=== PATIENT | female | born 1965 | race Caucasian/White ===

== ENCOUNTER 2016-10-07 21:02 | Emergency (ER) | payer MEDICARE, MEDICAID ==
--- NOTE | 2016-10-07 22:13 | ER Document Report ---
ED General - General Chief Complaint: Psych Problem Stated Complaint: PSYCH EVALUATION Mode of Arrival: Medic Information source: Patient, Emergency Med Personnel, [facility] Records Notes: This is a 51-year-old female resident of a half-way who is brought to the emergency department after having a violent and combative outburst with the nurses and staff at the half-way. The patient tells me that the argument was about her medication. Of note chart review reveals that patient has been seen and evaluated multiple times over the past few years for similar outburst. EMS did administer 5 mg of Haldol IM as well as soft restraints. On arrival to the ER patient is calm and conversant. She denies any complaints at this time. TRAVEL OUTSIDE OF THE [place] IN LAST 30 DAYS: No - Related Data Allergies/Adverse Reactions: tramadol [Tramadol] Allergy (Verified 10/21/14 17:46) Nausea adhesive tape [Adhesive Tape] Adverse Reaction (Verified 10/21/14 17:46) peels skin off Past Medical History - General Information source: [facility] Records - Social History Smoking Status: Never Smoker Family History: None - Past Medical History Cardiac Medical History: Reports: Hx Hypercholesterolemia, Hx Hypertension - medicated Denies: Hx Heart Attack, Hx Heart Murmur Pulmonary Medical History: Denies: Hx Asthma, Hx Tuberculosis Neurological Medical History: Denies: Hx Cerebrovascular Accident, Hx Seizures Endocrine Medical History: Reports: Hx Diabetes Mellitus Type 2 GI Medical History: Reports: Hx Gastroesophageal Reflux Disease. Denies: Hx Hepatitis, Hx Hiatal Hernia, Hx Ulcer Musculoskeltal Medical History: Reports Hx Arthritis Psychiatric Medical History: Reports: Hx Anxiety, Hx Depression - Anxiety Infectious Medical History: Denies: Hx Hepatitis, Hx HIV Past Surgical History: Reports: Hx Section, Hx Orthopedic Surgery - R Hip, Hx Tonsillectomy. Denies: Hx Hysterectomy, Hx Mastectomy, Hx Open Heart Surgery, Hx Pacemaker - Immunizations Hx Diphtheria, Pertussis, Tetanus Vaccination: Yes - unknown Hx Pneumococcal Vaccination: 05/12/12 Review of Systems - Review of Systems Constitutional: No symptoms reported. denies: Fever EENT: denies: Nose congestion Cardiovascular: No symptoms reported. denies: Chest pain Respiratory: No symptoms reported. denies: Short of breath Gastrointestinal: No symptoms reported. denies: Abdominal pain Genitourinary: denies: No symptoms reported Skin: denies: No symptoms reported Physical Exam - Vital signs Vitals: Temp Pulse Resp BP Pulse Ox 97.7 F 123 H 18 110/81 96 10/07/16 22:00 10/07/16 22:00 10/07/16 22:00 10/07/16 22:00 10/07/16 22:00 - Notes Notes: PHYSICAL EXAMINATION: GENERAL: Well-appearing, well-nourished and in no acute distress. Somewhat tearful when discussing events at the [facility] HEAD: Atraumatic, normocephalic. EYES: Pupils equal round and reactive to light, extraocular movements intact, sclera anicteric, conjunctiva are normal. ENT: nares patent, oropharynx clear without exudates. Moist mucous membranes. NECK: Normal range of motion, supple without lymphadenopathy LUNGS: Breath sounds clear to auscultation bilaterally and equal. No wheezes rales or rhonchi. HEART: Regular rate and rhythm without murmurs ABDOMEN: Soft, nontender, normoactive bowel sounds. There is a ventral incisional hernia, soft and nontender. No guarding, no rebound. EXTREMITIES: Normal range of motion, no pitting or edema. No cyanosis. NEUROLOGICAL: Alert and oriented to person place and time. No focal motor or sensory deficits appreciated PSYCH: Normal mood, somewhat anxious affect SKIN: Warm, Dry, normal turgor, no rashes or lesions noted. Course - Re-evaluation Re-evalutation: 10/08/16 00:36 Patient has remained calm and cooperative during her stay in the emergency department. 10/08/16 01:29 Labs demonstrate leukocytosis and hyperglycemia. Chart review demonstrates that in the past when she has had these outbursts several times she has had a urinary tract infection. Today her urinalysis demonstrates signs of possibly an early UTI. We will treat with a short course of antibiotics and follow-up primary care physician. Patient is very agreeable to returning to the [facility]. She is feeling better and is not agitated. At this time I see no clinical indication for involuntary commitment. - Vital Signs Vital signs: Temp Pulse Resp BP Pulse Ox 97.7 F 123 H 18 110/81 96 10/07/16 22:00 10/07/16 22:00 10/07/16 22:00 10/07/16 22:00 10/07/16 22:00 - Laboratory Result Diagrams: 10/07/16 22:05 10/07/16 22:05 Laboratory results interpreted by me: 10/07/16 10/07/16 10/08/16 22:05 22:05 00:35 WBC 15.7 H Plt Count 147 L Seg Neutrophils % 80.3 H Lymphocytes % 11.2 L Absolute Neutrophils 12.6 H Sodium 136.3 L Glucose 187 H Ur Leukocyte Esterase TRACE H Salicylates < 1.0 L Acetaminophen < 10 L Discharge - Discharge Clinical Impression: Behavior disturbance Urinary tract infection Qualifiers: Urinary tract infection type: site unspecified Hematuria presence: without hematuria Qualified Code(s): N39.0 - Urinary tract infection, site not specified Condition: Stable Disposition: [facility] Additional Instructions: URINARY TRACT INFECTION: Your evaluation indicates that you have a urinary tract infection. This is due to germs growing in the bladder. This is a common problem. This infection usually responds quickly to antibiotics. Your antibiotic should be taken exactly as prescribed. Drink plenty of fluids -- three to four quarts a day. Occasionally, a bladder anesthetic will be prescribed to help stop the feeling of urgency until the antibiotic has a chance to clear the infection. This may cause your urine to be dark orange. Certain urine infections require a culture. If the doctor obtained a culture, the results will be back in two days. You should call to see if a change in treatment is needed. A repeat urinalysis after you finish treatment is often recommended. The physician will let you know if further testing is required. Call the doctor if you develop fever, chills, flank pain, inability to urinate, or blood in the urine. ANTIBIOTIC THERAPY: You have been given an antibiotic prescription. It's important that you take all the medication, unless instructed otherwise by your physician. Failure to complete the entire course can result in relapse of your condition. Common side effects of antibiotics include nausea, intestinal cramping, or diarrhea. Women may develop vaginal yeast infections, and babies can get yeast (thrush) in the mouth following the use of antibiotics. Contact your physician if you develop significant side effects from this medication. Allergy to this antibiotic can result in hives, wheezing, faintness, or itching. If symptoms of allergy occur, stop the medication and call the doctor. TRIMETHOPRIM-SULFA: You have been given a prescription for trimethoprim-sulfa (TMS, Septra, Bactrim). This is a combination antibiotic of the sulfa class, often used for urinary tract infections, middle ear infections, bronchitis, shigella intestinal infection, and Pneumocystis pneumonia. TMS is usually well-tolerated. Occasional side effects include nausea and decreased appetite. Septra is not recommended for infants less than two months of age. Do not take this medication if you have experienced severe side effects or allergy to sulfa medicine. You should stop this medicine at once and contact your physician if you develop any rash, joint pain, shortness of breath, bruising, or jaundice ( yellow color in the skin), or if you develop any other new or unusual symptoms. FOLLOW-UP CARE: If you have been referred to a physician for follow-up care, call the physician s office for an appointment as you were instructed or within the next two days. If you experience worsening or a significant change in your symptoms, notify the physician immediately or return to the Emergency Department at any time for re-evaluation. Prescriptions: Sulfamethoxazole/Trimethoprim [Bactrim Ds Tablet] 1 each PO BID #10 tablet
[2016-10-07 22:58] LABS: ABSOLUTE LYMPHOCYTES (AUTO) 1.8 10^3/uL (0.5-4.7); ABSOLUTE MONOCYTES (AUTO) 1.3 10^3/uL (0.1-1.4); ABSOLUTE NEUT (AUTO) 12.6 10^3/uL (1.7-8.2); BASOPHILS % (AUTO) 0.1 % (0-2); EOSINOPHILS % (AUTO) 0.3 % (0-6); HEMATOCRIT 44.3 % (36.0-47.0); HEMOGLOBIN 14.8 g/dL (12.0-15.5); HGB HCT DIFFERENCE 0.1; LYMPHOCYTES % (AUTO) 11.2 % (13-45); MEAN CORPUSCULAR HEMOGLOBIN 28.2 pg (27.0-33.4); MEAN CORPUSCULAR HGB CONC 33.5 g/dL (32.0-36.0); MEAN CORPUSCULAR VOLUME 84 fl (80-97); MONOCYTES % (AUTO) 8.1 % (3-13); RED BLOOD COUNT 5.26 10^6/uL (3.72-5.28); RED CELL DISTRIBUTION WIDTH 13.6 % (11.5-14.0); SEGMENTED NEUTROPHILS % (AUTO) 80.3 % (42-78); WHITE BLOOD COUNT 15.7 10^3/uL (4.0-10.5)
[2016-10-07 23:17] LABS: ALANINE AMINOTRANSFERASE 30 U/L (9-52); ALBUMIN 4.4 g/dL (3.5-5.0); ALKALINE PHOSPHATASE 122 U/L (38-126); ANION GAP 14 (5-19); ASPARTATE AMINO TRANSFERASE 26 U/L (14-36); BILIRUBIN,TOTAL 0.7 mg/dL (0.2-1.3); BLOOD UREA NITROGEN 9 mg/dL (7-20); CALCIUM 9.9 mg/dL (8.4-10.2); CARBON DIOXIDE 23 mmol/L (22-30); CHLORIDE 99 mmol/L (98-107); CREATININE RESULT 0.79 mg/dL (0.52-1.25); GLUCOSE 187 mg/dL (75-110); POTASSIUM 3.6 mmol/L (3.6-5.0); SODIUM 136.3 mmol/L (137-145); TOTAL PROTEIN 6.6 g/dL (6.3-8.2)
[2016-10-07 23:18] LABS: ALCOHOL < 10 mg/dL (NONE DETECTED)
[2016-10-08 01:14] LABS: URINE BARBITURATES SCREEN NEGATIVE; URINE METHADONE SCREEN NEGATIVE; URINE OPIATES LOW NEGATIVE; URINE PHENCYCLIDINE SCREEN NEGATIVE
[2016-10-08 01:21] LABS: APPEARANCE,URINE SLIGHTLY-CLOUDY; BILIRUBIN,URINE NEGATIVE (NEGATIVE); GLUCOSE, URINE NEGATIVE (NEGATIVE); KETONES,URINE NEGATIVE (NEGATIVE); LEUKOCYTE ESTERASE,URINE TRACE (NEGATIVE); NITRITE,URINE NEGATIVE (NEGATIVE); PROTEIN,URINE NEGATIVE (NEGATIVE); URINE SPECIFIC GRAVITY 1.016; UROBILINOGEN,URINE NEGATIVE mg/dL (<2.0)
[2016-10-08] MEDS ORDERED: SULFAMETHOXAZOLE/TRIMETHOPRIM 800-160 MG TABLET PO ONE (01:34)
[2016-10-08 03:45] VITALS: BP 111/77
--- NOTE | 2016-10-08 08:07 | EKG REPORT ---
SEVERITY:- BORDERLINE ECG - SINUS TACHYCARDIA BORDERLINE T ABNORMALITIES, ANTERIOR LEADS : Confirmed by: Taiwo Correa MD 08-Oct-2016 08:06:55
== END 2016-10-08 03:30 ==
LOC: ER 21:02
DX: F91.9 Conduct disorder, unspecified (principal); N39.0 Urinary tract infection, site not specified; R45.6 Violent behavior; I10 Essential (primary) hypertension; E11.65 Type 2 diabetes mellitus with hyperglycemia; D72.829 Elevated white blood cell count, unspecified; Z88.5 Allergy status to narcotic agent
CPT/HCPCS: 93005; 99285; 36415; 80307 ×4; 85025; 80053; 81001; 93010; A9270

== ENCOUNTER 2016-10-11 21:31 | Emergency (ER) | payer MEDICARE, MEDICAID ==
[2016-10-11] MEDS ORDERED: LIDOCAINE 1%/EPINEPHRINE INJ 20 ML VIAL INJ ONE (22:21)
--- NOTE | 2016-10-11 23:08 | ER Document Report ---
ED General - General TRAVEL OUTSIDE OF THE [place] IN LAST 30 DAYS: No <CRUZ HILL - Last Filed: 10/12/16 08:03> <CELESTE JIMENEZ - Last Filed: 10/13/16 11:53> - General Chief Complaint: Psych Problem Stated Complaint: PSYCH EVALUATION Notes: Patient is a 51-year-old female presents with complaint of suicidal ideations and wrist behavior. She says the longterm. She had to receive 5 of Haldol and 2 Versed IM as well as Benadryl 25 IM from the paramedics. Patient admits that she broke a jewelry box and cut her leg with this. She has a 4 inch laceration over the her right knee. Not to me why she did this. She will not tell me why she got upset. She does have a previous history of similar episodes in the past. (CRUZ HILL) - Related Data Allergies/Adverse Reactions: tramadol [Tramadol] Allergy (Verified 10/21/14 17:46) Nausea adhesive tape [Adhesive Tape] Adverse Reaction (Verified 10/21/14 17:46) peels skin off Home Medications: Current Home Medications Dextrose 50 % in Water [Dextrose 50%-Water Syringe] 50 ml IV .ASDIR 10/12/16 [ History] Glucagon,Human Recombinant [Glucagon Emergency Kit] 1 mg IM .ASDIR 10/12/16 [ History] Insulin Aspart [Novolog Insulin (Aspart) 100 unit/mL] 0 units SQ .PERSLIDINGSCALE 10/12/16 [History] Insulin Glargine,Hum.rec.anlog [Lantus] 30 units SQ QHS 10/12/16 [History] Melatonin 3 mg PO QHS 10/12/16 [History] Quetiapine Fumarate [Seroquel] 50 mg PO BID@0800,2200 10/12/16 [History] Sertraline HCl [Zoloft] 100 mg PO DAILY 10/12/16 [History] Past Medical History - Social History Smoking Status: Unknown if Ever Smoked Frequency of alcohol use: None Drug Abuse: None Family History: None - Past Medical History Cardiac Medical History: Reports: Hx Hypercholesterolemia, Hx Hypertension - medicated Denies: Hx Heart Attack, Hx Heart Murmur Pulmonary Medical History: Denies: Hx Asthma, Hx Tuberculosis Neurological Medical History: Denies: Hx Cerebrovascular Accident, Hx Seizures Endocrine Medical History: Reports: Hx Diabetes Mellitus Type 2 GI Medical History: Reports: Hx Gastroesophageal Reflux Disease. Denies: Hx Hepatitis, Hx Hiatal Hernia, Hx Ulcer Musculoskeltal Medical History: Reports Hx Arthritis Psychiatric Medical History: Reports: Hx Anxiety, Hx Depression - Anxiety Infectious Medical History: Denies: Hx Hepatitis, Hx HIV Past Surgical History: Reports: Hx Section, Hx Orthopedic Surgery - R Hip, Hx Tonsillectomy. Denies: Hx Hysterectomy, Hx Mastectomy, Hx Open Heart Surgery, Hx Pacemaker - Immunizations Hx Diphtheria, Pertussis, Tetanus Vaccination: Yes - unknown Hx Pneumococcal Vaccination: 05/12/12 <CRUZ HILL - Last Filed: 10/12/16 08:03> Review of Systems <CRUZ HILL - Last Filed: 10/12/16 08:03> <CELESTE JIMENEZ - Last Filed: 10/13/16 11:53> - Review of Systems Notes: My Normal Review Basic REVIEW OF SYSTEMS: CONSTITUTIONAL : Denies fever, chills, or sweats. Denies recent illness. EENT: Denies eye, ear, throat, or mouth pain or symptoms. Denies nasal or sinus congestion. CARDIOVASCULAR: Denies chest pain. RESPIRATORY: Denies cough, cold, or chest congestion. Denies shortness of breath, difficulty breathing, or wheezing. GASTROINTESTINAL: Denies abdominal pain. Denies nausea, vomiting, or diarrhea. Denies constipation. Last BM: MUSCULOSKELETAL: Denies neck or back pain or joint pain or swelling. SKIN: Denies rash or skin lesions. NEUROLOGICAL: Denies altered mental status or loss of consciousness. Denies headache. Denies weakness or paralysis or loss of use of either side. Denies problems with gait or speech. Denies sensory or motor loss. PSYCHIATRIC: Suicidal ALL OTHER SYSTEMS REVIEWED AND NEGATIVE. (CRUZ HILL) Physical Exam <CRUZ HILL - Last Filed: 10/12/16 08:03> <CELESTE JIMENEZ - Last Filed: 10/13/16 11:53> - Vital signs Vitals: Temp Pulse Resp BP Pulse Ox 97.6 F 113 H 18 105/69 98 10/12/16 02:11 10/12/16 02:11 10/12/16 02:11 10/12/16 02:11 10/12/16 02:11 - Notes Notes: General Appearance: Well nourished, alert, cooperative, no acute distress, no obvious discomfort. Vitals: reviewed, See vital signs table. Head: Multiple self-induced scratches over her face. Eyes: PERRL, EOMI, Conjuctiva clear Mouth: No decreasd moisture Throat: No tonsillar inflammation, No airway obstruction, No lymphadenopathy Neck: Supple, no neck tenderness, No thyromegaly Lungs: No wheezing, No rales, No rhonci, No accessory muscle use, good air exchange bilaterally. Heart: Normal rate, Regular rythm, No murmur, no rub Abdomen: Normal BS, soft, No rigidity, No abdominal tenderness, No guarding, no rebound, no abdominal masses, no organomegaly Extremities: strength 5/5 in all extremities, good pulses in all extremities, laceration over the anterior right knee . No edema. Skin: warm, dry, appropriate color, no rash Neuro: speech clear, oriented x 3, normal affect, responds appropriately to questions. (CRUZ HILL) Course - Laboratory Result Diagrams: 10/12/16 00:52 10/12/16 00:52 <CRUZ HILL - Last Filed: 10/12/16 08:03> - Laboratory Result Diagrams: 10/12/16 00:52 10/12/16 00:52 <CELESTE JIMENEZ - Last Filed: 10/13/16 11:53> - Vital Signs Vital signs: Temp Pulse Resp BP Pulse Ox 98.4 F 77 20 118/77 99 10/13/16 06:32 10/13/16 06:32 10/13/16 06:32 10/13/16 06:32 10/13/16 06:32 - Laboratory Laboratory results interpreted by me: 10/12/16 10/12/16 10/12/16 00:52 00:52 06:47 WBC 16.1 H Seg Neutrophils % 83.7 H Lymphocytes % 9.4 L Absolute Neutrophils 13.5 H Sodium 136.6 L Carbon Dioxide 21 L BUN 6 L Glucose 127 H POC Glucose 127 H Urine Ketones Salicylates < 1.0 L Acetaminophen < 10 L 10/12/16 10/12/16 10/12/16 07:20 11:25 16:15 WBC Seg Neutrophils % Lymphocytes % Absolute Neutrophils Sodium Carbon Dioxide BUN Glucose POC Glucose 178 H 365 H Urine Ketones TRACE H Salicylates Acetaminophen 10/13/16 10/13/16 07:26 11:00 WBC Seg Neutrophils % Lymphocytes % Absolute Neutrophils Sodium Carbon Dioxide BUN Glucose POC Glucose 118 H 275 H Urine Ketones Salicylates Acetaminophen - EKG Interpretation by Me Additional EKG results interpreted by me: 10/12/16 01:04 EKG is reviewed and interpreted by me. EKG shows sinus tachycardia with a rate of [address] segment elevation or depression. No ischemic T wave inversions. FL level, QRS duration are within normal range. QTc all slightly prolonged. Old EKG for comparison is from 10/07/2016. (CRUZ HILL) - Transfer of Care Notes: 10/12/16 08:03 Patient is medically stable for psychiatric evaluation and placement due to her suicidal ideations and attempt at hurting herself by stabbing herself in the thigh. Dictation of this chart was performed using voice recognition software; therefore, there may be some unintended grammatical errors. (CRUZ HILL) Procedures - Laceration/Wound Repair Right Thigh Wound length (cm): 10 Wound's Depth, Shape: Linear Anesthetic type: 1% Lidocaine w/epi Volume Anesthetic (mLs): 5 Wound explored: Clean Irrigated w/ Saline (mLs): 80 Wound Repaired With: Sutures Suture Size/Type: 4:0, Ethilon Number of Sutures: 8 Post-procedure NV exam normal: Yes Complications: No <CRUZ HILL - Last Filed: 10/12/16 08:03> Discharge <CRUZ HILL - Last Filed: 10/12/16 08:03> <CELESTE JIMENEZ - Last Filed: 10/13/16 11:53> - Discharge Clinical Impression: Suicidal ideation Laceration of right thigh Qualifiers: Encounter type: initial encounter Qualified Code(s): S71.111A - Laceration without foreign body, right thigh, initial encounter Condition: Stable Disposition: HOME, SELF-CARE Additional Instructions: LACERATION CARE: Your laceration has been sutured to keep the skin edges aligned during healing. The time of suture removal depends on the nature and location of your cut. Please follow the care instructions the doctor has outlined for you and return for further care, according to the schedule you've been given. Keep the wound and dressing clean. Unless you were told otherwise, you may shower daily, blotting the wound dry with a clean, unused towel. At other times, If the dressing gets wet or blood soaked, remove it and blot the wound dry, then reapply a new dressing. Unless you were instructed otherwise, dressings should be changed at least daily. If any signs of infection occur (swelling, redness, drainage, increasing tenderness, red streaks, tender lumps in the armpit or groin above the laceration, or fever), see the doctor immediately. SOAP CLEANSING: Gently wash the wound daily using a mild soap (like Ivory, Phisoderm, Neutrogena). Use warm water, rubbing gently until all debris, ooze, and crusting have been washed from the wound. Allow to dry briefly (about 10 minutes) after cleaning. Repeat this cleansing at least three times a day for the first two days and then once or twice a day. ANTIBIOTIC OINTMENT PROTECTION: Your wounds are such that dressing them is not practical or optional. After cleansing, you should apply a thin coating of antibiotic ointment ( Bacitracin, not Neosporin) to the wounds at least three times daily. This lessens infection risk, and may decrease the amount of scarring. Use a q-tip or dull butter knife, not your finger, to apply this ointment. Any debris or ooze which builds up in the ointment should be gently rubbed off with a sterile gauze pad. Harder crusting may need to be gently scrubbed off with a clean wash cloth with soap and warm water, perhaps applying a warm, wet wash cloth to the wound for ten minutes first. Development of redness, severe itching, or blistering may mean allergy to the ointment. See the doctor. FOLLOW-UP CARE: Your sutures should be removed in 7 days. To facilitate a timely removal of your sutures, you may return to the Emergency Department at [facility]. You do not need to call for an appointment, but the best time to come in for suture removal is early in the morning. If you have been referred to another physician for follow-up care, call that physicians office for an appointment as you were instructed. If you experience a significant change in your laceration, or if you are concerned there may be an infection (swelling, redness, drainage, increasing tenderness, red streaks, tender lumps in the armpit or groin above the laceration, or fever) , return to the Emergency Department immediately re-evaluation. DEPRESSION: Your evaluation reveals that you have mental depression. While symptoms may be vague, they often include disturbance of sleep, fatigue, loss of appetite , and general loss of interest in life. While depression may be a side effect of drugs, or a reaction to a major change in your life, many cases have no known cause. If depression is acute, and related to a major loss in your life, you can expect it to clear completely with time. If you have been depressed a long time , are prone to repeated bouts of depression or low mood, or have been thinking of suicide, get help. Depression can be treated with anti-depressant medication and counselling. Long-term depression will often take a few weeks to clear, even with appropriate medication. Follow-up care is important. SUICIDAL IDEATION: Suicidal ideation is a common medical term for thoughts about suicide, which may be as detailed as a formulated plan, without the suicidal act itself. Although most people who undergo suicidal ideation do not commit suicide, some go on to make suicide attempts. The range of suicidal ideation varies greatly from fleeting to detailed planning, role playing, and unsuccessful attempts. While thoughts about suicide are common, most people do not carry out serious actions to commit suicide. Based upon your evaluation and discussion with you, we do not believe you are currently at risk to act upon your thoughts of suicide. You have agreed to return to the Emergency Department, at any time , if you feel inclined to act upon your suicidal thoughts. FOLLOW-UP CARE: If you have been referred to a physician for follow-up care, call the physician s office for an appointment as you were instructed or within the next two days. If you experience worsening or a significant change in your symptoms, notify the physician immediately or return to the Emergency Department at any time for re-evaluation. You should be followed up by a mental health provider at your living facility, [facility]. Prescriptions: Buspirone HCl [Buspar 10 mg Tablet] 10 mg PO QHS #5 tablet Levetiracetam [Keppra 500 mg Tablet] 500 mg PO BID #10 tablet
[2016-10-11] MEDS ORDERED: LIDOCAINE 1.5%/EPINEPHRINE INJ-PF 30 ML SDV ONE (23:40)
[2016-10-11] MEDS ORDERED: LIDOCAINE 1%/EPINEPHRINE INJ 20 ML VIAL ONE (23:41)
[2016-10-12 01:02] LABS: ABSOLUTE LYMPHOCYTES (AUTO) 1.5 10^3/uL (0.5-4.7); ABSOLUTE MONOCYTES (AUTO) 1.1 10^3/uL (0.1-1.4); ABSOLUTE NEUT (AUTO) 13.5 10^3/uL (1.7-8.2); BASOPHILS % (AUTO) 0.1 % (0-2); EOSINOPHILS % (AUTO) 0.2 % (0-6); LYMPHOCYTES % (AUTO) 9.4 % (13-45); MEAN CORPUSCULAR HEMOGLOBIN 27.8 pg (27.0-33.4); MEAN CORPUSCULAR HGB CONC 33.3 g/dL (32.0-36.0); MEAN CORPUSCULAR VOLUME 84 fl (80-97); MONOCYTES % (AUTO) 6.6 % (3-13); RED BLOOD COUNT 5.03 10^6/uL (3.72-5.28); RED CELL DISTRIBUTION WIDTH 13.4 % (11.5-14.0); SEGMENTED NEUTROPHILS % (AUTO) 83.7 % (42-78); WHITE BLOOD COUNT 16.1 10^3/uL (4.0-10.5)
[2016-10-12 01:50] LABS: ALANINE AMINOTRANSFERASE 42 U/L (9-52); ALBUMIN 4.1 g/dL (3.5-5.0); ALKALINE PHOSPHATASE 124 U/L (38-126); ANION GAP 15 (5-19); ASPARTATE AMINO TRANSFERASE 29 U/L (14-36); BILIRUBIN,TOTAL 0.6 mg/dL (0.2-1.3); BLOOD UREA NITROGEN 6 mg/dL (7-20); CALCIUM 9.6 mg/dL (8.4-10.2); CARBON DIOXIDE 21 mmol/L (22-30); CHLORIDE 101 mmol/L (98-107); CREATININE RESULT 0.97 mg/dL (0.52-1.25); GLUCOSE 127 mg/dL (75-110); POTASSIUM 3.8 mmol/L (3.6-5.0); SODIUM 136.6 mmol/L (137-145); TOTAL PROTEIN 6.3 g/dL (6.3-8.2)
[2016-10-12 01:53] LABS: ALCOHOL < 10 mg/dL (NONE DETECTED)
[2016-10-12] MEDS ORDERED: DIPHENHYDRAMINE HCL 25 MG CAPSULE PO ONE (03:43)
[2016-10-12 07:52] LABS: APPEARANCE,URINE CLEAR; BILIRUBIN,URINE NEGATIVE (NEGATIVE); GLUCOSE, URINE NEGATIVE (NEGATIVE); KETONES,URINE TRACE mg/dL (NEGATIVE); LEUKOCYTE ESTERASE,URINE NEGATIVE (NEGATIVE); NITRITE,URINE NEGATIVE (NEGATIVE); PROTEIN,URINE NEGATIVE (NEGATIVE); URINE SPECIFIC GRAVITY 1.011; UROBILINOGEN,URINE NEGATIVE mg/dL (<2.0)
[2016-10-12 08:06] LABS: URINE BARBITURATES SCREEN NEGATIVE; URINE METHADONE SCREEN NEGATIVE; URINE OPIATES LOW NEGATIVE; URINE PHENCYCLIDINE SCREEN NEGATIVE
--- NOTE | 2016-10-12 09:17 | EKG REPORT ---
SEVERITY:- ABNORMAL ECG - SINUS TACHYCARDIA LEFT ATRIAL ABNORMALITY : Confirmed by: Taiwo Correa MD 12-Oct-2016 09:17:09
[2016-10-12] MEDS ORDERED: ACETAMINOPHEN 325 MG TABLET PO PRN (09:33)
--- NOTE | 2016-10-12 09:34 | ER Document Report ---
Doctor's Note Notes: 10/12/16 09:34 Patient seen and only complaining that she is feeling warm. No fever. No signs of infection of her wounds. Provided Tylenol for discomfort. Awaiting psych recommendations.
[2016-10-12] MEDS ORDERED: DEXTROSE 50%-WATER SYRINGE 25 GM/50 ML DOSE IV PRN (09:35)
[2016-10-12] MEDS ORDERED: DEXTROSE 40% GEL 15 GM TUBE X 2 PO PRN (09:35)
[2016-10-12] MEDS ORDERED: GLUCAGON,HUMAN RECOMB 1 MG INJ IM PRN (09:35)
[2016-10-12] MEDS ORDERED: DEXTROSE 50%-WATER SYRINGE 12.5 GM/25 ML DOSE IV PRN (09:35)
[2016-10-12] MEDS ORDERED: DEXTROSE 40% GEL 15 GM TUBE PO PRN (09:35)
[2016-10-12] MEDS ORDERED: QUETIAPINE FUMARATE 25 MG TABLET PO SCH (10:00)
[2016-10-12] MEDS ORDERED: BUSPIRONE HCL 10 MG TABLET PO ONE (11:23)
[2016-10-12] MEDS: INSULIN LISPRO 100 UNIT/ML 3 ML VIAL SUBCUT PRN ×2 (11:36→16:21)
--- NOTE | 2016-10-12 14:33 | PSYCHOLOGICAL NOTE ---
Psych Note - Psych Note Psych Note: Patient is a 51-year-old female presents with complaint of suicidal ideations and self harm behavior. She lives in a [facility]pc. Patient admits that she broke a jewelry box and cut her leg with this. She has a 4 inch laceration over the her right knee. Patient disclosed that she became very upset yesterday because she is 51 years old and is living in a fpc surrounded by "old people." She continues state that it was her birthday yesterday (clinician notes patient's birthdate is 1965) and he became just so depressing sitting around. She states all she can do is watch TV. Patient states she no longer has thoughts of hurting herself or killing herself. Patient is alert and orientated to person place and circumstance clinician notes patient not orientated to time stating yesterday was her birthday and patient's birthday was last month the . Mood is euthymic with congruent affect. Patient denies suicidal ideation; clinician notes patient has significant bruising throughout her body, multiples scratches on her face, and a laceration on her inner right thigh that required stitches all self- inflicted. Patient denies homicidal ideation. Patient denies auditory and visual hallucinations; no delusions are noted. Thought process is organized and linear. Conversational speech was within normal rate tone and prosody. Eye contact was well maintained. Intellectual abilities appear to be within average range. Attention and concentration are good. Insight, judgment, impulse control are poor. 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 Impression\\plan: She is recommended for IVC. Patient has multiple self- inflicted injuries to include bruising scratches on her face and a laceration on the inner thigh. Patient states that she did this because she was depressed "take it anymore." Patient is demonstrating for insight and judgment impulse control is a danger to herself. Patient will be reevaluated. Dr. Wiggins was consulted on care and management of this patient; attending physician is in agreement with recommendations and disposition.
[2016-10-12] MEDS ORDERED: INSULIN GLARGINE,HUM.REC.ANLOG 1,000 UNIT/10 ML UNIT SUBCUT SCH ×2 (18:00)
[2016-10-12] MEDS ORDERED: SERTRALINE HCL 50 MG TABLET PO SCH (18:00)
[2016-10-12] MEDS ORDERED: TRAZODONE HCL 50 MG TABLET PO ONE (21:57)
[2016-10-12] MEDS ORDERED: BUSPIRONE HCL 10 MG TABLET PO SCH (22:00)
[2016-10-12] MEDS: LEVETIRACETAM 500 MG TABLET PO SCH (22:00)
--- NOTE | 2016-10-13 09:57 | ER Document Report ---
Doctor's Note Notes: 10/13/16 09:55 Rounds: Chart reviewed and patient interviewed. Patient denies feeling suicidal at this time. She has superficial scratches of her face, none requiring sutures. Her laceration of her right thigh has been sutured and it appears clean and without evidence of infection this morning. Vital signs are all normal. Lab studies show a white count of 16,100 with 84% segs. Patient has no symptoms or signs of infection. She has no UTI symptoms. Urinalysis is normal. Patient appears to be medically stable for transfer or discharge. Dewayne Benitez M.D.
[2016-10-13] MEDS: LEVETIRACETAM 500 MG TABLET PO SCH (10:25)
[2016-10-13] MEDS: INSULIN LISPRO 100 UNIT/ML 3 ML VIAL SUBCUT PRN (11:08)
--- NOTE | 2016-10-13 11:45 | PSYCHOLOGICAL NOTE ---
Psych Note - Psych Note Psych Note: Patient is a 51-year-old female presents with complaint of suicidal ideations and self harm behavior. She lives in a [place] [facility]. Patient admits that she broke a jewelry box and cut her leg with this. She has a 4 inch laceration over the her right knee. Patient disclosed that she is feeling much better; clinician notes patient is observed smiling and sitting up to talk and engage with clinician. Patient states that she feels go home to [place]. She denies suicidal or homicidal thoughts, or thoughts of self harm. Patient disclosed that she just wanted help for her depression and feels it has been addressed now. 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 Impression\plan: Patient is recommended for rescind of IVC is considered psychiatrically cleared for discharge. Patient denies suicidal and homicidal thoughts. Patient has demonstrated appropriate behavior throughout the entire stay in the ED. Patient no longer meets criteria for IVC per [place] GS 122C. Patient is observed smiling and interacting with staff. Patient lives in a [place] [facility] and receives higher-level care, outpatient resources are not needed. Patient is psychiatrically cleared for discharge. Dr. Wiggins was consulted care and management of this patient; attending physician is in agreement with recommendations and disposition.
[2016-10-13 13:08] VITALS: BP 116/74
== END 2016-10-13 12:30 | disposition home or self-care (01) ==
LOC: ER 21:31
PROC: 0HQHXZZ Repair Right Upper Leg Skin, External Approach (ICD-10-PCS; principal; 2016-10-11)
DX: S71.111A Laceration without foreign body, right thigh, initial encounter (principal); X78.8XXA Intentional self-harm by other sharp object, initial encounter; R00.0 Tachycardia, unspecified; F32.9 Major depressive disorder, single episode, unspecified; I10 Essential (primary) hypertension; E11.9 Type 2 diabetes mellitus without complications; Z88.5 Allergy status to narcotic agent
CPT/HCPCS: 12004; 93005; 99285; 51701; 36415; 82962; 80307 ×4; 85025; 80053; 81001; 70450; 93010; A9270 ×2; J1815

== ENCOUNTER 2017-05-27 01:17 | Inpatient (IN) | payer MEDICARE, MEDICAID ==
--- NOTE | 2017-05-27 02:00 | ER Document Report ---
ED General - General Chief Complaint: Nausea/Vomiting Stated Complaint: ABDOMINAL PAIN Time Seen by Provider: 05/27/17 01:50 Notes: Patient is a 51-year-old female presents via EMS with chief complaint of vomiting 1 from [facility]. At the bedside. Patient denies any pain , nausea. She is alert but oriented only to name. Not able to state where she is, events that led her to the emergency room. Past medical history is significant for vascular dementia, history of GERD, chronic alcoholism, history of GI bleed, history of diabetes, depression, anxiety, bipolar TRAVEL OUTSIDE OF THE [place] IN LAST 30 DAYS: No - Related Data Allergies/Adverse Reactions: tramadol [Tramadol] Allergy (Verified 10/21/14 17:46) Nausea adhesive tape [Adhesive Tape] Adverse Reaction (Verified 10/21/14 17:46) peels skin off Past Medical History - Social History Smoking Status: Smoker,Current Status Unk Family History: None - Past Medical History Cardiac Medical History: Reports: Hx Hypercholesterolemia, Hx Hypertension - medicated Denies: Hx Heart Attack, Hx Heart Murmur Pulmonary Medical History: Denies: Hx Asthma, Hx Tuberculosis Neurological Medical History: Denies: Hx Cerebrovascular Accident, Hx Seizures Endocrine Medical History: Reports: Hx Diabetes Mellitus Type 2 GI Medical History: Reports: Hx Gastroesophageal Reflux Disease. Denies: Hx Hepatitis, Hx Hiatal Hernia, Hx Pancreatitis, Hx Ulcer Musculoskeltal Medical History: Reports Hx Arthritis Psychiatric Medical History: Reports: Hx Anxiety, Hx Depression - Anxiety Infectious Medical History: Denies: Hx Hepatitis, Hx HIV Past Surgical History: Reports: Hx Section, Hx Orthopedic Surgery - R Hip, Hx Tonsillectomy. Denies: Hx Hysterectomy, Hx Mastectomy, Hx Open Heart Surgery, Hx Pacemaker - Immunizations Hx Diphtheria, Pertussis, Tetanus Vaccination: Yes - unknown Hx Pneumococcal Vaccination: 05/12/12 Review of Systems - Review of Systems -: Yes ROS unobtainable due to patient's medical condition Physical Exam - Vital signs Vitals: Temp Pulse Resp BP Pulse Ox 97.9 F 68 16 136/90 H 99 05/27/17 01:46 05/27/17 01:46 05/27/17 01:46 05/27/17 01:46 05/27/17 01:46 - Notes Notes: PHYSICAL EXAM GENERAL: Alert, interacts well. HEAD: Normocephalic, atraumatic. EYES: Pupils equal, round, and reactive to light. Extraocular movements intact. ENT: Oral mucosa moist, tongue midline. NECK: Full range of motion. Supple. Trachea midline. LUNGS: Clear to auscultation bilaterally, no wheezes, rales, or rhonchi. No respiratory distress. HEART: Regular rate and rhythm. No murmurs, gallops, or rubs. ABDOMEN: Soft, nondistended, nontender. Evidence of abdominal wall hernia that is reducible, nontender with positive bowel sounds. No guarding, rebound, or rigidity.. Bowel sounds present in all 4 quadrants. EXTREMITIES: Moves all 4 extremities spontaneously. No edema, radial and dorsalis pedis pulses 2/4 bilaterally. No cyanosis. NEUROLOGICAL: Alert and oriented to name only.. Normal speech. PSYCH: Normal affect, normal mood. SKIN: Warm, dry, normal turgor. No rashes or lesions noted. Course - Re-evaluation Re-evalutation: 05/27/17 04:07 Patient is a 51-year-old female who is hemodynamically stable, no acute distress afebrile. Given patient not able to articulate bring through the emergency department and no evidence of emesis or abdominal findings on exam basic blood work was sent. Sodium was 115, otherwise stable labs. no evidence of hepatic or renal failure. Urinalysis does show evidence of nitrates, leukoesterase and white blood cells concerning for UTI. Unaware of patient's baseline mental status given her last visit here in October 2016 she was alert and oriented 4 and presenting for psych evaluation and able to give a history at that time. Given that patient does have evidence of infectious process from UTI and hyponatremia, altered mental status can be assumed at this time. Patient has been accepted to ICU under Dr. Schultz for further care. - Vital Signs Vital signs: Temp Pulse Resp BP Pulse Ox 97.9 F 68 16 122/96 H 97 05/27/17 01:46 05/27/17 01:46 05/27/17 06:01 05/27/17 06:01 05/27/17 06:01 - Laboratory Result Diagrams: 05/27/17 03:14 05/27/17 03:11 Laboratory results interpreted by me: 05/27/17 05/27/17 05/27/17 03:11 03:11 03:14 WBC 18.9 H Seg Neutrophils % 85.0 H Lymphocytes % 6.3 L Absolute Neutrophils 16.1 H Absolute Monocytes 1.6 H Sodium 115.3 L* Chloride 83 L Carbon Dioxide 19 L BUN 6 L Creatinine 0.51 L Glucose 119 H Serum Osmolality 234 L Total Bilirubin 2.2 H Direct Bilirubin 0.6 H Total Protein 5.9 L Urine Ketones Urine Nitrite Urine Urobilinogen Ur Leukocyte Esterase 05/27/17 03:50 WBC Seg Neutrophils % Lymphocytes % Absolute Neutrophils Absolute Monocytes Sodium Chloride Carbon Dioxide BUN Creatinine Glucose Serum Osmolality Total Bilirubin Direct Bilirubin Total Protein Urine Ketones 20 H Urine Nitrite POSITIVE H Urine Urobilinogen 4.0 H Ur Leukocyte Esterase LARGE H Discharge - Discharge Clinical Impression: Hyponatremia Urinary tract infection Qualifiers: Urinary tract infection type: acute cystitis Hematuria presence: without hematuria Qualified Code(s): N30.00 - Acute cystitis without hematuria Condition: Stable Disposition: ADMITTED INPATIENT Admitting Provider: [facility] Hospitalist Critical Access Hospital Unit Admitted: ICU
[2017-05-27 03:34] LABS: ABSOLUTE LYMPHOCYTES (AUTO) 1.2 10^3/uL (0.5-4.7); ABSOLUTE MONOCYTES (AUTO) 1.6 10^3/uL (0.1-1.4); ABSOLUTE NEUT (AUTO) 16.1 10^3/uL (1.7-8.2); BASOPHILS % (AUTO) 0.1 % (0-2); EOSINOPHILS % (AUTO) 0.1 % (0-6); HEMATOCRIT 41.5 % (36.0-47.0); HEMOGLOBIN 14.8 g/dL (12.0-15.5); HGB HCT DIFFERENCE 2.9; LYMPHOCYTES % (AUTO) 6.3 % (13-45); MEAN CORPUSCULAR HEMOGLOBIN 28.7 pg (27.0-33.4); MEAN CORPUSCULAR HGB CONC 35.6 g/dL (32.0-36.0); MEAN CORPUSCULAR VOLUME 81 fl (80-97); MONOCYTES % (AUTO) 8.5 % (3-13); RED BLOOD COUNT 5.14 10^6/uL (3.72-5.28); RED CELL DISTRIBUTION WIDTH 13.6 % (11.5-14.0); WHITE BLOOD COUNT 18.9 10^3/uL (4.0-10.5)
[2017-05-27 03:44] LABS: ALANINE AMINOTRANSFERASE 39 U/L (9-52); ALBUMIN 3.7 g/dL (3.5-5.0); ALKALINE PHOSPHATASE 94 U/L (38-126); ASPARTATE AMINO TRANSFERASE 29 U/L (14-36); BILIRUBIN,DIRECT 0.6 mg/dL (0.0-0.4); BILIRUBIN,TOTAL 2.2 mg/dL (0.2-1.3); BLOOD UREA NITROGEN 6 mg/dL (7-20); CARBON DIOXIDE 19 mmol/L (22-30); CHLORIDE 83 mmol/L (98-107); CREATININE RESULT 0.51 mg/dL (0.52-1.25); GLUCOSE 119 mg/dL (75-110); POTASSIUM 4.3 mmol/L (3.6-5.0); TOTAL PROTEIN 5.9 g/dL (6.3-8.2)
[2017-05-27 03:46] LABS: ANION GAP 13 (5-19)
[2017-05-27 03:50] LABS: SODIUM 115.3 mmol/L (137-145)
[2017-05-27 03:59] LABS: PROTHROMBIN TIME 12.8 SEC (11.4-15.4)
[2017-05-27] MEDS ORDERED: NORMAL SALINE 1000 ML 1,000 ML IV PRN (04:06)
[2017-05-27 04:21] LABS: AMORPHOUS SEDIMENT,URINE TRACE /HPF; APPEARANCE,URINE SLIGHTLY-CLOUDY; BILIRUBIN,URINE NEGATIVE (NEGATIVE); GLUCOSE, URINE NEGATIVE (NEGATIVE); KETONES,URINE 20 mg/dL (NEGATIVE); LEUKOCYTE ESTERASE,URINE LARGE (NEGATIVE); NITRITE,URINE POSITIVE (NEGATIVE); PROTEIN,URINE NEGATIVE (NEGATIVE); URINE SPECIFIC GRAVITY 1.013
[2017-05-27] MEDS ORDERED: CEFEPIME 2 GM/D5W RTU 2 GM/50 ML RTUPB IV ONE (04:25)
[2017-05-27] MEDS ORDERED: GLUCAGON,HUMAN RECOMB 1 MG INJ IM PRN (04:51)
[2017-05-27] MEDS ORDERED: DEXTROSE 40% GEL 15 GM TUBE PO PRN ×2 (04:51)
[2017-05-27] MEDS ORDERED: DEXTROSE 50%-WATER 25 GM/50 ML DISP.SYRIN IV PRN ×2 (04:51)
[2017-05-27 05:22] LABS: URINE BARBITURATES SCREEN NEGATIVE; URINE METHADONE SCREEN NEGATIVE; URINE OPIATES LOW NEGATIVE; URINE PHENCYCLIDINE SCREEN NEGATIVE
[2017-05-27 05:26] LABS: VENOUS BLOOD BASE EXCESS 1.4 mmol/L; VENOUS BLOOD HCO3 25.2 mmol/L (20-32); VENOUS BLOOD PCO2 37.2 mmHg (35-63); VENOUS BLOOD PH 7.45 (7.30-7.42)
--- NOTE | 2017-05-27 05:27 | RADIOLOGY REPORT (SQ) ---
EXAM DESCRIPTION: CT HEAD WITHOUT COMPLETED DATE/TIME: 05/27/2017 5:10 am REASON FOR STUDY: AMS COMPARISON: 10/12/2016 TECHNIQUE: Axial images acquired through the brain without intravenous contrast. Images reviewed wi th bone, brain and subdural windows. Images stored on PACS. All CT scanners at this facility use dose modulation, iterative reconstruction, and/or weight based d osing when appropriate to reduce radiation dose to as low as reasonably achievable (ALARA). [facility]: Dose Right [facility]: CareDose [facility]: Dose Right [facility]: Teradose 4D [facility]: [employer] RADIATION DOSE: mGy. LIMITATIONS: Marked motion. FINDINGS: VENTRICLES: Prominent. CEREBRUM: No masses. No hemorrhage. No midline shift. Areas of low density in the white matter mos t likely due to chronic micro-vascular ischemic change. No evidence for acute infarction. CEREBELLUM: No masses. No hemorrhage. No alteration of density. No evidence for acute infarction. EXTRAAXIAL SPACES: Age-related involutional change. No fluid collections. No masses. ORBITS AND GLOBE: No intra- or extraconal masses. Normal contour of globe without masses. CALVARIUM: No fracture. PARANASAL SINUSES: No fluid or mucosal thickening. SOFT TISSUES: No mass or hematoma. OTHER: No other significant finding. IMPRESSION: CHRONIC CHANGES OF ATROPHY AND MICROVASCULAR ISCHEMIA. NO ACUTE PROCESS. Marked motion . EVIDENCE OF ACUTE STROKE: NO. TECHNICAL DOCUMENTATION: JOB ID: [id number] Quality ID # [id number]: Final reports with documentation of one or more dose reduction techniques (e.g., Au tomated exposure control, adjustment of the mA and/or kV according to patient size, use of iterative reconstruction technique) 2010 [employer]- All Rights Reserved
[2017-05-27] MEDS ORDERED: FUROSEMIDE INJ/PF 20 MG/2 ML SDV IV ONE (05:49)
[2017-05-27] MEDS ORDERED: ONDANSETRON HCL INJ/PF 4 MG/2 ML SDV IV PRN (05:50)
[2017-05-27] MEDS ORDERED: IPRATROPIUM/ALBUTEROL 0.5-2.5 MG/3 ML AMPUL NEB PRN (05:50)
[2017-05-27] MEDS ORDERED: ACETAMINOPHEN 325 MG TABLET PO PRN ×2 (05:50→08:00)
--- NOTE | 2017-05-27 06:46 | PDOC H&P ---
History of Present Illness Admission Date/PCP: 05/27/17 05:50 Patient complains of: Altered mental status and nausea History of Present Illness: MAVERICK TOLBERT is a 51 year old female who is a poor historian but able to answer yes or no questions with a past medical history of vascular and alcoholic dementia, remote alcohol abuse, pancreatitis, COPD, splenic vein thrombosis, upper GI bleed and seizure disorder who is a long-term long term resident and found by staff to have nausea and change of her mental status. She is brought to the emergency room for evaluation after single episode of emesis and found to have a sodium of 115 and a urinalysis suggestive of UTI. She started on empiric antibiotics and saline then referred to the hospitalist for admission. Patient denies headache nausea or vomiting though complains of thirst and has moist mucosa. She drinks 6 bottles of water per day. She is unaware of any medication changes Past Medical History Cardiac Medical History: Reports: Hyperlipidema, Hypertension - medicated Denies: Myocardial Infarction, Heart Murmur Pulmonary Medical History: Denies: Asthma, Tuberculosis Neurological Medical History: Denies: Seizures Endocrine Medical History: Reports: Diabetes Mellitus Type 2 GI Medical History: Reports: Gastroesophageal Reflux Disease Denies: Hepatitis, Hiatal Hernia Musculoskeltal Medical History: Reports: Arthritis Psychiatric Medical History: Reports: Depression - Anxiety Hematology: Denies: Anemia, Sickle Cell Disease Infectious Medical History: Denies: HIV Past Surgical History Past Surgical History: Reports: Section, Orthopedic Surgery - R Hip, Tonsillectomy Denies: Amputation, Hysterectomy, Mastectomy, Pacemaker Social History Information Source: Patient, [facility] Records Lives with: Custodial Smoking Status: Smoker,Current Status Unk Frequency of Alcohol Use: Rare Hx Recreational Drug Use: No Drugs: None Hx Prescription Drug Abuse: No - Advance Directive Resuscitation Status: Full Code Family History Family History: Other - Unobtainable Parental Family History Reviewed: Yes Children Family History Reviewed: Yes Sibling(s) Family History Reviewed.: Yes Medication/Allergy Home Medications: Dextrose 50 % in Water [Dextrose 50%-Water Syringe] 50 ml IV .ASDIR 10/12/16 Glucagon,Human Recombinant [Glucagon Emergency Kit] 1 mg IM .ASDIR 10/12/16 Insulin Aspart [Novolog Insulin (Aspart) 100 unit/mL] 0 units SQ .PERSLIDINGSCALE 10/12/16 Insulin Glargine,Hum.rec.anlog [Lantus] 30 units SQ QHS 10/12/16 Melatonin 3 mg PO QHS 10/12/16 Quetiapine Fumarate [Seroquel] 50 mg PO BID@0800,2200 10/12/16 Sertraline HCl [Zoloft] 100 mg PO DAILY 10/12/16 Buspirone HCl [Buspar 10 mg Tablet] 10 mg PO QHS #5 tablet 10/13/16 Levetiracetam [Keppra 500 mg Tablet] 500 mg PO BID #10 tablet 10/13/16 Allergies/Adverse Reactions: tramadol [Tramadol] Allergy (Verified 10/21/14 17:46) Nausea adhesive tape [Adhesive Tape] Adverse Reaction (Verified 10/21/14 17:46) peels skin off Review of Systems ROS unobtainable: Due to mental status Physical Exam Vital Signs: Temp Pulse Resp BP Pulse Ox 97.9 F 68 16 122/96 H 97 05/27/17 01:46 05/27/17 01:46 05/27/17 06:01 05/27/17 06:01 05/27/17 06:01 General appearance: PRESENT: cooperative, disheveled, mild distress, obese, other - Tremulous Head exam: PRESENT: atraumatic, normocephalic Eye exam: PRESENT: conjunctiva pink, EOMI, PERRLA. ABSENT: scleral icterus Ear exam: PRESENT: normal external ear exam Mouth exam: PRESENT: moist, tongue midline Neck exam: ABSENT: carotid bruit, JVD, lymphadenopathy, thyromegaly Respiratory exam: PRESENT: clear to auscultation toño. ABSENT: rales, rhonchi, wheezes Cardiovascular exam: PRESENT: RRR. ABSENT: diastolic murmur, rubs, systolic murmur Pulses: PRESENT: normal dorsalis pedis pul Vascular exam: PRESENT: normal capillary refill GI/Abdominal exam: PRESENT: distended, hypoactive bowel sounds, normal bowel sounds, soft. ABSENT: guarding, mass, organolmegaly, rebound, tenderness Rectal exam: PRESENT: deferred Extremities exam: PRESENT: full ROM. ABSENT: calf tenderness, clubbing, pedal edema Neurological exam: PRESENT: alert, awake, oriented to person, oriented to place , oriented to time, oriented to situation, CN II-XII grossly intact. ABSENT: motor sensory deficit Psychiatric exam: PRESENT: appropriate affect, normal mood. ABSENT: homicidal ideation, suicidal ideation Skin exam: PRESENT: dry, intact, warm. ABSENT: cyanosis, rash Results Impressions: Head CT 05/27/17 04:49 IMPRESSION: CHRONIC CHANGES OF ATROPHY AND MICROVASCULAR ISCHEMIA. NO ACUTE PROCESS. Marked motion. EVIDENCE OF ACUTE STROKE: NO. Assessment & Plan - Diagnosis (1) Hyponatremia Is this a current diagnosis for this admission?: Yes Plan: ICU admission, hyponatremia likely secondary to polydipsia given history, no further emesis or complaint of nausea. Aspiration and seizure precautions. Obtain blood and urine osmolarity, urine sodium and empiric fluid restriction follow-up serial chemistries every 6 hours. (2) Urinary tract infection Qualifiers: Urinary tract infection type: acute cystitis Hematuria presence: without hematuria Qualified Code(s): N30.00 - Acute cystitis without hematuria Is this a current diagnosis for this admission?: Yes Plan: Empiric antibiotics follow-up CBC and urine culture (3) Type II diabetes mellitus Is this a current diagnosis for this admission?: Yes Plan: Diabetic diet and sliding scale insulin - Time Time Spent: 50 to 70 Minutes - Inpatient Certification Medical Necessity: Need Close Monitoring Due to Risk of Patient Decompensation
[2017-05-27 08:01] LABS: BLOOD UREA NITROGEN 8 mg/dL (7-20); CALCIUM 8.7 mg/dL (8.4-10.2); CARBON DIOXIDE 23 mmol/L (22-30); CHLORIDE 84 mmol/L (98-107); CREATININE RESULT 0.57 mg/dL (0.52-1.25); GLUCOSE 103 mg/dL (75-110); POTASSIUM 3.6 mmol/L (3.6-5.0)
[2017-05-27 08:03] LABS: ANION GAP 11 (5-19)
[2017-05-27 08:18] LABS: SODIUM 118.2 mmol/L (137-145)
[2017-05-27] MEDS: CEFTRIAXONE 1 GM/D5W RTU 1 GM/50 ML RTUPB IV SCH (11:11)
[2017-05-27] MEDS: POTASSI CL 20 MEQ/50 ML RIDER 20 MEQ/50 ML RTUPB IV SCH ×2 (11:12→12:48)
[2017-05-27] MEDS: DOCUSATE SODIUM 100 MG CAPSULE PO SCH ×2 (11:13→17:41)
[2017-05-27] MEDS: HEPARIN SOD (PORCINE) 5,000 UNIT/ML 1 ML SYRINGE SUBCUT SCH ×3 (11:13→21:11)
[2017-05-27 13:02] LABS: ANION GAP 12 (5-19); BLOOD UREA NITROGEN 8 mg/dL (7-20); CALCIUM 8.7 mg/dL (8.4-10.2); CARBON DIOXIDE 22 mmol/L (22-30); CHLORIDE 88 mmol/L (98-107); CREATININE RESULT 0.62 mg/dL (0.52-1.25); GLUCOSE 129 mg/dL (75-110); POTASSIUM 3.5 mmol/L (3.6-5.0); SODIUM 122.3 mmol/L (137-145)
[2017-05-27] MEDS ORDERED: ACETAMINOPHEN 650 MG SUPP.RECT PR ONE (13:10)
[2017-05-27] MEDS ORDERED: HALOPERIDOL 5 MG TABLET PO PRN (13:25)
[2017-05-27] MEDS ORDERED: ACETAMINOPHEN 650 MG SUPP.RECT PR PRN (13:40)
--- NOTE | 2017-05-27 14:07 | PDOC CONSULTATION ---
History of Present Illness Admission Date/PCP: 05/27/17 05:50 History of Present Illness: MAVERICK TOLBERT is a 51 year old female who is a poor historian but able to answer yes or no questions with a past medical history of vascular and alcoholic dementia, remote alcohol abuse, pancreatitis, COPD, splenic vein thrombosis, upper GI bleed and seizure disorder who is a long-term shelter resident and found by staff to have nausea and change of her mental status. She is brought to the emergency room for evaluation after single episode of emesis and found to have a sodium of 115 and a urinalysis suggestive of UTI. She started on empiric antibiotics and saline then referred to the hospitalist for admission. Patient denies headache nausea or vomiting though complains of thirst and has moist mucosa. She drinks 6 bottles of water per day. She is unaware of any medication changes Patient had breakfast this morning and had one episode of coffee-ground emesis. She has a history of upper GI bleeding and has been on proton pump inhibitors in the past Past Medical History Cardiac Medical History: Reports: Hyperlipidema, Hypertension - medicated Denies: Myocardial Infarction, Heart Murmur Pulmonary Medical History: Denies: Asthma, Tuberculosis Neurological Medical History: Denies: Seizures Endocrine Medical History: Reports: Diabetes Mellitus Type 2 GI Medical History: Reports: Gastroesophageal Reflux Disease Denies: Hepatitis, Hiatal Hernia Musculoskeltal Medical History: Reports: Arthritis Psychiatric Medical History: Reports: Depression - Anxiety Hematology: Denies: Anemia, Sickle Cell Disease Infectious Medical History: Denies: HIV Past Surgical History Past Surgical History: Reports: Section, Orthopedic Surgery - R Hip, Tonsillectomy Denies: Amputation, Hysterectomy, Mastectomy, Pacemaker Social History Lives with: [facility] Smoking Status: Unknown if Ever Smoked Frequency of Alcohol Use: None Hx Recreational Drug Use: No Drugs: None Hx Prescription Drug Abuse: No - Advance Directive Resuscitation Status: Full Code Family History Family History: Other - Unobtainable Parental Family History Reviewed: Yes Children Family History Reviewed: Yes Sibling(s) Family History Reviewed.: Yes Medication/Allergy Home Medications: Buspirone HCl [Buspar 10 mg Tablet] 10 mg PO QHS 05/27/17 Calcium Carbonate/Vitamin D2 [Oyster Shell Calcium-Vit D Tab] 1 tab PO BID 05/27 Ergocalciferol (Vitamin D2) [Vitamin D2] 50,000 unit PO WE@1000 05/27/17 Esomeprazole Mag Trihydrate [Nexium] 40 mg PO DAILY 05/27/17 Haloperidol Lactate [Haldol Inj 5 Mg/Ml Vial] 5 mg INJ DAILYP PRN 05/27/17 Haloperidol [Haldol 5 mg Tablet] 5 mg PO DAILYP PRN 05/27/17 Ibuprofen [Motrin 800 mg Tablet] 800 mg PO Q8HP PRN 05/27/17 Insulin Aspart [Novolog Insulin 100 Unit/1 ml 10 ml] 0 unit SUBCUT .SLD SCALE Insulin Glargine,Hum.rec.anlog [Lantus] 30 unit SQ QHS 05/27/17 Levetiracetam [Keppra 500 mg Tablet] 500 mg PO Q12 05/27/17 Melatonin [Melatin] 3 mg PO QHS 05/27/17 Multivit-Min/Iron/Folic/Lutein [Centrum Silver Women Tablet] 1 each PO DAILY Prednisone [Deltasone 10 mg Tablet] 10 mg PO DAILY 05/27/17 Promethazine HCl [Phenergan 25 mg Tablet] 12.5 mg PO Q6HP PRN 05/27/17 Quetiapine Fumarate [Seroquel] 50 mg PO QAM 05/27/17 Quetiapine Fumarate [Seroquel] 75 mg PO QPM 05/27/17 Sennosides [Senna] 8.6 mg PO BIDP PRN 05/27/17 Thiamine HCl [Vitamin B-1] 100 mg PO DAILY 05/27/17 Allergies/Adverse Reactions: tramadol [Tramadol] Allergy (Verified 10/21/14 17:46) Nausea adhesive tape [Adhesive Tape] Adverse Reaction (Verified 10/21/14 17:46) peels skin off Physical Exam Vital Signs: Temp Pulse Resp BP Pulse Ox 100.2 F 118 H 13 117/88 H 95 05/27/17 13:39 05/27/17 10:00 05/27/17 13:39 05/27/17 13:39 05/27/17 13:39 Intake & Output 05/26/17 05/27/17 05/28/17 06:59 06:59 06:59 Output Total 1000 Balance -1000 Weight 74.6 kg Results Laboratory Results: 05/27/17 11:57 05/27/17 05/27/17 07:20 11:57 Sodium 118.2 L* 122.3 L Potassium 3.6 3.5 L Chloride 84 L 88 L Carbon Dioxide 23 22 Anion Gap 11 12 BUN 8 8 Creatinine 0.57 0.62 Est GFR ( Amer) > 60 > 60 Est GFR (Non-Af Amer) > 60 > 60 Glucose 103 129 H Calcium 8.7 8.7 Impressions: Head CT 05/27/17 04:49 IMPRESSION: CHRONIC CHANGES OF ATROPHY AND MICROVASCULAR ISCHEMIA. NO ACUTE PROCESS. Marked motion. EVIDENCE OF ACUTE STROKE: NO. Assessment & Plan - Diagnosis (1) Coffee ground emesis Is this a current diagnosis for this admission?: Yes Plan: 1. Patient having no further bleeding at this time; patient remains hemodynamically stable 2. We will be available for endoscopic evaluation if bleeding recurs. 3. Discussed the above with Dr. Morales.
[2017-05-27] MEDS ORDERED: PROMETHAZINE HCL 25 MG SUPP.RECT PR PRN (14:39)
[2017-05-27 15:31] LABS: ABSOLUTE MONOCYTES (AUTO) 1.2 10^3/uL (0.1-1.4); ABSOLUTE NEUT (AUTO) 11.5 10^3/uL (1.7-8.2); BASOPHILS % (AUTO) 0.1 % (0-2); EOSINOPHILS % (AUTO) 0.2 % (0-6); HEMATOCRIT 42.5 % (36.0-47.0); HEMOGLOBIN 15.2 g/dL (12.0-15.5); HGB HCT DIFFERENCE 3.1; MEAN CORPUSCULAR HEMOGLOBIN 28.9 pg (27.0-33.4); MEAN CORPUSCULAR HGB CONC 35.7 g/dL (32.0-36.0); MEAN CORPUSCULAR VOLUME 81 fl (80-97); MONOCYTES % (AUTO) 8.9 % (3-13); RED BLOOD COUNT 5.25 10^6/uL (3.72-5.28); RED CELL DISTRIBUTION WIDTH 13.5 % (11.5-14.0); SEGMENTED NEUTROPHILS % (AUTO) 83.8 % (42-78); WHITE BLOOD COUNT 13.7 10^3/uL (4.0-10.5)
[2017-05-27 15:42] LABS: ANION GAP 10 (5-19); BLOOD UREA NITROGEN 7 mg/dL (7-20); CALCIUM 8.7 mg/dL (8.4-10.2); CARBON DIOXIDE 22 mmol/L (22-30); CHLORIDE 91 mmol/L (98-107); CREATININE RESULT 0.58 mg/dL (0.52-1.25); GLUCOSE 178 mg/dL (75-110); POTASSIUM 4.1 mmol/L (3.6-5.0); SODIUM 122.5 mmol/L (137-145)
[2017-05-27] MEDS ORDERED: POTASSIUM CHLORIDE 20 MEQ/50 ML RTU IV ONE (16:00)
[2017-05-27] MEDS: ONDANSETRON HCL INJ/PF 4 MG/2 ML SDV IV PRN (16:02)
[2017-05-27] MEDS: SUCRALFATE SUSP 1 GM/10 ML UDCUP PO SCH (17:40)
[2017-05-27] MEDS: QUETIAPINE FUMARATE 25 MG TABLET PO SCH (17:41)
[2017-05-27] MEDS: PANTOPRAZOLE SODIUM 40 MG VIAL IV SCH (17:42)
[2017-05-27] MEDS: HALOPERIDOL LACTATE INJ 5 MG/1 ML VIAL IV PRN (17:42)
--- NOTE | 2017-05-27 17:54 | PDOC PROGRESS REPORT ---
Subjective Progress Note for:: 05/27/17 Subjective:: Patient reports that she is feeling better. She reports that she is thirsty. According to nursing, patient ate her morning eggs and subsequently developed vomiting with coffee-ground emesis. Patient's overall review of systems is limited by her underlying mental illness. Physical Exam Vital Signs: Temp Pulse Resp BP Pulse Ox 99.9 F 106 H 20 128/80 H 96 05/27/17 16:34 05/27/17 14:00 05/27/17 16:34 05/27/17 16:34 05/27/17 16:34 Intake & Output 05/26/17 05/27/17 05/28/17 06:59 06:59 06:59 Output Total 1400 Balance -1400 Weight 74.6 kg Exam: General: Awake alert and oriented x2, no acute respiratory distress HEENT: AT/NC, PERRL, EOMI, oropharynx is moist, pink, no scleral icterus, no conjunctival injection Neck: No JVD, trachea midline Chest: Clear to auscultation bilaterally, no wheezes rhonchi or rales CV: Regular rate and rhythm, normal S1 and S2, no murmur, rub, or gallop Abdomen: Soft, nontender to palpation, nondistended, active bowel sounds; no rebound, rigidity, or guarding Extremities: No cyanosis, clubbing or edema Neuro: Mildly tremulous, Cranial nerves II through XII are grossly intact without focal deficits; awake alert and oriented x2 Psych: Normal mood and affect Results Laboratory Results: 05/27/17 15:23 05/27/17 15:23 05/27/17 05/27/17 05/27/17 07:20 11:57 15:23 WBC RBC Hgb Hct MCV MCH MCHC RDW Plt Count Seg Neutrophils % Lymphocytes % Monocytes % Eosinophils % Basophils % Absolute Neutrophils Absolute Lymphocytes Absolute Monocytes Absolute Eosinophils Absolute Basophils Sodium 118.2 L* 122.3 L 122.5 L Potassium 3.6 3.5 L 4.1 Chloride 84 L 88 L 91 L Carbon Dioxide 23 22 22 Anion Gap 11 12 10 BUN 8 8 7 Creatinine 0.57 0.62 0.58 Est GFR ( Amer) > 60 > 60 > 60 Est GFR (Non-Af Amer) > 60 > 60 > 60 Glucose 103 129 H 178 H Calcium 8.7 8.7 8.7 05/27/17 15:23 WBC 13.7 H RBC 5.25 Hgb 15.2 Hct 42.5 MCV 81 MCH 28.9 MCHC 35.7 RDW 13.5 Plt Count 144 L Seg Neutrophils % 83.8 H Lymphocytes % 7.0 L Monocytes % 8.9 Eosinophils % 0.2 Basophils % 0.1 Absolute Neutrophils 11.5 H Absolute Lymphocytes 1.0 Absolute Monocytes 1.2 Absolute Eosinophils 0.0 Absolute Basophils 0.0 Sodium Potassium Chloride Carbon Dioxide Anion Gap BUN Creatinine Est GFR ( Amer) Est GFR (Non-Af Amer) Glucose Calcium Impressions: Head CT 05/27/17 04:49 IMPRESSION: CHRONIC CHANGES OF ATROPHY AND MICROVASCULAR ISCHEMIA. NO ACUTE PROCESS. Marked motion. EVIDENCE OF ACUTE STROKE: NO. 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 Continue to monitor BMP every 4 hours. Patient is currently at 7 mEq of rise in the first 24 hours. I do not wish to increase her sodium anymore than this. (2) Diabetes 1.5, managed as type 1 Is this a current diagnosis for this admission?: Yes Plan: accuchecks q6 and decrease nighttime lantus in light of NPO after patient (3) Coffee ground emesis Is this a current diagnosis for this admission?: Yes Plan: Place patient on Protonix 40 mg IV twice daily and Carafate. Place patient on clear liquids and consult surgery and case patient needs emergent intervention. If not, Dr. Cox has graciously agreed to perform upper endoscopy on this patient tomorrow morning. Continue to monitor H&H every 6. Transfuse if patient drops below 8. (4) Urinary tract infection Qualifiers: Urinary tract infection type: acute cystitis Hematuria presence: without hematuria Qualified Code(s): N30.00 - Acute cystitis without hematuria Is this a current diagnosis for this admission?: Yes Plan: Patient is on Rocephin pending culture (6) Acute GI bleeding Is this a current diagnosis for this admission?: Yes Plan: Place patient on Protonix 40 mg IV twice daily and Carafate. Place patient on clear liquids and consult surgery and case patient needs emergent intervention. If not, Dr. Cox has graciously agreed to perform upper endoscopy on this patient tomorrow morning. Continue to monitor H&H every 6. Transfuse if patient drops below 8. (7) Chronic steroid dependence Is this a current diagnosis for this admission?: Yes Plan: Continue prednisone - Time Time Spent with patient: 25-34 minutes Medications reviewed and adjusted accordingly: Yes
[2017-05-27] MEDS ORDERED: (PENDING PHARMACY ID) (Quetiapine Fumarate [Seroquel] 75 MG) PO SCH (18:00)
[2017-05-27 19:39] LABS: ABSOLUTE LYMPHOCYTES (AUTO) 0.9 10^3/uL (0.5-4.7); ABSOLUTE NEUT (AUTO) 9.3 10^3/uL (1.7-8.2); BASOPHILS % (AUTO) 0.1 % (0-2); EOSINOPHILS % (AUTO) 0.4 % (0-6); HEMATOCRIT 43.6 % (36.0-47.0); HEMOGLOBIN 15.6 g/dL (12.0-15.5); HGB HCT DIFFERENCE 3.2; LYMPHOCYTES % (AUTO) 8.4 % (13-45); MEAN CORPUSCULAR HEMOGLOBIN 29.2 pg (27.0-33.4); MEAN CORPUSCULAR HGB CONC 35.8 g/dL (32.0-36.0); MEAN CORPUSCULAR VOLUME 82 fl (80-97); MONOCYTES % (AUTO) 8.7 % (3-13); RED BLOOD COUNT 5.35 10^6/uL (3.72-5.28); RED CELL DISTRIBUTION WIDTH 13.5 % (11.5-14.0); SEGMENTED NEUTROPHILS % (AUTO) 82.4 % (42-78); WHITE BLOOD COUNT 11.3 10^3/uL (4.0-10.5)
[2017-05-27 20:25] LABS: ANION GAP 9 (5-19); BLOOD UREA NITROGEN 6 mg/dL (7-20); CALCIUM 9.2 mg/dL (8.4-10.2); CARBON DIOXIDE 23 mmol/L (22-30); CHLORIDE 93 mmol/L (98-107); GLUCOSE 161 mg/dL (75-110); POTASSIUM 4.3 mmol/L (3.6-5.0); SODIUM 124.9 mmol/L (137-145)
[2017-05-27] MEDS: BUSPIRONE HCL 10 MG TABLET PO SCH (21:10)
[2017-05-27] MEDS: LEVETIRACETAM 500 MG TABLET PO SCH (21:10)
[2017-05-27] MEDS: INSULIN GLARGINE,HUM.REC.ANLOG 300 UNIT/3 ML INSULN.PEN SUBCUT SCH (21:12)
[2017-05-27] MEDS ORDERED: INSULIN GLARGINE,HUM.REC.ANLOG 1,000 UNIT/10 ML UNIT SUBCUT SCH (22:00)
[2017-05-27] MEDS ORDERED: 1/2 NORMAL SALINE 1,000 ML IV ONE (23:35)
[2017-05-28 00:05] LABS: ANION GAP 10 (5-19); BLOOD UREA NITROGEN 6 mg/dL (7-20); CALCIUM 9.2 mg/dL (8.4-10.2); CARBON DIOXIDE 24 mmol/L (22-30); CHLORIDE 97 mmol/L (98-107); CREATININE RESULT 0.63 mg/dL (0.52-1.25); GLUCOSE 119 mg/dL (75-110); POTASSIUM 3.7 mmol/L (3.6-5.0); SODIUM 131.1 mmol/L (137-145)
[2017-05-28] MEDS: ONDANSETRON HCL INJ/PF 4 MG/2 ML SDV IV PRN ×2 (00:06→19:17)
[2017-05-28] MEDS: SUCRALFATE SUSP 1 GM/10 ML UDCUP PO SCH ×4 (00:06→17:17)
[2017-05-28] MEDS: HALOPERIDOL LACTATE INJ 5 MG/1 ML VIAL IV PRN ×2 (00:17→19:17)
[2017-05-28] MEDS ORDERED: DEXTROSE 5%-WATER 1000 ML 1,000 ML IV ONE (04:41)
[2017-05-28 04:54] LABS: ANION GAP 12 (5-19); BLOOD UREA NITROGEN 5 mg/dL (7-20); CALCIUM 9.2 mg/dL (8.4-10.2); CARBON DIOXIDE 23 mmol/L (22-30); CHLORIDE 100 mmol/L (98-107); CREATININE RESULT 0.63 mg/dL (0.52-1.25); GLUCOSE 95 mg/dL (75-110); POTASSIUM 3.5 mmol/L (3.6-5.0); SODIUM 135.4 mmol/L (137-145)
[2017-05-28] MEDS: HEPARIN SOD (PORCINE) 5,000 UNIT/ML 1 ML SYRINGE SUBCUT SCH (06:12)
[2017-05-28] MEDS: PANTOPRAZOLE SODIUM 40 MG VIAL IV SCH ×2 (06:12→17:17)
[2017-05-28] MEDS: QUETIAPINE FUMARATE 25 MG TABLET PO SCH ×2 (07:58→17:17)
[2017-05-28] MEDS ORDERED: (PENDING PHARMACY ID) (Quetiapine Fumarate [Seroquel] 50 MG) PO SCH (08:00)
[2017-05-28 08:18] LABS: ABSOLUTE MONOCYTES (AUTO) 0.9 10^3/uL (0.1-1.4); ABSOLUTE NEUT (AUTO) 9.6 10^3/uL (1.7-8.2); BASOPHILS % (AUTO) 0.3 % (0-2); EOSINOPHILS % (AUTO) 0.3 % (0-6); HEMATOCRIT 43.1 % (36.0-47.0); HGB HCT DIFFERENCE 1.9; LYMPHOCYTES % (AUTO) 8.4 % (13-45); MEAN CORPUSCULAR HEMOGLOBIN 28.9 pg (27.0-33.4); MEAN CORPUSCULAR HGB CONC 34.8 g/dL (32.0-36.0); MEAN CORPUSCULAR VOLUME 83 fl (80-97); RED BLOOD COUNT 5.19 10^6/uL (3.72-5.28); RED CELL DISTRIBUTION WIDTH 13.9 % (11.5-14.0); WHITE BLOOD COUNT 11.5 10^3/uL (4.0-10.5)
--- NOTE | 2017-05-28 08:28 | PDOC CONSULTATION ---
Consultation Consult Date: 05/27/17 Attending physician:: CORY MASON Consult reason:: Coffee ground emesis History of Present Illness Admission Date/PCP: 05/27/17 05:50 History of Present Illness: I was asked to see this patient while she is in the ICU has been having nausea and vomiting she had 2 episodes of coffee ground emesis however her Hgb is stable patient denies any melena denies any significant abdominal pain patient is sitting in bed appearing quite comfortable she was admitted for hyponatremia this is improving she has had some mental status changes but is answering question appropriately I am asked to provide possible etiology she is having some GI bleeding as evidenced by her emesis Past Medical History Cardiac Medical History: Reports: Hyperlipidema, Hypertension - medicated Denies: Myocardial Infarction, Heart Murmur Pulmonary Medical History: Denies: Asthma, Tuberculosis Neurological Medical History: Denies: Seizures Endocrine Medical History: Reports: Diabetes Mellitus Type 2 GI Medical History: Reports: Gastroesophageal Reflux Disease Denies: Hepatitis, Hiatal Hernia Musculoskeltal Medical History: Reports: Arthritis Psychiatric Medical History: Reports: Depression - Anxiety Hematology: Denies: Anemia, Sickle Cell Disease Infectious Medical History: Denies: HIV Past Surgical History Past Surgical History: Reports: Section, Orthopedic Surgery - R Hip, Tonsillectomy Denies: Amputation, Hysterectomy, Mastectomy, Pacemaker Social History Lives with: Residential Smoking Status: Unknown if Ever Smoked Frequency of Alcohol Use: None Hx Recreational Drug Use: No Drugs: None Hx Prescription Drug Abuse: No - Advance Directive Resuscitation Status: Full Code Family History Family History: Other - Unobtainable Parental Family History Reviewed: Yes Children Family History Reviewed: Unknown Sibling(s) Family History Reviewed.: Unknown Medication/Allergy Home Medications: Buspirone HCl [Buspar 10 mg Tablet] 10 mg PO QHS 05/27/17 Calcium Carbonate/Vitamin D2 [Oyster Shell Calcium-Vit D Tab] 1 tab PO BID 05/27 Ergocalciferol (Vitamin D2) [Vitamin D2] 50,000 unit PO WE@1000 05/27/17 Esomeprazole Mag Trihydrate [Nexium] 40 mg PO DAILY 05/27/17 Haloperidol Lactate [Haldol Inj 5 Mg/Ml Vial] 5 mg INJ DAILYP PRN 05/27/17 Haloperidol [Haldol 5 mg Tablet] 5 mg PO DAILYP PRN 05/27/17 Ibuprofen [Motrin 800 mg Tablet] 800 mg PO Q8HP PRN 05/27/17 Insulin Aspart [Novolog Insulin 100 Unit/1 ml 10 ml] 0 unit SUBCUT .SLD SCALE Insulin Glargine,Hum.rec.anlog [Lantus] 30 unit SQ QHS 05/27/17 Levetiracetam [Keppra 500 mg Tablet] 500 mg PO Q12 05/27/17 Melatonin [Melatin] 3 mg PO QHS 05/27/17 Multivit-Min/Iron/Folic/Lutein [Centrum Silver Women Tablet] 1 each PO DAILY Prednisone [Deltasone 10 mg Tablet] 10 mg PO DAILY 05/27/17 Promethazine HCl [Phenergan 25 mg Tablet] 12.5 mg PO Q6HP PRN 05/27/17 Quetiapine Fumarate [Seroquel] 50 mg PO QAM 05/27/17 Quetiapine Fumarate [Seroquel] 75 mg PO QPM 05/27/17 Sennosides [Senna] 8.6 mg PO BIDP PRN 05/27/17 Thiamine HCl [Vitamin B-1] 100 mg PO DAILY 05/27/17 Allergies/Adverse Reactions: tramadol [Tramadol] Allergy (Verified 10/21/14 17:46) Nausea adhesive tape [Adhesive Tape] Adverse Reaction (Verified 10/21/14 17:46) peels skin off Review of Systems Constitutional: ABSENT: fever(s), headache(s), night sweats, weakness Eyes: ABSENT: visual disturbances Ears: ABSENT: hearing changes Nose, Mouth, and Throat: ABSENT: mouth pain, sore throat Cardiovascular: ABSENT: edema, orthropnea, palpitations Respiratory: ABSENT: dyspnea, hemoptysis Gastrointestinal: PRESENT: heartburn, nausea, vomiting. ABSENT: diarrhea, hematochezia, melena Genitourinary: ABSENT: dysuria, hematuria Musculoskeletal: ABSENT: deformity, joint swelling Integumentary: ABSENT: lesions, pruritus Neurological: ABSENT: syncope, tingling, tremor(s), vertigo, weakness Psychiatric: ABSENT: hallucinations Endocrine: ABSENT: polydipsia, polyphagia, polyuria Hematologic/Lymphatic: ABSENT: easy bruising Allergic/Immunologic: ABSENT: seasonal rhinorrhea Physical Exam Vital Signs: Temp Pulse Resp BP Pulse Ox 99.7 F 110 H 14 151/102 H 99 05/28/17 08:00 05/28/17 08:00 05/28/17 08:00 05/28/17 08:00 05/28/17 08:00 Intake & Output 05/27/17 05/28/17 05/29/17 06:59 06:59 06:59 Intake Total 2126 Output Total 4175 350 Balance -2049 -350 Weight 72.4 kg General appearance: PRESENT: no acute distress, well-developed, well-nourished Head exam: PRESENT: atraumatic, normocephalic Eye exam: PRESENT: EOMI, PERRLA. ABSENT: nystagmus, periorbital swelling, scleral icterus Mouth exam: PRESENT: moist, neck supple Throat exam: ABSENT: tonsillar exudate, tonsillogmegaly Neck exam: ABSENT: meningismus, tenderness, thyromegaly Respiratory exam: PRESENT: symmetrical, unlabored. ABSENT: tachypnea, wheezes Cardiovascular exam: PRESENT: RRR, +S1, +S2 GI/Abdominal exam: PRESENT: soft. ABSENT: Low's sign, rebound, rigid, tenderness Extremities exam: ABSENT: joint swelling, tenderness Musculoskeletal exam: PRESENT: full ROM Neurological exam: PRESENT: alert, awake, oriented to time, CN II-XII grossly intact Psychiatric exam: PRESENT: appropriate affect Focused psych exam: ABSENT: restlessness Skin exam: PRESENT: normal color. ABSENT: mottled, pallor, petechiae, urticaria , vesicles Results Laboratory Results: 05/28/17 08:02 05/27/17 05/27/17 05/27/17 11:57 15:23 15:23 WBC 13.7 H RBC 5.25 Hgb 15.2 Hct 42.5 MCV 81 MCH 28.9 MCHC 35.7 RDW 13.5 Plt Count 144 L Seg Neutrophils % 83.8 H Lymphocytes % 7.0 L Monocytes % 8.9 Eosinophils % 0.2 Basophils % 0.1 Absolute Neutrophils 11.5 H Absolute Lymphocytes 1.0 Absolute Monocytes 1.2 Absolute Eosinophils 0.0 Absolute Basophils 0.0 Sodium 122.3 L 122.5 L Potassium 3.5 L 4.1 Chloride 88 L 91 L Carbon Dioxide 22 22 Anion Gap 12 10 BUN 8 7 Creatinine 0.62 0.58 Est GFR ( Amer) > 60 > 60 Est GFR (Non-Af Amer) > 60 > 60 Glucose 129 H 178 H Calcium 8.7 8.7 05/27/17 05/27/17 05/27/17 19:25 19:25 23:31 WBC 11.3 H RBC 5.35 H Hgb 15.6 H Hct 43.6 MCV 82 MCH 29.2 MCHC 35.8 RDW 13.5 Plt Count 135 L Seg Neutrophils % 82.4 H Lymphocytes % 8.4 L Monocytes % 8.7 Eosinophils % 0.4 Basophils % 0.1 Absolute Neutrophils 9.3 H Absolute Lymphocytes 0.9 Absolute Monocytes 1.0 Absolute Eosinophils 0.0 Absolute Basophils 0.0 Sodium 124.9 L 131.1 L Potassium 4.3 3.7 Chloride 93 L 97 L Carbon Dioxide 23 24 Anion Gap 9 10 BUN 6 L 6 L Creatinine 0.60 0.63 Est GFR ( Amer) > 60 > 60 Est GFR (Non-Af Amer) > 60 > 60 Glucose 161 H 119 H Calcium 9.2 9.2 05/28/17 05/28/17 03:32 08:02 WBC 11.5 H RBC 5.19 Hgb 15.0 Hct 43.1 MCV 83 MCH 28.9 MCHC 34.8 RDW 13.9 Plt Count 140 L Seg Neutrophils % 83.0 H Lymphocytes % 8.4 L Monocytes % 8.0 Eosinophils % 0.3 Basophils % 0.3 Absolute Neutrophils 9.6 H Absolute Lymphocytes 1.0 Absolute Monocytes 0.9 Absolute Eosinophils 0.0 Absolute Basophils 0.0 Sodium 135.4 L Potassium 3.5 L Chloride 100 Carbon Dioxide 23 Anion Gap 12 BUN 5 L Creatinine 0.63 Est GFR ( Amer) > 60 Est GFR (Non-Af Amer) > 60 Glucose 95 Calcium 9.2 Impressions: Head CT 05/27/17 04:49 IMPRESSION: CHRONIC CHANGES OF ATROPHY AND MICROVASCULAR ISCHEMIA. NO ACUTE PROCESS. Marked motion. EVIDENCE OF ACUTE STROKE: NO. Assessment & Plan - Diagnosis (1) Coffee ground emesis Plan: could be peptic ulcer disease, will need to exclude gastric outlet obstruction will need EGD Risks, benefits and alternatives are discussed with the patient in detail further recommendations to follow she seems to be willing to proceed - Time Time Spent: 50 to 70 Minutes
[2017-05-28 08:56] LABS: ANION GAP 11 (5-19); BLOOD UREA NITROGEN 4 mg/dL (7-20); CALCIUM 8.8 mg/dL (8.4-10.2); CARBON DIOXIDE 23 mmol/L (22-30); CHLORIDE 100 mmol/L (98-107); CREATININE RESULT 0.61 mg/dL (0.52-1.25); GLUCOSE 141 mg/dL (75-110); MAGNESIUM 1.9 mg/dL (1.6-2.3); POTASSIUM 3.5 mmol/L (3.6-5.0); SODIUM 133.8 mmol/L (137-145)
[2017-05-28] MEDS: CEFTRIAXONE 1 GM/D5W RTU 1 GM/50 ML RTUPB IV SCH (09:04)
[2017-05-28] MEDS: PREDNISONE 10 MG TABLET PO SCH (09:05)
[2017-05-28] MEDS: LEVETIRACETAM 500 MG TABLET PO SCH ×2 (09:05→22:37)
[2017-05-28] MEDS: DOCUSATE SODIUM 100 MG CAPSULE PO SCH ×2 (09:05→17:17)
[2017-05-28] MEDS: THIAMINE HCL 100 MG TABLET PO SCH (09:05)
--- NOTE | 2017-05-28 09:43 | PDOC PROGRESS REPORT ---
Subjective Progress Note for:: 05/28/17 Subjective:: Patient states that she is doing better this morning. Nursing states that patient's fluids were changed to D5W due to concern the sodium was correcting to fastly. Patient is scheduled for EGD this morning by surgery. Physical Exam Vital Signs: Temp Pulse Resp BP Pulse Ox 99.7 F 102 H 20 151/102 H 100 05/28/17 08:00 05/28/17 08:59 05/28/17 08:59 05/28/17 08:00 05/28/17 08:59 Intake & Output 05/27/17 05/28/17 05/29/17 06:59 06:59 06:59 Intake Total 2126 Output Total 4175 350 Balance -2048 -350 Weight 72.4 kg General appearance: PRESENT: no acute distress, well-developed, well-nourished Head exam: PRESENT: atraumatic, normocephalic Eye exam: PRESENT: conjunctiva pink, EOMI. ABSENT: scleral icterus Ear exam: PRESENT: normal external ear exam Mouth exam: PRESENT: moist, tongue midline Neck exam: ABSENT: carotid bruit, JVD, lymphadenopathy, thyromegaly Respiratory exam: PRESENT: clear to auscultation toño. ABSENT: rales, rhonchi, wheezes Cardiovascular exam: PRESENT: RRR. ABSENT: diastolic murmur, rubs, systolic murmur Pulses: PRESENT: normal dorsalis pedis pul Vascular exam: PRESENT: normal capillary refill GI/Abdominal exam: PRESENT: normal bowel sounds, soft. ABSENT: distended, guarding, mass, organolmegaly, rebound, tenderness Rectal exam: PRESENT: deferred Extremities exam: PRESENT: full ROM. ABSENT: calf tenderness, clubbing, pedal edema Neurological exam: PRESENT: alert, awake, oriented to person, oriented to place , CN II-XII grossly intact. ABSENT: motor sensory deficit Psychiatric exam: PRESENT: appropriate affect, normal mood. ABSENT: homicidal ideation, suicidal ideation Skin exam: PRESENT: dry, intact, warm. ABSENT: cyanosis, rash Results Laboratory Results: 05/28/17 08:02 05/28/17 08:02 05/27/17 05/27/17 05/27/17 11:57 15:23 15:23 WBC 13.7 H RBC 5.25 Hgb 15.2 Hct 42.5 MCV 81 MCH 28.9 MCHC 35.7 RDW 13.5 Plt Count 144 L Seg Neutrophils % 83.8 H Lymphocytes % 7.0 L Monocytes % 8.9 Eosinophils % 0.2 Basophils % 0.1 Absolute Neutrophils 11.5 H Absolute Lymphocytes 1.0 Absolute Monocytes 1.2 Absolute Eosinophils 0.0 Absolute Basophils 0.0 Sodium 122.3 L 122.5 L Potassium 3.5 L 4.1 Chloride 88 L 91 L Carbon Dioxide 22 22 Anion Gap 12 10 BUN 8 7 Creatinine 0.62 0.58 Est GFR ( Amer) > 60 > 60 Est GFR (Non-Af Amer) > 60 > 60 Glucose 129 H 178 H Calcium 8.7 8.7 Magnesium 05/27/17 05/27/17 05/27/17 19:25 19:25 23:31 WBC 11.3 H RBC 5.35 H Hgb 15.6 H Hct 43.6 MCV 82 MCH 29.2 MCHC 35.8 RDW 13.5 Plt Count 135 L Seg Neutrophils % 82.4 H Lymphocytes % 8.4 L Monocytes % 8.7 Eosinophils % 0.4 Basophils % 0.1 Absolute Neutrophils 9.3 H Absolute Lymphocytes 0.9 Absolute Monocytes 1.0 Absolute Eosinophils 0.0 Absolute Basophils 0.0 Sodium 124.9 L 131.1 L Potassium 4.3 3.7 Chloride 93 L 97 L Carbon Dioxide 23 24 Anion Gap 9 10 BUN 6 L 6 L Creatinine 0.60 0.63 Est GFR ( Amer) > 60 > 60 Est GFR (Non-Af Amer) > 60 > 60 Glucose 161 H 119 H Calcium 9.2 9.2 Magnesium 05/28/17 05/28/17 05/28/17 03:32 08:02 08:02 WBC 11.5 H RBC 5.19 Hgb 15.0 Hct 43.1 MCV 83 MCH 28.9 MCHC 34.8 RDW 13.9 Plt Count 140 L Seg Neutrophils % 83.0 H Lymphocytes % 8.4 L Monocytes % 8.0 Eosinophils % 0.3 Basophils % 0.3 Absolute Neutrophils 9.6 H Absolute Lymphocytes 1.0 Absolute Monocytes 0.9 Absolute Eosinophils 0.0 Absolute Basophils 0.0 Sodium 135.4 L 133.8 L Potassium 3.5 L 3.5 L Chloride 100 100 Carbon Dioxide 23 23 Anion Gap 12 11 BUN 5 L 4 L Creatinine 0.63 0.61 Est GFR ( Amer) > 60 > 60 Est GFR (Non-Af Amer) > 60 > 60 Glucose 95 141 H Calcium 9.2 8.8 Magnesium 1.9 Impressions: Head CT 05/27/17 04:49 IMPRESSION: CHRONIC CHANGES OF ATROPHY AND MICROVASCULAR ISCHEMIA. NO ACUTE PROCESS. Marked motion. EVIDENCE OF ACUTE STROKE: NO. Assessment & Plan - Diagnosis (1) Acute GI bleeding Is this a current diagnosis for this admission?: Yes Plan: Patient's hemoglobin has remained stable for the last the last several days. Patient is scheduled to have EGD done by surgery today. (2) Coffee ground emesis Is this a current diagnosis for this admission?: Yes Plan: Patient has given report of coffee-ground emesis. Patient is scheduled for EGD by surgery today. Patient's hemoglobin has remained stable. Patient's indices do not demonstrate iron deficiency anemia. (3) Hyponatremia Is this a current diagnosis for this admission?: Yes Plan: Sodium has corrected nicely. Patient's hyponatremia could possibly be secondary to patient's psych medications. Patient was admitted with the concern for polydipsia at time of admission. Will discontinue D5W. (4) Urinary tract infection Qualifiers: Urinary tract infection type: acute cystitis Hematuria presence: without hematuria Qualified Code(s): N30.00 - Acute cystitis without hematuria Is this a current diagnosis for this admission?: Yes Plan: We will continue Rocephin. (5) Type II diabetes mellitus Is this a current diagnosis for this admission?: Yes Plan: We will continue current insulin regimen. - Time Time Spent with patient: 15-24 minutes Anticipated discharge: SNF
[2017-05-28 10:37] LABS: ANION GAP 10 (5-19); BLOOD UREA NITROGEN 3 mg/dL (7-20); CALCIUM 8.8 mg/dL (8.4-10.2); CARBON DIOXIDE 23 mmol/L (22-30); CHLORIDE 101 mmol/L (98-107); GLUCOSE 151 mg/dL (75-110); POTASSIUM 3.5 mmol/L (3.6-5.0); SODIUM 133.7 mmol/L (137-145)
[2017-05-28] MEDS: POTASSI CL 20 MEQ/50 ML RIDER 20 MEQ/50 ML RTUPB IV SCH ×2 (10:59→12:05)
[2017-05-28] MEDS ORDERED: DIPHENHYDRAMINE HCL 50 MG/ML VIAL ONE (13:16)
[2017-05-28] MEDS ORDERED: NALOXONE HCL INJ/PF 0.4 MG/1 ML SDV ONE (13:16)
[2017-05-28] MEDS ORDERED: ONDANSETRON HCL INJ/PF 4 MG/2 ML SDV ONE (13:16)
[2017-05-28] MEDS ORDERED: MIDAZOLAM 2 MG/2 ML INJ ONE (13:16)
[2017-05-28] MEDS ORDERED: GLUCAGON,HUMAN RECOMB 1 MG INJ ONE (13:17)
[2017-05-28] MEDS ORDERED: FLUMAZENIL INJ 0.5 MG/5 ML VIAL ONE (13:17)
[2017-05-28] MEDS ORDERED: EPINEPHRINE INJ 1 MG/10 ML DISP.SYRIN ONE (13:17)
[2017-05-28] MEDS ORDERED: FENTANYL CITRATE INJ/PF 100 MCG/2 ML AMPUL ONE (13:17)
--- NOTE | 2017-05-28 16:05 | Operative Report ---
Operative Report DATE OF SURGERY: 05/28/17 Operative Report: The risks benefits and alternatives of the procedure explained to the patient in detail and informed consent is obtained.A GIF Olympus video scope was inserted into the patient's mouth and hypopharynx, the esophagus is identified intubated and insufflated, the scope was then advanced through the esophagus stomach and duodenum ,retroflexion maneuver is done, the esophagus stomach and first and second portions of the duodenum examined PREOPERATIVE DIAGNOSIS: Coffee-ground emesis POSTOPERATIVE DIAGNOSIS: Erosive esophagitis. no active bleeding noted. gastritis, s/p biopsy , rule out H.pylori OPERATION: EGD with biopsy SURGEON: CORY MASON ANESTHESIA: Moderate Sedation - Conscious sedation monitoring time 30 minutes. TISSUE REMOVED OR ALTERED: Gastric mucosal specimen obtained to rule out Helicobacter pylori COMPLICATIONS: None. ESTIMATED BLOOD LOSS: None. INTRAOPERATIVE FINDINGS: As noted above. PROCEDURE: Patient tolerated procedure well. No immediate postprocedure complications are noted. Can resume clear fluids. Advance as tolerated Resume previous activity level Wait on pathology Further recommendations to follow Oral ppi once able to tolerate
[2017-05-28] MEDS ORDERED: MAG HYDROX/AL HYDROX/SIMETH SUSP 30 ML UDCUP PO ONE (21:00)
[2017-05-28] MEDS: BUSPIRONE HCL 10 MG TABLET PO SCH (22:36)
[2017-05-28] MEDS: INSULIN GLARGINE,HUM.REC.ANLOG 300 UNIT/3 ML INSULN.PEN SUBCUT SCH (22:37)
[2017-05-29] MEDS: SUCRALFATE SUSP 1 GM/10 ML UDCUP PO SCH ×4 (00:49→18:07)
[2017-05-29] MEDS: PANTOPRAZOLE SODIUM 40 MG VIAL IV SCH ×2 (05:00→18:07)
[2017-05-29 05:03] LABS: ABSOLUTE EOSINOPHILS # (AUTO) 0.1 10^3/uL (0.0-0.6); ABSOLUTE LYMPHOCYTES (AUTO) 1.6 10^3/uL (0.5-4.7); ABSOLUTE MONOCYTES (AUTO) 0.6 10^3/uL (0.1-1.4); ABSOLUTE NEUT (AUTO) 4.6 10^3/uL (1.7-8.2); BASOPHILS % (AUTO) 0.5 % (0-2); EOSINOPHILS % (AUTO) 0.9 % (0-6); HEMATOCRIT 42.5 % (36.0-47.0); HEMOGLOBIN 14.8 g/dL (12.0-15.5); HGB HCT DIFFERENCE 1.9; LYMPHOCYTES % (AUTO) 22.8 % (13-45); MEAN CORPUSCULAR HEMOGLOBIN 29.3 pg (27.0-33.4); MEAN CORPUSCULAR HGB CONC 34.7 g/dL (32.0-36.0); MEAN CORPUSCULAR VOLUME 85 fl (80-97); MONOCYTES % (AUTO) 9.3 % (3-13); RED BLOOD COUNT 5.03 10^6/uL (3.72-5.28); RED CELL DISTRIBUTION WIDTH 13.9 % (11.5-14.0); SEGMENTED NEUTROPHILS % (AUTO) 66.5 % (42-78); WHITE BLOOD COUNT 6.9 10^3/uL (4.0-10.5)
[2017-05-29 05:11] LABS: ANION GAP 10 (5-19); BLOOD UREA NITROGEN 3 mg/dL (7-20); CALCIUM 9.1 mg/dL (8.4-10.2); CARBON DIOXIDE 26 mmol/L (22-30); CHLORIDE 105 mmol/L (98-107); CREATININE RESULT 0.62 mg/dL (0.52-1.25); GLUCOSE 117 mg/dL (75-110); POTASSIUM 3.8 mmol/L (3.6-5.0)
[2017-05-29] MEDS: QUETIAPINE FUMARATE 25 MG TABLET PO SCH ×2 (07:49→18:06)
[2017-05-29] MEDS: THIAMINE HCL 100 MG TABLET PO SCH (09:21)
[2017-05-29] MEDS: DOCUSATE SODIUM 100 MG CAPSULE PO SCH ×2 (09:21→18:07)
[2017-05-29] MEDS: LEVETIRACETAM 500 MG TABLET PO SCH ×2 (09:21→22:02)
[2017-05-29] MEDS: PREDNISONE 10 MG TABLET PO SCH (09:21)
[2017-05-29] MEDS: CEFTRIAXONE 1 GM/D5W RTU 1 GM/50 ML RTUPB IV SCH (09:22)
--- NOTE | 2017-05-29 17:03 | PDOC PROGRESS REPORT ---
Subjective Progress Note for:: 05/29/17 Subjective:: Pt states that she is doing well. Physical Exam Vital Signs: Temp Pulse Resp BP Pulse Ox 98.7 F 105 H 12 112/79 95 05/29/17 12:00 05/29/17 14:00 05/29/17 12:00 05/29/17 12:00 05/29/17 12:00 Intake & Output 05/28/17 05/29/17 05/30/17 06:59 06:59 06:59 Intake Total 2126 881 Output Total 4175 2400 Balance -2049 -1519 Weight 72.4 kg General appearance: PRESENT: no acute distress, well-developed, well-nourished Head exam: PRESENT: atraumatic, normocephalic Eye exam: PRESENT: conjunctiva pink, EOMI. ABSENT: scleral icterus Ear exam: PRESENT: normal external ear exam Mouth exam: PRESENT: moist, tongue midline Neck exam: ABSENT: carotid bruit, JVD, lymphadenopathy, thyromegaly Respiratory exam: PRESENT: clear to auscultation toño. ABSENT: rales, rhonchi, wheezes Cardiovascular exam: PRESENT: RRR. ABSENT: diastolic murmur, rubs, systolic murmur Pulses: PRESENT: normal dorsalis pedis pul Vascular exam: PRESENT: normal capillary refill GI/Abdominal exam: PRESENT: normal bowel sounds, soft. ABSENT: distended, guarding, mass, organolmegaly, rebound, tenderness Rectal exam: PRESENT: deferred Extremities exam: PRESENT: full ROM. ABSENT: calf tenderness, clubbing, pedal edema Neurological exam: PRESENT: alert, awake, oriented to person, oriented to place , oriented to time, oriented to situation, CN II-XII grossly intact. ABSENT: motor sensory deficit Psychiatric exam: PRESENT: appropriate affect, normal mood. ABSENT: homicidal ideation, suicidal ideation Skin exam: PRESENT: dry, intact, warm. ABSENT: cyanosis, rash Results Laboratory Results: 05/29/17 04:33 05/29/17 04:33 05/28/17 05/29/17 05/29/17 10:00 04:33 04:33 WBC 6.9 RBC 5.03 Hgb 14.8 Hct 42.5 MCV 85 MCH 29.3 MCHC 34.7 RDW 13.9 Plt Count 131 L Seg Neutrophils % 66.5 Lymphocytes % 22.8 Monocytes % 9.3 Eosinophils % 0.9 Basophils % 0.5 Absolute Neutrophils 4.6 Absolute Lymphocytes 1.6 Absolute Monocytes 0.6 Absolute Eosinophils 0.1 Absolute Basophils 0.0 Sodium 141.0 Potassium 3.8 Chloride 105 Carbon Dioxide 26 Anion Gap 10 BUN 3 L Creatinine 0.62 Est GFR ( Amer) > 60 Est GFR (Non-Af Amer) > 60 Glucose 117 H Calcium 9.1 Serum HCG, Qual NEGATIVE Impressions: Head CT 05/27/17 04:49 IMPRESSION: CHRONIC CHANGES OF ATROPHY AND MICROVASCULAR ISCHEMIA. NO ACUTE PROCESS. Marked motion. EVIDENCE OF ACUTE STROKE: NO. Assessment & Plan - Diagnosis (1) Acute GI bleeding Is this a current diagnosis for this admission?: Yes Plan: Secondary to Esophageal Ulcer: Will continue PPI and carafate. (2) Coffee ground emesis Is this a current diagnosis for this admission?: Yes Plan: Patient has given report of coffee-ground emesis. Patient is scheduled for EGD by surgery today. Patient's hemoglobin has remained stable. Patient's indices do not demonstrate iron deficiency anemia. (3) Hyponatremia Is this a current diagnosis for this admission?: Yes Plan: Resolved. (4) Urinary tract infection Qualifiers: Urinary tract infection type: acute cystitis Hematuria presence: without hematuria Qualified Code(s): N30.00 - Acute cystitis without hematuria Is this a current diagnosis for this admission?: Yes Plan: Secondary to Klebsiella pneumonia: Rocephin. (5) Type II diabetes mellitus Is this a current diagnosis for this admission?: Yes Plan: We will continue current insulin regimen. (6) Dysphagia Is this a current diagnosis for this admission?: Yes Plan: Have speech evaluate patient. (7) Erosive esophagitis Is this a current diagnosis for this admission?: Yes Plan: PPI and Carafate
[2017-05-29] MEDS: NYSTATIN CREAM 15 GM TP SCH (18:08)
[2017-05-29] MEDS: INSULIN LISPRO 100 UNIT/ML 3 ML VIAL SUBCUT PRN (18:40)
--- NOTE | 2017-05-29 21:31 | PDOC PROGRESS REPORT ---
Subjective Progress Note for:: 05/29/17 Subjective:: patient has been transferred out of the ICU biopsies are negative for H.Pylori she has significant ulceration and should be on a PPI carafate is minimally helpful patient denies any blood Hgb is stable no significant overnight events Physical Exam Vital Signs: Temp Pulse Resp BP Pulse Ox 99.4 F 105 H 16 117/80 100 05/29/17 20:00 05/29/17 20:00 05/29/17 20:00 05/29/17 20:00 05/29/17 20:00 Intake & Output 05/28/17 05/29/17 05/30/17 06:59 06:59 06:59 Intake Total 2125 881 125 Output Total 4072 2320 Balance -4129 -1419 125 Weight 72.4 kg General appearance: PRESENT: no acute distress, well-developed, well-nourished Head exam: PRESENT: atraumatic, normocephalic Eye exam: PRESENT: EOMI, PERRLA. ABSENT: periorbital swelling, scleral icterus Mouth exam: PRESENT: moist Throat exam: ABSENT: tonsillar exudate, tonsillogmegaly Neck exam: ABSENT: meningismus, tenderness, thyromegaly, tracheal deviation Respiratory exam: PRESENT: symmetrical, unlabored. ABSENT: chest wall tenderness, tachypnea, wheezes Cardiovascular exam: PRESENT: RRR, +S1, +S2 GI/Abdominal exam: PRESENT: normal bowel sounds, soft. ABSENT: Low's sign, rebound, rigid, tenderness Extremities exam: ABSENT: joint swelling Musculoskeletal exam: PRESENT: full ROM Neurological exam: PRESENT: alert, awake, oriented to person, CN II-XII grossly intact Psychiatric exam: PRESENT: flat affect Skin exam: PRESENT: normal color. ABSENT: mottled, pallor, petechiae, urticaria , vesicles Results Laboratory Results: 05/29/17 04:33 05/29/17 04:33 05/29/17 05/29/17 04:33 04:33 WBC 6.9 RBC 5.03 Hgb 14.8 Hct 42.5 MCV 85 MCH 29.3 MCHC 34.7 RDW 13.9 Plt Count 131 L Seg Neutrophils % 66.5 Lymphocytes % 22.8 Monocytes % 9.3 Eosinophils % 0.9 Basophils % 0.5 Absolute Neutrophils 4.6 Absolute Lymphocytes 1.6 Absolute Monocytes 0.6 Absolute Eosinophils 0.1 Absolute Basophils 0.0 Sodium 141.0 Potassium 3.8 Chloride 105 Carbon Dioxide 26 Anion Gap 10 BUN 3 L Creatinine 0.62 Est GFR ( Amer) > 60 Est GFR (Non-Af Amer) > 60 Glucose 117 H Calcium 9.1 Impressions: Head CT 05/27/17 04:49 IMPRESSION: CHRONIC CHANGES OF ATROPHY AND MICROVASCULAR ISCHEMIA. NO ACUTE PROCESS. Marked motion. EVIDENCE OF ACUTE STROKE: NO. Assessment & Plan - Diagnosis (1) Coffee ground emesis Is this a current diagnosis for this admission?: Yes Plan: due to very severe erosive esophagitis continue PPI should heal with time advance diet as tolerated will be available for any other issue
[2017-05-29] MEDS: BUSPIRONE HCL 10 MG TABLET PO SCH (22:02)
[2017-05-29] MEDS: INSULIN GLARGINE,HUM.REC.ANLOG 300 UNIT/3 ML INSULN.PEN SUBCUT SCH (22:03)
[2017-05-30] MEDS: SUCRALFATE SUSP 1 GM/10 ML UDCUP PO SCH ×5 (01:24→23:47)
[2017-05-30] MEDS: PANTOPRAZOLE SODIUM 40 MG VIAL IV SCH (05:11)
[2017-05-30] MEDS: QUETIAPINE FUMARATE 25 MG TABLET PO SCH ×2 (08:23→18:04)
[2017-05-30] MEDS: CEFTRIAXONE 1 GM/D5W RTU 1 GM/50 ML RTUPB IV SCH (09:30)
[2017-05-30] MEDS: LEVETIRACETAM 500 MG TABLET PO SCH ×2 (09:31→21:43)
[2017-05-30] MEDS: DOCUSATE SODIUM 100 MG CAPSULE PO SCH ×2 (09:31→18:04)
[2017-05-30] MEDS: PREDNISONE 10 MG TABLET PO SCH (09:31)
[2017-05-30] MEDS: NYSTATIN CREAM 15 GM TP SCH ×2 (09:31→18:05)
[2017-05-30] MEDS: THIAMINE HCL 100 MG TABLET PO SCH (09:31)
--- NOTE | 2017-05-30 11:32 | PDOC PROGRESS REPORT ---
Subjective Progress Note for:: 05/30/17 Subjective:: Pt states that she is doing ok. Speech reported that they would like to proceed with modified barium swallow. Physical Exam Vital Signs: Temp Pulse Resp BP Pulse Ox 98.5 F 98 16 123/76 98 05/30/17 04:00 05/30/17 07:00 05/30/17 04:00 05/30/17 04:00 05/30/17 04:00 Intake & Output 05/29/17 05/30/17 05/31/17 06:59 06:59 06:59 Intake Total 881 605 Output Total 2400 Balance -1519 605 General appearance: PRESENT: no acute distress, well-developed, well-nourished Head exam: PRESENT: atraumatic, normocephalic Eye exam: PRESENT: conjunctiva pink, EOMI. ABSENT: scleral icterus Ear exam: PRESENT: normal external ear exam Mouth exam: PRESENT: moist, tongue midline Neck exam: ABSENT: carotid bruit, JVD, lymphadenopathy, thyromegaly Respiratory exam: PRESENT: clear to auscultation toño. ABSENT: rales, rhonchi, wheezes Cardiovascular exam: PRESENT: RRR. ABSENT: diastolic murmur, rubs, systolic murmur Pulses: PRESENT: normal dorsalis pedis pul Vascular exam: PRESENT: normal capillary refill GI/Abdominal exam: PRESENT: normal bowel sounds, soft. ABSENT: distended, guarding, mass, organolmegaly, rebound, tenderness Rectal exam: PRESENT: deferred Extremities exam: PRESENT: other - lower ext bilateral foot contractures, + lower ext muscle wasting. Neurological exam: PRESENT: alert, awake, oriented to person, oriented to place , oriented to time, oriented to situation, CN II-XII grossly intact. ABSENT: motor sensory deficit Psychiatric exam: PRESENT: appropriate affect, normal mood. ABSENT: homicidal ideation, suicidal ideation Skin exam: PRESENT: dry, intact, warm. ABSENT: cyanosis, rash Results Laboratory Results: 05/29/17 04:33 05/29/17 04:33 Impressions: Head CT 05/27/17 04:49 IMPRESSION: CHRONIC CHANGES OF ATROPHY AND MICROVASCULAR ISCHEMIA. NO ACUTE PROCESS. Marked motion. EVIDENCE OF ACUTE STROKE: NO. Assessment & Plan - Diagnosis (1) Dysphagia Is this a current diagnosis for this admission?: Yes Plan: Modified barium swallow ordered for further evaluation. (2) Acute GI bleeding Is this a current diagnosis for this admission?: Yes Plan: Secondary to Esophageal Ulcer: Will continue PPI and carafate. (3) Coffee ground emesis Is this a current diagnosis for this admission?: Yes Plan: Patient has given report of coffee-ground emesis. Patient is scheduled for EGD by surgery today. Patient's hemoglobin has remained stable. Patient's indices do not demonstrate iron deficiency anemia. (4) Hyponatremia Is this a current diagnosis for this admission?: Yes Plan: Resolved. (5) Urinary tract infection Qualifiers: Urinary tract infection type: acute cystitis Hematuria presence: without hematuria Qualified Code(s): N30.00 - Acute cystitis without hematuria Is this a current diagnosis for this admission?: Yes Plan: Secondary to Klebsiella pneumonia: Rocephin. (6) Type II diabetes mellitus Is this a current diagnosis for this admission?: Yes Plan: We will continue current insulin regimen. (7) Erosive esophagitis Is this a current diagnosis for this admission?: Yes Plan: PPI and Carafate (8) Hypotension Is this a current diagnosis for this admission?: Yes Plan: Will monitor. No signs of sepsis. - Time Time Spent with patient: 15-24 minutes
[2017-05-30] MEDS: INSULIN LISPRO 100 UNIT/ML 3 ML VIAL SUBCUT PRN ×2 (18:15→21:43)
[2017-05-30] MEDS: HALOPERIDOL LACTATE INJ 5 MG/1 ML VIAL IV PRN (20:28)
[2017-05-30] MEDS: INSULIN GLARGINE,HUM.REC.ANLOG 300 UNIT/3 ML INSULN.PEN SUBCUT SCH (21:43)
[2017-05-30] MEDS: BUSPIRONE HCL 10 MG TABLET PO SCH (21:43)
[2017-05-31 05:06] LABS: ABSOLUTE EOSINOPHILS # (AUTO) 0.1 10^3/uL (0.0-0.6); ABSOLUTE LYMPHOCYTES (AUTO) 1.7 10^3/uL (0.5-4.7); ABSOLUTE MONOCYTES (AUTO) 0.5 10^3/uL (0.1-1.4); ABSOLUTE NEUT (AUTO) 3.6 10^3/uL (1.7-8.2); BASOPHILS % (AUTO) 0.8 % (0-2); EOSINOPHILS % (AUTO) 1.3 % (0-6); HEMATOCRIT 38.5 % (36.0-47.0); HEMOGLOBIN 13.5 g/dL (12.0-15.5); LYMPHOCYTES % (AUTO) 28.6 % (13-45); MEAN CORPUSCULAR HEMOGLOBIN 29.2 pg (27.0-33.4); MEAN CORPUSCULAR HGB CONC 35.1 g/dL (32.0-36.0); MEAN CORPUSCULAR VOLUME 83 fl (80-97); MONOCYTES % (AUTO) 8.9 % (3-13); RED BLOOD COUNT 4.63 10^6/uL (3.72-5.28); RED CELL DISTRIBUTION WIDTH 13.8 % (11.5-14.0); SEGMENTED NEUTROPHILS % (AUTO) 60.4 % (42-78)
[2017-05-31 05:28] LABS: ANION GAP 11 (5-19); BLOOD UREA NITROGEN 4 mg/dL (7-20); CALCIUM 9.1 mg/dL (8.4-10.2); CARBON DIOXIDE 24 mmol/L (22-30); CHLORIDE 104 mmol/L (98-107); CREATININE RESULT 0.59 mg/dL (0.52-1.25); GLUCOSE 117 mg/dL (75-110); POTASSIUM 3.7 mmol/L (3.6-5.0); SODIUM 139.1 mmol/L (137-145)
[2017-05-31] MEDS: SUCRALFATE SUSP 1 GM/10 ML UDCUP PO SCH ×3 (06:33→18:00)
[2017-05-31] MEDS: QUETIAPINE FUMARATE 25 MG TABLET PO SCH ×2 (08:31→18:00)
--- NOTE | 2017-05-31 09:47 | RADIOLOGY REPORT (SQ) ---
EXAM DESCRIPTION: COOKIE SWALLOW COMPLETED DATE/TIME: 05/31/2017 8:18 am REASON FOR STUDY: possible aspiration on liquids COMPARISON: None. TECHNIQUE: Videofluoroscopic swallowing examination was performed in conjunction with speech patholo gy. Videofluoroscopic imaging was obtained and reviewed and these are the findings: RADIATION DOSE: 1 minutes 36 seconds of fluoroscopy was used. 1 images saved to PACS. LIMITATIONS: None FINDINGS: The patient was brought into the fluoro room and placed upright on a modified barium swall ow chair. The patient was then given multiple consistencies mixed with barium to swallow under live fluoroscopic video guidance. According to the Speech Pathologist there was no penetration or aspirat ion. Mild cricopharyngeal hypertrophy causing delay in passage of bolus into the proximal esophagus. IMPRESSION: NO EVIDENCE OF PENETRATION OR ASPIRATION.PLEASE SEE SPEECH PATHOLOGIST REPORT FOR OTHER FINDINGS AND RECOMMENDATIONS. COMMENT: Quality ID [id number]: Final reports for procedures using fluoroscopy that document radiation exp osure indices, or exposure time and number of fluorographic images (if radiation exposure indices are not available) TECHNICAL DOCUMENTATION: JOB ID: [id number] [employer]- All Rights Reserved
[2017-05-31] MEDS: THIAMINE HCL 100 MG TABLET PO SCH (10:39)
[2017-05-31] MEDS: PREDNISONE 10 MG TABLET PO SCH (10:39)
[2017-05-31] MEDS: CEFTRIAXONE 1 GM/D5W RTU 1 GM/50 ML RTUPB IV SCH (10:39)
[2017-05-31] MEDS: LEVETIRACETAM 500 MG TABLET PO SCH (10:39)
[2017-05-31] MEDS: DOCUSATE SODIUM 100 MG CAPSULE PO SCH ×2 (10:39→17:59)
[2017-05-31] MEDS: NYSTATIN CREAM 15 GM TP SCH ×2 (10:40→18:00)
--- NOTE | 2017-05-31 12:16 | ST Inp Modified Barium Swallow ---
Medical Diagnosis - Medical Diagnoses Medical Diagnosis Description & ICD-10 Code(s): coffee ground emesis, esophagitis ST Inpatient MBS - General Date: 05/31/17 Date of Onset: 05/30/17 - History History Obtained From: Other - EMR -: Medical - Per EMR: hyperlipidemia, HTN, diabetes, GERD, arthritis, vascular and alcoholic dementia, pancreatitis, COPD, seizure disorder, splenic vein thrombosis, upper GI bleed Medications: Medications Reviewed Allergies: Refer to medical record - Subjective Current Nutritional Means: PO - Clear liquid diet Current Symptoms: Coughing Pain: 0/5 - Objective Assessment: Upright, Left Lateral - Food Trials Food Trials Used: Thin liquids, Honey-thickened liquids, [place] thick liquids, Pureed, Regular The Patient: fed by ST, via cup, via spoon - Assessment Labial Function: Within Normal Limits Lingual Function: Within Functional Limits Mandibular Function: Within Normal Limits Laryngeal Function: Volitional Cough - WFL, Volitional Swallow - delayed - Pharyngeal Stage Initiation of Pharyngeal Stage: Delayed Reflex Delay Time (seconds): 3 Decreased Laryngeal Elevation: No Reduced Velo-Pharyngeal Closure: no Reduced Pressure Generation: No Reduced Tongue Base Retraction: No Pre-Swallowing Pooling in Valleculae: Moderate Pre-Swallowing Pooling in Pyriforms: None Reduced Thyro-Hyiod Approximation: No Reduced Epiglottic Excursion: No Reduced Pharyngeal Peristalsis: No Multiple Swallows With: Effective Post Swallow Residuals in Valleculae: None Post Swallow Residuals in Pyriforms: None Post Swallow Residuals: no residuals Pahryngeal Stage Comments: Delayed swallow trigger seen, required 2 swallows to clear oral cavity consistently. No pharyngeal deficits noted other than trace penetration x1 on thin liquid cup sip. - Esophageal Stage Esophageal Stage Comments: Some material seen to come back up through UES after the swallow. - Impression/Summary Laryngeal Penetration: Yes, Flash, during swallow - on thin liquid trial x1 Tracheal Aspiration: no Patient Presents With: Oral-Pharyngeal dysph., Mild-Moderate Risk of Aspiration: Minimal - Recommendations Solid Diet Recommendations: Regular Liquid Diet Recommendations: Thin Strict Aspitarion Precautions: Yes Dysphagia Therapy with BILINGUAL PATIENT SUPPORT CASEWORKER: No Recommended Techniques: Fully Upright During Meal, Small Bites and Sips - Time Total Time: 20 Total Timed Minutes: 20
--- NOTE | 2017-05-31 14:22 | PDOC DISCHARGE SUMMARY ---
General - Admit/Disc Date/PCP Admission Date/Primary Care Provider: 05/27/17 05:50 Discharge Date: 05/31/17 - Discharge Diagnosis (1) Sepsis Is this a current diagnosis for this admission?: Yes Summary: Secondary to acute cystitis due to Klebsiella pneumonia: Resolved patient being discharged on Keflex. (2) Acute cystitis Is this a current diagnosis for this admission?: Yes Summary: Continue to Klebsiella pneumonia: Patient was placed on Rocephin and then switched to Keflex. (3) Dysphagia Is this a current diagnosis for this admission?: Yes Summary: Ruled out: Patient had a modified barium swallow that demonstrated no abnormalities with swallowing. (4) Acute GI bleeding Is this a current diagnosis for this admission?: Yes Summary: Secondary to esophageal ulcer: Patient is on PPI and Carafate. (5) Coffee ground emesis Is this a current diagnosis for this admission?: Yes Summary: Secondary to esophageal ulcer: Patient is on PPI and Carafate. (6) Hyponatremia Is this a current diagnosis for this admission?: Yes Summary: Resolved. (7) Urinary tract infection Is this a current diagnosis for this admission?: Yes Summary: Secondary to Klebsiella: Patient is on Keflex. (8) Type II diabetes mellitus Is this a current diagnosis for this admission?: Yes Summary: Continue patient's current insulin regimen: (9) Erosive esophagitis Is this a current diagnosis for this admission?: Yes Summary: Patient discharged on PPI and Carafate. (10) Hypotension Is this a current diagnosis for this admission?: Yes Summary: Secondary to sepsis due to acute cystitis: Resolved - Additional Information Resuscitation Status: Full Code Discharge Diet: Cardiac, Diabetic Discharge Activity: Activity As Tolerated Home Medications: Buspirone HCl [Buspar 10 mg Tablet] 10 mg PO QHS 05/27/17 Calcium Carbonate/Vitamin D2 [Oyster Shell Calcium-Vit D Tab] 1 tab PO BID 05/27 Ergocalciferol (Vitamin D2) [Vitamin D2] 50,000 unit PO WE@1000 05/27/17 Esomeprazole Mag Trihydrate [Nexium] 40 mg PO DAILY 05/27/17 Haloperidol Lactate [Haldol 5 mg/ml Inj 1 ml Vial] 5 mg INJ DAILYP PRN 05/27/17 Haloperidol [Haldol 5 mg Tablet] 5 mg PO DAILYP PRN 05/27/17 Ibuprofen [Motrin 800 mg Tablet] 800 mg PO Q8HP PRN 05/27/17 Insulin Aspart [Novolog Insulin (Aspart) 100 unit/mL] 0 unit SUBCUT .SLD SCALE 05/27/17 Insulin Glargine,Hum.rec.anlog [Lantus] 30 unit SQ QHS 05/27/17 Levetiracetam [Keppra 500 mg Tablet] 500 mg PO Q12 05/27/17 Melatonin [Melatin] 3 mg PO QHS 05/27/17 Multivit-Min/Iron/Folic/Lutein [Centrum Silver Women Tablet] 1 each PO DAILY Prednisone [Deltasone 10 mg Tablet] 10 mg PO DAILY 05/27/17 Promethazine HCl [Phenergan 25 mg Tablet] 12.5 mg PO Q6HP PRN 05/27/17 Quetiapine Fumarate [Seroquel] 50 mg PO QAM 05/27/17 Quetiapine Fumarate [Seroquel] 75 mg PO QPM 05/27/17 Sennosides [Senna] 8.6 mg PO BIDP PRN 05/27/17 Thiamine HCl [Vitamin B-1] 100 mg PO DAILY 05/27/17 Cephalexin Monohydrate [Keflex 500 mg Capsule] 500 mg PO BID #20 capsule Sucralfate [Carafate Susp 1 gm/10 ml Udcup] 1 gm PO Q6 #240 udc 05/31/17 History of Present Illness Patient complains of: Altered mental status and nausea History of Present Illness: MAVERICK TOLBERT is a 51 year old female presents from rehab with nausea and altered mental status. Hospital Course Hospital Course: Patient is a 51-year-old female that presented from outside facility with nausea and altered mental status. Patient was found to have a sodium of 115. Patient was placed on normal saline and sodium resolved. Patient was found to have Klebsiella pneumonia at time of admission as well and was treated with antibiotics. Patient was discharged home on Keflex for completion of Klebsiella urinary tract infection. Patient was noted be septic at time of admission and therefore antibiotics were initiated however at time of discharge patient sepsis had resolved. Patient was found at bedside to exhibit odd swallowing mechanism however when patient had modified barium no evidence of aspiration was noted. Physical Exam Vital Signs: Temp Pulse Resp BP Pulse Ox 99.0 F 91 17 119/84 95 05/31/17 12:00 05/31/17 12:00 05/31/17 12:00 05/31/17 12:00 05/31/17 12:00 Intake & Output 05/30/17 05/31/17 06/01/17 06:59 06:59 06:59 Intake Total 605 980 250 Balance 605 980 250 Weight 75.1 kg General appearance: PRESENT: no acute distress, well-developed, well-nourished Head exam: PRESENT: atraumatic, normocephalic Eye exam: PRESENT: conjunctiva pink, EOMI. ABSENT: scleral icterus Ear exam: PRESENT: normal external ear exam Mouth exam: PRESENT: moist, tongue midline Neck exam: ABSENT: carotid bruit, JVD, lymphadenopathy, thyromegaly Respiratory exam: PRESENT: clear to auscultation toño. ABSENT: rales, rhonchi, wheezes Cardiovascular exam: PRESENT: RRR. ABSENT: diastolic murmur, rubs, systolic murmur Pulses: PRESENT: normal dorsalis pedis pul Vascular exam: PRESENT: normal capillary refill GI/Abdominal exam: PRESENT: normal bowel sounds, soft. ABSENT: distended, guarding, mass, organolmegaly, rebound, tenderness Rectal exam: PRESENT: deferred Extremities exam: PRESENT: full ROM. ABSENT: calf tenderness, clubbing, pedal edema Neurological exam: PRESENT: alert, awake, oriented to person, oriented to place , oriented to time. ABSENT: motor sensory deficit Psychiatric exam: PRESENT: appropriate affect, normal mood. ABSENT: homicidal ideation, suicidal ideation Skin exam: PRESENT: dry, intact, warm. ABSENT: cyanosis, rash Results Laboratory Results: 05/31/17 04:43 05/31/17 04:43 05/31/17 05/31/17 04:43 04:43 WBC 6.0 RBC 4.63 Hgb 13.5 Hct 38.5 MCV 83 MCH 29.2 MCHC 35.1 RDW 13.8 Plt Count 141 L Seg Neutrophils % 60.4 Lymphocytes % 28.6 Monocytes % 8.9 Eosinophils % 1.3 Basophils % 0.8 Absolute Neutrophils 3.6 Absolute Lymphocytes 1.7 Absolute Monocytes 0.5 Absolute Eosinophils 0.1 Absolute Basophils 0.0 Sodium 139.1 Potassium 3.7 Chloride 104 Carbon Dioxide 24 Anion Gap 11 BUN 4 L Creatinine 0.59 Est GFR ( Amer) > 60 Est GFR (Non-Af Amer) > 60 Glucose 117 H Calcium 9.1 Impressions: Head CT 05/27/17 04:49 IMPRESSION: CHRONIC CHANGES OF ATROPHY AND MICROVASCULAR ISCHEMIA. NO ACUTE PROCESS. Marked motion. EVIDENCE OF ACUTE STROKE: NO. Modified Barium Swallow 05/31/17 00:00 IMPRESSION: NO EVIDENCE OF PENETRATION OR ASPIRATION.PLEASE SEE SPEECH PATHOLOGIST REPORT FOR OTHER FINDINGS AND RECOMMENDATIONS. Plan Time Spent: Greater than 30 Minutes
[2017-05-31 19:36] VITALS: BP 129/86
== END 2017-05-31 19:40 | DRG 872 ==
LOC: ER 01:17 → UNDOADMIN 05:00 → EH 05:00 → ICU 07:40 → 4W 05-29 03:34
PROVIDERS: ADMIT Internal Medicine; ATTEND Internal Medicine
PROC: 3E0F73Z Introduction of Anti-inflammatory into Respiratory Tract, Via Natural or Artificial Opening (ICD-10-PCS; 2017-05-27)
PROC: 0DB68ZX Excision of Stomach, Via Natural or Artificial Opening Endoscopic, Diagnostic (ICD-10-PCS; principal; 2017-05-28 14:00)
DX: A41.9 Sepsis, unspecified organism (principal); N30.00 Acute cystitis without hematuria; E87.1 Hypo-osmolality and hyponatremia; K22.10 Ulcer of esophagus without bleeding; B96.1 Klebsiella pneumoniae [K. pneumoniae] as the cause of diseases classified elsewhere; K21.9 Gastro-esophageal reflux disease without esophagitis; M19.90 Unspecified osteoarthritis, unspecified site; F17.200 Nicotine dependence, unspecified, uncomplicated; F01.50 Vascular dementia, unspecified severity, without behavioral disturbance, psychotic disturbance, mood disturbance, and anxiety; R13.10 Dysphagia, unspecified; F10.20 Alcohol dependence, uncomplicated; F32.9 Major depressive disorder, single episode, unspecified; F41.9 Anxiety disorder, unspecified; Z88.8 Allergy status to other drugs, medicaments and biological substances; Z79.52 Long term (current) use of systemic steroids; E78.5 Hyperlipidemia, unspecified; E11.9 Type 2 diabetes mellitus without complications; G40.909 Epilepsy, unspecified, not intractable, without status epilepticus; J44.9 Chronic obstructive pulmonary disease, unspecified; Z79.4 Long term (current) use of insulin; Z79.899 Other long term (current) drug therapy
CPT/HCPCS: 36415; 43239; 70450; 74230; 80048; 80053; 80307; 81001; 82271; 82272; 82803; 82962; 83605; 83735; 83930; 83935; 84300; 84703; 85025; 85610; 86850; 86900; 86901; 87040; 87086; 87088; 87186; 88305; 88342; 99285; G8996-GN; G8997-GN; G8998-GN; J0171; J0692; J0696; J1200; J1610; J1630; J1644; J1815; J1940; J2250; J2310; J2405; J3010; J3480; J3490; J7030; J7060; J7512; S0164

== ENCOUNTER 2017-12-14 17:59 | Emergency (ER) | payer MEDICARE, MEDICAID ==
[2017-12-14 18:29] VITALS: BP 111/76
--- NOTE | 2017-12-14 19:07 | ER Document Report ---
ED General - General Chief Complaint: Low Blood Sugar Stated Complaint: BLOOD SUGAR ISSUES Time Seen by Provider: 12/14/17 18:54 Cannot obtain history due to: Dementia, Mentally challenged Notes: Patient is a 52-year-old female who presents from her nursing facility with hypoglycemia and refusal to eat. The patient herself is profoundly demented, unable to provide meaningful history. She states she does not know why she is here or where she is. EMS apparently arrived, found patient's blood glucose to be in the 30s. They administered intramuscular glucagon and gave the patient IV dextrose with resolution of her hypoglycemia. Per the report the patient is at her baseline at this time. TRAVEL OUTSIDE OF THE [place] IN LAST 30 DAYS: No - Related Data Allergies/Adverse Reactions: tramadol [Tramadol] Allergy (Verified 10/21/14 17:46) Nausea adhesive tape [Adhesive Tape] Adverse Reaction (Verified 10/21/14 17:46) peels skin off Past Medical History - General Information source: Emergency Med Personnel, [facility] Records Cannot obtain history due to: Dementia, Mentally challenged - Social History Smoking Status: Unknown if Ever Smoked Lives with: [facility] Family History: Other - Unobtainable - Past Medical History Cardiac Medical History: Reports: Hx Hypercholesterolemia, Hx Hypertension - medicated Denies: Hx Heart Attack, Hx Heart Murmur Pulmonary Medical History: Denies: Hx Asthma, Hx Tuberculosis Neurological Medical History: Reports: Hx Seizures. Denies: Hx Cerebrovascular Accident Endocrine Medical History: Reports: Hx Diabetes Mellitus Type 2 GI Medical History: Reports: Hx Gastroesophageal Reflux Disease. Denies: Hx Hepatitis, Hx Hiatal Hernia, Hx Pancreatitis, Hx Ulcer Musculoskeltal Medical History: Reports Hx Arthritis Psychiatric Medical History: Reports: Hx Anxiety, Hx Depression - Anxiety Infectious Medical History: Denies: Hx Hepatitis, Hx HIV Past Surgical History: Reports: Hx Section, Hx Orthopedic Surgery - R Hip, Hx Tonsillectomy. Denies: Hx Hysterectomy, Hx Mastectomy, Hx Open Heart Surgery, Hx Pacemaker - Immunizations Hx Diphtheria, Pertussis, Tetanus Vaccination: Yes - unknown Hx Pneumococcal Vaccination: 05/12/12 Review of Systems - Review of Systems -: Yes ROS unobtainable due to patient's medical condition Physical Exam - Vital signs Vitals: Resp Pulse Ox 18 97 12/14/17 18:05 12/14/17 18:05 Interpretation: Normal Notes: PHYSICAL EXAMINATION: GENERAL: In no acute distress HEAD: Atraumatic, normocephalic. EYES: Pupils equal round and reactive to light, extraocular movements intact, sclera anicteric, conjunctiva are normal. ENT: nares patent, oropharynx clear without exudates. Moderately dry mucous membranes. NECK: supple without lymphadenopathy LUNGS: Breath sounds clear to auscultation bilaterally and equal. No wheezes rales or rhonchi. HEART: Regular rate and rhythm without murmurs ABDOMEN: Soft, nontender, normoactive bowel sounds. No guarding, no rebound. No masses appreciated. EXTREMITIES: no pitting or edema. No cyanosis. NEUROLOGICAL: No focal neurological deficits. Moves all extremities spontaneously. PSYCH: Alert but not oriented to place or month. Intermittently yelling. SKIN: Warm, Dry, normal turgor, no rashes or lesions noted. Course - Re-evaluation Re-evalutation: 12/14/17 19:05 Patient presents with concerns of hypoglycemia from her nursing facility. She is an insulin-dependent type 2 diabetic. Patient is profoundly demented from baseline vascular dementia and is currently at her baseline per EMS report. Patient is not hypoglycemic at time of arrival as she has received glucagon intramuscularly prior to arrival. Patient is agreeable to drinking and eating here in the emergency department. No indication for labs. The patient denies any symptoms. Medical screening exam is unremarkable for any acute findings. Patient will be discharged back to her nursing facility with instructions for regular Accu-Cheks, holding insulin until patient represents with hyperglycemia and is eating. - Vital Signs Vital signs: Temp Pulse Resp BP Pulse Ox 97.3 F 17 111/76 99 12/14/17 18:06 12/14/17 18:06 12/14/17 18:06 12/14/17 18:06 - Laboratory Laboratory results interpreted by me: 12/14/17 18:06 POC Glucose 134 H Discharge - Discharge Clinical Impression: Hypoglycemia Type II diabetes mellitus Qualifiers: Diabetes mellitus roasterman insulin use: with mcc use Diabetes mellitus complication status: with hypoglycemia Diabetes mellitus complication detail: without coma Qualified Code(s): E11.649 - Type 2 diabetes mellitus with hypoglycemia without coma Condition: Good Disposition: HOME-ASSISTED LIVING Additional Instructions: Please hold insulin until the patient regular resumes blood sugars greater than 160. Please perform Accu-Cheks every 4 hours and sooner if the patient has any recurrence of hypoglycemia. Return the patient to the emergency department for any additional concerns. Referrals: MARY MORALES MD [Primary Care Provider] - Follow up as needed
== END 2017-12-14 19:54 | disposition home health service (06) ==
LOC: ER 17:59
DX: E11.649 Type 2 diabetes mellitus with hypoglycemia without coma (principal); F03.90 Unspecified dementia, unspecified severity, without behavioral disturbance, psychotic disturbance, mood disturbance, and anxiety; I10 Essential (primary) hypertension; Z79.899 Other long term (current) drug therapy
CPT/HCPCS: 82962; 99283

== ENCOUNTER → 2018-08-21 | Outpatient (CLI) | payer MEDICARE, MEDICAID ==
--- NOTE | 2018-08-21 10:34 | RADIOLOGY REPORT (SQ) ---
EXAM DESCRIPTION: PRATIBHA SWALLOW COMPLETED DATE/TIME: 08/21/2018 8:23 am REASON FOR STUDY: PNEUMONITIS DUE TO INHALATION OF FOOD AND VOMIT (J69.0) J69.0 PNEUMONITIS DUE TO INHALATION OF FOOD AND VOMIT COMPARISON: Pratibha swallow 05/31/2017. TECHNIQUE: Videofluoroscopic swallowing examination was performed in conjunction with speech patholo gy. Videofluoroscopic imaging was obtained and reviewed and these are the findings: RADIATION DOSE: Fluoro time 2.27 minutes 1 images saved to PACS. LIMITATIONS: Limited study due to patient positioning difficulties. FINDINGS: The patient was brought into the fluoro room and placed upright on a modified barium swall ow chair. The patient was then given multiple consistencies mixed with barium to swallow under live fluoroscopic video guidance. According to the Speech Pathologist there was penetration seen with thi n barium. No aspiration identified. Please refer to speech pathology report for further details. IMPRESSION: LARYNGEAL PENETRATION WITH THIN BARIUM, WITHOUT ASPIRATION.PLEASE SEE SPEECH PATHOLOGIST REPORT FOR OTHER FINDINGS AND RECOMMENDATIONS. COMMENT: None Quality ID [id number]: Final reports for procedures using fluoroscopy that document radiation exposure jose lina, or exposure time and number of fluorographic images (if radiation exposure indices are not avail able) TECHNICAL DOCUMENTATION: JOB ID: [id number] [employer]- All Rights Reserved Reading location - IP/workstation name: [email or web address] [id number]
--- NOTE | 2018-08-21 11:25 | ST Modified Barium Swallow ---
Recommendation - Recommendations Recommendations: Recommend thin liquids, regular solids, no straws and slow rate of consumption. If further swallowing assessment is desired, recommend alternative assessemnt (FEES, etc) due to difficulty positioning for procedure. Medical Diagnoses - Medical Diagnoses Medical Diagnosis Description & ICD-10 Code(s): dysphagia, r13.10 Other Medical Diagnoses/Co-Morbidities: per patient paperwork from facility: vascular dementia, dysphagia, feeding difficulties, encephalopathy, major depressive disorder, unspecified psychosis, physiological condition, conduct disorder, alcohol abuse, hyperlipidemia, hypo-osmolality, osteoarthritis, altered mental status, adjustment disorder, epilepsy, allergic rhinitis, iron deficiency anemia, insomnia, bipolar disorder, pruritus, autoimmune hemolytic anemias, GERD, pancreatitis, diabetes, vit d deficiency, anxiety disorder, essential hypertension, ulcerative pancolitis, neuralgia and neuritis - ICD-10 Tx Diagnosis Coding (1) Pneumonitis due to inhalation of food and vomit ICD-10 Code(s): J69.0 - PNEUMONITIS DUE TO INHALATION OF FOOD AND VOMIT ST Modified Barium Swallow - General Date: 08/21/18 Referring Physician: Dr. Hastings Risks/Precautions: Falls, Aspiration Date of Onset: 07/24/18 - date of referral, unknown date of onset Reason for Referral: "assess safest and least restrictive diet suspect aspiration" - History History obtained from: Other - facility paperwork -: Medical - per patient paperwork, patient is resident of [facility]. Has history of erosive esophagitis. Patient reports that she currently has thickened liquids and regular solids, unsure if nectar or honey thick. Medications: per paperwork: insumlin, prednisone, nexium, phenergan, carafate, vitamin D, oyster shell calcium, thiamine, multivitamin, keppra, ibuprofen, senna plus, busprirone, novolog, seroquel, wellbutrin, haloperidol, ativan, remeron, boost high protein, keflex, melatonin, centrum silver ultra women's Allergies: tramadol, adhesive tape - Functional Status Prior Functional Status: INDEPENDENT: feeding Current Functional Limitations: feeding - Subjective Patient/caregiver goal(s): r/o aspiration Cognitive-Linguistic Function: Moderately Impaired Speech Intelligibility: Moderately dysarthric Current Nutritional Means: PO Current PO diet: Regular, Thickened liquids Current symptoms: Aspiration - suspected Pain: Patient reports, 0/5 - Objective Assessment: Upright, Left Lateral - Difficult to position patient for assessment due to posture and some contracted structures. - Food Trials Used Food trials used: Thin liquids, Honey-thickened liquids, [place] thick liquids, Pureed, Regular The patient: Required Assist - Oral-Motor Skills Dentition: Partial Oral Motor Skills: discoordinated movements seen - Assessment Labial closure: Adequate Leakage: Anterior - minimal Mastication: Adequate Lingual Movement: Normal Oral stage: Mildly Impaired - did not impact safety of swallow - Pharyngeal Stage Initiation of Pharyngeal Stage Reflex: Normal Decreased laryngeal elevation: No Reduced Velopharyngeal Closure: no Reduced pressure generation: No reduced tongue-based retraction: No Pre-swallow pooling in valleculae: Mild Pre-Swallow pooling in pyriforms: None Reduced Thyro-Hyoid approximation: No Reduced epiglottic excursion: No Post-swallow residulas vallecular: None - Fall Risk Assessment Medications/Conditions that increase fall risks include: Antidepressants, sedatives, anti-arrhythmic, diuretic, benzodiazipenes, neuroleptics. BP regulation problems, cardiac problems, balance or gait deficits, neurological problems. Fall Risk Actions Taken: No action needed - Behavioral Observations During evaluation process patient: was cooperative - Treatment / Educational Needs: Treatment/Education Needs: Treatment consisted of patient education on the role of the Speech Pathologist. Patient's plan of care and golas were communicated as well as scheduling and attendance policies. Recommendations for initial home program were shared. Patient demonstrated understanding and verbalized agreement. - Impression/Summary Laryngeal Penetration: Yes, Flash Consistency: Thin Tracheal Aspiration: no Patient presents with: Oral-Pharyngeal dysph., Mild-Moderate Risk of Aspiration: Mild Evaluation and Findings: Findings limited due to reduced visibility due to postural issues. Results described above are based on clinician judgment on what was seen on study this day. - Recommendations Solid diet recommendations: Regular Liquid Diet Modification: Thin Strict aspiration precautions: Yes Dysphagia therapy with [facility]: f/u with current thera. Recommended techniques: Fully Upright During Meal, Small Bites and Sips Information, Precautions and Recommendations: Patient (Verbal) - Time Total Time: 25 - Plan of Care Strategies to optimize patient understanding include:: ongoing assessment of educational needs, implementation of educational strategies, and re-education. - - -: Thank you for the opportunity to work with this patient and his/her family. Should you have any questions about this patient's plan or progress, I can be reached at [phone].
== END ==
LOC: RAD 07:32
PROVIDERS: ATTEND Internal Medicine
DX: J69.0 Pneumonitis due to inhalation of food and vomit (principal); R13.10 Dysphagia, unspecified
CPT/HCPCS: 74230

== ENCOUNTER 2018-10-15 13:14 | Emergency (ER) | payer MEDICARE, MEDICAID ==
--- NOTE | 2018-10-15 13:32 | ER Document Report ---
ED Medical Screen (RME) - General Chief Complaint: Fall Injury Stated Complaint: FALL INJURY Time Seen by Provider: 10/15/18 13:28 Primary Care Provider: MARY MORALES MD [Primary Care Provider] - Follow up as needed TRAVEL OUTSIDE OF THE [place] IN LAST 30 DAYS: No - Related Data Allergies/Adverse Reactions: tramadol [Tramadol] Allergy (Verified 10/15/18 13:15) Nausea adhesive tape [Adhesive Tape] Adverse Reaction (Verified 10/15/18 13:15) peels skin off Past Medical History - Past Medical History Cardiac Medical History: Reports: Hx Hypercholesterolemia, Hx Hypertension - medicated Denies: Hx Heart Attack, Hx Heart Murmur Pulmonary Medical History: Denies: Hx Asthma, Hx Tuberculosis Neurological Medical History: Reports: Hx Seizures. Denies: Hx Cerebrovascular Accident Endocrine Medical History: Reports: Hx Diabetes Mellitus Type 2 Renal/ Medical History: Denies: Hx Peritoneal Dialysis GI Medical History: Reports: Hx Gastroesophageal Reflux Disease. Denies: Hx Hepatitis, Hx Hiatal Hernia, Hx Pancreatitis, Hx Ulcer Musculoskeltal Medical History: Reports Hx Arthritis Psychiatric Medical History: Reports: Hx Anxiety, Hx Bipolar Disorder, Hx Depression - Anxiety Infectious Medical History: Denies: Hx Hepatitis, Hx HIV Past Surgical History: Reports: Hx Section, Hx Orthopedic Surgery - R Hip, Hx Tonsillectomy. Denies: Hx Hysterectomy, Hx Mastectomy, Hx Open Heart Surgery, Hx Pacemaker - Immunizations Hx Diphtheria, Pertussis, Tetanus Vaccination: Yes - unknown History of Influenza Vaccine for 05/2017 - 10/2017 Season: Refused Physical Exam - Vital signs Vitals: Temp Pulse Resp BP Pulse Ox 99.8 F 105 H 20 97/69 L 97 10/15/18 13:21 10/15/18 13:21 10/15/18 13:21 10/15/18 13:21 10/15/18 13:21 Course - Vital Signs Vital signs: Temp Pulse Resp BP Pulse Ox 99.8 F 105 H 20 97/69 L 97 10/15/18 13:21 10/15/18 13:21 10/15/18 13:21 10/15/18 13:21 10/15/18 13:21 Doctor's Discharge - Discharge Referrals: MARY MORALES MD [Primary Care Provider] - Follow up as needed
--- NOTE | 2018-10-15 13:40 | ER Document Report ---
ED Fall - General Chief Complaint: Fall Injury Stated Complaint: FALL INJURY Time Seen by Provider: 10/15/18 13:28 Primary Care Provider: MARY MORALES MD [Primary Care Provider] - Follow up as needed Notes: 53-year-old female patient emergency department for evaluation of bilateral knee pain. Patient lives in a group home. Fell out of her wheelchair and landed on her knees. Denies any neck pain, headache ,loss of conscious, or other extremity or bony pain. No other issues at this time. TRAVEL OUTSIDE OF THE [place] IN LAST 30 DAYS: No - HPI Occurred: Just prior to arrival Where: [facility] Location of injury/pain: Knee Quality of pain: Achy Severity: Moderate Pain Level: 3 - Related data Allergies/Adverse Reactions: tramadol [Tramadol] Allergy (Verified 10/15/18 13:15) Nausea adhesive tape [Adhesive Tape] Adverse Reaction (Verified 10/15/18 13:15) peels skin off Past Medical History - General Information source: Patient, [facility] Records - Social History Smoking Status: Former Smoker Lives with: [facility] Family History: Other - Unobtainable - Past Medical History Cardiac Medical History: Reports: Hx Hypercholesterolemia, Hx Hypertension - medicated Denies: Hx Heart Attack, Hx Heart Murmur Pulmonary Medical History: Denies: Hx Asthma, Hx Tuberculosis Neurological Medical History: Reports: Hx Seizures. Denies: Hx Cerebrovascular Accident Endocrine Medical History: Reports: Hx Diabetes Mellitus Type 2 Renal/ Medical History: Denies: Hx Peritoneal Dialysis GI Medical History: Reports: Hx Gastroesophageal Reflux Disease. Denies: Hx Hepatitis, Hx Hiatal Hernia, Hx Pancreatitis, Hx Ulcer Musculoskeletal Medical History: Reports Hx Arthritis Psychiatric Medical History: Reports: Hx Anxiety, Hx Bipolar Disorder, Hx Depression - Anxiety Infectious Medical History: Denies: Hx Hepatitis, Hx HIV Past Surgical History: Reports: Hx Section, Hx Orthopedic Surgery - R Hip, Hx Tonsillectomy. Denies: Hx Hysterectomy, Hx Mastectomy, Hx Open Heart Surgery, Hx Pacemaker - Immunizations Hx Diphtheria, Pertussis, Tetanus Vaccination: Yes - unknown Hx Pneumococcal Vaccination: 05/12/12 Review of Systems - Review of Systems Constitutional: denies: Fever, Malaise, Weakness EENT: denies: Double vision, Difficulty swallowing, Mouth pain Cardiovascular: denies: Chest pain, Palpitations, Heart racing Respiratory: denies: Cough, Hurts to breathe, Short of breath, Wheezing Gastrointestinal: denies: Abdominal pain, Diarrhea, Nausea, Vomiting Skin: Other - Bruising to the bilaterally knees. No lacerations Hematologic/Lymphatic: Other - Bruising to the knees. denies: Blood clots, Easy bleeding, Easy bruising Neurological/Psychological: denies: Confusion, Weakness, Numbness Physical Exam - Vital signs Vitals: Temp Pulse Resp BP Pulse Ox 99.8 F 105 H 20 97/69 L 97 10/15/18 13:21 10/15/18 13:21 10/15/18 13:21 10/15/18 13:21 10/15/18 13:21 Interpretation: Normal - General General appearance: Appears well, Alert - Respiratory Respiratory status: No respiratory distress Chest status: Nontender Breath sounds: Normal Chest palpation: Normal - Cardiovascular Rhythm: Regular Heart sounds: Normal auscultation Murmur: No - Extremities General upper extremity: Normal inspection, Nontender, Normal ROM, Normal strength. No: Edema General lower extremity: Other - Patient has contracted bilateral lower extremity at the ankle. Patient has contusions bilateral knees. No deformity. Full range of motion at the knee. - Neurological Neuro grossly intact: Yes Cognition: Normal Gregory Coma Scale Verbal: Oriented Jacqueline Coma Scale Motor: Obeys Commands Speech: Dysarthria Sensory: Normal - Skin Skin Temperature: Warm Skin Moisture: Dry Skin Color: Normal, Other - Bruising bilateral knees Course - Re-evaluation Re-evalutation: 10/15/18 15:01 Knee X-Ray 10/15/18 13:39 IMPRESSION: No acute changes. 10/15/18 15:53 No obvious fracture. At this time I will give her an ibuprofen and a Percocet and discharge her back to the nursing facility. Nothing further at this time. - Vital Signs Vital signs: Temp Pulse Resp BP Pulse Ox 99.8 F 105 H 20 97/69 L 97 10/15/18 13:21 10/15/18 13:21 10/15/18 13:21 10/15/18 13:21 10/15/18 13:21 Discharge - Discharge Clinical Impression: Contusion, knee and lower leg Qualifiers: Encounter type: initial encounter Laterality: unspecified laterality Qualified Code(s): S80.00XA - Contusion of unspecified knee, initial encounter Condition: Good Disposition: HOME, SELF-CARE Instructions: Contusion ([facility]) Additional Instructions: No obvious fractures were seen on the x-rays today. There are old imaging findings but nothing new. In the event that the symptoms persist or you develop any worsening pain in any other long bone, joint or other issues please return for repeat x-rays and repeat evaluation. Referrals: MARY MORALES MD [Primary Care Provider] - Follow up as needed
--- NOTE | 2018-10-15 14:43 | RADIOLOGY REPORT (SQ) ---
EXAM DESCRIPTION: KNEE BILATERAL 1-2 VIEWS COMPLETED DATE/TIME: 10/15/2018 2:18 pm REASON FOR STUDY: fall, pain COMPARISON: None. NUMBER OF VIEWS: Two views right knee Two views left knee TECHNIQUE: Two views right knee Two views left knee LIMITATIONS: None. FINDINGS: Bones are osteoporotic. On the right side, an old healed distal right femoral diaphysis fracture is present with a fixation p late and multiple screws. 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 Old screw tract s in the proximal right tibial metaphysis. No acute fracture. No right knee joint effusion. No giovanni ency around the hardware worrisome for loosening. On the left side, high-grade patellofemoral joint space narrowing is present with lateral subluxation of patella. No joint effusion. Medial and lateral compartments of the left knee maintain normal sadaf int spaces. No joint effusion or gross evidence of loose bodies. No acute fracture or malalignment. IMPRESSION: No acute changes. TECHNICAL DOCUMENTATION: JOB ID: [id number]- All Rights Reserved Reading location - IP/workstation name: [email or web address]
[2018-10-15] MEDS ORDERED: HYDROCODONE/ACETAMINOPHEN 5-325 MG TABLET PO ONE (15:06)
[2018-10-15] MEDS ORDERED: IBUPROFEN 800 MG TABLET PO ONE (15:06)
[2018-10-15 15:54] VITALS: BP 126/89
== END 2018-10-15 16:48 | disposition home or self-care (01) ==
LOC: ER 13:14
DX: S80.02XA Contusion of left knee, initial encounter (principal); S80.01XA Contusion of right knee, initial encounter; M25.561 Pain in right knee; M25.562 Pain in left knee; W05.0XXA Fall from non-moving wheelchair, initial encounter; Y93.89 Activity, other specified; Y92.122 Bedroom in nursing home as the place of occurrence of the external cause; I10 Essential (primary) hypertension; E11.9 Type 2 diabetes mellitus without complications; Z88.5 Allergy status to narcotic agent; Z87.891 Personal history of nicotine dependence
CPT/HCPCS: 99284; 73560; A9270 ×2

== ENCOUNTER 2018-10-18 15:28 | Observation (INO) | payer MEDICARE, MEDICAID ==
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
[2018-10-18 16:01] LABS: ABSOLUTE LYMPHOCYTES (AUTO) 1.4 10^3/uL (0.5-4.7); ABSOLUTE MONOCYTES (AUTO) 0.7 10^3/uL (0.1-1.4); ABSOLUTE NEUT (AUTO) 4.7 10^3/uL (1.7-8.2); BASOPHILS % (AUTO) 0.1 % (0-2); EOSINOPHILS % (AUTO) 0.5 % (0-6); HEMOGLOBIN 13.6 g/dL (12.0-15.5); MEAN CORPUSCULAR HEMOGLOBIN 29.9 pg (27.0-33.4); MEAN CORPUSCULAR HGB CONC 33.9 g/dL (32.0-36.0); MEAN CORPUSCULAR VOLUME 88 fl (80-97); MONOCYTES % (AUTO) 9.9 % (3-13); PLATELET COUNT 126 10^3/uL (150-450); RED BLOOD COUNT 4.53 10^6/uL (3.72-5.28); RED CELL DISTRIBUTION WIDTH 14.1 % (11.5-14.0); SEGMENTED NEUTROPHILS % (AUTO) 68.5 % (42-78); TOTAL CELLS COUNTED % (AUTO) 100 %; WHITE BLOOD COUNT 6.8 10^3/uL (4.0-10.5)
[2018-10-18 16:12] LABS: ALANINE AMINOTRANSFERASE 25 U/L (9-52); ALBUMIN 4.2 g/dL (3.5-5.0); ALKALINE PHOSPHATASE 97 U/L (38-126); ANION GAP 15 (5-19); ASPARTATE AMINO TRANSFERASE 21 U/L (14-36); BILIRUBIN,DIRECT 0.1 mg/dL (0.0-0.4); BILIRUBIN,TOTAL 0.4 mg/dL (0.2-1.3); BLOOD UREA NITROGEN 15 mg/dL (7-20); CALCIUM 9.2 mg/dL (8.4-10.2); CARBON DIOXIDE 25 mmol/L (22-30); CHLORIDE 94 mmol/L (98-107); GLUCOSE 213 mg/dL (75-110); POTASSIUM 4.2 mmol/L (3.6-5.0); SODIUM 133.8 mmol/L (137-145); TOTAL PROTEIN 6.5 g/dL (6.3-8.2)
[2018-10-18] MEDS ORDERED: BUSPIRONE HCL 10 MG TABLET PO ONE (16:22)
[2018-10-18] MEDS ORDERED: CLONIDINE 0.1 MG/24 HR PATCH.TDWK TD ONE ×2 (16:22→22:00)
[2018-10-18] MEDS ORDERED: PROPRANOLOL HCL 20 MG TABLET PO ONE (16:22)
[2018-10-18] MEDS ORDERED: DIVALPROEX SODIUM 250 MG TABLET.DR PO SCH (18:00)
[2018-10-18] MEDS ORDERED: BUSPIRONE HCL 10 MG TABLET PO SCH (18:00)
[2018-10-18] MEDS ORDERED: NORMAL SALINE 1000 ML 1,000 ML IV ONE (18:17)
[2018-10-18 18:39] LABS: APPEARANCE,URINE SLIGHTLY-CLOUDY; BILIRUBIN,URINE NEGATIVE (NEGATIVE); COLOR,URINE YELLOW; GLUCOSE, URINE >=500 mg/dL (NEGATIVE); KETONES,URINE TRACE mg/dL (NEGATIVE); LEUKOCYTE ESTERASE,URINE LARGE (NEGATIVE); NITRITE,URINE NEGATIVE (NEGATIVE); PROTEIN,URINE 30 mg/dL (NEGATIVE)
[2018-10-18] MEDS ORDERED: CEFTRIAXONE INJ 1000 MG VIAL IV ONE (19:17)
[2018-10-18] MEDS ORDERED: MAGNESIUM HYDROXIDE SUSP 30 ML UDCUP PO PRN (20:24)
[2018-10-18] MEDS ORDERED: ONDANSETRON HCL INJ/PF 4 MG/2 ML SDV IV PRN (20:24)
[2018-10-18] MEDS ORDERED: MAG HYDROX/AL HYDROX/SIMETH SUSP 30 ML UDCUP PO PRN (20:24)
[2018-10-18] MEDS ORDERED: DEXTROSE 50%-WATER 25 GM/50 ML DISP.SYRIN IV PRN ×2 (20:29)
[2018-10-18] MEDS ORDERED: DEXTROSE 40% GEL 15 GM TUBE PO PRN ×2 (20:29)
[2018-10-18] MEDS ORDERED: ACETAMINOPHEN 325 MG TABLET PO PRN (20:29)
[2018-10-18] MEDS ORDERED: GLUCAGON,HUMAN RECOMB 1 MG INJ IM PRN (20:29)
[2018-10-18] MEDS ORDERED: HYDRALAZINE HCL INJ/PF 20 MG/1 ML SDV IV PRN (20:29)
[2018-10-18] MEDS ORDERED: IBUPROFEN 800 MG TABLET PO PRN (20:55)
[2018-10-18] MEDS ORDERED: (PENDING PHARMACY ID) (Sennosides [Senna] 8.6 MG) PO PRN (20:55)
[2018-10-18] MEDS ORDERED: CEFTRIAXONE 1 GM/D5W RTU 1 GM/50 ML RTUPB IV ONE (21:38)
[2018-10-18] MEDS: CLONAZEPAM 1 MG TABLET PO SCH (21:47)
[2018-10-18] MEDS: BUSPIRONE HCL 10 MG TABLET PO SCH (21:47)
[2018-10-18] MEDS ORDERED: INSULIN GLARGINE,HUM.REC.ANLOG 1,000 UNIT/10 ML UNIT SUBCUT SCH (22:00)
--- NOTE | 2018-10-18 22:18 | EKG REPORT ---
SEVERITY:- BORDERLINE ECG - SINUS TACHYCARDIA BORDERLINE T ABNORMALITIES, ANT-LAT LEADS : Confirmed by: Wendy Harris MD 18-Oct-2018 22:17:25
[2018-10-18] MEDS: FAMOTIDINE INJ/PF 20 MG/2 ML SDV IV SCH (22:38)
[2018-10-18] MEDS ORDERED: ROPINIROLE HCL 1 MG TABLET ONE (23:08)
[2018-10-18] MEDS ORDERED: SUCRALFATE 1 GM TABLET ONE (23:10)
[2018-10-18] MEDS: SUCRALFATE SUSP 1 GM/10 ML UDCUP PO SCH (23:22)
[2018-10-18] MEDS: ROPINIROLE HCL 1 MG TABLET PO SCH (23:22)
[2018-10-19] MEDS: MELATONIN 3 MG TABLET PO SCH ×2 (00:40→21:54)
[2018-10-19] MEDS ORDERED: NALBUPHINE HCL INJ 10 MG/1 ML AMPULE IV PRN (00:44)
--- NOTE | 2018-10-19 00:46 | PDOC H&P ---
History of Present Illness Admission Date/PCP: 10/18/18 20:09 MARY MORALES Patient complains of: AMS History of Present Illness: MAVERICK TOLBERT is a 53 year old female who presented to the emergency room from her senior living resident with a history of acute encephalopathic changes with dementia and behavioral disturbances. She evidently became extremely u ncooperative and combative at the senior living for unknown reasons and was eventually subdued by EMS with intramuscular ketamine as there only means of controlling her extreme combative behavior. In the emergency room she continued to be uncooperative and combative requiring an emergency psychiatric consultation with recommendations for medication changes and observation of the patient overnight being made. Additionally she was found to have evidence for a urinary tract infection which may play a role in her acute changes. The patient has an underlying "neurodegenerative disorder" and has been unable to walk for quite some time following complications related to a hip surgery. Patient's general medical evaluation was unremarkable and she was subsequently admitted to the hospital on observation status as requested by psychiatry. At this time and I was able to interview the patient it was obvious that she had tardive dyskinesia but otherwise was calm and collected. She indicated that her combative outburst was due to the fact that she wanted her pain medicine for her knee pain and her nurse would not to give it to her, thus, she stated "and so I just exploded". Past Medical History Cardiac Medical History: Reports: Hyperlipidema, Hypertension - medicated Denies: Myocardial Infarction, Heart Murmur Pulmonary Medical History: Reports: Bronchitis, Pneumonia Denies: Asthma, Tuberculosis EENT Medical History: Denies: Cataracts, Eyes - Corrective lenses Neurological Medical History: Reports: Seizures Denies: Hemorrhagic CVA, Ischemic CVA Endocrine Medical History: Reports: Diabetes Mellitus Type 2 Denies: Diabetes Mellitus Type 1, Hyperthyroidism, Hypothyroidism Renal/ Medical History: Reports: Other - Urinary tract infections Denies: Chronic Kidney Disease, Nephrolithiasis Malignancy Medical History: Reports: None GI Medical History: Reports: Gastroesophageal Reflux Disease Denies: Cirrhosis, Hepatitis, Hiatal Hernia Musculoskeltal Medical History: Reports: Arthritis Denies: Fibromyalgia Skin Medical History: Denies: Eczema, Psoriasis Psychiatric Medical History: Reports: Bipolar Disorder, Depression - Anxiety Denies: Alcohol Dependency, Substance Abuse, Tobacco Dependency Traumatic Medical History: Reports: None Hematology: Reports: Anemia Denies: Bleeding Tendencies Infectious Medical History: Reports: None Past Surgical History Past Surgical History: Reports: Section, Orthopedic Surgery - R Hip, Tonsillectomy Social History Information Source: Patient Lives with: Assisted Smoking Status: Former Smoker Frequency of Alcohol Use: None Hx Recreational Drug Use: No Drugs: None Hx Prescription Drug Abuse: No - Advance Directive Resuscitation Status: Full Code Surrogate healthcare decision maker:: Her son Mustapha Family History Family History: DM, Hypertension Parental Family History Reviewed: Yes Children Family History Reviewed: No Sibling(s) Family History Reviewed.: Yes Medication/Allergy Home Medications: Buspirone HCl [Buspar 10 mg Tablet] 10 mg PO QHS 05/27/17 Calcium Carbonate/Vitamin D2 [Oyster Shell Calcium-Vit D Tab] 1 tab PO BID 05/27/17 Ergocalciferol (Vitamin D2) [Vitamin D2] 50,000 unit PO WE@1000 05/27/17 Esomeprazole Mag Trihydrate [Nexium] 40 mg PO DAILY 05/27/17 Haloperidol Lactate [Haldol 5 mg/ml Inj 1 ml Vial] 5 mg INJ DAILYP PRN 05/27/17 Haloperidol [Haldol 5 mg Tablet] 5 mg PO DAILYP PRN 05/27/17 Ibuprofen [Motrin 800 mg Tablet] 800 mg PO Q8HP PRN 05/27/17 Insulin Aspart [Novolog Insulin (Aspart) 100 unit/mL] 0 unit SUBCUT .SLD SCALE 05/27/17 Insulin Glargine,Hum.rec.anlog [Lantus] 30 unit SQ QHS 05/27/17 Levetiracetam [Keppra 500 mg Tablet] 500 mg PO Q12 05/27/17 Melatonin [Melatin] 3 mg PO QHS 05/27/17 Multivit-Min/Iron/Folic/Lutein [Centrum Silver Women Tablet] 1 each PO DAILY 05/27/17 Prednisone [Deltasone 10 mg Tablet] 10 mg PO DAILY 05/27/17 Promethazine HCl [Phenergan 25 mg Tablet] 12.5 mg PO Q6HP PRN 05/27/17 Quetiapine Fumarate [Seroquel] 50 mg PO QAM 05/27/17 Quetiapine Fumarate [Seroquel] 75 mg PO QPM 05/27/17 Sennosides [Senna] 8.6 mg PO BIDP PRN 05/27/17 Thiamine HCl [Vitamin B-1] 100 mg PO DAILY 05/27/17 Cephalexin Monohydrate [Keflex 500 mg Capsule] 500 mg PO BID #20 capsule 05/31/17 Sucralfate [Carafate Susp 1 gm/10 ml Udcup] 1 gm PO Q6 #240 udc 05/31/17 Allergies/Adverse Reactions: tramadol [Tramadol] Allergy (Verified 10/15/18 13:15) Nausea adhesive tape [Adhesive Tape] Adverse Reaction (Verified 10/15/18 13:15) peels skin off Review of Systems Constitutional: ABSENT: anorexia, chills, fever(s) Eyes: ABSENT: visual disturbances, other - Eye pain Ears: ABSENT: hearing changes, other - Ear pain Nose, Mouth, and Throat: ABSENT: mouth pain, sore throat Cardiovascular: ABSENT: chest pain, edema, orthropnea, palpitations Respiratory: ABSENT: cough, dyspnea Gastrointestinal: ABSENT: abdominal pain, constipation, diarrhea, nausea, vomiting Genitourinary: ABSENT: dysuria, hematuria Musculoskeletal: PRESENT: other - Knee pain after recent fall. ABSENT: deformity, joint swelling Integumentary: ABSENT: pruritus, rash Neurological: ABSENT: confusion, convulsions, focal weakness, memory loss Psychiatric: PRESENT: as per HPI, other - Anger episode as described in the history of present illness. ABSENT: anxiety, depression Endocrine: ABSENT: cold intolerance, heat intolerance Hematologic/Lymphatic: ABSENT: easy bleeding, easy bruising Physical Exam Vital Signs: Temp Pulse Resp BP Pulse Ox 98.3 F 10/18/18 16:11 Intake & Output 10/16/18 10/17/18 10/18/18 23:59 23:59 23:59 Weight 56.8 kg General appearance: PRESENT: no acute distress, cooperative Head exam: PRESENT: atraumatic, normocephalic Eye exam: PRESENT: conjunctiva pink. ABSENT: scleral icterus Ear exam: PRESENT: normal external ear exam. ABSENT: bleeding, drainage Mouth exam: PRESENT: dry mucosa, neck supple Teeth exam: PRESENT: poor dentation Neck exam: ABSENT: thyromegaly, tracheal deviation Respiratory exam: PRESENT: clear to auscultation toño, symmetrical, unlabored Cardiovascular exam: PRESENT: RRR. ABSENT: clicks, gallop, rubs Pulses: PRESENT: normal radial pulses, normal dorsalis pedis pul Vascular exam: PRESENT: normal capillary refill. ABSENT: pallor GI/Abdominal exam: PRESENT: normal bowel sounds, soft. ABSENT: tenderness Rectal exam: PRESENT: deferred Extremities exam: PRESENT: tenderness - Tenderness of bilateral knees noted on palpation, other - Disuse atrophy noted bilaterally, mild to moderate flexion contracture of left lower extremity noted. ABSENT: joint swelling, pedal edema Musculoskeletal exam: PRESENT: deformity - Described above. ABSENT: ambulatory, dislocation Neurological exam: PRESENT: alert, oriented to person, oriented to place, oriented to time, oriented to situation, CN II-XII grossly intact. ABSENT: motor sensory deficit Psychiatric exam: PRESENT: appropriate affect, normal mood Skin exam: PRESENT: dry, intact, warm. ABSENT: jaundice, rash, urticaria Results Laboratory Results: 10/18/18 15:40 10/18/18 15:40 10/18/18 10/18/18 10/18/18 15:40 15:40 18:20 WBC 6.8 RBC 4.53 Hgb 13.6 Hct 40.0 MCV 88 MCH 29.9 MCHC 33.9 RDW 14.1 H Plt Count 126 L Seg Neutrophils % 68.5 Lymphocytes % 21.0 Monocytes % 9.9 Eosinophils % 0.5 Basophils % 0.1 Absolute Neutrophils 4.7 Absolute Lymphocytes 1.4 Absolute Monocytes 0.7 Absolute Eosinophils 0.0 Absolute Basophils 0.0 Sodium 133.8 L Potassium 4.2 Chloride 94 L Carbon Dioxide 25 Anion Gap 15 BUN 15 Creatinine 0.66 Est GFR ( Amer) > 60 Est GFR (Non-Af Amer) > 60 Glucose 213 H Calcium 9.2 Total Bilirubin 0.4 AST 21 ALT 25 Alkaline Phosphatase 97 Total Protein 6.5 Albumin 4.2 Urine Color YELLOW Urine Appearance SLIGHTLY-CLOUDY Urine pH 5.0 Ur Specific [place] 1.020 Urine Protein 30 H Urine Glucose (UA) >=500 H Urine Ketones TRACE H Urine Blood NEGATIVE Urine Nitrite NEGATIVE Ur Leukocyte Esterase LARGE H Urine WBC (Auto) 166 Urine RBC (Auto) 13 Assessment & Plan - Diagnosis (1) Acute encephalopathy Is this a current diagnosis for this admission?: Yes Plan: By report from the senior living the patient was acutely encephalopathic with dementia and behavioral disturbance. Patient gives a different count which is most likely closer to the truth. The patient will be continued on the medications as recommended by psychiatry with the exception of the use of propranolol which was ordered as a single dose but I feel should not be given due to the fact that she is also receiving clonidine. I have also ordered clonazepam and ropinirole for the patient at bedtime to aid in her rest. (2) Dementia with behavioral disturbance Qualifiers: Dementia type: unspecified type Qualified Code(s): F03.91 - Unspecified dementia with behavioral disturbance Is this a current diagnosis for this admission?: Yes Plan: Patient's demeanor has significantly changed since her initial ER course. She will be continued on medications prescribed at the recommendation of psychiatry as noted above. Psychiatry also recommended the discontinuation of numerous medications which will be discontinued per their recommendation. (3) Tardive dyskinesia Is this a current diagnosis for this admission?: Yes Plan: Patient started to have dyskinesia is reasonably well established but it will be treated in the effect of avoiding all medications that might contribute to worsening of her tardive dyskinesia. Additionally she will receive a trial of ropinirole 1 mg p.o. nightly could be increased as tolerated if it helps to ameliorate some of her symptoms. (4) Acute cystitis Qualifiers: Hematuria presence: without hematuria Qualified Code(s): N30.00 - Acute cystitis without hematuria Is this a current diagnosis for this admission?: Yes Plan: Patient will be treated with Levaquin 500 mg p.o. daily for 5 days. (5) Contusion, knee and lower leg Qualifiers: Encounter type: initial encounter Laterality: unspecified laterality Qualified Code(s): S80.00XA - Contusion of unspecified knee, initial encounter; S80.10XA - Contusion of unspecified lower leg, initial encounter Is this a current diagnosis for this admission?: Yes Plan: Patient with supportive and symptomatic cares. More severe pain will be treated with Nubain 10 mg IV every 3 hours as needed. - Time Time Spent: 30 to 50 Minutes Critical Time spent with patient: Less than 15 minutes Medications reviewed and adjusted accordingly: Yes Anticipated discharge: SNF Within: within 24 hours - Inpatient Certification Based on my medical assessment, after consideration of the patient's comorbid ities, presenting symptoms, or acuity I expect that the services needed warrant INPATIENT care.: No I certify that my determination is in accordance with my understanding of [facility]'s requirements for reasonable and necessary INPATIENT services [42 CFR 412.3e].: No Medical Necessity: Failure to Improve With Outpatient Therapy, Need Close Monitoring Due to Risk of Patient Decompensation, Need for Pain Control, Risk of Complication if Not Cared For in Hospital
[2018-10-19 08:32] LABS: HEMATOCRIT 35.3 % (36.0-47.0); HEMOGLOBIN 12.1 g/dL (12.0-15.5); MEAN CORPUSCULAR HGB CONC 34.4 g/dL (32.0-36.0); MEAN CORPUSCULAR VOLUME 87 fl (80-97); RED BLOOD COUNT 4.05 10^6/uL (3.72-5.28); RED CELL DISTRIBUTION WIDTH 13.6 % (11.5-14.0); WHITE BLOOD COUNT 4.3 10^3/uL (4.0-10.5)
[2018-10-19] MEDS: INSULIN REG, HUMAN 100 UNIT/ML 3 ML VIAL (PYX) SUBCUT PRN ×2 (08:51→11:58)
[2018-10-19 08:55] LABS: ANION GAP 7 (5-19); BLOOD UREA NITROGEN 13 mg/dL (7-20); CALCIUM 8.4 mg/dL (8.4-10.2); CARBON DIOXIDE 27 mmol/L (22-30); CHLORIDE 100 mmol/L (98-107); GLUCOSE 168 mg/dL (75-110); POTASSIUM 3.4 mmol/L (3.6-5.0); SODIUM 133.9 mmol/L (137-145)
[2018-10-19] MEDS: DOCUSATE SODIUM 100 MG CAPSULE PO SCH ×2 (09:47→17:09)
[2018-10-19] MEDS: FAMOTIDINE INJ/PF 20 MG/2 ML SDV IV SCH ×2 (09:47→21:54)
[2018-10-19] MEDS: THIAMINE HCL 100 MG TABLET PO SCH (09:47)
[2018-10-19] MEDS: DIVALPROEX SODIUM 250 MG TABLET.DR PO SCH ×2 (09:47→17:09)
[2018-10-19] MEDS: BUSPIRONE HCL 10 MG TABLET PO SCH ×2 (09:47→21:44)
[2018-10-19] MEDS: SUCRALFATE SUSP 1 GM/10 ML UDCUP PO SCH ×4 (09:48→21:48)
[2018-10-19] MEDS: ENOXAPARIN SODIUM INJ 40 MG/0.4 ML DISP.SYRIN SUBCUT SCH (09:48)
[2018-10-19 09:51] LABS: PLATELET COUNT 92 10^3/uL (150-450)
[2018-10-19] MEDS: LORAZEPAM INJ 2 MG/1 ML VIAL IV PRN (10:19)
[2018-10-19] MEDS ORDERED: HALOPERIDOL LACTATE INJ 5 MG/1 ML VIAL IV ONE (11:00)
[2018-10-19] MEDS: MICONAZOLE NITRATE 200 MG/SUPP (3 SUPP/BOX) VG SCH (12:05)
[2018-10-19] MEDS: SULFAMETHOXAZOLE/TRIMETHOPRIM 800-160 MG TABLET PO SCH ×2 (12:27→17:09)
[2018-10-19] MEDS: PHENAZOPYRIDINE HCL 100 MG TABLET PO SCH ×2 (14:20→21:55)
--- NOTE | 2018-10-19 19:33 | PDOC PROGRESS REPORT ---
Subjective Progress Note for:: 10/19/18 Subjective:: 53 y.o. F with a H Hyperlipidema, Hypertension - medicated, Bronchitis, Seizures, Diabetes Mellitus Type 2, frequent urinary tract infections, Gastroesophageal Reflux Disease, Arthritis, Bipolar Disorder, Depression, Anxiety. She presents to [facility] for AMS, admitted to hospitalist service for acute cystitis. The patient was seen this morning on rounds, she was resting in bed complaining of vaginal itching. She is able to answer most questions appropriately but does not remember certain details about her medical history (the name of her SNF, how she got bruises on her knees, etc.) Lungs clear to auscultation. S1S2. Lopes catheter in place draining clear yellow urine. Looking back through previous urine culture results, the patient has a history of Levaquin resistance. Plan to switch abx to bactrim. Start PRN pyridium for systitis associated bladder spasms. Monistat vaginal suppository for vaginal itching. Reason For Visit: UTI, DEMENTIA WITH BEHAVIORAL DISTURBANCE Physical Exam Vital Signs: Temp Pulse Resp BP Pulse Ox 98.3 F 74 16 105/62 97 10/19/18 16:00 10/19/18 16:00 10/19/18 16:00 10/19/18 16:00 10/19/18 16:00 Intake & Output 10/18/18 10/19/18 10/20/18 05:59 06:59 06:59 Intake Total Output Total Balance Weight General appearance: PRESENT: no acute distress, well-developed, well-nourished Eye exam: PRESENT: conjunctiva pink, PERRLA Mouth exam: PRESENT: moist, tongue midline Teeth exam: PRESENT: poor dentation Neck exam: PRESENT: full ROM Respiratory exam: PRESENT: clear to auscultation toño, symmetrical, unlabored Cardiovascular exam: PRESENT: +S1, +S2 Pulses: PRESENT: normal radial pulses, normal dorsalis pedis pul Vascular exam: PRESENT: normal capillary refill GI/Abdominal exam: PRESENT: soft. ABSENT: distended, tenderness Rectal exam: PRESENT: deferred Gentrourinary exam: PRESENT: other - PATIENT C/O VAGINAL ITCHING Extremities exam: PRESENT: full ROM, joint swelling - L knee. ABSENT: pedal edema Musculoskeletal exam: PRESENT: deformity - L KNEE SWELLING, full ROM. ABSENT: normal inspection Neurological exam: PRESENT: alert, awake, oriented to person, oriented to place, oriented to time, oriented to situation Psychiatric exam: PRESENT: anxious, unusual affect Skin exam: PRESENT: dry, intact Results Laboratory Results: 10/19/18 07:31 10/19/18 07:31 10/18/18 10/18/18 10/18/18 15:40 15:40 18:20 WBC 6.8 RBC 4.53 Hgb 13.6 Hct 40.0 MCV 88 MCH 29.9 MCHC 33.9 RDW 14.1 H Plt Count 126 L Seg Neutrophils % 68.5 Lymphocytes % 21.0 Monocytes % 9.9 Eosinophils % 0.5 Basophils % 0.1 Absolute Neutrophils 4.7 Absolute Lymphocytes 1.4 Absolute Monocytes 0.7 Absolute Eosinophils 0.0 Absolute Basophils 0.0 Sodium 133.8 L Potassium 4.2 Chloride 94 L Carbon Dioxide 25 Anion Gap 15 BUN 15 Creatinine 0.66 Est GFR ( Amer) > 60 Est GFR (Non-Af Amer) > 60 Glucose 213 H Calcium 9.2 Magnesium Total Bilirubin 0.4 AST 21 ALT 25 Alkaline Phosphatase 97 Total Protein 6.5 Albumin 4.2 TSH Urine Color YELLOW Urine Appearance SLIGHTLY-CLOUDY Urine pH 5.0 Ur Specific [place] 1.020 Urine Protein 30 H Urine Glucose (UA) >=500 H Urine Ketones TRACE H Urine Blood NEGATIVE Urine Nitrite NEGATIVE Ur Leukocyte Esterase LARGE H Urine WBC (Auto) 166 Urine RBC (Auto) 13 10/19/18 10/19/18 10/19/18 07:31 07:31 07:31 WBC 4.3 RBC 4.05 Hgb 12.1 Hct 35.3 L MCV 87 MCH 30.0 MCHC 34.4 RDW 13.6 Plt Count 92 L Seg Neutrophils % Lymphocytes % Monocytes % Eosinophils % Basophils % Absolute Neutrophils Absolute Lymphocytes Absolute Monocytes Absolute Eosinophils Absolute Basophils Sodium 133.9 L Potassium 3.4 L Chloride 100 Carbon Dioxide 27 Anion Gap 7 BUN 13 Creatinine 0.51 L Est GFR ( Amer) > 60 Est GFR (Non-Af Amer) > 60 Glucose 168 H Calcium 8.4 Magnesium 2.0 Total Bilirubin AST ALT Alkaline Phosphatase Total Protein Albumin TSH 8.86 H Urine Color Urine Appearance Urine pH Ur Specific [place] Urine Protein Urine Glucose (UA) Urine Ketones Urine Blood Urine Nitrite Ur Leukocyte Esterase Urine WBC (Auto) Urine RBC (Auto) Status: Imported from PACS Assessment & Plan - Diagnosis (1) Acute cystitis Qualifiers: Hematuria presence: without hematuria Qualified Code(s): N30.00 - Acute cystitis without hematuria Is this a current diagnosis for this admission?: Yes Plan: UA indicative of UTI History of multiple urinary tract infections - oftentimes treated at [facility] Based on previous urine culture results, d/c levaquin and initiate Bactrim Continue Lopes catheter for critical I&O Afebrile. Nontoxic appearing (2) Acute encephalopathy Is this a current diagnosis for this admission?: Yes Plan: Secondary to UTI Treated with abx (3) Dementia with behavioral disturbance Qualifiers: Dementia type: Parkinson's disease Qualified Code(s): G20 - Parkinson's disease; F02.81 - Dementia in other diseases classified elsewhere with behavioral disturbance Is this a current diagnosis for this admission?: Yes Plan: [facility] Parkinson's and 'neurodegenerative' disorders Psych made new medication recommendations Started patient on BuSpar, Depakote and clonidine Nightly Requip (4) Tardive dyskinesia Is this a current diagnosis for this admission?: Yes Plan: Longstanding history of TD Secondary to medications (5) Contusion, knee and lower leg Qualifiers: Encounter type: initial encounter Laterality: unspecified laterality Qualified Code(s): S80.00XA - Contusion of unspecified knee, initial encounter; S80.10XA - Contusion of unspecified lower leg, initial encounter Is this a current diagnosis for this admission?: Yes Plan: Bruising to bilateral knees L>R Bruises in various stages of healing Patient does not recall how she got these bruises PRN anaglesia - Time Time Spent with patient: 15-24 minutes Medications reviewed and adjusted accordingly: Yes Anticipated discharge: SNF Within: within 48 hours - Inpatient Certification Based on my medical assessment, after consideration of the patient's comorbidities, presenting symptoms, or acuity I expect that the services needed warrant INPATIENT care.: Yes I certify that my determination is in accordance with my understanding of Medicare's requirements for reasonable and necessary INPATIENT services [42 CFR 412.3e].: Yes Medical Necessity: Need for IV Antibiotics
[2018-10-19] MEDS: CLONAZEPAM 1 MG TABLET PO SCH (21:49)
[2018-10-19] MEDS: INSULIN GLARGINE,HUM.REC.ANLOG 1,000 UNIT/10 ML UNIT SUBCUT SCH (21:53)
[2018-10-19] MEDS: ROPINIROLE HCL 1 MG TABLET PO SCH (21:55)
[2018-10-19] MEDS ORDERED: LEVOFLOXACIN 500 MG TABLET PO SCH (22:00)
[2018-10-20] MEDS: PHENAZOPYRIDINE HCL 100 MG TABLET PO SCH ×3 (05:46→21:56)
[2018-10-20 05:53] LABS: HEMATOCRIT 35.1 % (36.0-47.0); HEMOGLOBIN 12.1 g/dL (12.0-15.5); MEAN CORPUSCULAR HEMOGLOBIN 30.1 pg (27.0-33.4); MEAN CORPUSCULAR HGB CONC 34.5 g/dL (32.0-36.0); MEAN CORPUSCULAR VOLUME 87 fl (80-97); RED BLOOD COUNT 4.01 10^6/uL (3.72-5.28); RED CELL DISTRIBUTION WIDTH 13.8 % (11.5-14.0); WHITE BLOOD COUNT 4.6 10^3/uL (4.0-10.5)
[2018-10-20 06:13] LABS: PLATELET COUNT 99 10^3/uL (150-450)
[2018-10-20 06:16] LABS: ALANINE AMINOTRANSFERASE 23 U/L (9-52); ALBUMIN 2.9 g/dL (3.5-5.0); ALKALINE PHOSPHATASE 71 U/L (38-126); ANION GAP 6 (5-19); ASPARTATE AMINO TRANSFERASE 14 U/L (14-36); BILIRUBIN,TOTAL 0.3 mg/dL (0.2-1.3); BLOOD UREA NITROGEN 12 mg/dL (7-20); CALCIUM 8.5 mg/dL (8.4-10.2); CARBON DIOXIDE 25 mmol/L (22-30); CHLORIDE 103 mmol/L (98-107); GLUCOSE 111 mg/dL (75-110); POTASSIUM 3.7 mmol/L (3.6-5.0); TOTAL PROTEIN 4.9 g/dL (6.3-8.2)
[2018-10-20] MEDS: SUCRALFATE SUSP 1 GM/10 ML UDCUP PO SCH ×4 (08:15→21:53)
[2018-10-20] MEDS: DIVALPROEX SODIUM 250 MG TABLET.DR PO SCH ×2 (10:31→17:56)
[2018-10-20] MEDS: SULFAMETHOXAZOLE/TRIMETHOPRIM 800-160 MG TABLET PO SCH ×2 (10:31→17:56)
[2018-10-20] MEDS: DOCUSATE SODIUM 100 MG CAPSULE PO SCH ×2 (10:31→17:57)
[2018-10-20] MEDS: BUSPIRONE HCL 10 MG TABLET PO SCH ×2 (10:31→21:52)
[2018-10-20] MEDS: FAMOTIDINE INJ/PF 20 MG/2 ML SDV IV SCH (10:31)
[2018-10-20] MEDS: THIAMINE HCL 100 MG TABLET PO SCH (10:31)
[2018-10-20] MEDS: ENOXAPARIN SODIUM INJ 40 MG/0.4 ML DISP.SYRIN SUBCUT SCH (10:32)
[2018-10-20] MEDS: MICONAZOLE NITRATE 200 MG/SUPP (3 SUPP/BOX) VG SCH (10:33)
[2018-10-20] MEDS ORDERED: SENNOSIDES/DOCUSATE 8.6-50 MG 1 EACH TABLET PO PRN (13:22)
[2018-10-20] MEDS: LORAZEPAM INJ 2 MG/1 ML VIAL IV PRN ×2 (14:05→18:02)
[2018-10-20] MEDS ORDERED: HALOPERIDOL LACTATE INJ 5 MG/1 ML VIAL IV PRN (14:51)
[2018-10-20] MEDS ORDERED: HALOPERIDOL LACTATE INJ 5 MG/1 ML VIAL ONE (14:54)
[2018-10-20 19:13] LABS: CHLAM PCR NOT DETECTED (NOT DETECT); GON PCR NOT DETECTED (NOT DETECT)
[2018-10-20] MEDS: CLONAZEPAM 1 MG TABLET PO SCH (21:53)
[2018-10-20] MEDS: MELATONIN 3 MG TABLET PO SCH (21:54)
[2018-10-20] MEDS: FAMOTIDINE 20 MG TABLET PO SCH (21:55)
[2018-10-20] MEDS: ROPINIROLE HCL 1 MG TABLET PO SCH (21:56)
--- NOTE | 2018-10-20 22:28 | PDOC TRANSFER SUMMARY ---
Addendum entered and electronically signed by RG DANIELSON NP-C 10/21/18 10:14: Provider Note Provider Note: Addendum: Patient is discharged to [facility], where she is an established resident, in stable condition on 10/21/2018. Original Note: General - Admit/Disc Date/PCP Admission Date/Primary Care Provider: 10/18/18 20:09 MARY MORALES Discharge Date: 10/20/18 - Discharge Diagnosis (1) Acute cystitis Is this a current diagnosis for this admission?: Yes (2) Acute encephalopathy Is this a current diagnosis for this admission?: Yes (3) Dementia with behavioral disturbance Is this a current diagnosis for this admission?: Yes (4) Tardive dyskinesia Is this a current diagnosis for this admission?: Yes (5) Contusion, knee and lower leg Is this a current diagnosis for this admission?: Yes - Additional Information Resuscitation Status: Full Code Home Medications: Benztropine Mesylate [Cogentin 1 mg Tablet] 1 mg PO DAILY 10/19/18 Bupropion HCl [Wellbutrin Xl 150 mg 24hr Tablet] 150 mg PO DAILY 10/19/18 Calcium Carbonate/Vitamin D3 [Oyster Shell 500-Vit D3 200 Tb] 1 tab PO BID 10/19/18 Divalproex Sodium [Depakote Sprinkle 125 mg Capsule] 500 mg PO BID 10/19/18 Ergocalciferol (Vitamin D2) [Drisdol 50,000 unit (1.25MG) Capsule] 50,000 unit PO WE@1000 10/19/18 Esomeprazole Mag Trihydrate [Nexium] 40 mg PO DAILY 10/19/18 Ibuprofen [Motrin 800 mg Tablet] 800 mg PO Q8HP PRN 10/19/18 Insulin Aspart [Novolog Insulin (Aspart) 100 unit/mL] See Protocol SQ ACHS 10/19/18 Insulin Detemir [Levemir Insulin 100 units/mL] 15 units SQ QHS 10/19/18 Levetiracetam [Keppra 500 mg Tablet] 500 mg PO Q12 10/19/18 Lorazepam [Ativan 1 mg Tablet] 1 mg PO DAILYP PRN 10/19/18 Melatonin [Melatonin 3 mg Tablet] 3 mg PO QHS 10/19/18 Mirtazapine 7.5 mg PO QHS 10/19/18 Multivitamin [Daily Multiple Vitamin] 1 tab PO DAILY 10/19/18 Prednisone [Deltasone 10 mg Tablet] 10 mg PO DAILY 10/19/18 Quetiapine Fumarate [Seroquel 25 mg Tablet] 175 mg PO QHS 10/19/18 Quetiapine Fumarate [Seroquel] 125 mg PO QAM 10/19/18 Sennosides [Senna] 8.6 mg PO BIDP PRN 10/19/18 Sucralfate [Carafate 1 gm Tablet] 1 gm PO BID 10/19/18 Thiamine Mononitrate [Vitamin B-1] 100 mg PO DAILY 10/19/18 History of Present Illness Admission Date/PCP: 10/18/18 20:09 MARY MORALES Patient complains of: AMS History of Present Illness: MAVERICK TOLBERT is a 53 year old female who presented to the emergency room from her senior care resident with a history of acute encephalopathic changes with dementia and behavioral disturbances. She evidently became extremely uncooperative and combative at the senior care for unknown reasons and was eventually subdued by EMS with intramuscular ketamine as there only means of controlling her extreme combative behavior. In the emergency room she continued to be uncooperative and combative requiring an emergency psychiatric consultation with recommendations for medication changes and observation of the patient overnight being made. Additionally she was found to have evidence for a urinary tract infection which may play a role in her acute changes. The patient has an underlying "neurodegenerative disorder" and has been unable to walk for quite some time following complications related to a hip surgery. Patient's general medical evaluation was unremarkable and she was subsequently admitted to the hospital on observation status as requested by psychiatry. At this time and I was able to interview the patient it was obvious that she had tardive dyskinesia but otherwise was calm and collected. She indicated that her combative outburst was due to the fact that she wanted her pain medicine for her knee pain and her nurse would not to give it to her, thus, she stated "and so I just exploded". Hospital Course Hospital Course: 53 y.o. F with a PMH Hyperlipidema, Hypertension - medicated, Bronchitis, Seizures, Diabetes Mellitus Type 2, frequent urinary tract infections, Gastroesophageal Reflux Disease, Arthritis, Bipolar Disorder, Depression, Anxiety. She presents to [facility] for AMS, admitted to hospitalist service for acute cystitis and started on Levaquin. Looking back through previous urine culture results, the patient has a history of Levaquin resistance. Switched to bactrim. Started on PRN pyridium for cystitis associated bladder spasms. The patient c/o a great deal of vaginal itching, she stated the itching felt like it was coming from "inside" the vagina. Monistat vaginal suppository started for possible yeast infection causing vaginal itching. A vaginal swab was done to test for BV and urine GC/Chlamydia was negative. On hospital day #2 the patient was deemed safe for discharge back to [place]. Her vital signs were stable, her UTI was being appropriately treated, and the patient's demeanor was very pleasant. She presented no harm to herself or others. For further information regarding this patient's hospitalization, please refer to her EMR. Physical Exam Vital Signs: Temp Pulse Resp BP Pulse Ox 98.6 F 80 19 107/61 98 10/20/18 15:31 10/20/18 15:31 10/20/18 15:31 10/20/18 15:31 10/20/18 15:31 Intake & Output 10/19/18 10/20/18 10/21/18 06:59 06:59 06:59 Intake Total 718 1034 Output Total 1625 Balance -907 1034 Weight 56.9 kg Results Laboratory Results: 10/20/18 05:30 10/20/18 05:30 10/20/18 10/20/18 05:30 05:30 WBC 4.6 RBC 4.01 Hgb 12.1 Hct 35.1 L MCV 87 MCH 30.1 MCHC 34.5 RDW 13.8 Plt Count 99 L Sodium 134.0 L Potassium 3.7 Chloride 103 Carbon Dioxide 25 Anion Gap 6 BUN 12 Creatinine 0.81 Est GFR ( Amer) > 60 Est GFR (Non-Af Amer) > 60 Glucose 111 H Calcium 8.5 Magnesium 2.0 Total Bilirubin 0.3 AST 14 ALT 23 Alkaline Phosphatase 71 Total Protein 4.9 L Albumin 2.9 L 10/20/18 16:20 Vaginal Gram Stain - Final 10/18/18 18:20 Catheterized Urine Urine Culture - Final C.albicans/C.dubliniensis Mixed Urogenital Jaqueline Status: Imported from PACS Transfer Plan - Time Spent with Patient Time spent with patient: Greater than 30 Minutes Qualifiers - * PATIENT BEING DISCHARGED WITH ANY OF THE FOLLOWING DIAGNOSIS: No
[2018-10-20] MEDS: INSULIN GLARGINE,HUM.REC.ANLOG 1,000 UNIT/10 ML UNIT SUBCUT SCH (23:34)
[2018-10-21] MEDS: PHENAZOPYRIDINE HCL 100 MG TABLET PO SCH ×2 (05:30→13:59)
[2018-10-21] MEDS: ENOXAPARIN SODIUM INJ 40 MG/0.4 ML DISP.SYRIN SUBCUT SCH (09:34)
[2018-10-21] MEDS: SUCRALFATE SUSP 1 GM/10 ML UDCUP PO SCH ×2 (09:51→11:00)
[2018-10-21] MEDS: SULFAMETHOXAZOLE/TRIMETHOPRIM 800-160 MG TABLET PO SCH (09:52)
[2018-10-21] MEDS: DOCUSATE SODIUM 100 MG CAPSULE PO SCH (09:52)
[2018-10-21] MEDS: DIVALPROEX SODIUM 250 MG TABLET.DR PO SCH (09:52)
[2018-10-21] MEDS: BUSPIRONE HCL 10 MG TABLET PO SCH (09:52)
[2018-10-21] MEDS: FAMOTIDINE 20 MG TABLET PO SCH (09:52)
[2018-10-21] MEDS: THIAMINE HCL 100 MG TABLET PO SCH (09:52)
[2018-10-21] MEDS: MICONAZOLE NITRATE 200 MG/SUPP (3 SUPP/BOX) VG SCH (09:54)
[2018-10-21 12:16] VITALS: BP 91/57
[2018-10-21] MEDS: LORAZEPAM INJ 2 MG/1 ML VIAL IV PRN (14:00)
== END 2018-10-21 16:58 ==
LOC: ER 15:28 → INTOOBSV 20:09 → EH 20:09 → 5 10-19 00:31
PROVIDERS: ADMIT Emergency Medicine; ATTEND Emergency Medicine
DX: N30.00 Acute cystitis without hematuria (principal); G93.40 Encephalopathy, unspecified; G20 Parkinson's disease; F02.81 Dementia in other diseases classified elsewhere, unspecified severity, with behavioral disturbance; N32.89 Other specified disorders of bladder; I10 Essential (primary) hypertension; L29.8 Other pruritus; G24.01 Drug induced subacute dyskinesia; T50.905S Adverse effect of unspecified drugs, medicaments and biological substances, sequela; E11.9 Type 2 diabetes mellitus without complications; S80.02XA Contusion of left knee, initial encounter; S80.01XA Contusion of right knee, initial encounter; X58.XXXA Exposure to other specified factors, initial encounter; M21.962 Unspecified acquired deformity of left lower leg; M21.961 Unspecified acquired deformity of right lower leg; K21.9 Gastro-esophageal reflux disease without esophagitis; R56.9 Unspecified convulsions; G31.9 Degenerative disease of nervous system, unspecified; M25.569 Pain in unspecified knee; W19.XXXA Unspecified fall, initial encounter; F31.9 Bipolar disorder, unspecified; M19.90 Unspecified osteoarthritis, unspecified site; Z79.4 Long term (current) use of insulin; Z78.1 Physical restraint status; Z98.890 Other specified postprocedural states; Z87.440 Personal history of urinary (tract) infections; Z16.23 Resistance to quinolones and fluoroquinolones; Z87.891 Personal history of nicotine dependence; Z82.49 Family history of ischemic heart disease and other diseases of the circulatory system; Z79.899 Other long term (current) drug therapy; Z74.09 Other reduced mobility
CPT/HCPCS: 93005; 99285; 96360; 51702; 36415 ×3; 87040; 87086; 87205; 82962 ×4; 83735 ×2; 84443; 85025; 85027 ×2; 80048; 80053 ×2; 81001; 87491; 87591; 93010; G0378 ×5; J3490 ×5; A9270 ×35; J1630 ×3; J2060 ×3; J0696; J7030; S0028 ×3; J1815

== ENCOUNTER 2018-10-29 11:35 | Inpatient (IN) | payer MEDICARE, MEDICAID ==
[2018-10-29] MEDS ORDERED: NORMAL SALINE 1000 ML 1,000 ML IV ONE (12:07)
[2018-10-29 12:14] LABS: VENOUS BLOOD BASE EXCESS -0.3 mmol/L; VENOUS BLOOD PCO2 43.8 mmHg (35-63); VENOUS BLOOD PH 7.38 (7.30-7.42)
[2018-10-29 12:22] LABS: HEMATOCRIT 31.5 % (36.0-47.0); HEMOGLOBIN 10.6 g/dL (12.0-15.5); MEAN CORPUSCULAR HEMOGLOBIN 29.7 pg (27.0-33.4); MEAN CORPUSCULAR HGB CONC 33.5 g/dL (32.0-36.0); MEAN CORPUSCULAR VOLUME 89 fl (80-97); PROTHROMBIN TIME 14.7 SEC (11.4-15.4); RED BLOOD COUNT 3.56 10^6/uL (3.72-5.28); RED CELL DISTRIBUTION WIDTH 14.5 % (11.5-14.0); WHITE BLOOD COUNT 4.1 10^3/uL (4.0-10.5)
[2018-10-29 12:23] LABS: APPEARANCE,URINE SLIGHTLY-CLOUDY; BILIRUBIN,URINE NEGATIVE (NEGATIVE); COLOR,URINE AMBER; GLUCOSE, URINE NEGATIVE (NEGATIVE); KETONES,URINE NEGATIVE (NEGATIVE); LEUKOCYTE ESTERASE,URINE MODERATE (NEGATIVE); NITRITE,URINE POSITIVE (NEGATIVE); PROTEIN,URINE 30 mg/dL (NEGATIVE); URINE SPECIFIC GRAVITY 1.014
[2018-10-29 12:23] LABS: ALANINE AMINOTRANSFERASE 39 U/L (9-52); ALKALINE PHOSPHATASE 167 U/L (38-126); ANION GAP 15 (5-19); ASPARTATE AMINO TRANSFERASE 40 U/L (14-36); BILIRUBIN,DIRECT 0.1 mg/dL (0.0-0.4); BILIRUBIN,TOTAL 0.6 mg/dL (0.2-1.3); BLOOD UREA NITROGEN 92 mg/dL (7-20); CALCIUM 9.3 mg/dL (8.4-10.2); CARBON DIOXIDE 22 mmol/L (22-30); CHLORIDE 98 mmol/L (98-107); GLUCOSE 349 mg/dL (75-110); PARTIAL THROMBOPLASTIN TIME 58.9 SEC (23.5-35.8); SODIUM 134.6 mmol/L (137-145); TOTAL PROTEIN 5.6 g/dL (6.3-8.2)
[2018-10-29 12:29] LABS: POTASSIUM 4.9 mmol/L (3.6-5.0)
[2018-10-29] MEDS ORDERED: CEFTRIAXONE 1 GM/D5W RTU 1 GM/50 ML RTUPB IV ONE (12:44)
[2018-10-29 12:48] LABS: PLATELET COUNT 67 10^3/uL (150-450)
[2018-10-29 12:51] LABS: ABSOLUTE LYMPHOCYTES# (MANUAL) 0.5 10^3/uL (0.5-4.7); ABSOLUTE MONOCYTES # (MANUAL) 0.5 10^3/uL (0.1-1.4); ABSOLUTE NEUTROPHILS# (MANUAL) 3.1 10^3/uL (1.7-8.2); BAND NEUTROPHILS % (MANUAL) 3 % (3-5); BASOPHILS % (MANUAL) 0 % (0-2); EOSINOPHILS % (MANUAL) 1 % (0-6); LYMPHOCYTES % (MANUAL) 13 % (13-45); MONOCYTES % (MANUAL) 11 % (3-13); SEGMENTED NEUTROPHILS % (MAN) 72 % (42-78); TOTAL CELLS COUNTED 100
[2018-10-29 12:54] LABS: TOXIC GRANULATION SLIGHT; TOXIC VACUOLATION PRESENT
[2018-10-29 12:55] LABS: ANISOCYTOSIS SLIGHT; POIKILOCYTOSIS SLIGHT; POLYCHROMASIA SLIGHT
--- NOTE | 2018-10-29 12:55 | ER Document Report ---
ED General - General Chief Complaint: Altered Mental Status Stated Complaint: PSYCH EVAL Time Seen by Provider: 10/29/18 11:44 Mode of Arrival: Ambulatory Information source: Patient Notes: Patient was sent here from a nursing facility for change in mental status. Transfer papers report that patient has been more lethargic and had a recent adjustment in her psychiatric medications. Patient also had been recently treated for UTI. TRAVEL OUTSIDE OF THE [place] IN LAST 30 DAYS: No - HPI Onset: Yesterday Onset/Duration: Gradual Pain Level: Denies Associated symptoms: denies: Nonproductive cough, Productive cough, Fever, Headache, Nausea, Vomiting, Shortness of breath Exacerbated by: Denies Relieved by: Denies Similar symptoms previously: Yes Recently seen / treated by doctor: Yes - Related Data Allergies/Adverse Reactions: tramadol [Tramadol] Allergy (Verified 10/15/18 13:15) Nausea adhesive tape [Adhesive Tape] Adverse Reaction (Verified 10/15/18 13:15) peels skin off Past Medical History - General Information source: Patient, Transfer Record, [facility] Records Cannot obtain history due to: Dementia, Other - Neuro degenerative disease - Social History Smoking Status: Former Smoker Frequency of alcohol use: None Drug Abuse: None Lives with: Mcc Family History: DM, Hypertension Patient has suicidal ideation: No Patient has homicidal ideation: No - Medical History Medical History: Other - Neuro degenerative disease - Past Medical History Cardiac Medical History: Reports: Hx Hypercholesterolemia, Hx Hypertension - medicated Denies: Hx Heart Attack, Hx Heart Murmur Pulmonary Medical History: Reports: Hx Bronchitis, Hx Pneumonia Denies: Hx Asthma, Hx Tuberculosis Neurological Medical History: Reports: Hx Seizures. Denies: Hx Cerebrovascular Accident Endocrine Medical History: Reports: Hx Diabetes Mellitus Type 2. Denies: Hx Diabetes Mellitus Type 1, Hx Hyperthyroidism, Hx Hypothyroidism Renal/ Medical History: Denies: Hx Peritoneal Dialysis GI Medical History: Reports: Hx Gastroesophageal Reflux Disease Musculoskeletal Medical History: Reports Hx Arthritis, Denies Hx Fibromyalgia Skin Medical History: Denies Hx Eczema, Denies Hx Psoriasis Psychiatric Medical History: Reports: Hx Anxiety, Hx Bipolar Disorder, Hx Depression - Anxiety Infectious Medical History: Denies: Hx Hepatitis, Hx HIV Past Surgical History: Reports: Hx Section, Hx Orthopedic Surgery - R Hip, Hx Tonsillectomy - Immunizations Hx Diphtheria, Pertussis, Tetanus Vaccination: Yes - unknown Hx Pneumococcal Vaccination: 05/12/12 Review of Systems - Review of Systems -: Yes ROS unobtainable due to patient's medical condition Physical Exam - Vital signs Vitals: Pulse Ox 98 10/29/18 12:10 - General General appearance: Alert In distress: None Notes: Patient with occasional verbal outbursts, patient is redirectable and calms down and answers questions appropriately - HEENT Head: Normocephalic, Atraumatic Eyes: Normal Nasal: Normal Mouth/Lips: Normal Mucous membranes: Dry Pharynx: Normal Neck: Normal, Supple. No: Lymphadenopathy - Respiratory Respiratory status: No respiratory distress Chest status: Nontender Breath sounds: Normal. No: Rales, Rhonchi, Stridor, Wheezing Chest palpation: Normal - Cardiovascular Rhythm: Regular Heart sounds: S1 appreciated, S2 appreciated Murmur: No - Abdominal Inspection: Normal Distension: No distension Bowel sounds: Normal Tenderness: Nontender Organomegaly: No organomegaly - Rectal Notes: Patient with stage II ulcer to sacrum - Back Back: Normal, Nontender. No: CVA tenderness - Extremities General upper extremity: Normal ROM, Other - Ecchymosis to right forearm General lower extremity: Other - Patient with bilateral drop foot, ecchymosis to left knee Shoulder: Normal, Nontender Arm: Nontender, Ecchymosis - Right Elbow: Normal, Nontender Forearm: Ecchymosis - Right Wrist: Normal, Nontender Hand: Normal, Nontender Hip: Normal, Nontender Thigh: Normal, Nontender Knee: Ecchymosis - Left knee - Neurological Neuro grossly intact: Yes [place] Coma Scale Eye Opening: Spontaneous [place] Coma Scale Verbal: Oriented - Patient will moan and yell, when staff enter room patient redirects and answers questions appropriately. Jac[place]eline Coma Scale Motor: Obeys Commands [place] Coma Scale Total: 15 Speech: Normal - Psychological Associated symptoms: Agitated - Skin Skin Temperature: Warm Skin Moisture: Dry Skin Color: Ecchymosis - Right upper extremity, left knee, bilateral feet Course - Re-evaluation Re-evalutation: 10/29/18 12:[address] Vogel regarding patient presentation and diagnostic evaluation. Does not recommend giving any thing to sedate patient at this time as she is only screaming and is not combative with staff. Patient with what appears to be acute kidney injury. Patient was recently started on Bactrim for a UTI. UTI does seem to be somewhat improved as compared to urinalysis that was obtained yesterday. Renal function has a modest improvement from laboratory studies that were performed yesterday. Review of patient's previous ER admissions and visits demonstrates that patient does have a history of behavioral misconduct in which she will yell and attempt to get out of bed and occasionally becomes combative with staff. Patient does have a history of stating that she has acted out on purpose just to get what she wants. 10/29/18 13:20 Patient continues agitated calling out although is able to quiet down when talking to patient. Dr. Vogel advises Zyprexa IM. 10/29/18 15:06 Patient without any findings worrisome for intracranial hemorrhage or fracture. Patient has been awake and alert and frequently calling out to staff and yelling. Patient not lethargic during her ER stay. Review of previous records demonstrates that patient has a history of behavior similar to this and therefore seems to be back at her usual baseline. Patient without any obvious kidney stone or acute intra-abdominal abnormality. Patient does have significant stool load noted on CT scan. Suspect patient's change in renal function likely result of dehydration coupled with her recent antibiotic regimen. Patient does have numerous ecchymotic areas to bilateral lower extremities although review of patient's records does demonstrates that patient has fallen out of the wheelchair and has become combative with staff. Bruises are in a pattern consistent with this reported history. Consulted with hospitalist Dr Sam who agrees to accept patient to [facility]. Consulted with Dr. Merida regarding patient's presentation. Recommends medical floor admission at this time. 10/29/18 15:45 Consulted with [facility] regarding patient's multiple ecchymotic areas to bilateral upper and lower extremities. [facility] was the provider who admitted patient on her last admission and states that many of these injuries have been present during that visit as well. - Vital Signs Vital signs: Temp Pulse Resp BP Pulse Ox 97.5 F 101 H 15 125/61 96 10/29/18 12:12 10/29/18 16:28 10/29/18 16:01 10/29/18 16:01 10/29/18 16:01 - Laboratory Result Diagrams: 10/29/18 11:48 10/29/18 11:48 Laboratory results interpreted by me: 10/29/18 10/29/1819 11:48 11:48 11:48 RBC 3.56 L Hgb 10.6 L Hct 31.5 L RDW 14.5 H Plt Count 67 L APTT 58.9 H Sodium 134.6 L BUN 92 H Creatinine 3.45 H Est GFR ( Amer) 17 L Est GFR (Non-Af Amer) 14 L Glucose 349 H Magnesium 3.1 H AST 40 H Alkaline Phosphatase 167 H Total Protein 5.6 L Albumin 3.0 L Urine Protein Urine Blood Urine Nitrite Urine Urobilinogen Ur Leukocyte Esterase Urine Ascorbic Acid 10/29/18 12:02 RBC Hgb Hct RDW Plt Count APTT Sodium BUN Creatinine Est GFR ( Amer) Est GFR (Non-Af Amer) Glucose Magnesium AST Alkaline Phosphatase Total Protein Albumin Urine Protein 30 H Urine Blood SMALL H Urine Nitrite POSITIVE H Urine Urobilinogen 4.0 H Ur Leukocyte Esterase MODERATE H Urine Ascorbic Acid 40 H 10/29/18 15:06 Labs- Entire Visit 10/29/18 10/29/18 10/29/18 11:48 11:48 11:48 WBC 4.1 RBC 3.56 L Hgb 10.6 L Hct 31.5 L MCV 89 MCH 29.7 MCHC 33.5 RDW 14.5 H Plt Count 67 L Total Counted 100 Seg Neutrophils % Not Reportable Seg Neuts % (Manual) 72 Band Neutrophils % 3 Lymphocytes % Not Reportable Lymphocytes % (Manual) 13 Monocytes % Not Reportable Monocytes % (Manual) 11 Eosinophils % Not Reportable Eosinophils % (Manual) 1 Basophils % Not Reportable Basophils % (Manual) 0 Absolute Neutrophils Not Reportable Abs Neuts (Manual) 3.1 Absolute Lymphocytes Not Reportable Abs Lymphs (Manual) 0.5 Absolute Monocytes Not Reportable Abs Monocytes (Manual) 0.5 Absolute Eosinophils Not Reportable Absolute Eos (Manual) 0.0 Absolute Basophils Not Reportable Abs Basophils (Manual) 0.0 Toxic Granulation SLIGHT Toxic Vacuolation PRESENT Platelet Comment DECREASED Polychromasia SLIGHT Poikilocytosis SLIGHT Anisocytosis SLIGHT PT 14.7 INR 1.10 APTT 58.9 H VBG pH VBG pCO2 VBG HCO3 VBG Base Excess Sodium 134.6 L Potassium 4.9 D Chloride 98 Carbon Dioxide 22 Anion Gap 15 BUN 92 H Creatinine 3.45 H Est GFR ( Amer) 17 L Est GFR (Non-Af Amer) 14 L Glucose 349 H Lactic Acid Calcium 9.3 Magnesium 3.1 H Total Bilirubin 0.6 Direct Bilirubin 0.1 Neonat Total Bilirubin Not Reportable Neonat Direct Bilirubin Not Reportable Neonat Indirect Bili Not Reportable AST 40 H ALT 39 Alkaline Phosphatase 167 H Troponin I Total Protein 5.6 L Albumin 3.0 L Urine Color Urine Appearance Urine pH Ur Specific [place] Urine Protein Urine Glucose (UA) Urine Ketones Urine Blood Urine Nitrite Urine Bilirubin Urine Urobilinogen Ur Leukocyte Esterase Urine WBC (Auto) Urine RBC (Auto) Urine Bacteria (Auto) Urine WBC Clumps Squamous Epi Cells Auto U Non-Squamous Epis Auto Urine Ascorbic Acid Valproic Acid 57.7 10/29/18 10/29/18 10/29/18 11:48 11:48 11:48 WBC RBC Hgb Hct MCV MCH MCHC RDW Plt Count Total Counted Seg Neutrophils % Seg Neuts % (Manual) Band Neutrophils % Lymphocytes % Lymphocytes % (Manual) Monocytes % Monocytes % (Manual) Eosinophils % Eosinophils % (Manual) Basophils % Basophils % (Manual) Absolute Neutrophils Abs Neuts (Manual) Absolute Lymphocytes Abs Lymphs (Manual) Absolute Monocytes Abs Monocytes (Manual) Absolute Eosinophils Absolute Eos (Manual) Absolute Basophils Abs Basophils (Manual) Toxic Granulation Toxic Vacuolation Platelet Comment Polychromasia Poikilocytosis Anisocytosis PT INR APTT VBG pH 7.38 VBG pCO2 43.8 VBG HCO3 25.0 VBG Base Excess -0.3 Sodium Potassium Chloride Carbon Dioxide Anion Gap BUN Creatinine Est GFR ( Amer) Est GFR (Non-Af Amer) Glucose Lactic Acid 1.2 Calcium Magnesium Total Bilirubin Direct Bilirubin Neonat Total Bilirubin Neonat Direct Bilirubin Neonat Indirect Bili AST ALT Alkaline Phosphatase Troponin I < 0.012 Total Protein Albumin Urine Color Urine Appearance Urine pH Ur Specific [place] Urine Protein Urine Glucose (UA) Urine Ketones Urine Blood Urine Nitrite Urine Bilirubin Urine Urobilinogen Ur Leukocyte Esterase Urine WBC (Auto) Urine RBC (Auto) Urine Bacteria (Auto) Urine WBC Clumps Squamous Epi Cells Auto U Non-Squamous Epis Auto Urine Ascorbic Acid Valproic Acid 10/29/18 12:02 WBC RBC Hgb Hct MCV MCH MCHC RDW Plt Count Total Counted Seg Neutrophils % Seg Neuts % (Manual) Band Neutrophils % Lymphocytes % Lymphocytes % (Manual) Monocytes % Monocytes % (Manual) Eosinophils % Eosinophils % (Manual) Basophils % Basophils % (Manual) Absolute Neutrophils Abs Neuts (Manual) Absolute Lymphocytes Abs Lymphs (Manual) Absolute Monocytes Abs Monocytes (Manual) Absolute Eosinophils Absolute Eos (Manual) Absolute Basophils Abs Basophils (Manual) Toxic Granulation Toxic Vacuolation Platelet Comment Polychromasia Poikilocytosis Anisocytosis PT INR APTT VBG pH VBG pCO2 VBG HCO3 VBG Base Excess Sodium Potassium Chloride Carbon Dioxide Anion Gap BUN Creatinine Est GFR ( Amer) Est GFR (Non-Af Amer) Glucose Lactic Acid Calcium Magnesium Total Bilirubin Direct Bilirubin Neonat Total Bilirubin Neonat Direct Bilirubin Neonat Indirect Bili AST ALT Alkaline Phosphatase Troponin I Total Protein Albumin Urine Color [place] Urine Appearance SLIGHTLY-CLOUDY Urine pH 5.0 Ur Specific [place] 1.014 Urine Protein 30 H Urine Glucose (UA) NEGATIVE Urine Ketones NEGATIVE Urine Blood SMALL H Urine Nitrite POSITIVE H Urine Bilirubin NEGATIVE Urine Urobilinogen 4.0 H Ur Leukocyte Esterase MODERATE H Urine WBC (Auto) 71 Urine RBC (Auto) 10 Urine Bacteria (Auto) 3+ Urine WBC Clumps FEW Squamous Epi Cells Auto <1 U Non-Squamous Epis Auto 1 Urine Ascorbic Acid 40 H Valproic Acid - Diagnostic Test Radiology reviewed: Reports reviewed Discharge - Discharge Clinical Impression: BENJAMIN (acute kidney injury) Urinary tract infection Qualifiers: Urinary tract infection type: site unspecified Hematuria presence: with hematur ia Qualified Code(s): N39.0 - Urinary tract infection, site not specified Dementia with behavioral disturbance Qualifiers: Dementia type: unspecified type Qualified Code(s): F03.91 - Unspecified dem entia with behavioral disturbance Constipation Qualifiers: Constipation type: unspecified constipation type Qualified Code(s): K59.00 - Constipation, unspecified Condition: Fair Disposition: ADMITTED INPATIENT Admitting Provider: Hospitalist Unit Admitted: Medical Floor
[2018-10-29 12:56] LABS: PLATELET COMMENT DECREASED
[2018-10-29] MEDS ORDERED: OLANZAPINE INJ/PF 10 MG SDV IM ONE (13:19)
--- NOTE | 2018-10-29 13:41 | RADIOLOGY REPORT (SQ) ---
EXAM DESCRIPTION: CT HEAD WITHOUT COMPLETED DATE/TIME: 10/29/2018 1:31 pm REASON FOR STUDY: AMS COMPARISON: 05/27/2017 TECHNIQUE: Axial images acquired through the brain without intravenous contrast. Images reviewed wi th bone, brain and subdural windows. Additional sagittal and coronal reconstructions were generated. Images stored on PACS. All CT scanners at this facility use dose modulation, iterative reconstruction, and/or weight based d osing when appropriate to reduce radiation dose to as low as reasonably achievable (ALARA). [facility]: Dose Right [facility]: CareDose [facility]: Dose Right [facility]: Teradose 4D [facility]: Smart [employer] RADIATION DOSE: CT Rad equipment meets quality standard of care and radiation dose reduction techniq ues were employed. CTDIvol: 53.2 mGy. DLP: 964 mGy-cm.mGy. LIMITATIONS: None. FINDINGS: VENTRICLES: Ventricular prominence compatible with parenchymal volume loss and more than e xpected for patient age. CEREBRUM: No masses. No hemorrhage. No midline shift. Stable scattered areas of low density in the white matter most likely due to chronic micro-vascular ischemic change. No evidence for acute infar ction. CEREBELLUM: No masses. No hemorrhage. No alteration of density. No evidence for acute infarction. EXTRAAXIAL SPACES: Prominence of the extra-axial CSF space compatible with involutional change and mo re than expected for patient age. ORBITS AND GLOBE: No intra- or extraconal masses. Normal contour of globe without masses. CALVARIUM: No fracture. PARANASAL SINUSES: No fluid or mucosal thickening. SOFT TISSUES: No mass or hematoma. OTHER: No other significant finding. IMPRESSION: No evidence of acute intracranial process. Stable parenchymal atrophy and chronic white matter changes, more than expected for patient age. EVIDENCE OF ACUTE STROKE: NO. TECHNICAL DOCUMENTATION: JOB ID: [id number] Quality ID # [id number]: Final reports with documentation of one or more dose reduction techniques (e.g., Au tomated exposure control, adjustment of the mA and/or kV according to patient size, use of iterative reconstruction technique) 2010 [employer]- All Rights Reserved Reading location - IP/workstation name: [email or web address]
--- NOTE | 2018-10-29 14:07 | RADIOLOGY REPORT (SQ) ---
EXAM DESCRIPTION: CHEST SINGLE VIEW COMPLETED DATE/TIME: 10/29/2018 1:51 pm REASON FOR STUDY: AMS COMPARISON: 10/21/2014. FINDINGS: Single-view chest AP portable semi upright at 1331 hours. Low lung volumes. Lungs are generally clear, however. No acute disease. Normal cardiomediastinal silhouette with intact bones. TECHNICAL DOCUMENTATION: JOB ID: [id number] Reading location - IP/workstation name: [email or web address]
--- NOTE | 2018-10-29 14:18 | RADIOLOGY REPORT (SQ) ---
EXAM DESCRIPTION: KNEE LEFT 2 VIEWS COMPLETED DATE/TIME: 10/29/2018 1:51 pm REASON FOR STUDY: L knee contusion COMPARISON: None. NUMBER OF VIEWS: Two views. TECHNIQUE: AP and lateral radiographic images acquired of the left knee. LIMITATIONS: Motion. FINDINGS: MINERALIZATION: Osteopenia. BONES: Lucency along the anterior margin of the tibial plateau. Lucency overlying lateral plateau. No displaced fracture. JOINT: No effusion. SOFT TISSUES: No soft tissue swelling. No radio-opaque foreign body. OTHER: No other significant finding. IMPRESSION: Cannot exclude occult tibial plateau fracture. Follow-up CT is recommended. TECHNICAL DOCUMENTATION: JOB ID: [id number] [employer]- All Rights Reserved Reading location - IP/workstation name: [email or web address]
[2018-10-29] MEDS ORDERED: NORMAL SALINE 500 ML IV ONE (14:27)
--- NOTE | 2018-10-29 14:41 | RADIOLOGY REPORT (SQ) ---
EXAM DESCRIPTION: CT ABD/PELVIS NO ORAL OR IV COMPLETED DATE/TIME: 10/29/2018 1:31 pm REASON FOR STUDY: uti, BENJAMIN COMPARISON: 12/04/2011 TECHNIQUE: CT scan of the abdomen and pelvis performed without intravenous or oral contrast. Images reviewed with lung, soft tissue, and bone windows. Reconstructed coronal and sagittal MPR images revi ewed. All images stored on PACS. All CT scanners at this facility use dose modulation, iterative reconstruction, and/or weight based d osing when appropriate to reduce radiation dose to as low as reasonably achievable (ALARA). [facility]: Dose Right [facility]: CareDose [facility]: Dose Right [facility]: Teradose 4D [facility]: Smart [employer] RADIATION DOSE: CT Rad equipment meets quality standard of care and radiation dose reduction techniq ues were employed. CTDIvol: 14.4 mGy. DLP: 812 mGy-cm.mGy. LIMITATIONS: None. FINDINGS: LOWER CHEST: Mild dependent hypoventilatory change. NON-CONTRASTED LIVER, SPLEEN, ADRENALS: Evaluation limited by lack of IV contrast. No identified sign ificant masses. Splenomegaly measuring 13.8 cm. PANCREAS: Scattered calcifications compatible with chronic pancreatitis. Metallic densities obscured head and uncinate process. GALLBLADDER: No identified stones by CT criteria. No inflammatory changes to suggest cholecystitis. RIGHT KIDNEY AND URETER: Mild fullness of the collecting system. Evaluation of the distal ureter jackson ited secondary to dense streak artifact from pelvic hardware. No discrete mass although evaluation limited secondary to lack of IV contrast. No calcifications. LEFT KIDNEY AND URETER: No suspicious masses. Assessment limited by lack of IV contrast. No signifi cant calcifications. No hydronephrosis or hydroureter. AORTA AND RETROPERITONEUM: No aneurysm. No retroperitoneal masses or adenopathy. BOWEL AND PERITONEAL CAVITY: Large amount of formed fecal material within the rectal vault. Addition al formed stool throughout the colon. Midline ventral hernia containing loop of colon, new compared to prior CT. No evidence of intestinal obstruction. No focal bowel wall thickening. APPENDIX: Not visualized. PELVIS, BLADDER, AND ABDOMINAL WALL:Partially evaluated secondary to dense streak pelvic artifact. B owel containing ventral hernia with a 4 cm aperture. IUD present BONES: Partially evaluated right hip arthroplasty. Evidence of protrusio of the acetabular component , similar to prior. Osteopenia. OTHER: No other significant finding. IMPRESSION: 1. Mild fullness of the right renal collecting system and ureter. Evaluation of the di stal ureter limited secondary to dense streak artifact from pelvic hardware. No nephrolithiasis visu alized. 2. Large amount of formed fecal material within the rectal vault suggestive of fecal impaction. Ass ociated mass effect on the adjacent bladder which may contribute to the mild right renal hydronephros is. Additional formed stool throughout the colon. 3. Ventral hernia with a 4 cm aperture containing a loop of colon. No evidence of upstream obstruct ion. 4. Splenomegaly. COMMENT: Quality ID # [id number]: Final reports with documentation of one or more dose reduction techniques (e.g., Automated exposure control, adjustment of the mA and/or kV according to patient size, use of iterative reconstruction technique) TECHNICAL DOCUMENTATION: JOB ID: [id number] [employer]- All Rights Reserved Reading location - IP/workstation name: [email or web address]
[2018-10-29] MEDS ORDERED: LORAZEPAM INJ 2 MG/1 ML VIAL IV ONE (15:05)
--- NOTE | 2018-10-29 15:09 | RADIOLOGY REPORT (SQ) ---
EXAM DESCRIPTION: CT LT LOWER EXTREMITY WITHOUT COMPLETED DATE/TIME: 10/29/2018 3:00 pm REASON FOR STUDY: L knee injury COMPARISON: None. TECHNIQUE: Axial imaging performed through the left knee with reformatted coronal and sagittal imagi ng windowed for bone and soft tissues. Images saved to PACS. 3D IMAGING: Were 3D images as MIP, SSD, or volume rendering performed at the work station? No. All CT scanners at this facility use dose modulation, iterative reconstruction, and/or weight based d osing when appropriate to reduce radiation dose to as low as reasonably achievable (ALARA). [facility]: Dose Right [facility]: CareDose [facility]: Dose Right [facility]: Teradose 4D [facility]: [email or web address] LIMITATIONS: None. RADIATION DOSE: CT Rad equipment meets quality standard of care and radiation dose reduction techniq ues were employed. CTDIvol: 4.0 - 4.1 mGy. DLP: 215 mGy-cm. mGy. FINDINGS: SOFT TISSUES: No obvious swelling or foreign body. BONES: No acute fracture. No dislocation. MINERALIZATION: Osteopenia. OTHER: Osteoarthritis, more advanced in the patellofemoral compartment IMPRESSION: No fracture. TECHNICAL DOCUMENTATION: JOB ID: [id number] Quality ID # [id number]: Final reports with documentation of one or more dose reduction techniques (e.g., Au tomated exposure control, adjustment of the mA and/or kV according to patient size, use of iterative reconstruction technique) 2010 [employer]- All Rights Reserved Reading location - IP/workstation name: [email or web address]
[2018-10-29] MEDS ORDERED: NORMAL SALINE 1000 ML 1,000 ML IV PRN (15:28)
[2018-10-29] MEDS ORDERED: ACETAMINOPHEN 325 MG TABLET PO PRN (15:59)
[2018-10-29] MEDS ORDERED: PROMETHAZINE HCL INJ 25 MG/1 ML VIAL IV PRN (15:59)
[2018-10-29] MEDS ORDERED: ONDANSETRON HCL INJ/PF 4 MG/2 ML SDV IV PRN (15:59)
[2018-10-29] MEDS ORDERED: NA PHOS,M-B/NA PHOS,DI-BA (ADULT) 133 ML ENEMA PR ONE (17:00)
[2018-10-29] MEDS: LORAZEPAM INJ 2 MG/1 ML VIAL IV PRN ×2 (17:33→23:34)
[2018-10-29] MEDS: MEROPENEM 500 MG in NORMAL SALINE 50 ML IV SCH (18:30)
[2018-10-29 18:56] LABS: URINE CREATININE 70.9 mg/dL (15-278)
[2018-10-29] MEDS ORDERED: GLUCAGON,HUMAN RECOMB 1 MG INJ IM PRN (21:30)
[2018-10-29] MEDS ORDERED: DEXTROSE 40% GEL 15 GM TUBE PO PRN (21:30)
[2018-10-29] MEDS ORDERED: DEXTROSE 50%-WATER SYRINGE 12.5 GM/25 ML DOSE IV PRN (21:30)
[2018-10-29] MEDS ORDERED: DEXTROSE 50%-WATER SYRINGE 25 GM/50 ML DOSE IV PRN (21:30)
[2018-10-29] MEDS ORDERED: DEXTROSE 40% GEL 15 GM TUBE X 2 PO PRN (21:30)
[2018-10-29] MEDS ORDERED: MEROPENEM 1 GM in NORMAL SALINE 50 ML IV SCH (22:00)
[2018-10-29] MEDS ORDERED: (PENDING PHARMACY ID) (Sennosides [Senna] 8.6 MG) PO PRN (22:24)
[2018-10-29] MEDS: INSULIN REG, HUMAN 100 UNIT/ML 3 ML VIAL (PYX) SUBCUT SCH (22:33)
--- NOTE | 2018-10-29 23:29 | EKG REPORT ---
SEVERITY:- NORMAL ECG - SINUS RHYTHM : Confirmed by: Rupal Molina 29-Oct-2018 23:29:04
[2018-10-29] MEDS ORDERED: ROPINIROLE HCL 1 MG TABLET PO ONE (23:30)
[2018-10-29] MEDS ORDERED: LEVETIRACETAM 500 MG TABLET PO ONE (23:30)
[2018-10-29] MEDS ORDERED: SUCRALFATE 1 GM TABLET PO ONE (23:30)
[2018-10-29] MEDS ORDERED: MIRTAZAPINE 15 MG TABLET PO ONE (23:30)
[2018-10-29] MEDS ORDERED: MELATONIN 3 MG TABLET PO ONE (23:30)
[2018-10-29] MEDS ORDERED: QUETIAPINE FUMARATE 100 MG TABLET PO ONE (23:30)
[2018-10-29] MEDS: PANTOPRAZOLE SODIUM 40 MG VIAL IV SCH (23:31)
[2018-10-29] MEDS: INSULIN DETEMIR 100 UNIT/ML 3 ML PEN SUBCUT SCH (23:31)
[2018-10-30] MEDS: NORMAL SALINE 1000 ML 1,000 ML IV PRN ×2 (00:05→12:50)
[2018-10-30] MEDS: CHLORPROMAZINE HCL INJ 25 MG/1 ML AMPULE ONE ×2 (03:52→03:54)
[2018-10-30] MEDS: CHLORPROMAZINE HCL INJ 25 MG/1 ML AMPULE IV PRN ×3 (03:54→22:55)
[2018-10-30] MEDS ORDERED: POLYETHYLENE GLYCOL 3350 POWDER 17 GM/1 PACKET PO PRN (04:33)
[2018-10-30] MEDS ORDERED: MAGNESIUM HYDROXIDE SUSP 30 ML UDCUP PO PRN (04:33)
--- NOTE | 2018-10-30 04:55 | PDOC H&P ---
History of Present Illness Admission Date/PCP: 10/29/18 15:27 MARY MORALES Patient complains of: AMS History of Present Illness: MAVERICK TOLBERT is a 53 year old female who was sent from a nursing facility for change in mental status. She is well known to the hospitalist service. Transfer papers report that patient has been more lethargic and had a recent ad justment in her psychiatric medications. Of note, the patient was recently hospitalized at [facility] for AMS and found to have a UTI. She was treated with Bactrim and sent back to the [facility]. Laboratory studies reveal a creatinine 3.45, significantly higher than her baseline (<1.0). She was treated with 1L IVF bolus in the ED. Additional laboratory studies reveal she has a UTI.The patient was given a dose of IV Rocephin in the ED. Given her long history of UTIs and resistance to many antibiotics, the patient was started on Meropenem. Upon assessment, the patient is yelling out and screaming. She states she 'wants to go home.' During the interview the patient is redirectable and calm. Her skin is somewhat pale, oral mucosa is very dry and tacky. Good skin turgor. The patient has no complaints, denies abdominal pain, back pain, dysuria, fever, chills. Admit to hospitalist service for BENJAMIN and complicated UTI. Past Medical History Cardiac Medical History: Reports: Hyperlipidema, Hypertension - medicated Denies: Myocardial Infarction, Heart Murmur Pulmonary Medical History: Reports: Bronchitis, Pneumonia Denies: Asthma, Tuberculosis Neurological Medical History: Reports: Seizures Endocrine Medical History: Reports: Diabetes Mellitus Type 2 Denies: Diabetes Mellitus Type 1, Hyperthyroidism, Hypothyroidism GI Medical History: Reports: Gastroesophageal Reflux Disease Denies: Cirrhosis, Hepatitis, Hiatal Hernia Musculoskeltal Medical History: Reports: Arthritis Denies: Fibromyalgia Skin Medical History: Denies: Eczema, Psoriasis Psychiatric Medical History: Reports: Bipolar Disorder, Depression - Anxiety Hematology: Reports: Anemia Denies: Sickle Cell Disease, Bleeding Tendencies Infectious Medical History: Denies: HIV Past Surgical History Past Surgical History: Reports: Section, Orthopedic Surgery - R Hip, Tonsillectomy Denies: Amputation, Hysterectomy, Mastectomy, Pacemaker Social History Information Source: Emergency Med Personnel Lives with: Skilled Nursing Smoking Status: Former Smoker Frequency of Alcohol Use: None Hx Recreational Drug Use: No Drugs: None Hx Prescription Drug Abuse: No - Advance Directive Resuscitation Status: Full Code Family History Family History: DM, Hypertension Parental Family History Reviewed: Yes Children Family History Reviewed: NA Sibling(s) Family History Reviewed.: Unknown Medication/Allergy Home Medications: Benztropine Mesylate [Cogentin 1 mg Tablet] 1 tab PO DAILY 10/29/18 Bupropion HCl [Wellbutrin Xl 150 mg 24hr Tablet] 150 mg PO DAILY 10/29/18 Buspirone HCl [Buspar 10 mg Tablet] 10 mg PO Q12 10/29/18 Calcium Carbonate/Vitamin D3 [Oyster Shell Calcium-Vit D Tab] 1 tab PO BID 10/29/18 Cholecalciferol (Vitamin D3) [Vitamin D] 50,000 unit PO WE@1000 10/29/18 Divalproex Sodium [Depakote Sprinkle 125 Mg Capsule] 500 mg PO BID 10/29/18 Esomeprazole Mag Trihydrate [Nexium] 40 mg PO DAILY 10/29/18 Ibuprofen [Motrin 800 mg Tablet] 800 mg PO Q8HP PRN 10/29/18 Insulin Aspart [Novolog Insulin 100 Unit/1 ml 10 ml] 0 unit SUBCUT .SLD SCALE 10/29/18 Insulin Detemir [Levemir Insulin 300 Units/3 ml Insuln.pen] 15 unit SUBCUT QHS 10/29/18 Levetiracetam [Keppra 500 mg Tablet] 500 mg PO Q12 10/29/18 Lorazepam [Ativan 1 mg Tablet] 1 mg PO DAILYP PRN 10/29/18 Melatonin [Melatonin 3 mg Tablet] 3 mg PO QHS 10/29/18 Miconazole Nitrate [Monistat-3 Supp.vag (3 Supp/Box)] 200 mg VG DAILY 10/29/18 Mirtazapine 7.5 mg PO QHS 10/29/18 Multivitamin [Tab-A-Cristopher (Multiple Vitamin) Tablet] 1 tab PO DAILY 10/29/18 Phenazopyridine HCl [Pyridium 100 Mg Tablet] 100 mg PO Q8 10/29/18 Prednisone [Deltasone 10 mg Tablet] 10 mg PO DAILY 10/29/18 Quetiapine Fumarate [Seroquel] 125 mg PO QAM 10/29/18 Quetiapine Fumarate [Seroquel] 175 mg PO QHS 10/29/18 Ropinirole HCl [Requip] 1 mg PO QHS 10/29/18 Sennosides [Senna] 8.6 mg PO BIDP PRN 10/29/18 Sucralfate [Carafate 1 gm Tablet] 1 gm PO BID 10/29/18 Thiamine Mononitrate [Vitamin B-1] 100 mg PO DAILY 10/29/18 Allergies/Adverse Reactions: tramadol [Tramadol] Allergy (Verified 10/15/18 13:15) Nausea adhesive tape [Adhesive Tape] Adverse Reaction (Verified 10/15/18 13:15) peels skin off Review of Systems ROS unobtainable: Due to mental status Physical Exam Vital Signs: Temp Pulse Resp BP Pulse Ox 98.2 F 90 17 103/71 96 10/30/18 00:00 10/30/18 00:00 10/30/18 00:00 10/30/18 00:00 10/30/18 00:00 Intake & Output 10/28/18 10/29/18 10/30/18 06:59 06:59 06:59 Intake Total 1600 Balance 1600 Weight 50.6 kg General appearance: PRESENT: well-developed, well-nourished Head exam: PRESENT: atraumatic Eye exam: PRESENT: conjunctiva pink, PERRLA Mouth exam: PRESENT: dry mucosa, tongue midline Teeth exam: PRESENT: poor dentation Neck exam: PRESENT: full ROM Respiratory exam: PRESENT: clear to auscultation toño, symmetrical, unlabored Cardiovascular exam: PRESENT: RRR Pulses: PRESENT: normal radial pulses, normal dorsalis pedis pul GI/Abdominal exam: PRESENT: soft. ABSENT: distended, tenderness Rectal exam: PRESENT: deferred Extremities exam: ABSENT: full ROM, pedal edema Musculoskeletal exam: ABSENT: ambulatory - wheelchair bound, full ROM Neurological exam: PRESENT: alert, awake, oriented to person, oriented to place, oriented to time, oriented to situation Psychiatric exam: PRESENT: appropriate affect Skin exam: PRESENT: dry, intact Results Laboratory Results: 10/29/18 11:48 10/29/18 11:48 10/29/18 10/29/18 10/29/18 11:48 11:48 11:48 WBC 4.1 RBC 3.56 L Hgb 10.6 L Hct 31.5 L MCV 89 MCH 29.7 MCHC 33.5 RDW 14.5 H Plt Count 67 L Seg Neutrophils % Not Reportable Lymphocytes % Not Reportable Monocytes % Not Reportable Eosinophils % Not Reportable Basophils % Not Reportable Absolute Neutrophils Not Reportable Absolute Lymphocytes Not Reportable Absolute Monocytes Not Reportable Absolute Eosinophils Not Reportable Absolute Basophils Not Reportable VBG pH 7.38 VBG pCO2 43.8 VBG HCO3 25.0 VBG Base Excess -0.3 Sodium 134.6 L Potassium 4.9 D Chloride 98 Carbon Dioxide 22 Anion Gap 15 BUN 92 H Creatinine 3.45 H Est GFR ( Amer) 17 L Est GFR (Non-Af Amer) 14 L Glucose 349 H Lactic Acid Calcium 9.3 Magnesium 3.1 H Total Bilirubin 0.6 AST 40 H ALT 39 Alkaline Phosphatase 167 H Total Protein 5.6 L Albumin 3.0 L Urine Color Urine Appearance Urine pH Ur Specific [place] Urine Protein Urine Glucose (UA) Urine Ketones Urine Blood Urine Nitrite Ur Leukocyte Esterase Urine WBC (Auto) Urine RBC (Auto) 10/29/18 10/29/18 11:48 12:02 WBC RBC Hgb Hct MCV MCH MCHC RDW Plt Count Seg Neutrophils % Lymphocytes % Monocytes % Eosinophils % Basophils % Absolute Neutrophils Absolute Lymphocytes Absolute Monocytes Absolute Eosinophils Absolute Basophils VBG pH VBG pCO2 VBG HCO3 VBG Base Excess Sodium Potassium Chloride Carbon Dioxide Anion Gap BUN Creatinine Est GFR ( Amer) Est GFR (Non-Af Amer) Glucose Lactic Acid 1.2 Calcium Magnesium Total Bilirubin AST ALT Alkaline Phosphatase Total Protein Albumin Urine Color [place] Urine Appearance SLIGHTLY-CLOUDY Urine pH 5.0 Ur Specific [place] 1.014 Urine Protein 30 H Urine Glucose (UA) NEGATIVE Urine Ketones NEGATIVE Urine Blood SMALL H Urine Nitrite POSITIVE H Ur Leukocyte Esterase MODERATE H Urine WBC (Auto) 71 Urine RBC (Auto) 10 10/29/18 11:48 Troponin I < 0.012 Impressions: Head CT 10/29/18 12:06 IMPRESSION: No evidence of acute intracranial process. Stable parenchymal atrophy and chronic white matter changes, more than expected for patient age. EVIDENCE OF ACUTE STROKE: NO. Knee X-Ray 10/29/18 12:06 IMPRESSION: Cannot exclude occult tibial plateau fracture. Follow-up CT is recommended. Abdomen/Pelvis CT 10/29/18 12:50 IMPRESSION: 1. Mild fullness of the right renal collecting system and ureter. Evaluation of the distal ureter limited secondary to dense streak artifact from pelvic hardware. No nephrolithiasis visualized. 2. Large amount of formed fecal material within the rectal vault suggestive of fecal impaction. Associated mass effect on the adjacent bladder which may contribute to the mild right renal hydronephrosis. Additional formed stool throughout the colon. 3. Ventral hernia with a 4 cm aperture containing a loop of colon. No evidence of upstream obstruction. 4. Splenomegaly. Lower Extremity CT 10/29/18 14:28 IMPRESSION: No fracture. Status: Imported from PACS Assessment and Plan - Diagnosis (1) BENJAMIN (acute kidney injury) Is this a current diagnosis for this admission?: Yes Plan: Secondary to dehydration stemming from UTI Possibly due to antibiotic (bactrim) Imaging shows no post-renal obstruction 1L IVF bolus in ED Continue maintenance IVF Check FeNa from urine studies (2) Constipation Qualifiers: Constipation type: unspecified constipation type Qualified Code(s): K59.00 - Constipation, unspecified Is this a current diagnosis for this admission?: Yes Plan: As seen on radiological imaging Patient does not endorse abdominal pain Fleets enema in ED Daily suppository BID senna PRN Milk of magnesia PRN Miralax (3) Dementia with behavioral disturbance Qualifiers: Dementia type: unspecified type Qualified Code(s): F03.91 - Unspecified dementia with behavioral disturbance Is this a current diagnosis for this admission?: Yes Plan: History of behavioral disturbance Continue home dose medications PRN Ativan for agitation (4) Urinary tract infection Qualifiers: Urinary tract infection type: site unspecified Hematuria presence: with hematuria Qualified Code(s): N39.0 - Urinary tract infection, site not specified; R31.9 - Hematuria, unspecified Is this a current diagnosis for this admission?: Yes Plan: UA indicative of UTI Awaiting urine cultures Most recent hospitalization at [facility] for a UTI, placed on bactrim History reveals resistance to a number of antibiotics Started on Meropenem in ED (5) Abnormal bruising Is this a current diagnosis for this admission?: Yes Plan: bruising on arms and legs in multiple stages of healing Extensive amount of imaging done in ED, all negative for fracture Patient is wheelchair bound. Unfortunately, she is known to throw herself out of the wheelchair, yell and scream to get what she wants Do not suspect abuse given the bruising pattern - Time Time Spent with patient: 15-24 minutes Medications reviewed and adjusted accordingly: Yes Anticipated discharge: SNF - Inpatient Certification Based on my medical assessment, after consideration of the patient's comorbi dities, presenting symptoms, or acuity I expect that the services needed warrant INPATIENT care.: Yes I certify that my determination is in accordance with my understanding of Medicare's requirements for reasonable and necessary INPATIENT services [42 CFR 412.3e].: Yes Medical Necessity: Need for IV Antibiotics
[2018-10-30] MEDS ORDERED: BISACODYL 10 MG SUPP.RECT PR ONE (05:00)
[2018-10-30] MEDS: MEROPENEM 500 MG in NORMAL SALINE 50 ML IV SCH ×2 (05:08→17:45)
[2018-10-30] MEDS ORDERED: PANTOPRAZOLE SODIUM 40 MG TABLET.DR PO SCH (06:00)
[2018-10-30] MEDS: INSULIN REG, HUMAN 100 UNIT/ML 3 ML VIAL (PYX) SUBCUT SCH ×4 (08:39→22:47)
[2018-10-30] MEDS: MULTIVITAMIN TABLET PO SCH (09:34)
[2018-10-30] MEDS: SUCRALFATE 1 GM TABLET PO SCH ×2 (09:34→17:46)
[2018-10-30] MEDS: LEVETIRACETAM 500 MG TABLET PO SCH ×2 (09:34→22:51)
[2018-10-30] MEDS: SENNOSIDES/DOCUSATE 8.6-50 MG 1 EACH TABLET PO SCH ×2 (09:35→17:46)
[2018-10-30] MEDS: QUETIAPINE FUMARATE 25 MG TABLET PO SCH (09:35)
[2018-10-30] MEDS: BENZTROPINE MESYLATE 1 MG TABLET PO SCH (09:35)
[2018-10-30] MEDS: THIAMINE HCL 100 MG TABLET PO SCH (09:35)
[2018-10-30] MEDS: QUETIAPINE FUMARATE 100 MG TABLET PO SCH ×2 (09:35→22:53)
[2018-10-30] MEDS: BUSPIRONE HCL 10 MG TABLET PO SCH ×2 (09:35→22:51)
[2018-10-30] MEDS: DIVALPROEX SODIUM 125 MG CAP.SPRINK PO SCH ×2 (09:35→17:45)
[2018-10-30] MEDS: LORAZEPAM INJ 2 MG/1 ML VIAL IV PRN (09:36)
[2018-10-30] MEDS: PANTOPRAZOLE SODIUM 40 MG VIAL IV SCH ×2 (09:36→22:52)
[2018-10-30] MEDS: CALCIUM CARBONATE 250 MG/VITAMIN D3 125 UNIT TABLET PO SCH ×2 (09:36→17:46)
[2018-10-30] MEDS ORDERED: (PENDING PHARMACY ID) (Bupropion Hcl [Wellbutrin Xl 150 Mg 24hr Tablet] 150 MG) PO SCH (10:00)
[2018-10-30 10:09] LABS: ALANINE AMINOTRANSFERASE 36 U/L (9-52); ALBUMIN 2.6 g/dL (3.5-5.0); ALKALINE PHOSPHATASE 145 U/L (38-126); ANION GAP 12 (5-19); ASPARTATE AMINO TRANSFERASE 37 U/L (14-36); BILIRUBIN,DIRECT 0.3 mg/dL (0.0-0.4); BILIRUBIN,TOTAL 0.4 mg/dL (0.2-1.3); CALCIUM 8.3 mg/dL (8.4-10.2); CARBON DIOXIDE 22 mmol/L (22-30); CHLORIDE 111 mmol/L (98-107); GLUCOSE 111 mg/dL (75-110); SODIUM 145.2 mmol/L (137-145); TOTAL PROTEIN 4.8 g/dL (6.3-8.2)
[2018-10-30 10:20] LABS: BLOOD UREA NITROGEN 45 mg/dL (7-20)
[2018-10-30] MEDS: ENOXAPARIN SODIUM INJ 30 MG/0.3 ML DISP.SYRIN SUBCUT SCH (12:44)
[2018-10-30 13:43] LABS: ABSOLUTE LYMPHOCYTES (AUTO) 0.5 10^3/uL (0.5-4.7); ABSOLUTE MONOCYTES (AUTO) 0.6 10^3/uL (0.1-1.4); ABSOLUTE NEUT (AUTO) 2.2 10^3/uL (1.7-8.2); BASOPHILS % (AUTO) 0.2 % (0-2); EOSINOPHILS % (AUTO) 0.5 % (0-6); HEMATOCRIT 30.3 % (36.0-47.0); HEMOGLOBIN 10.2 g/dL (12.0-15.5); LYMPHOCYTES % (AUTO) 15.7 % (13-45); MEAN CORPUSCULAR HEMOGLOBIN 29.3 pg (27.0-33.4); MEAN CORPUSCULAR HGB CONC 33.6 g/dL (32.0-36.0); MEAN CORPUSCULAR VOLUME 87 fl (80-97); MONOCYTES % (AUTO) 17.2 % (3-13); RED BLOOD COUNT 3.46 10^6/uL (3.72-5.28); RED CELL DISTRIBUTION WIDTH 14.8 % (11.5-14.0); SEGMENTED NEUTROPHILS % (AUTO) 66.4 % (42-78); TOTAL CELLS COUNTED % (AUTO) 100 %; WHITE BLOOD COUNT 3.3 10^3/uL (4.0-10.5)
--- NOTE | 2018-10-30 16:59 | PDOC PROGRESS REPORT ---
Subjective Progress Note for:: 10/30/18 Subjective:: No adverse events overnight. No new complaints. Vital signs been stable. She has had a lot of outbursts but when you go in the room and talk to her she is very calm. She is been eating erratically and so occasionally her blood sugars have been low. Reason For Visit: BENJAMIN Physical Exam Vital Signs: Temp Pulse Resp BP Pulse Ox 97.3 F 115 H 20 104/77 97 10/30/18 15:23 10/30/18 15:23 10/30/18 15:23 10/30/18 15:23 10/30/18 15:23 Intake & Output 10/29/18 10/30/18 10/31/18 06:59 06:59 06:59 Intake Total 1600 1488 Balance 1600 1488 Weight 50.6 kg 50.6 kg General appearance: PRESENT: well-developed, well-nourished Respiratory exam: PRESENT: clear to auscultation toño, symmetrical, unlabored Cardiovascular exam: PRESENT: RRR Pulses: PRESENT: normal radial pulses, normal dorsalis pedis pul GI/Abdominal exam: PRESENT: soft. ABSENT: distended, tenderness Extremities exam: Has clubbing of her feet bilaterally, IV is in the left foot. ABSENT: full ROM, pedal edema Musculoskeletal exam: ABSENT: ambulatory - wheelchair bound, full ROM Neurological exam: PRESENT: alert, awake, oriented to person, oriented to place Results Laboratory Results: 10/30/18 12:23 10/30/18 09:21 10/30/18 10/30/18 10/30/18 06:37 06:37 09:21 WBC Cancelled RBC Cancelled Hgb Cancelled Hct Cancelled MCV Cancelled MCH Cancelled MCHC Cancelled RDW Cancelled Plt Count Cancelled Seg Neutrophils % Cancelled Lymphocytes % Cancelled Monocytes % Cancelled Eosinophils % Cancelled Basophils % Cancelled Absolute Neutrophils Cancelled Absolute Lymphocytes Cancelled Absolute Monocytes Cancelled Absolute Eosinophils Cancelled Absolute Basophils Cancelled Sodium Cancelled 145.2 H Potassium Cancelled 4.0 Chloride Cancelled 111 H Carbon Dioxide Cancelled 22 Anion Gap Cancelled 12 BUN Cancelled 45 H D Creatinine Cancelled 1.62 H Est GFR ( Amer) Cancelled 41 L Est GFR (Non-Af Amer) Cancelled 33 L Glucose Cancelled 111 H Calcium Cancelled 8.3 L Total Bilirubin Cancelled 0.4 AST Cancelled 37 H ALT Cancelled 36 Alkaline Phosphatase Cancelled 145 H Total Protein Cancelled 4.8 L Albumin Cancelled 2.6 L 10/30/18 10/30/18 09:21 12:23 WBC Cancelled 3.3 L RBC Cancelled 3.46 L Hgb Cancelled 10.2 L Hct Cancelled 30.3 L MCV Cancelled 87 MCH Cancelled 29.3 MCHC Cancelled 33.6 RDW Cancelled 14.8 H Plt Count Cancelled Seg Neutrophils % Cancelled 66.4 Lymphocytes % Cancelled 15.7 Monocytes % Cancelled 17.2 H Eosinophils % Cancelled 0.5 Basophils % Cancelled 0.2 Absolute Neutrophils Cancelled 2.2 Absolute Lymphocytes Cancelled 0.5 Absolute Monocytes Cancelled 0.6 Absolute Eosinophils Cancelled 0.0 Absolute Basophils Cancelled 0.0 Sodium Potassium Chloride Carbon Dioxide Anion Gap BUN Creatinine Est GFR ( Amer) Est GFR (Non-Af Amer) Glucose Calcium Total Bilirubin AST ALT Alkaline Phosphatase Total Protein Albumin 10/29/18 11:48 Troponin I < 0.012 Impressions: Head CT 10/29/18 12:06 IMPRESSION: No evidence of acute intracranial process. Stable parenchymal atrophy and chronic white matter changes, more than expected for patient age. EVIDENCE OF ACUTE STROKE: NO. Knee X-Ray 10/29/18 12:06 IMPRESSION: Cannot exclude occult tibial plateau fracture. Follow-up CT is recommended. Abdomen/Pelvis CT 10/29/18 12:50 IMPRESSION: 1. Mild fullness of the right renal collecting system and ureter. Evaluation of the distal ureter limited secondary to dense streak artifact from pelvic hardware. No nephrolithiasis visualized. 2. Large amount of formed fecal material within the rectal vault suggestive of fecal impaction. Associated mass effect on the adjacent bladder which may contribute to the mild right renal hydronephrosis. Additional formed stool throughout the colon. 3. Ventral hernia with a 4 cm aperture containing a loop of colon. No evidence of upstream obstruction. 4. Splenomegaly. Lower Extremity CT 10/29/18 14:28 IMPRESSION: No fracture. Assessment and Plan - Diagnosis (1) BENJAMIN (acute kidney injury) Is this a current diagnosis for this admission?: Yes Plan: Improving with IV fluids (2) Dementia with behavioral disturbance Qualifiers: Dementia type: unspecified type Qualified Code(s): F03.91 - Unspecified dementia with behavioral disturbance Is this a current diagnosis for this admission?: Yes Plan: As noted above, she has outbursts when no one is in the room but when you talk to her she is very calm and pleasant and cooperative (3) Acute cystitis Qualifiers: Hematuria presence: without hematuria Qualified Code(s): N30.00 - Acute cystitis without hematuria Is this a current diagnosis for this admission?: Yes Plan: Gram-negative rods are growing in the urine culture, continue antibiotics and follow-up culture results - Time Time Spent with patient: 25-34 minutes
[2018-10-30] MEDS: POTASSI CL 20 MEQ/D5-1/2NS 1L 1000 ML IV PRN (18:23)
[2018-10-30] MEDS: MIRTAZAPINE 15 MG TABLET PO SCH (22:52)
[2018-10-30] MEDS: MELATONIN 3 MG TABLET PO SCH (22:52)
[2018-10-30] MEDS: ROPINIROLE HCL 1 MG TABLET PO SCH (22:52)
[2018-10-30] MEDS: INSULIN DETEMIR 100 UNIT/ML 3 ML PEN SUBCUT SCH (22:54)
[2018-10-31] MEDS: LORAZEPAM INJ 2 MG/1 ML VIAL IV PRN ×2 (05:20→07:12)
[2018-10-31] MEDS: MEROPENEM 500 MG in NORMAL SALINE 50 ML IV SCH ×2 (05:20→17:01)
[2018-10-31] MEDS: CHLORPROMAZINE HCL INJ 25 MG/1 ML AMPULE IV PRN ×2 (08:11→18:52)
[2018-10-31] MEDS: INSULIN REG, HUMAN 100 UNIT/ML 3 ML VIAL (PYX) SUBCUT SCH ×4 (08:43→22:09)
[2018-10-31] MEDS: BUSPIRONE HCL 10 MG TABLET PO SCH ×2 (10:11→22:17)
[2018-10-31] MEDS: BENZTROPINE MESYLATE 1 MG TABLET PO SCH (10:11)
[2018-10-31] MEDS: SENNOSIDES/DOCUSATE 8.6-50 MG 1 EACH TABLET PO SCH ×2 (10:11→17:08)
[2018-10-31] MEDS: PANTOPRAZOLE SODIUM 40 MG VIAL IV SCH ×2 (10:11→22:17)
[2018-10-31] MEDS: CALCIUM CARBONATE 250 MG/VITAMIN D3 125 UNIT TABLET PO SCH ×2 (10:11→17:08)
[2018-10-31] MEDS: MULTIVITAMIN TABLET PO SCH (10:11)
[2018-10-31] MEDS: QUETIAPINE FUMARATE 100 MG TABLET PO SCH ×2 (10:11→22:16)
[2018-10-31] MEDS: LEVETIRACETAM 500 MG TABLET PO SCH ×2 (10:11→22:16)
[2018-10-31] MEDS: QUETIAPINE FUMARATE 25 MG TABLET PO SCH (10:12)
[2018-10-31] MEDS: SUCRALFATE 1 GM TABLET PO SCH ×2 (10:12→17:08)
[2018-10-31] MEDS: BISACODYL 10 MG SUPP.RECT PR SCH (10:12)
[2018-10-31] MEDS: DIVALPROEX SODIUM 125 MG CAP.SPRINK PO SCH ×3 (10:12→18:56)
[2018-10-31] MEDS: ENOXAPARIN SODIUM INJ 30 MG/0.3 ML DISP.SYRIN SUBCUT SCH ×2 (10:13→10:14)
[2018-10-31] MEDS: THIAMINE HCL 100 MG TABLET PO SCH (10:13)
[2018-10-31] MEDS ORDERED: LORAZEPAM INJ 2 MG/1 ML VIAL IV PRN (11:16)
--- NOTE | 2018-10-31 11:52 | RADIOLOGY REPORT (SQ) ---
EXAM DESCRIPTION: CT HEAD WITHOUT COMPLETED DATE/TIME: 10/31/2018 11:46 am REASON FOR STUDY: fall COMPARISON: 10/29/2018 TECHNIQUE: Axial images acquired through the brain without intravenous contrast. Images reviewed wi th bone, brain and subdural windows. Additional sagittal and coronal reconstructions were generated. Images stored on PACS. All CT scanners at this facility use dose modulation, iterative reconstruction, and/or weight based d osing when appropriate to reduce radiation dose to as low as reasonably achievable (ALARA). [facility]: Dose Right [facility]: CareDose [facility]: Dose Right [facility]: Teradose 4D [facility]: Vivaty RADIATION DOSE: CT Rad equipment meets quality standard of care and radiation dose reduction techniq ues were employed. CTDIvol: 49.9 mGy. DLP: 1005 mGy-cm.mGy. LIMITATIONS: None. FINDINGS: VENTRICLES: Prominent. CEREBRUM: No masses. No hemorrhage. No midline shift. Areas of low density in the white matter mos t likely due to chronic micro-vascular ischemic change. No evidence for acute infarction. CEREBELLUM: No masses. No hemorrhage. No alteration of density. No evidence for acute infarction. EXTRAAXIAL SPACES: Age-related involutional change. No fluid collections. No masses. ORBITS AND GLOBE: No intra- or extraconal masses. Normal contour of globe without masses. CALVARIUM: No fracture. PARANASAL SINUSES: No fluid or mucosal thickening. SOFT TISSUES: No mass or hematoma. OTHER: No other significant finding. IMPRESSION: CHRONIC CHANGES OF ATROPHY AND MICROVASCULAR ISCHEMIA. NO ACUTE PROCESS. EVIDENCE OF ACUTE STROKE: NO. TECHNICAL DOCUMENTATION: JOB ID: [id number] Quality ID # [id number]: Final reports with documentation of one or more dose reduction techniques (e.g., Au tomated exposure control, adjustment of the mA and/or kV according to patient size, use of iterative reconstruction technique) 2010 [employer]- All Rights Reserved Reading location - IP/workstation name: [email or web address]
--- NOTE | 2018-10-31 11:53 | RADIOLOGY REPORT (SQ) ---
EXAM DESCRIPTION: CT CERVICAL SPINE WITHOUT COMPLETED DATE/TIME: 10/31/2018 11:46 am REASON FOR STUDY: fall COMPARISON: 01/30/2011 TECHNIQUE: Axial images acquired through the cervical spine without intravenous contrast. Images re viewed with lung, soft tissue and bone windows. Reconstructed coronal and sagittal MPR images review ed. Images stored on PACS. All CT scanners at this facility use dose modulation, iterative reconstruction, and/or weight based d osing when appropriate to reduce radiation dose to as low as reasonably achievable (ALARA). [facility]: Dose Right [facility]: CareDose [facility]: Dose Right [facility]: Teradose 4D [facility]: CardLab RADIATION DOSE: CT Rad equipment meets quality standard of care and radiation dose reduction techniq ues were employed. CTDIvol: 24.6 mGy. DLP: 612 mGy-cm. mGy. LIMITATIONS: None. FINDINGS: ALIGNMENT: There is reversal of the normal cervical lordosis. There is grade 1 anterolist hesis of C4 on C5 mild anterolisthesis of C5 on C6. MINERALIZATION: Normal. VERTEBRAL BODIES: No fractures or dislocation. DISCS: There is multilevel disc space narrowing. FACETS, LATERAL MASSES, POSTERIOR ELEMENTS: No fractures. No dislocation. No acute findings. HARDWARE: None in the spine. VISUALIZED RIBS: No fractures. LUNG APICES AND SOFT TISSUES: No significant or acute findings. OTHER: No other significant finding. IMPRESSION: Degenerative changes as described. No acute fracture or dislocation. TECHNICAL DOCUMENTATION: JOB ID: [id number] Quality ID # [id number]: Final reports with documentation of one or more dose reduction techniques (e.g., Au tomated exposure control, adjustment of the mA and/or kV according to patient size, use of iterative reconstruction technique) 2010 [employer]- All Rights Reserved Reading location - IP/workstation name: [email or web address]
[2018-10-31] MEDS ORDERED: HALOPERIDOL LACTATE INJ 5 MG/1 ML VIAL ONE (12:01)
[2018-10-31] MEDS ORDERED: HALOPERIDOL LACTATE INJ 5 MG/1 ML VIAL IM ONE (12:30)
[2018-10-31] MEDS: OLANZAPINE INJ/PF 10 MG SDV IM PRN (15:53)
--- NOTE | 2018-10-31 16:37 | PDOC PROGRESS REPORT ---
Subjective Progress Note for:: 10/31/18 Subjective:: Little bit of agitation overnight but she is easily redirected. She managed to slip out of the bed earlier but CT scans of the head and cervical spine were negative. She is not complaining of any pain. Vital signs been stable. Reason For Visit: BENJAMIN Physical Exam Vital Signs: Temp Pulse Resp BP Pulse Ox 99.6 F 112 H 24 H 97/57 L 90 L 10/31/18 11:56 10/31/18 11:56 10/31/18 11:56 10/31/18 11:56 10/31/18 11:56 Intake & Output 10/30/18 10/31/18 11/01/18 06:59 06:59 06:59 Intake Total 1600 2828 1000 Balance 1600 2828 1000 Weight 50.6 kg 51.2 kg General appearance: PRESENT: well-developed, well-nourished Respiratory exam: PRESENT: clear to auscultation toño, symmetrical, unlabored Cardiovascular exam: PRESENT: RRR Pulses: PRESENT: normal radial pulses, normal dorsalis pedis pul GI/Abdominal exam: PRESENT: soft. ABSENT: distended, tenderness Extremities exam: Has clubbing of her feet bilaterally, IV is in the left foot. ABSENT: full ROM, pedal edema Musculoskeletal exam: ABSENT: ambulatory - wheelchair bound, full ROM Neurological exam: PRESENT: alert, awake, oriented to person, oriented to place Results Laboratory Results: 10/30/18 12:23 10/30/18 09:21 10/29/18 12:02 Catheterized Urine Urine Culture - Final Escherichia Coli 10/29/18 11:48 Troponin I < 0.012 Impressions: Knee X-Ray 10/29/18 12:06 IMPRESSION: Cannot exclude occult tibial plateau fracture. Follow-up CT is recommended. Abdomen/Pelvis CT 10/29/18 12:50 IMPRESSION: 1. Mild fullness of the right renal collecting system and ureter. Evaluation of the distal ureter limited secondary to dense streak artifact from pelvic hardware. No nephrolithiasis visualized. 2. Large amount of formed fecal material within the rectal vault suggestive of fecal impaction. Associated mass effect on the adjacent bladder which may contribute to the mild right renal hydronephrosis. Additional formed stool throughout the colon. 3. Ventral hernia with a 4 cm aperture containing a loop of colon. No evidence of upstream obstruction. 4. Splenomegaly. Lower Extremity CT 10/29/18 14:28 IMPRESSION: No fracture. Cervical Spine CT 10/31/18 00:00 IMPRESSION: Degenerative changes as described. No acute fracture or dislocation. Head CT 10/31/18 00:00 IMPRESSION: CHRONIC CHANGES OF ATROPHY AND MICROVASCULAR ISCHEMIA. NO ACUTE PROCESS. EVIDENCE OF ACUTE STROKE: NO. Assessment and Plan - Diagnosis (1) BENJAMIN (acute kidney injury) Is this a current diagnosis for this admission?: Yes Plan: Improved with IV fluids. She would not hold still long enough for us to draw blood to repeat the check this morning. (2) Dementia with behavioral disturbance Qualifiers: Dementia type: unspecified type Qualified Code(s): F03.91 - Unspecified dementia with behavioral disturbance Is this a current diagnosis for this admission?: Yes Plan: she has outbursts when no one is in the room but when you talk to her she is very calm and pleasant and cooperative, but we added some as needed Zyprexa (3) Acute cystitis Qualifiers: Hematuria presence: without hematuria Qualified Code(s): N30.00 - Acute cystitis without hematuria Is this a current diagnosis for this admission?: Yes Plan: She has been on meropenem, and is growing out an ESBL E. coli. We should be able to treat this with fosfomycin. Her pharmacy can get this for her and we will plan on sending her home in the morning where she will receive it at [facility]. - Time Time Spent with patient: 25-34 minutes
[2018-10-31] MEDS: MIRTAZAPINE 15 MG TABLET PO SCH (22:16)
[2018-10-31] MEDS: MELATONIN 3 MG TABLET PO SCH (22:16)
[2018-10-31] MEDS: ROPINIROLE HCL 1 MG TABLET PO SCH (22:16)
[2018-10-31] MEDS: INSULIN DETEMIR 100 UNIT/ML 3 ML PEN SUBCUT SCH (22:17)
[2018-11-01] MEDS: MEROPENEM 500 MG in NORMAL SALINE 50 ML IV SCH (05:48)
[2018-11-01] MEDS: POTASSI CL 20 MEQ/D5-1/2NS 1L 1000 ML IV PRN (06:21)
[2018-11-01] MEDS: INSULIN REG, HUMAN 100 UNIT/ML 3 ML VIAL (PYX) SUBCUT SCH ×2 (09:43→11:41)
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
[2018-11-01] MEDS: BISACODYL 10 MG SUPP.RECT PR SCH (10:19)
[2018-11-01] MEDS: SUCRALFATE 1 GM TABLET PO SCH (10:19)
[2018-11-01] MEDS: PANTOPRAZOLE SODIUM 40 MG VIAL IV SCH (10:20)
[2018-11-01] MEDS: SENNOSIDES/DOCUSATE 8.6-50 MG 1 EACH TABLET PO SCH (10:20)
[2018-11-01] MEDS: MULTIVITAMIN TABLET PO SCH (10:20)
[2018-11-01] MEDS: CALCIUM CARBONATE 250 MG/VITAMIN D3 125 UNIT TABLET PO SCH (10:20)
[2018-11-01] MEDS: ENOXAPARIN SODIUM INJ 30 MG/0.3 ML DISP.SYRIN SUBCUT SCH (10:20)
[2018-11-01] MEDS: THIAMINE HCL 100 MG TABLET PO SCH (10:20)
[2018-11-01] MEDS: QUETIAPINE FUMARATE 100 MG TABLET PO SCH (11:36)
[2018-11-01] MEDS: BUSPIRONE HCL 10 MG TABLET PO SCH (11:36)
[2018-11-01] MEDS: DIVALPROEX SODIUM 125 MG CAP.SPRINK PO SCH (11:36)
[2018-11-01] MEDS: LEVETIRACETAM 500 MG TABLET PO SCH (11:36)
[2018-11-01] MEDS: QUETIAPINE FUMARATE 25 MG TABLET PO SCH (11:36)
[2018-11-01] MEDS: BENZTROPINE MESYLATE 1 MG TABLET PO SCH (11:36)
[2018-11-01] MEDS: OLANZAPINE INJ/PF 10 MG SDV IM PRN (12:21)
[2018-11-01 12:31] VITALS: BP 105/60
[2018-11-05] MEDS ORDERED: (PENDING PHARMACY ID) (Cholecalciferol (Vitamin D3) [Vitamin D3] 50,000 UNIT) PO SCH (10:00)
== END 2018-11-01 12:30 | DRG 683 ==
LOC: ER 11:35 → EH 15:27 → 4N 19:26
PROVIDERS: ADMIT Internal Medicine; ATTEND Internal Medicine
DX: N17.9 Acute kidney failure, unspecified (principal); F03.91 Unspecified dementia, unspecified severity, with behavioral disturbance; N30.00 Acute cystitis without hematuria; K59.00 Constipation, unspecified; F31.9 Bipolar disorder, unspecified; E78.5 Hyperlipidemia, unspecified; I10 Essential (primary) hypertension; E11.9 Type 2 diabetes mellitus without complications; K21.9 Gastro-esophageal reflux disease without esophagitis; M19.90 Unspecified osteoarthritis, unspecified site; S80.12XA Contusion of left lower leg, initial encounter; S80.11XA Contusion of right lower leg, initial encounter; X58.XXXA Exposure to other specified factors, initial encounter; S40.022A Contusion of left upper arm, initial encounter; S40.021A Contusion of right upper arm, initial encounter; B96.20 Unspecified Escherichia coli [E. coli] as the cause of diseases classified elsewhere; Z16.12 Extended spectrum beta lactamase (ESBL) resistance; E86.0 Dehydration; Z91.81 History of falling; Z83.3 Family history of diabetes mellitus; Z82.49 Family history of ischemic heart disease and other diseases of the circulatory system; Z79.4 Long term (current) use of insulin; Z79.899 Other long term (current) drug therapy; Z88.8 Allergy status to other drugs, medicaments and biological substances; Z99.3 Dependence on wheelchair
CPT/HCPCS: 36415; 51701; 70450; 71045; 72125; 74176; 80053; 80164; 81001; 82570; 82803; 82962; 83605; 83735; 84300; 84484; 85025; 85610; 85730; 87086; 87088; 87186; 93005; 93010; 96361; 96365; 96372; 96375; 99285; J0696; J1630; J1650; J1815; J2060; J2185; J3230; J3480; J3490; J7030; J7040; S0164

== ENCOUNTER 2018-11-14 18:49 | Emergency (ER) | payer MEDICARE, MEDICAID ==
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
[2018-11-14 22:46] VITALS: BP 127/75
== END 2018-11-15 00:04 ==
LOC: ER 18:49
DX: F03.91 Unspecified dementia, unspecified severity, with behavioral disturbance (principal); K74.60 Unspecified cirrhosis of liver; I10 Essential (primary) hypertension; E11.9 Type 2 diabetes mellitus without complications; Z88.5 Allergy status to narcotic agent
CPT/HCPCS: 99284

== ENCOUNTER 2018-11-16 11:40 | Emergency (ER) | payer MEDICARE, MEDICAID ==
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
--- NOTE | 2018-11-16 12:22 | RADIOLOGY REPORT (SQ) ---
EXAM DESCRIPTION: CHEST SINGLE VIEW COMPLETED DATE/TIME: 11/16/2018 12:02 pm REASON FOR STUDY: bed3 sepsis protocol COMPARISON: None. EXAM PARAMETERS: NUMBER OF VIEWS: One view. TECHNIQUE: Single frontal radiographic view of the chest acquired. RADIATION DOSE: NA LIMITATIONS: None. FINDINGS: LUNGS AND PLEURA: No opacities, masses or pneumothorax. No pleural effusion. MEDIASTINUM AND HILAR STRUCTURES: No masses. Contour normal. HEART AND VASCULAR STRUCTURES: Heart normal in size. Normal vasculature. BONES: No acute findings. HARDWARE: None in the chest. OTHER: No other significant finding. IMPRESSION: NO ACUTE RADIOGRAPHIC FINDING IN THE CHEST. TECHNICAL DOCUMENTATION: JOB ID: [id number]- All Rights Reserved Reading location - IP/workstation name: [email or web address]
[2018-11-16 12:26] LABS: VENOUS BLOOD BASE EXCESS 2.9 mmol/L; VENOUS BLOOD HCO3 26.7 mmol/L (20-32); VENOUS BLOOD PCO2 37.8 mmHg (35-63); VENOUS BLOOD PH 7.47 (7.30-7.42)
[2018-11-16 12:26] LABS: ABSOLUTE LYMPHOCYTES (AUTO) 1.1 10^3/uL (0.5-4.7); ABSOLUTE MONOCYTES (AUTO) 0.4 10^3/uL (0.1-1.4); ABSOLUTE NEUT (AUTO) 5.1 10^3/uL (1.7-8.2); BASOPHILS % (AUTO) 0.5 % (0-2); EOSINOPHILS % (AUTO) 0.1 % (0-6); HEMATOCRIT 33.8 % (36.0-47.0); HEMOGLOBIN 11.2 g/dL (12.0-15.5); LYMPHOCYTES % (AUTO) 16.1 % (13-45); MEAN CORPUSCULAR HEMOGLOBIN 29.3 pg (27.0-33.4); MEAN CORPUSCULAR HGB CONC 33.2 g/dL (32.0-36.0); MEAN CORPUSCULAR VOLUME 88 fl (80-97); MONOCYTES % (AUTO) 6.3 % (3-13); PLATELET COUNT 259 10^3/uL (150-450); RED BLOOD COUNT 3.84 10^6/uL (3.72-5.28); RED CELL DISTRIBUTION WIDTH 14.9 % (11.5-14.0); TOTAL CELLS COUNTED % (AUTO) 100 %; WHITE BLOOD COUNT 6.7 10^3/uL (4.0-10.5)
[2018-11-16 12:34] LABS: INTERNATIONAL RATION (INR) 0.95; PROTHROMBIN TIME 13.1 SEC (11.4-15.4)
[2018-11-16 12:40] LABS: ALANINE AMINOTRANSFERASE 22 U/L (9-52); ALBUMIN 3.6 g/dL (3.5-5.0); ALKALINE PHOSPHATASE 111 U/L (38-126); ANION GAP 15 (5-19); ASPARTATE AMINO TRANSFERASE 19 U/L (14-36); BILIRUBIN,DIRECT 0.3 mg/dL (0.0-0.4); BILIRUBIN,TOTAL 0.6 mg/dL (0.2-1.3); BLOOD UREA NITROGEN 10 mg/dL (7-20); CALCIUM 9.7 mg/dL (8.4-10.2); CARBON DIOXIDE 24 mmol/L (22-30); CHLORIDE 103 mmol/L (98-107); GLUCOSE 133 mg/dL (75-110); POTASSIUM 4.1 mmol/L (3.6-5.0); SODIUM 141.6 mmol/L (137-145); TOTAL PROTEIN 6.7 g/dL (6.3-8.2)
[2018-11-16] MEDS ORDERED: NORMAL SALINE 1000 ML 1,000 ML IV ONE (13:00)
--- NOTE | 2018-11-16 15:37 | EKG REPORT ---
SEVERITY:- OTHERWISE NORMAL ECG - SINUS TACHYCARDIA : Confirmed by: Taiwo Correa MD 16-Nov-2018 15:36:55
[2018-11-16 16:01] VITALS: BP 105/84
== END 2018-11-16 16:03 ==
LOC: ER 11:40
DX: F91.1 Conduct disorder, childhood-onset type (principal); R53.1 Weakness; E11.9 Type 2 diabetes mellitus without complications; E78.00 Pure hypercholesterolemia, unspecified; I10 Essential (primary) hypertension
CPT/HCPCS: 93005; 99291; 96360; 96361; 36415; 87040; 82962; 85025; 85610; 87077; 80053; 84484; 87186; 82803; 83605; 71045; 93010; J7030

== ENCOUNTER 2018-12-16 12:08 | Emergency (ER) | payer MEDICARE, MEDICAID ==
[2018-12-16 13:27] LABS: HEMATOCRIT 36.6 % (36.0-47.0); HEMOGLOBIN 11.8 g/dL (12.0-15.5); MEAN CORPUSCULAR HEMOGLOBIN 27.9 pg (27.0-33.4); MEAN CORPUSCULAR HGB CONC 32.3 g/dL (32.0-36.0); MEAN CORPUSCULAR VOLUME 87 fl (80-97); PLATELET COUNT 202 10^3/uL (150-450); RED BLOOD COUNT 4.22 10^6/uL (3.72-5.28); RED CELL DISTRIBUTION WIDTH 16.6 % (11.5-14.0); WHITE BLOOD COUNT 10.2 10^3/uL (4.0-10.5)
--- NOTE | 2018-12-16 13:37 | ER Document Report ---
Entered by RADHA MARTINEZ SCRIBE 12/16/18 1257 Acting as scribe for:GISELA TORRES MD ED General - General Mode of Arrival: Wheelchair Information source: [facility] Records, Outside Facility Records TRAVEL OUTSIDE OF THE [place] IN LAST 30 DAYS: No <GISELA TORRES - Last Filed: 12/17/18 06:01> <JANENE LUNDBERG - Last Filed: 12/17/18 09:56> <CELESTE JIMENEZ - Last Filed: 12/17/18 10:21> - General Chief Complaint: Suicidal Ideation Stated Complaint: SUICIDAL IDEATIONS Time Seen by Provider: 12/16/18 12:19 Primary Care Provider: [facility] [Outside] - Follow up in 1 week HARRY ESPINOSA MD [Primary Care Provider] - Follow up as needed Notes: Patient is a 53-year-old female with dementia, cirrhosis and a history of aggressive behavior presents the emergency department from [facility] due to suicidal ideation. According to staff at [facility], patient was found with a call anaya wrapped around her neck. She stated "I want to kill myself". At bedside patient states she is doing ok and states "change". No further history was obtained due to patient's mental status. According to [facility] nursing notes, patient received 2mg of Ativan at 0920 today. (RADHA MARTINEZ) Patient is a 53-year-old female with dementia, cirrhosis and a history of aggressive behavior presents the emergency department from [facility] due to suicidal ideation. According to staff at [facility], patient was found with a call anaya wrapped around her neck. She stated "I want to kill myself". At bedside patient states she is doing ok and states "change". No further history was obtained due to patient's mental status. According to [facility] nursing notes, patient received 2mg of Ativan at 0920 today. Patient has IVC paperwork that states that this morning she wrapped the call anaya cord around her neck and attempted to hang herself. There are no castro on her neck from this. It also reports she is aggressive to staff members and not eating or taking care of her personal hygiene. She also reportedly threw herself out of the wheelchair and has been crawling and rolling down the means. This patient does have severe dementia and this does sound to be a behavioral problem. She does reside in a [facility] level [facility] care senior living facility. (GISELA TORRES) - Related Data Allergies/Adverse Reactions: tramadol [Tramadol] Allergy (Verified 10/15/18 13:15) Nausea adhesive tape [Adhesive Tape] Adverse Reaction (Verified 10/15/18 13:15) peels skin off Past Medical History - General Information source: Patient - Social History Smoking Status: Never Smoker Family History: DM, Hypertension Patient has suicidal ideation: Yes Patient has homicidal ideation: No - Past Medical History Cardiac Medical History: Reports: Hx Hypercholesterolemia, Hx Hypertension - medicated Pulmonary Medical History: Reports: Hx Bronchitis, Hx Pneumonia Neurological Medical History: Reports: Hx Seizures Endocrine Medical History: Reports: Hx Diabetes Mellitus Type 2 GI Medical History: Reports: Hx Gastroesophageal Reflux Disease Musculoskeletal Medical History: Reports Hx Arthritis Psychiatric Medical History: Reports: Hx Anxiety, Hx Bipolar Disorder, Hx Dementia, Hx Depression - Anxiety Past Surgical History: Reports: Hx Section, Hx Orthopedic Surgery - R Hip, Hx Tonsillectomy - Immunizations Hx Diphtheria, Pertussis, Tetanus Vaccination: Yes - unknown Hx Pneumococcal Vaccination: 05/12/12 <GISELA TORRES - Last Filed: 12/17/18 06:01> Review of Systems - Review of Systems Constitutional: No symptoms reported EENT: No symptoms reported Cardiovascular: No symptoms reported Respiratory: No symptoms reported Gastrointestinal: No symptoms reported Genitourinary: No symptoms reported Female Genitourinary: No symptoms reported Musculoskeletal: No symptoms reported Skin: No symptoms reported Hematologic/Lymphatic: No symptoms reported Neurological/Psychological: See HPI, Suicidal ideation -: Yes All other systems reviewed and negative <GISELA TORRES - Last Filed: 12/17/18 06:01> - Review of Systems Notes: ROS obtained from nursing staff at [facility]. (RADHA MARTINEZ) ROS obtained from nursing staff at [facility]. (GISELA TORRES) Physical Exam <GISELA TORRES - Last Filed: 12/17/18 06:01> - Vital signs Vitals: Temp Pulse Resp BP Pulse Ox 99.0 F 105 H 18 114/79 100 12/16/18 12:15 12/16/18 12:15 12/16/18 12:15 12/16/18 12:15 12/16/18 12:15 - Notes Notes: GENERAL: Alert, interacts well, demented at baseline, sporadically yells loudly. No acute distress. HEAD: Normocephalic, atraumatic. EYES: Pupils equal, round, and reactive to light. Extraocular movements intact. ENT: Oral mucosa moist, tongue midline. NECK: Full range of motion. Supple. Trachea midline. LUNGS: Clear to auscultation bilaterally, no wheezes, rales, or rhonchi. No respiratory distress. HEART: Regular rate and rhythm. No murmurs, gallops, or rubs. ABDOMEN: Soft, large easily reducible ventral hernia, non-tender. Non-distended. Bowel sounds present in all 4 quadrants. No guarding, rigidity, or rebound. EXTREMITIES: Moves all 4 extremities spontaneously. Plantar flexion of bilateral feet, almost appears right ankle is subluxed, chronic. Multiple scrapes and bruises to the medial aspect of right knee, bruises to left knee, no swelling noted to bilateral knees. NEUROLOGICAL: Demented at baseline, sporadically yells loudly. Normal strength of BUE. PSYCH: Demented at baseline, sporadically yells loudly. SKIN: Warm, dry, normal turgor. (JUAN,RADHA) GENERAL: Alert, interacts well, demented at baseline, sporadically yells loudly. No acute distress. HEAD: Normocephalic, atraumatic. EYES: Pupils equal, round, and reactive to light. Extraocular movements intact. ENT: Oral mucosa moist, tongue midline. NECK: Full range of motion. Supple. Trachea midline. LUNGS: Clear to auscultation bilaterally, no wheezes, rales, or rhonchi. No respiratory distress. HEART: Regular rate and rhythm. No murmurs, gallops, or rubs. ABDOMEN: Soft, large easily reducible ventral hernia, non-tender. Non-distended. Bowel sounds present in all 4 quadrants. No guarding, rigidity, or rebound. EXTREMITIES: Moves all 4 extremities spontaneously. Plantar flexion of bilateral feet, almost appears right ankle is subluxed, chronic. Multiple scrapes and bruises to the medial aspect of right knee, bruises to left knee, no swelling noted to bilateral knees. NEUROLOGICAL: Demented at baseline, sporadically yells loudly. Normal strength of BUE. PSYCH: Demented at baseline, sporadically yells loudly. SKIN: Warm, dry, normal turgor. (GISELA TORRES) Course - Laboratory Result Diagrams: 12/16/18 12:55 12/16/18 12:55 - EKG Interpretation by Me EKG shows normal: Sinus rhythm, [place], Intervals, QRS Complexes, ST-T Waves Rate: Normal Rhythm: NSR <GISELA TORRES - Last Filed: 12/17/18 06:01> - Laboratory Result Diagrams: 12/16/18 12:55 12/16/18 12:55 <JANENE LUNDBERG - Last Filed: 12/17/18 09:56> - Laboratory Result Diagrams: 12/16/18 12:55 12/16/18 12:55 <CELESTE JIMENEZ - Last Filed: 12/17/18 10:21> - Re-evaluation Re-evalutation: 12/16/18 17:54 Our psych worker today reports that the patient was seen here about a month ago. She also states at that time they recommended that the Ativan be stopped, it appears that it has not been stopped. Recommendations today in consultation with the psychiatrist covering the practice is to stop the Ativan. Stop the Risperdal Consta, give the Risperdal 0.25 mg at 8 AM and 4 PM. The patient's blood sugar over 400 with a normal hemoglobin A1c suggests that she did not get her insulin today. The urinalysis suggest possible urinary tract infection, but comparing this UA to previous visits and what the culture showed, would suggest that she should have the urine cultured and then make a decision about antibiotics. (GISELA TORRES) - Vital Signs Vital signs: Temp Pulse Resp BP Pulse Ox 98.2 F 77 18 110/67 98 12/17/18 05:54 12/17/18 05:54 12/17/18 05:54 12/17/18 05:54 12/17/18 05:54 - Laboratory Laboratory results interpreted by me: 12/16/18 12/16/18 12/16/18 12:55 12:55 12:55 Hgb 11.8 L RDW 16.6 H Seg Neuts % (Manual) 88 H Band Neutrophils % 1 L Lymphocytes % (Manual) 6 L Abs Neuts (Manual) 9.1 H Sodium 133.5 L Chloride 93 L Glucose 416 H* POC Glucose Hemoglobin A1c % 6.1 H Albumin 3.4 L Urine Glucose (UA) Urine Ketones Urine Nitrite Urine Urobilinogen Ur Leukocyte Esterase Urine Ascorbic Acid 12/16/18 12/16/18 12/16/18 15:15 18:42 19:44 Hgb RDW Seg Neuts % (Manual) Band Neutrophils % Lymphocytes % (Manual) Abs Neuts (Manual) Sodium Chloride Glucose POC Glucose 299 H 258 H Hemoglobin A1c % Albumin Urine Glucose (UA) >=500 H Urine Ketones TRACE H Urine Nitrite POSITIVE H Urine Urobilinogen 4.0 H Ur Leukocyte Esterase SMALL H Urine Ascorbic Acid 20 H 12/16/18 12/17/18 23:45 07:37 Hgb RDW Seg Neuts % (Manual) Band Neutrophils % Lymphocytes % (Manual) Abs Neuts (Manual) Sodium Chloride Glucose POC Glucose 187 H 180 H Hemoglobin A1c % Albumin Urine Glucose (UA) Urine Ketones Urine Nitrite Urine Urobilinogen Ur Leukocyte Esterase Urine Ascorbic Acid Discharge <GISELA TORRES - Last Filed: 12/17/18 06:01> <JANENE LUNDBERG - Last Filed: 12/17/18 09:56> <CELESTE JIMENEZ - Last Filed: 12/17/18 10:21> - Discharge Clinical Impression: Suicidal ideation, Behavioral disorder Alcoholic dementia Qualifiers: Dementia behavioral disturbance: with behavioral disturbance Qualified Code(s): F10.27 - Alcohol dependence with alcohol-induced persisting dementia Ventral hernia Qualifiers: Obstruction and gangrene presence: without obstruction or gangrene Qualified Code(s): K43.9 - Ventral hernia without obstruction or gangrene Hyperglycemia due to type 2 diabetes mellitus Qualifiers: Diabetes mellitus termite exterminator helper insulin use: with termite exterminator helper use Qualified Code(s): E11.65 - Type 2 diabetes mellitus with hyperglycemia Condition: Stable Disposition: HOME, SELF-CARE Additional Instructions: You have been evaluated by both medical and behavioral health providers while in the emergency department. you have been cleared from both acute medical and psychiatric services. It is felt your mood lability, agitation and behavioral issues are a symptom of your diagnosed dementia which is a medical condition. Medication adjustments have been made to address these issues while also being mindful of dementia diagnosis. Dementia The exam shows a decrease in mental ability called dementia. Signs of dementia include a gradual loss of memory and a decreased ability to reason and solve problems. Personality changes, hostility, lack of self-care, and loss of bladder or bowel control are later signs of dementia. In these later stages, patients may become confused, lost, fearful, or agitated, even in familiar places. Alzheimer's disease is the most common type of dementia. It has no known cause or specific treatment. Other causes include alcohol and drug abuse, medication effects (especially tranquilizers and sleeping pills), strokes, head injuries, and brain tumors. Sometimes severe depression in an elderly person is mistaken for dementia, and this can be treated if recognized. A complete medical evaluation and ongoing care with a doctor is important. Most people with dementia need help or supervision with daily living. Some may be able to live independently with occasional help; others require foster care or even senior living placement. Alcohol, sedatives, and antihistamines may make the symptoms worse and should be avoided. Alzheimer's disease support groups are available in some communities and can be very valuable to the entire family. Prescription medication can ease the symptoms of Alzheimer's disease in some patients. Please arrange for medical follow-up. Return here if there is a sudden change in mental function, inability to move an arm or leg, inability to speak, fever, or any other significant change. SUICIDAL IDEATION: Suicidal ideation is a common medical term for thoughts about suicide, which may be as detailed as a formulated plan, without the suicidal act itself. Although most people who undergo suicidal ideation do not commit suicide, some go on to make suicide attempts. The range of suicidal ideation varies greatly from fleeting to detailed planning, role playing, and unsuccessful attempts. While thoughts about suicide are common, most people do not carry out serious actions to commit suicide. Based upon your evaluation and discussion with you, we do not believe you are currently at risk to act upon your thoughts of suicide. You have agreed to return to the Emergency Department, at any time, if you feel inclined to act upon your suicidal thoughts. FOLLOW-UP CARE: Medication changes have taken place to better address your mood, agitation and behaviors while also being mindful of your dementia diagnosis. You should follow up with your medication prescriber within 7 days given there have been changes and adjustments. If you experience worsening or a significant change in your symptoms, notify the physician immediately, utilize mobile crisis or return to the Emergency Department at any time for re-evaluation. Medication changes: (related to psychiatric medications) Discontinue Risperdal Consta 25MG IM every two weeks Discontinue Ativan 1MG every 8 hours as needed for anxiety and any other that may be in place (no Ativan) Change Risperdal 0.25MG PO from twice a day (BID) to specific times of 0800 and 1600 to better address sun downing behaviors Continue all other home medications of: (related to psychiatric medications) Depakote 500MG twice a day Keppra 500MG every 12 hours (epilepsy) Melatonin 3MG at night Buspar 5MG twice a day Referrals: HARRY ESPINOSA MD [Primary Care Provider] - Follow up as needed [facility] [Outside] - Follow up in 1 week Scribe Attestation: 12/16/18 18:01 I personally performed the services described in the documentation, reviewed and edited the documentation which was dictated to the scribe in my presence, and it accurately records my words and actions. (GISELA TORRES) I personally performed the services described in the documentation, reviewed and edited the documentation which was dictated to the scribe in my presence, and it accurately records my words and actions.
[2018-12-16 13:53] LABS: ABSOLUTE LYMPHOCYTES# (MANUAL) 0.6 10^3/uL (0.5-4.7); ABSOLUTE MONOCYTES # (MANUAL) 0.5 10^3/uL (0.1-1.4); ABSOLUTE NEUTROPHILS# (MANUAL) 9.1 10^3/uL (1.7-8.2); BAND NEUTROPHILS % (MANUAL) 1 % (3-5); BASOPHILS % (MANUAL) 0 % (0-2); EOSINOPHILS % (MANUAL) 0 % (0-6); LYMPHOCYTES % (MANUAL) 6 % (13-45); MONOCYTES % (MANUAL) 5 % (3-13); SEGMENTED NEUTROPHILS % (MAN) 88 % (42-78); TOTAL CELLS COUNTED 100
[2018-12-16 13:55] LABS: ALANINE AMINOTRANSFERASE 29 U/L (9-52); ALBUMIN 3.4 g/dL (3.5-5.0); ALKALINE PHOSPHATASE 107 U/L (38-126); ANION GAP 12 (5-19); ASPARTATE AMINO TRANSFERASE 21 U/L (14-36); BILIRUBIN,DIRECT 0.1 mg/dL (0.0-0.4); BILIRUBIN,TOTAL 0.5 mg/dL (0.2-1.3); BLOOD UREA NITROGEN 11 mg/dL (7-20); CALCIUM 9.2 mg/dL (8.4-10.2); CARBON DIOXIDE 29 mmol/L (22-30); CHLORIDE 93 mmol/L (98-107); CREATINE KINASE 109 U/L (30-135); POTASSIUM 4.6 mmol/L (3.6-5.0); SODIUM 133.5 mmol/L (137-145); TOTAL PROTEIN 6.3 g/dL (6.3-8.2)
[2018-12-16 13:56] LABS: ANISOCYTOSIS 1+; PLATELET COMMENT ADEQUATE; POIKILOCYTOSIS 1+; POLYCHROMASIA 1+
[2018-12-16 13:57] LABS: OVALOCYTES 1+
[2018-12-16 14:31] LABS: GLUCOSE 416 mg/dL (75-110)
[2018-12-16 15:42] LABS: APPEARANCE,URINE CLEAR; BILIRUBIN,URINE NEGATIVE (NEGATIVE); COLOR,URINE AMBER; GLUCOSE, URINE >=500 mg/dL (NEGATIVE); KETONES,URINE TRACE mg/dL (NEGATIVE); LEUKOCYTE ESTERASE,URINE SMALL (NEGATIVE); NITRITE,URINE POSITIVE (NEGATIVE); PROTEIN,URINE NEGATIVE (NEGATIVE); URINE SPECIFIC GRAVITY 1.015
[2018-12-16] MEDS ORDERED: LORAZEPAM INJ 2 MG/1 ML VIAL IM ONE (15:44)
[2018-12-16] MEDS ORDERED: INSULIN REG, HUMAN 100 UNIT/ML 3 ML VIAL (PYX) SUBCUT ONE (15:44)
--- NOTE | 2018-12-16 16:02 | PSYCHOLOGICAL NOTE ---
Psych Note - Psych Note Date seen by psych provider: 12/16/18 Time seen by psych provider: 13:20 - [facility] chart review at 1320. Clinician chart review at 1422. Evaluation from [id number]. Psych Note: Reason for Consult: SI with attempt via wrapping call anaya cord around neck, Hx Dementia Contact Permissions: [facility] Staff Patient is a 53 year old female who presented to the ED today via EMS for SI with attempt via wrapping call anaya cord around neck at assisted living facility. She stated "Ambulance brought me, I don't know why I'm here." She was informed why she was in the ED and said she did not recall doing any such thing. She denied SI and depressive symptoms. [place] Level was 83.9 so within therapeutic range. Glucose was 416 and she has diabetes with medication. Patient could be heard with loud tone yelling. It did not seem directed at any specific person or derogatory in nature. Chart review revealed patient was seen in the ED by [facility] on 11/13/18. She was on an IVC from [facility] at that time for increased behaviors. She has a history of dementia, depression, epilepsy, cirrhosis and UTIs. Medication adjustments at that visit were: Discontinue Cogentin/Ativan/Wellbutrin/requip/Seroquel/Mirtazipine, Decrease Buspar to 5MG BID and Continue Depakote (would address the epilepsy as well as mood). Review of MAR from [facility] indicates they followed medication changes from previous visit. However there was still Ativan PRN listed, Risperdal Consta 25MG M1wxeor and the Risperdal 0.25MG PO was BID or Q12 (which would not address sun downing behaviors well). Diagnosis: SI attempt- doesn't remember 799.59 (R41.9) Unspecified Neurocognitive Disorder by history Medication recommendations made by the psychiatric medical provider, Dr. Gina MD., includes: Continue home medications with exception of Discontinue Risperdal Consta 25MG every two weeks Discontinue Ativan PRN Change Risperdal to 0.25MG at 0800 and at 1600 for sun downing/behaviors/agitation Impression/Plan: Recommendation to continue IVC and hold overnight. Additional medication adjustments were provided to further aid in managing symptoms while also being mindful of dementia diagnosis. Plan to discharge back to [facility] tomorrow. Consulted with Dr. Wiggins regarding the management and care of patient. ED Physician in agreement with recommendation.
[2018-12-16] MEDS ORDERED: RISPERIDONE 0.25 MG TABLET PO ONE (16:41)
--- NOTE | 2018-12-16 17:44 | EKG REPORT ---
SEVERITY:- NORMAL ECG - SINUS RHYTHM : Confirmed by: Wendy Harris MD 16-Dec-2018 17:43:37
[2018-12-16] MEDS ORDERED: DEXTROSE 50%-WATER 25 GM/50 ML DISP.SYRIN IV PRN ×2 (18:29)
[2018-12-16] MEDS ORDERED: DEXTROSE 40% GEL 15 GM TUBE PO PRN ×2 (18:29)
[2018-12-16] MEDS ORDERED: GLUCAGON,HUMAN RECOMB 1 MG INJ IM PRN (18:29)
[2018-12-16] MEDS ORDERED: DIVALPROEX SODIUM 125 MG CAP.SPRINK PO SCH (18:45)
[2018-12-16] MEDS: BUSPIRONE HCL 10 MG TABLET PO SCH (19:27)
[2018-12-16] MEDS: SENNOSIDES/DOCUSATE 8.6-50 MG 1 EACH TABLET PO SCH (19:27)
[2018-12-16] MEDS: PANTOPRAZOLE SODIUM 40 MG TABLET.DR PO SCH (19:28)
[2018-12-16] MEDS: LEVETIRACETAM 500 MG TABLET PO SCH ×2 (19:28→23:59)
[2018-12-16] MEDS: DIVALPROEX SODIUM 125 MG CAP.SPRINK PO SCH (19:49)
[2018-12-16] MEDS: INSULIN REG, HUMAN 100 UNIT/ML 3 ML VIAL (PYX) SUBCUT SCH (23:52)
[2018-12-17] MEDS: RISPERIDONE 0.25 MG TABLET PO SCH ×2 (07:48→09:32)
[2018-12-17] MEDS: INSULIN REG, HUMAN 100 UNIT/ML 3 ML VIAL (PYX) SUBCUT SCH ×2 (07:48→11:21)
[2018-12-17] MEDS: PANTOPRAZOLE SODIUM 40 MG TABLET.DR PO SCH (09:31)
[2018-12-17] MEDS: LEVETIRACETAM 500 MG TABLET PO SCH (09:31)
[2018-12-17] MEDS: BUSPIRONE HCL 10 MG TABLET PO SCH (09:32)
[2018-12-17] MEDS: DIVALPROEX SODIUM 125 MG CAP.SPRINK PO SCH (09:32)
[2018-12-17] MEDS: SENNOSIDES/DOCUSATE 8.6-50 MG 1 EACH TABLET PO SCH (09:32)
--- NOTE | 2018-12-17 09:53 | ER Document Report ---
Doctor's Note Notes: 12/17/18 09:52 Rounds: Reviewed and patient interviewed. Patient being evaluated for dementia, suicidal ideation, and is a resident at [facility]. Vital signs of all been normal. Labs had a urine suggestive of a UTI but 24-hour culture is negative. Patient appears to be medically stable for transfer or discharge. Chey Benitez MD
[2018-12-17 10:35] VITALS: BP 112/70
[2018-12-17] MEDS ORDERED: RISPERIDONE 0.25 MG TABLET PO SCH (16:00)
--- NOTE | 2018-12-20 10:48 | PSYCHOLOGICAL NOTE ---
Psych Note - Psych Note Date seen by psych provider: 12/17/18 Time seen by psych provider: 07:41 - Chart review at 0741. Observation at 0826. Psych Note: Reason for Consult: 1st re evaluation, IVC, SI with attempt via wrapping call anaya cord around neck, Hx Dementia Contact Permissions: [place] Staff Patient is a 53 year old female in the ED on IVC from [place] for SI with attempt via wrapping call anaya cord around neck at assisted living facility. Medication adjustments took place last evening and held patient overnight. She did get the Risperdal at 1704 last evening (new time to help manage sun downing). She did not make any statements, gestures or attempts at SI while in the ED. She continued to have moments where she had a loud tone and would yell, again did not seem directed at anyone specific and were not derogatory. Patient is felt to be at her baseline given previous dementia diagnosis. Diagnosis: SI attempt- doesn't remember 799.59 (R41.9) Unspecified Neurocognitive Disorder by history Impression/Plan: Patient is cleared from acute psychiatric services. Recommendation to rescind IVC. She has denied SI since being in the ED, does not recall making the attempt and has a history of dementia (so likely she really d oes not recall). She has no markings on her neck. She denied HI and no observed psychosis with exception of dementia symptoms (loud tone, yelling out). Dementia is a medical condition and patient is felt to be at baseline. Plan to move forward with discharge back to [place]. Consulted with Dr. Wiggins regarding the management and care of patient. ED Physician in agreement with recommendations.
== END 2018-12-17 12:37 | disposition home or self-care (01) ==
LOC: ER 12:08
DX: R45.851 Suicidal ideations (principal); F91.9 Conduct disorder, unspecified; F10.27 Alcohol dependence with alcohol-induced persisting dementia; K43.9 Ventral hernia without obstruction or gangrene; E11.65 Type 2 diabetes mellitus with hyperglycemia; E78.00 Pure hypercholesterolemia, unspecified; I10 Essential (primary) hypertension; Z88.6 Allergy status to analgesic agent
CPT/HCPCS: 93005; 99285; 96372; 36415; 87086; 82962; 82550; 84443; 85025; 80053; 81001; 84484; 80164; 83036; 93010; A9270 ×10; J2060; J3490 ×4; J1815

== ENCOUNTER 2019-05-18 14:05 | Observation (INO) | payer MEDICARE, MEDICAID ==
[2019-05-18] MEDS ORDERED: RISPERIDONE 0.25 MG TABLET PO ONE (14:46)
[2019-05-18 15:18] LABS: ABSOLUTE LYMPHOCYTES (AUTO) 1.1 10^3/uL (0.5-4.7); ABSOLUTE MONOCYTES (AUTO) 0.7 10^3/uL (0.1-1.4); ABSOLUTE NEUT (AUTO) 7.1 10^3/uL (1.7-8.2); BASOPHILS % (AUTO) 0.5 % (0-2); EOSINOPHILS % (AUTO) 0.5 % (0-6); HEMOGLOBIN 14.3 g/dL (12.0-15.5); LYMPHOCYTES % (AUTO) 12.3 % (13-45); MEAN CORPUSCULAR HEMOGLOBIN 29.4 pg (27.0-33.4); MEAN CORPUSCULAR HGB CONC 32.5 g/dL (32.0-36.0); MEAN CORPUSCULAR VOLUME 91 fl (80-97); MONOCYTES % (AUTO) 7.7 % (3-13); PLATELET COUNT 148 10^3/uL (150-450); RED BLOOD COUNT 4.87 10^6/uL (3.72-5.28); RED CELL DISTRIBUTION WIDTH 13.7 % (11.5-14.0); TOTAL CELLS COUNTED % (AUTO) 100 %
[2019-05-18 15:38] LABS: ALBUMIN 4.1 g/dL (3.5-5.0); ALKALINE PHOSPHATASE 131 U/L (38-126); ANION GAP 12 (5-19); ASPARTATE AMINO TRANSFERASE 21 U/L (14-36); BILIRUBIN,DIRECT 0.2 mg/dL (0.0-0.4); BILIRUBIN,TOTAL 0.6 mg/dL (0.2-1.3); BLOOD UREA NITROGEN 20 mg/dL (7-20); CALCIUM 9.4 mg/dL (8.4-10.2); CARBON DIOXIDE 28 mmol/L (22-30); CHLORIDE 95 mmol/L (98-107); TOTAL PROTEIN 6.7 g/dL (6.3-8.2)
[2019-05-18 15:44] LABS: ACETAMINOPHEN < 10 ug/mL (10-30); ALCOHOL < 10 mg/dL (NONE DETECTED); GLUCOSE 494 mg/dL (75-110); SALICYLATE < 1.0 mg/dL (2.0-20.0)
[2019-05-18] MEDS ORDERED: NORMAL SALINE 1000 ML 1,000 ML IV ONE (15:50)
[2019-05-18 15:59] LABS: APPEARANCE,URINE CLOUDY; BILIRUBIN,URINE NEGATIVE (NEGATIVE); COLOR,URINE YELLOW; GLUCOSE, URINE >=500 mg/dL (NEGATIVE); KETONES,URINE TRACE mg/dL (NEGATIVE); LEUKOCYTE ESTERASE,URINE MODERATE (NEGATIVE); NITRITE,URINE NEGATIVE (NEGATIVE); PROTEIN,URINE NEGATIVE (NEGATIVE); URINE SPECIFIC GRAVITY 1.027; UROBILINOGEN,URINE NEGATIVE mg/dL (<2.0)
[2019-05-18 16:15] LABS: URINE AMPHETAMINES SCREEN NEGATIVE; URINE BARBITURATES SCREEN NEGATIVE; URINE BENZODIAZEPINES SCREEN NEGATIVE; URINE COCAINE SCREEN NEGATIVE; URINE MARIJUANA (THC) SCREEN NEGATIVE; URINE METHADONE SCREEN NEGATIVE; URINE PHENCYCLIDINE SCREEN NEGATIVE
[2019-05-18] MEDS ORDERED: LORAZEPAM INJ 2 MG/1 ML VIAL IM ONE (16:32)
[2019-05-18] MEDS ORDERED: CEFEPIME 2 GM/D5W RTU 2 GM/50 ML RTUPB IV ONE (17:34)
[2019-05-18] MEDS ORDERED: ZOLPIDEM TARTRATE 5 MG TABLET PO PRN (17:50)
[2019-05-18] MEDS ORDERED: ONDANSETRON HCL INJ/PF 4 MG/2 ML SDV IV PRN (17:50)
[2019-05-18] MEDS ORDERED: OXYCODONE-ACETAMINOPHEN 5-325 MG TABLET PO PRN (17:50)
[2019-05-18] MEDS ORDERED: MAG HYDROX/AL HYDROX/SIMETH SUSP 30 ML UDCUP PO PRN (17:50)
[2019-05-18] MEDS ORDERED: INSULIN REG, HUMAN 100 UNIT/ML 3 ML VIAL (PYX) IV ONE (17:59)
[2019-05-18] MEDS ORDERED: DEXTROSE 50%-WATER 25 GM/50 ML DISP.SYRIN IV PRN ×2 (18:08)
[2019-05-18] MEDS ORDERED: GLUCAGON,HUMAN RECOMB 1 MG INJ IM PRN (18:08)
[2019-05-18] MEDS ORDERED: DEXTROSE 40% GEL 15 GM TUBE PO PRN ×2 (18:08)
--- NOTE | 2019-05-18 18:14 | PDOC H&P ---
History of Present Illness Admission Date/PCP: 05/18/2019 HARRY ESPINOSA MD Patient complains of: Anxiety History of Present Illness: MAVERICK TOLBERT is a 53 year old female who is a resident at [facility]. Patient had an anoxic brain injury 7 years back during a hypoglycemic episode and presents to the ER with agitation and aggression. prison s taff states that this patient asked when she gets a UTI for which she was tested positive for today. Patient was trying to throw herself out of bed thus the bed was taken when she is placed on a mattress on the floor. She takes multiple medications for anxiety and agitation. She had no treatment prior to arrival no true aggravating factors. Past Medical History Cardiac Medical History: Reports: Hyperlipidema, Hypertension - medicated Denies: Myocardial Infarction, Heart Murmur Pulmonary Medical History: Reports: Bronchitis, Pneumonia Denies: Asthma, Tuberculosis Neurological Medical History: Reports: Seizures Endocrine Medical History: Reports: Diabetes Mellitus Type 2 Denies: Diabetes Mellitus Type 1, Hyperthyroidism, Hypothyroidism GI Medical History: Reports: Gastroesophageal Reflux Disease Denies: Cirrhosis, Hepatitis, Hiatal Hernia Musculoskeltal Medical History: Reports: Arthritis Denies: Fibromyalgia Skin Medical History: Denies: Eczema, Psoriasis Psychiatric Medical History: Reports: Bipolar Disorder, Dementia, Depression - Anxiety Hematology: Reports: Anemia Denies: Sickle Cell Disease, Bleeding Tendencies Infectious Medical History: Denies: HIV Past Surgical History Past Surgical History: Reports: Section, Orthopedic Surgery - R Hip, Tonsillectomy Denies: Amputation, Hysterectomy, Mastectomy, Pacemaker Social History Information Source: Patient Lives with: Long-Term Smoking Status: Unknown if Ever Smoked Electronic Cigarette use?: No Frequency of Alcohol Use: None Hx Recreational Drug Use: No Drugs: None Hx Prescription Drug Abuse: No - Advance Directive Resuscitation Status: Full Code Family History Family History: DM, Hypertension Parental Family History Reviewed: Yes Children Family History Reviewed: Yes Sibling(s) Family History Reviewed.: Yes Medication/Allergy Home Medications: Benztropine Mesylate [Cogentin 1 mg Tablet] 1 tab PO DAILY 10/29/18 Bupropion HCl [Wellbutrin Xl 150 mg 24hr Tablet] 150 mg PO DAILY 10/29/18 Buspirone HCl [Buspar 10 mg Tablet] 10 mg PO Q12 10/29/18 Calcium Carbonate/Vitamin D3 [Oyster Shell 500-Vit D3 200 Tb] 1 tab PO BID 10/29/18 Cholecalciferol (Vitamin D3) [Vitamin D3] 50,000 unit PO WE@1000 10/29/18 Divalproex Sodium [Depakote Sprinkle 125 mg Capsule] 500 mg PO BID 10/29/18 Esomeprazole Mag Trihydrate [Nexium] 40 mg PO DAILY 10/29/18 Ibuprofen [Motrin 800 mg Tablet] 800 mg PO Q8HP PRN 10/29/18 Insulin Aspart [Novolog Insulin (Aspart) 100 unit/mL] 0 unit SUBCUT .SLD SCALE 10/29/18 Insulin Detemir [Levemir Insulin 100 units/mL Insulin Pen] 15 unit SUBCUT QHS 10/29/18 Levetiracetam [Keppra 500 mg Tablet] 500 mg PO Q12 10/29/18 Lorazepam [Ativan 1 mg Tablet] 1 mg PO DAILYP PRN 10/29/18 Melatonin [Melatonin 3 mg Tablet] 3 mg PO QHS 10/29/18 Miconazole Nitrate [Monistat-3 Supp.vag (3 Supp/Box)] 200 mg VG DAILY 10/29/18 Mirtazapine 7.5 mg PO QHS 10/29/18 Multivitamin [Tab-A-Cristopher (Multiple Vitamin) Tablet] 1 tab PO DAILY 10/29/18 Phenazopyridine HCl [Pyridium 100 mg Tablet] 100 mg PO Q8 10/29/18 Prednisone [Deltasone 10 mg Tablet] 10 mg PO DAILY 10/29/18 Quetiapine Fumarate [Seroquel] 125 mg PO QAM 10/29/18 Quetiapine Fumarate [Seroquel] 175 mg PO QHS 10/29/18 Ropinirole HCl [Requip] 1 mg PO QHS 10/29/18 Sennosides [Senna] 8.6 mg PO BIDP PRN 10/29/18 Sucralfate [Carafate 1 gm Tablet] 1 gm PO BID 10/29/18 Thiamine Mononitrate [Vitamin B-1] 100 mg PO DAILY 10/29/18 Fosfomycin Tromethamine [Monurol 3 gm Packet] 3 gm PO ONCE PRN #1 packet 11/01/18 Cephalexin Monohydrate [Keflex 500 mg Capsule] 500 mg PO BID 7 Days #14 capsule 11/13/18 Risperidone [Risperdal 0.25 Mg Tablet] 0.25 mg PO BID #30 tablet 11/16/18 Allergies/Adverse Reactions: tramadol [Tramadol] Allergy (Verified 10/15/18 13:15) Nausea adhesive tape [Adhesive Tape] Adverse Reaction (Verified 10/15/18 13:15) peels skin off Review of Systems Constitutional: ABSENT: chills, fever(s), headache(s), weight gain, weight loss Eyes: ABSENT: visual disturbances Ears: ABSENT: hearing changes Cardiovascular: ABSENT: chest pain, dyspnea on exertion, edema, orthropnea, palpitations Respiratory: ABSENT: cough, hemoptysis Gastrointestinal: ABSENT: abdominal pain, constipation, diarrhea, hematemesis, hematochezia, nausea, vomiting Genitourinary: ABSENT: dysuria, hematuria Musculoskeletal: ABSENT: joint swelling Integumentary: ABSENT: rash, wounds Neurological: ABSENT: abnormal gait, abnormal speech, confusion, dizziness, focal weakness, syncope Psychiatric: PRESENT: other - Aggression. ABSENT: anxiety, depression, homidical ideation, suicidal ideation Endocrine: ABSENT: cold intolerance, heat intolerance, polydipsia, polyuria Hematologic/Lymphatic: ABSENT: easy bleeding, easy bruising Physical Exam General appearance: PRESENT: no acute distress, well-developed, well-nourished Head exam: PRESENT: atraumatic, normocephalic Eye exam: PRESENT: conjunctiva pink, EOMI, PERRLA. ABSENT: scleral icterus Ear exam: PRESENT: normal external ear exam Mouth exam: PRESENT: moist, tongue midline Neck exam: ABSENT: carotid bruit, JVD, lymphadenopathy, thyromegaly Respiratory exam: PRESENT: clear to auscultation toño. ABSENT: rales, rhonchi, wheezes Cardiovascular exam: PRESENT: RRR. ABSENT: diastolic murmur, rubs, systolic murmur Pulses: PRESENT: +1 pedal pulses bilateral Vascular exam: PRESENT: normal capillary refill GI/Abdominal exam: PRESENT: normal bowel sounds, soft. ABSENT: distended, guarding, mass, organolmegaly, rebound, tenderness Extremities exam: ABSENT: calf tenderness, clubbing, pedal edema Neurological exam: PRESENT: alert, awake, oriented to person, oriented to place, oriented to time, oriented to situation, CN II-XII grossly intact. ABSENT: motor sensory deficit Psychiatric exam: PRESENT: appropriate affect, normal mood. ABSENT: homicidal ideation, suicidal ideation Skin exam: PRESENT: dry, intact, warm. ABSENT: cyanosis, rash Results Laboratory Results: 05/18/19 14:58 05/18/19 14:58 05/18/19 05/18/19 05/18/19 14:58 14:58 14:58 WBC 9.0 RBC 4.87 Hgb 14.3 Hct 44.0 MCV 91 MCH 29.4 MCHC 32.5 RDW 13.7 Plt Count 148 L Seg Neutrophils % 79.0 H Sodium 134.6 L Potassium 5.0 Chloride 95 L Carbon Dioxide 28 Anion Gap 12 BUN 20 Creatinine 0.72 Est GFR ( Amer) > 60 Glucose 494 H* Calcium 9.4 Total Bilirubin 0.6 AST 21 Alkaline Phosphatase 131 H Total Protein 6.7 Albumin 4.1 TSH 3.66 Urine Color Urine Appearance Urine pH Ur Specific [place] Urine Protein Urine Glucose (UA) Urine Ketones Urine Blood Urine Nitrite Ur Leukocyte Esterase Urine WBC (Auto) Urine RBC (Auto) 05/18/19 15:40 WBC RBC Hgb Hct MCV MCH MCHC RDW Plt Count Seg Neutrophils % Sodium Potassium Chloride Carbon Dioxide Anion Gap BUN Creatinine Est GFR ( Amer) Glucose Calcium Total Bilirubin AST Alkaline Phosphatase Total Protein Albumin TSH Urine Color YELLOW Urine Appearance CLOUDY Urine pH 6.0 Ur Specific [place] 1.027 Urine Protein NEGATIVE Urine Glucose (UA) >=500 H Urine Ketones TRACE H Urine Blood NEGATIVE Urine Nitrite NEGATIVE Ur Leukocyte Esterase MODERATE H Urine WBC (Auto) 101 Urine RBC (Auto) 3 Assessment and Plan - Plan Summary Summary: 05/18/2019- Urinary tract infection cefepime 2 g IV twice daily. Await culture offending organism. Progression-patient was given Ativan in the ER. I will give her Geodon 10 mg IM every 6 hours as needed. I will hydrate patient. I will continue Depakote sprinkles. Patient did have a valproic acid level that was 24.1 however I suspect Depakote is for her behavior disorder. I discussed with Dr. ortega and we will continue to follow. Seizure disorder-continue Keppra Type 2 diabetes mellitus uncontrolled. Continue patient's Lantus, slight scale insulin before meals and at bedtime, continue Lantus titrate as needed - Time Time Spent with patient: 35 or more minutes - Inpatient Certification Based on my medical assessment, after consideration of the patient's comorbidities, presenting symptoms, or acuity I expect that the services needed warrant INPATIENT care.: Yes I certify that my determination is in accordance with my understanding of Medicare's requirements for reasonable and necessary INPATIENT services [42 CFR 412.3e].: Yes Medical Necessity: Other - IV fluids, IV antibiotics
[2019-05-18] MEDS ORDERED: LORAZEPAM INJ 2 MG/1 ML VIAL IV ONE (18:22)
[2019-05-19] MEDS: HEPARIN SOD (PORCINE) 5,000 UNIT/ML 1 ML VIAL SUBCUT SCH ×4 (00:15→21:30)
[2019-05-19] MEDS: INSULIN REG, HUMAN 100 UNIT/ML 3 ML VIAL (PYX) SUBCUT SCH ×5 (00:15→21:14)
[2019-05-19] MEDS ORDERED: CEFEPIME 2 GM/D5W RTU 2 GM/50 ML RTUPB IV ONE (05:19)
[2019-05-19] MEDS: CEFEPIME 2 GM/D5W RTU 2 GM/50 ML RTUPB IV SCH ×2 (05:50→17:03)
[2019-05-19 07:07] LABS: ABSOLUTE EOSINOPHILS # (AUTO) 0.1 10^3/uL (0.0-0.6); ABSOLUTE LYMPHOCYTES (AUTO) 1.9 10^3/uL (0.5-4.7); ABSOLUTE MONOCYTES (AUTO) 0.7 10^3/uL (0.1-1.4); ABSOLUTE NEUT (AUTO) 6.1 10^3/uL (1.7-8.2); BASOPHILS % (AUTO) 0.3 % (0-2); HEMATOCRIT 40.6 % (36.0-47.0); HEMOGLOBIN 13.6 g/dL (12.0-15.5); LYMPHOCYTES % (AUTO) 21.9 % (13-45); MEAN CORPUSCULAR HEMOGLOBIN 29.2 pg (27.0-33.4); MEAN CORPUSCULAR HGB CONC 33.6 g/dL (32.0-36.0); MONOCYTES % (AUTO) 7.7 % (3-13); PLATELET COUNT 151 10^3/uL (150-450); RED BLOOD COUNT 4.67 10^6/uL (3.72-5.28); RED CELL DISTRIBUTION WIDTH 13.4 % (11.5-14.0); SEGMENTED NEUTROPHILS % (AUTO) 69.1 % (42-78); TOTAL CELLS COUNTED % (AUTO) 100 %; WHITE BLOOD COUNT 8.9 10^3/uL (4.0-10.5)
[2019-05-19 07:17] LABS: MEAN CORPUSCULAR VOLUME 87 fl (80-97)
[2019-05-19 07:25] LABS: ANION GAP 7 (5-19); BLOOD UREA NITROGEN 18 mg/dL (7-20); CARBON DIOXIDE 26 mmol/L (22-30); CHLORIDE 100 mmol/L (98-107); GLUCOSE 305 mg/dL (75-110); PHOSPHORUS 3.6 mg/dL (2.5-4.5); POTASSIUM 4.2 mmol/L (3.6-5.0)
--- NOTE | 2019-05-19 09:40 | PSYCHOLOGICAL NOTE ---
Psych Note - Psych Note Date seen by psych provider: 05/19/19 Time seen by psych provider: 07:45 - Chart review at 0745. Psych Note: Presenting Problem: 24 Hour IVC Petition, SI (stab self in heart with knife)/HI (kill people in the long-term), from [facility] who requested psychiatric evaluation, patient lost son 6 months ago, said wants a medication to make her sleep for 2 weeks, and staff at [facility] noted this is how she acts when she has a UTI. Patient same day admit (05/18/19) for UTI, epilepsy/seizures and Type II Diabetes. Patient has Hx of anoxic brain injury from hypoglycemic episode [address] dated 10/31/18 has neurodegnerative language. Home psychiatric medications are listed as: Cogentin 1MG QD, Wellbutrin 150MG QD, Buspar 10MG Q12, Depakote Sprinkles 500MG BID, Leppra 500MG Q12, Ativan 1MG QD PRN, Melatonin 3MG QHS, Remeron 7.5MG QHS, Seroquel 125MG QAM and 175MG QHS and Risperdal 0.25MG BID. In the hospital psychiatric medications listed in MAR include: Geodon 10MG IM q6H PRN, Ambien 5MG QHS PRN and was administered Ativan 1MG IM on 05/18/19 at 1643 and 1MG IV 05/18/19 at 1830, as well as Risperdal 0.25MG PO 05/18/19 at 1503. Patient seen by [facility] 12/16/18 (IVC, SI) and 11/13/18 (IVC, aggression) and medication recommendation were provided both time in order to address mood and agitation while taking into consideration neurodegenerative processes. Diagnosis: UTI Uncomplicated Bereavement Mild Vascular Neurocognitive Disorder Medication recommendations made by the psychiatric medication provider, Dr. Gina MD., includes: Advised to monitor for Serotonin Syndrome Treating Physicians are asked to consider avoiding the use of antipsychotic medications (Geodon, Haldol, Zyprexa, Thorazine), benzodiazepines (Klonopin, Xanax, Ativan, Valium), some sleep aids (Ambien, Lunesta, Trazodone in high doses, Seroquel), narcotic pain medications, and steroids (especially prolonged use) as these have been known to cause and/or exacerbate agitation, aggression, mood lability, paranoia and psychosis (hallucinations, delusions) in the elderly population with neurodegenerative processes as seen in dementia. Hospital Discontinue Geodon 10MG IM Q6H PRN Discontinue Ambien 5MG QHS PRN Add Depakote Sprinkles 500MG QAM and 759MG QHS for mood stabilization/seizures (could use Depakene or IV) Add Buspar 5MG QAM and 10MG QHS for anxiety/calming effect/depression/sleep Home Discontinue Wellbutrin 150MG QD Discontinue Requip 1MG QHS Discontinue Ativan 1MG QD PRN Discontinue Seroquel 125MG QAM and 175MG QHS Discontinue Remeron 7.5MG QHS Discontinue Cogentin 1MG QD Discontinue Keppra 500MG Q12 Change Depakote Sprinkles to 500MG QAM and 759MG QHS Change Buspar to 5MG QAM and 10MG QHS WHEN DISCHARGING IF HOSPITALIST MOVES FORWARD WITH RECOMMENDATIONS THEY WILL HAVE TO BE SPECIFICALLY DOCUMENTED IN DISCHARGE INSTRUCTION OR ELSE THE FACILITY WILL NOT BE ABLE TO ADMINISTER THE CHANGES. Impression/Plan: Patient is cleared from acute psychiatric services. Recommendation to rescind 24 Hour IVC Petition. Patient has hx of anoxic brain injury from hypoglycemic episode that happened 7 years ago (likely reason for neurodegenerative processes) and has current UTI. As the UTI clears up and with medication adjustments behaviors and symptoms should improve. Consulted with Dr. Wiggins regarding the management and care of patient. Attending Hospitalist aware of recommendations. He inquired about medications to utilize for immediate stabilization and when refusing PO medications. Was made aware that often time very low dose antipsychotic utilized as PRN and Clonidine patches.
[2019-05-19] MEDS: ZIPRASIDONE MESYLATE INJ/PF 20 MG SDV IM PRN (11:28)
[2019-05-19] MEDS: DIVALPROEX SODIUM 125 MG CAP.SPRINK PO SCH ×2 (13:11→21:15)
[2019-05-19] MEDS: BUSPIRONE HCL 10 MG TABLET PO SCH ×2 (13:12→21:14)
--- NOTE | 2019-05-19 18:43 | PDOC PROGRESS REPORT ---
Subjective Progress Note for:: 05/19/19 Subjective:: Upon encounter this morning, patient is very agitated. Staff reports that she has been very combative and uncooperative earlier this morning . Upon encounter encounter, she says she wants to go back to [facility] today. She ripped out her IV and has has been verbally abusive to the staff and has been spitting at them as well. She was given IM Geodon which resolved the agitation. She is now calm, awake and comfortable upon reassessment. Reason For Visit: TYPE 2 DIABETES MELLITUS UNCONTROLLED,UTI Physical Exam Vital Signs: Temp Pulse Resp BP Pulse Ox 98.3 F 96 17 112/74 98 05/19/19 07:26 05/19/19 07:26 05/19/19 07:26 05/19/19 07:26 05/19/19 07:26 Intake & Output 05/18/19 05/19/19 05/20/19 06:59 06:59 06:59 Intake Total 1050 Balance 1050 Weight 122 lb 9.232 oz General appearance: PRESENT: well-developed, well-nourished Head exam: PRESENT: atraumatic, normocephalic Eye exam: PRESENT: conjunctiva pink, EOMI, PERRLA. ABSENT: scleral icterus Ear exam: PRESENT: normal external ear exam Mouth exam: PRESENT: moist, tongue midline Neck exam: ABSENT: carotid bruit, JVD, lymphadenopathy, thyromegaly Respiratory exam: PRESENT: clear to auscultation toño. ABSENT: rales, rhonchi, wheezes Cardiovascular exam: PRESENT: RRR. ABSENT: diastolic murmur, rubs, systolic murmur Pulses: PRESENT: normal dorsalis pedis pul GI/Abdominal exam: PRESENT: normal bowel sounds, soft. ABSENT: distended, guarding, mass, organolmegaly, rebound, tenderness Rectal exam: PRESENT: deferred Neurological exam: PRESENT: CN II-XII grossly intact. ABSENT: motor sensory deficit Results Laboratory Results: 05/19/19 05:47 05/19/19 05:47 05/18/19 05/18/19 05/18/19 14:58 14:58 14:58 WBC 9.0 RBC 4.87 Hgb 14.3 Hct 44.0 MCV 91 MCH 29.4 MCHC 32.5 RDW 13.7 Plt Count 148 L Seg Neutrophils % 79.0 H Sodium 134.6 L Potassium 5.0 Chloride 95 L Carbon Dioxide 28 Anion Gap 12 BUN 20 Creatinine 0.72 Est GFR ( Amer) > 60 Glucose 494 H* Calcium 9.4 Phosphorus Magnesium Total Bilirubin 0.6 AST 21 Alkaline Phosphatase 131 H Total Protein 6.7 Albumin 4.1 TSH 3.66 Urine Color Urine Appearance Urine pH Ur Specific [place] Urine Protein Urine Glucose (UA) Urine Ketones Urine Blood Urine Nitrite Ur Leukocyte Esterase Urine WBC (Auto) Urine RBC (Auto) 05/18/19 05/19/19 05/19/19 15:40 05:47 05:47 WBC 8.9 RBC 4.67 Hgb 13.6 Hct 40.6 MCV 87 D MCH 29.2 MCHC 33.6 RDW 13.4 Plt Count 151 Seg Neutrophils % 69.1 Sodium 133.3 L Potassium 4.2 Chloride 100 Carbon Dioxide 26 Anion Gap 7 BUN 18 Creatinine 0.56 Est GFR ( Amer) > 60 Glucose 305 H Calcium 9.0 Phosphorus 3.6 Magnesium 1.9 Total Bilirubin AST Alkaline Phosphatase Total Protein Albumin TSH Urine Color YELLOW Urine Appearance CLOUDY Urine pH 6.0 Ur Specific [place] 1.027 Urine Protein NEGATIVE Urine Glucose (UA) >=500 H Urine Ketones TRACE H Urine Blood NEGATIVE Urine Nitrite NEGATIVE Ur Leukocyte Esterase MODERATE H Urine WBC (Auto) 101 Urine RBC (Auto) 3 Assessment and Plan - Diagnosis (1) Acute delirium Is this a current diagnosis for this admission?: Yes Plan: Multifactorial and likely exacerbated by UTI in a patient with history of traumatic brain injury and reported dementia. Ordered oral psych medications as recommended by psych team these were not given earlier this morning though as patient refused oral medications. She did respond well to Geodon. (2) Urinary tract infection Qualifiers: Urinary tract infection type: site unspecified Hematuria presence: with hematuria Qualified Code(s): N39.0 - Urinary tract infection, site not specified; R31.9 - Hematuria, unspecified Is this a current diagnosis for this admission?: Yes Plan: Continue antibiotics. Await final urine culture results. - Time Time Spent with patient: 25-34 minutes
[2019-05-19] MEDS ORDERED: VALPROATE SODIUM SYRUP 250 MG/5 ML UDCUP PO SCH (22:00)
[2019-05-20] MEDS: NORMAL SALINE 1000 ML 1,000 ML IV PRN (03:33)
[2019-05-20] MEDS: CEFEPIME 2 GM/D5W RTU 2 GM/50 ML RTUPB IV SCH (05:06)
[2019-05-20] MEDS: HEPARIN SOD (PORCINE) 5,000 UNIT/ML 1 ML VIAL SUBCUT SCH ×3 (05:06→21:18)
[2019-05-20] MEDS: INSULIN REG, HUMAN 100 UNIT/ML 3 ML VIAL (PYX) SUBCUT SCH ×4 (08:02→21:29)
[2019-05-20] MEDS: BUSPIRONE HCL 10 MG TABLET PO SCH ×2 (08:02→21:17)
[2019-05-20] MEDS: DIVALPROEX SODIUM 125 MG CAP.SPRINK PO SCH ×2 (08:02→21:17)
[2019-05-20] MEDS ORDERED: IMIPENEM/CILASTATIN SODIUM INJ 500 MG VIAL IV SCH (13:00)
[2019-05-20] MEDS: ACETAMINOPHEN 325 MG TABLET PO PRN (14:17)
[2019-05-20] MEDS: IMIPENEM/CILASTATIN SODIUM 500 MG in NORMAL SALINE 100 ML IV SCH ×2 (16:02→21:18)
--- NOTE | 2019-05-20 16:15 | PDOC PROGRESS REPORT ---
Subjective Progress Note for:: 05/20/19 Subjective:: 05/19: Upon encounter this morning, patient is very agitated. Staff reports that she has been very combative and uncooperative earlier this morning . Upon encounter encounter, she says she wants to go back to [facility] today. She ripped out her IV and has has been verbally abusive to the staff and has been spitting at them as well. She was given IM Geodon which resolved the agitation. She is now calm, awake and comfortable upon reassessment. 05/20: No acute event overnight. No recurrence of agitation or restlessness or combative behavior. Patient has been very pleasant and cooperative. Upon encounter this morning, she denies any acute complaints. Sitter discontinued. Urine culture grew ESBL. She will be switched to imipenem and anticipate discharge back to [facility] the next 24 hours. Reason For Visit: TYPE 2 DIABETES MELLITUS UNCONTROLLED,UTI Physical Exam Vital Signs: Temp Pulse Resp BP Pulse Ox 98.7 F 96 17 111/72 99 05/20/19 11:13 05/20/19 11:13 05/20/19 11:13 05/20/19 11:13 05/20/19 11:13 Intake & Output 05/19/19 05/20/19 05/21/19 06:59 06:59 06:59 Intake Total 1050 1780 Balance 1050 1780 Weight 122 lb 9.232 oz 111 lb 1.808 oz General appearance: PRESENT: no acute distress, well-developed, well-nourished Head exam: PRESENT: atraumatic, normocephalic Eye exam: PRESENT: conjunctiva pink, EOMI, PERRLA. ABSENT: scleral icterus Ear exam: PRESENT: normal external ear exam Mouth exam: PRESENT: moist, tongue midline Neck exam: ABSENT: carotid bruit, JVD, lymphadenopathy, thyromegaly Respiratory exam: PRESENT: clear to auscultation toño. ABSENT: rales, rhonchi, wheezes Cardiovascular exam: PRESENT: RRR. ABSENT: diastolic murmur, rubs, systolic murmur Pulses: PRESENT: normal dorsalis pedis pul GI/Abdominal exam: PRESENT: normal bowel sounds, soft. ABSENT: distended, guarding, mass, organolmegaly, rebound, tenderness Rectal exam: PRESENT: deferred Neurological exam: PRESENT: alert, awake, oriented to person, oriented to place, oriented to time Results Laboratory Results: 05/19/19 05:47 05/19/19 05:47 05/18/19 15:40 Clean Catch Midstream Urine Culture - Final Escherichia Coli Esbl Assessment and Plan - Diagnosis (1) Acute delirium Is this a current diagnosis for this admission?: Yes Plan: Multifactorial and likely exacerbated by UTI in a patient with history of traumatic brain injury and reported dementia. Ordered oral psych medications as recommended by psych team these were not given earlier this morning though as patient refused oral medications. She did respond well to Geodon. 05/20: Resolved. (2) Urinary tract infection Qualifiers: Urinary tract infection type: site unspecified Hematuria presence: with hematuria Qualified Code(s): N39.0 - Urinary tract infection, site not specified; R31.9 - Hematuria, unspecified Is this a current diagnosis for this admission?: Yes Plan: Culture grew ESBL. Cefepime will be switched to meropenem. Will order for a PICC line. - Time Time Spent with patient: 15-24 minutes
[2019-05-20] MEDS: ZIPRASIDONE MESYLATE INJ/PF 20 MG SDV IM PRN (20:08)
[2019-05-20] MEDS ORDERED: INSULIN GLARGINE,HUM.REC.ANLOG 1,000 UNIT/10 ML VIAL SUBCUT SCH ×2 (22:00)
[2019-05-20] MEDS ORDERED: INSULIN DETEMIR 10 UNIT SQ SCH (22:00)
[2019-05-21] MEDS: NORMAL SALINE 1000 ML 1,000 ML IV PRN (02:44)
[2019-05-21] MEDS: IMIPENEM/CILASTATIN SODIUM 500 MG in NORMAL SALINE 100 ML IV SCH ×3 (02:45→15:50)
--- NOTE | 2019-05-21 03:18 | ER Document Report ---
Entered by CAMRON PEÑA SCRIBE 05/18/19 1433 Acting as scribe for:EYAL VANN DO ED Psych Disorder / Suicide - General Stated Complaint: PSYCH EVAL Time Seen by Provider: 05/18/19 14:32 Mode of Arrival: Medic Information source: Patient Cannot obtain history due to: Altered mental status Notes: Patient is a 53-year-old female who presents to the emergency department today from [facility] for a "psych evaluation". Per nursing notes, they spoke to staff at [facility] who informed them that the patient lost her son 6 months ago and wants a medication to "sleep for 2 weeks". nursing note states that the patient endorsed suicidal and homicidal ideation stating that she was "going to stab herself in the heart with a knife" and that she "wants to kill all the people in the alf". Patient thinks the year is 2017, correctly answers that it is May, and she thinks it is Saturday but it is Saturday. Patient denies flank pain or dysuria. TRAVEL OUTSIDE OF THE [place] IN LAST 30 DAYS: No - Related Data Allergies/Adverse Reactions: tramadol [Tramadol] Allergy (Verified 10/15/18 13:15) Nausea adhesive tape [Adhesive Tape] Adverse Reaction (Verified 10/15/18 13:15) peels skin off Past Medical History - General Information source: [facility] Records Cannot obtain history due to: Altered mental status - Social History Smoking Status: Unknown if Ever Smoked Cigarette use (# per day): No Chew tobacco use (# tins/day): No Smoking Education Provided: No Frequency of alcohol use: None Drug Abuse: None Lives with: Care Home Family History: DM, Hypertension - Past Medical History Cardiac Medical History: Reports: Hx Hypercholesterolemia, Hx Hypertension - medicated Pulmonary Medical History: Reports: Hx Bronchitis, Hx Pneumonia Neurological Medical History: Reports: Hx Seizures Endocrine Medical History: Reports: Hx Diabetes Mellitus Type 2 GI Medical History: Reports: Hx Gastroesophageal Reflux Disease Musculoskeletal Medical History: Reports Hx Arthritis Psychiatric Medical History: Reports: Hx Anxiety, Hx Bipolar Disorder, Hx Dementia, Hx Depression Past Surgical History: Reports: Hx Section, Hx Orthopedic Surgery - R Hip, Hx Tonsillectomy - Immunizations Hx Diphtheria, Pertussis, Tetanus Vaccination: Yes - unknown Hx Pneumococcal Vaccination: 05/12/12 Review of Systems - Review of Systems -: Yes ROS unobtainable due to patient's medical condition - altered Genitourinary: denies: Dysuria, Flank pain Physical Exam - Vital signs Vitals: Temp Pulse Resp BP Pulse Ox 98.7 F 92 20 114/76 97 05/18/19 18:59 05/18/19 18:59 05/18/19 18:59 05/18/19 18:59 05/18/19 18:59 Interpretation: Normal - General General appearance: Alert - HEENT Head: Normocephalic, Atraumatic Eyes: Normal Pupils: PERRL - Respiratory Respiratory status: No respiratory distress Chest status: Nontender Breath sounds: Normal Chest palpation: Normal - Cardiovascular Rhythm: Regular Heart sounds: Normal auscultation Murmur: No - Abdominal Inspection: Normal Distension: No distension Bowel sounds: Normal Tenderness: Nontender Organomegaly: No organomegaly - Back Back: Normal, Nontender - Extremities General upper extremity: Normal inspection, Nontender, Normal color, Normal ROM, Normal temperature General lower extremity: Normal inspection, Nontender, Normal color, Normal ROM, Normal temperature, Normal weight bearing. No: Terrie's sign - Neurological Neuro grossly intact: Yes Cognition: Normal Orientation: AAOx4 Jacqueline Coma Scale Eye Opening: Spontaneous Jacqueline Coma Scale Verbal: Confused Jacqueline Coma Scale Motor: Obeys Commands Jacqueline Coma Scale Total: 14 Speech: Normal Motor strength normal: LUE, RUE, LLE, RLE Sensory: Normal - Psychological Associated symptoms: Aggressive, Agitated, Angry, Irritable, Psychomotor agitation - Skin Skin Temperature: Warm Skin Moisture: Dry Skin Color: Normal Course - Re-evaluation Re-evalutation: Patient is a 53-year-old female from [facility] who had increased agitation. This often happens when patient gets UTIs and she has had increasingly resistant urinary tract infections. Urine concerning for UTI. Patient given medication for sedation and she had pulled her IV was trying to throw her IV pole at the nursing staff. Discussed with hospitalist service. Patient is also been seen by mental health. Stable at the time of discharge. Of note, patient mattress had been taken off bed and placed on floor because of concern the patient would fall. - Vital Signs Vital signs: Temp Pulse Resp BP Pulse Ox 97.5 F 88 16 113/75 96 05/20/19 23:22 05/20/19 23:22 05/20/19 21:00 05/20/19 23:22 05/20/19 23:22 - Laboratory Result Diagrams: 05/19/19 05:47 05/19/19 05:47 Laboratory results interpreted by me: 05/18/19 05/18/19 05/18/19 14:58 14:58 15:40 Plt Count 148 L Lymph % (Auto) 12.3 L Seg Neutrophils % 79.0 H Sodium 134.6 L Chloride 95 L Glucose 494 H* POC Glucose Alkaline Phosphatase 131 H Urine Glucose (UA) >=500 H Urine Ketones TRACE H Ur Leukocyte Esterase MODERATE H Salicylates < 1.0 L Acetaminophen < 10 L Valproic Acid 24.1 L 05/18/19 17:50 Plt Count Lymph % (Auto) Seg Neutrophils % Sodium Chloride Glucose POC Glucose 449 H* Alkaline Phosphatase Urine Glucose (UA) Urine Ketones Ur Leukocyte Esterase Salicylates Acetaminophen Valproic Acid Discharge - Discharge Clinical Impression: Acute encephalopathy Urinary tract infection Qualifiers: Urinary tract infection type: site unspecified Hematuria presence: with hematuria Qualified Code(s): N39.0 - Urinary tract infection, site not specified Condition: Stable Disposition: ADMITTED OBSERVATION Admitting Provider: Hospitalist Unit Admitted: Medical Floor I personally performed the services described in the documentation, reviewed and edited the documentation which was dictated to the scribe in my presence, and it accurately records my words and actions.
[2019-05-21] MEDS: HEPARIN SOD (PORCINE) 5,000 UNIT/ML 1 ML VIAL SUBCUT SCH ×2 (05:02→13:40)
[2019-05-21] MEDS: INSULIN REG, HUMAN 100 UNIT/ML 3 ML VIAL (PYX) SUBCUT SCH ×3 (08:13→17:09)
[2019-05-21] MEDS: DIVALPROEX SODIUM 125 MG CAP.SPRINK PO SCH (09:19)
[2019-05-21] MEDS: BUSPIRONE HCL 10 MG TABLET PO SCH (09:19)
[2019-05-21] MEDS: ACETAMINOPHEN 325 MG TABLET PO PRN (12:42)
--- NOTE | 2019-05-21 12:46 | RADIOLOGY REPORT (SQ) ---
EXAM DESCRIPTION: PICC INSERTION; FLUORO/CV PLACEMENT; U/S GUIDE FOR VASCULAR ACCESS COMPLETED DATE/TIME: 05/21/2019 12:25 pm REASON FOR STUDY: fdc IV antibiotics; IV ABX; IV ACCESS E08.8 DIABETES DUE TO UNDERLYING COND ITION W UNSP COMPLICATI COMPARISON: AP chest 11/16/2018 FLUOROSCOPY TIME: 26 seconds 1 digital fluoroscopic and 1 ultrasound images saved to PACS. TECHNIQUE: Fluoroscopic and ultrasound guided PICC placement. LIMITATIONS: None. PROCEDURE: After written consent and assessment were obtained, the patient was brought into the fluo roscopy room and placed supine on the table. Ultrasound evaluation of potential access sites were per formed. After successfully identifying a patent left basilic vein, the left arm was prepped and drape d in a sterile fashion along with the ultrasound probe. The entry site was anesthetized with 1% lidoc domenic. A 21 gauge 7 cm needle was advanced through the skin and into the basilic vein under live ultra sound guidance. An ultrasound image was saved to PACS confirming access site. A .018 guide wire was then inserted through the needle and into the venous system. The needle was then removed and an 11 b lade scalpel was used to make a 1cm skin incision. A 5 fr peel-away sheath was advanced over the wir e and into the venous system. A measurement was then made using the existing wire and live fluoroscop ic guidance. The wire was then removed and trimmed. The PICC was advanced through the peel-away sheat h and into the venous system. The peel-away sheath was removed and the catheter was adhered to the pa tients arm with a stat lock. The catheter was then aspirated and flushed and a sterile bandage was pl aced over the access site. A fluoroscopic spot image was saved to PACS confirming the catheter tip w ithin the superior vena cava. IMPRESSION: SUCCESSFUL PLACEMENT OF A 5 FR DUAL LUMEN 27 CM PICC IN THE LEFT BASILIC VEIN. COMMENT: Patient medication list reviewed: Yes- Quality ID# 130:Eligible professional attests to doc umenting in the medical record they obtained, updated, or reviewed the patient's current medications. . Quality ID 145: Final reports for procedures using fluoroscopy that document radiation exposure jose lina, or exposure time and number of fluorographic images (if radiation exposure indices are not avail able) Quality ID #76: The patient was prepped and draped using maximum sterile barrier technique including cap, mask, sterile gown, sterile gloves, a large sterile sheet, hand hygiene, and 2% Chlorhexidine fo r cutaneous antisepsis. When ultrasound is used, sterile ultrasound techniques are followed requiring sterile gel and sterile probes. TECHNICAL DOCUMENTATION: JOB ID: [id number] [employer]- All Rights Reserved rev-12/27 Reading location - IP/workstation name: [email or web address]
[2019-05-21] MEDS ORDERED: NORMAL SALINE 10 ML SDV (AFTER EACH USE) IV PRN (13:00)
--- NOTE | 2019-05-21 13:32 | PDOC TRANSFER SUMMARY ---
Impression - Admit/DC Date/PCP Admission Date/Primary Care Provider: 05/18/19 18:08 HARRY ESPINOSA MD Discharge Date: 05/21/19 - Discharge Diagnosis (1) Acute delirium Is this a current diagnosis for this admission?: Yes (2) Urinary tract infection Is this a current diagnosis for this admission?: Yes (3) UTI due to extended-spectrum beta lactamase (ESBL) producing Escherichia coli Is this a current diagnosis for this admission?: Yes - Additional Information Resuscitation Status: Full Code Referrals: [facility] [Outside] Prescriptions: Buspirone HCl [Buspar 10 mg Tablet] 10 mg PO QHS #30 tablet Buspirone HCl [Buspar 10 mg Tablet] 5 mg PO QAM #30 tablet Divalproex Sodium [Depakote Sprinkle 125 mg Capsule] 750 mg PO QHS #180 cap.sprink Divalproex Sodium [Depakote Sprinkle 125 mg Capsule] 500 mg PO QAM #130 cap.sprink Imipenem/Cilastatin Sodium [Primaxin Inj 500 mg Vial] 500 mg IV Q6A 6 Days #24 vial Home Medications: Acetaminophen [Tylenol 325 mg Tablet] 650 mg PO Q6HP PRN 05/19/19 Dextromethorphan HBr/Quinidine [Nuedexta 20-10 mg Capsule] 1 each PO BID 05/19/19 Diphenhydramine HCl [Benadryl 25 mg Capsule] 25 mg PO Q6HP PRN 05/19/19 Dulaglutide [Trulicity] 1.5 mg SQ Q7D 05/19/19 Ergocalciferol (Vitamin D2) [Vitamin D2] 50 mcg PO WE@1000 05/19/19 Esomeprazole Mag Trihydrate [Nexium] 40 mg PO DAILY 05/19/19 Insulin Aspart [Novolog] 0 unit SQ .SLIDING SCALE 05/19/19 Insulin Detemir [Levemir] 10 unit SQ QHS 05/19/19 Levetiracetam [Keppra 500 mg Tablet] 500 mg PO Q12 05/19/19 Loratadine [Claritin 10 mg Tablet] 10 mg PO DAILY 05/19/19 Melatonin/Pyridoxine HCl (B6) [Melatonin 3 mg Tablet] 3 mg PO QHS 05/19/19 Metformin HCl [Metformin HCl ER] 500 mg PO BID 05/19/19 Sennosides [Senna] 8.6 mg PO BIDP PRN 05/19/19 Sucralfate [Carafate 1 gm Tablet] 1 gm PO BID 05/19/19 Thiamine HCl [Vitamin B-1] 100 mg PO DAILY 05/19/19 Imipenem/Cilastatin Sodium [Primaxin Inj 500 mg Vial] 500 mg IV Q6A 6 Days #24 vial 05/20/19 Buspirone HCl [Buspar 10 mg Tablet] 5 mg PO QAM #30 tablet 05/21/19 Buspirone HCl [Buspar 10 mg Tablet] 10 mg PO QHS #30 tablet 05/21/19 Divalproex Sodium [Depakote Sprinkle 125 mg Capsule] 500 mg PO QAM #130 cap.sprink 05/21/19 Divalproex Sodium [Depakote Sprinkle 125 mg Capsule] 750 mg PO QHS #180 cap.sprink 05/21/19 History of Present Illiness History of Present Illness: Admitting hospitalist's H&P: MAVERICK TOLBERT is a 53 year old female who is a resident at [facility]. Patient had an anoxic brain injury 7 years back during a hypoglycemic episode and presents to the ER with agitation and aggression. retirement staff states that this patient asked when she gets a UTI for which she was tested positive for today. Patient was trying to throw herself out of bed thus the bed was taken when she is placed on a mattress on the floor. She takes multiple medications for anxiety and agitation. She had no treatment prior to arrival no true aggravating factors. Hospital Course Hospital Course: This is a 53-year-old female with a history of traumatic brain injury who was admitted from [place] due to being combative. Reportedly she gets restless and agitated when she gets a UTI. On presentation, her work-up did come back positive for urinary tract infection. She was initially started on cefepime. She did have an episode of outburst on the floor and was extremely agitated. She responded well to Geodon. Psych evaluated her and adjusted her medications. She did respond very well to BuSpar and Effexor and has not had required any antipsychotic or sedative. She has been very pleasant since then. Urine culture came back positive for ESBL. Cefepime was changed to imipenem. She underwent PICC line placement and will continue cefepime and the fci. Physical Exam Vital Signs: Temp Pulse Resp BP Pulse Ox 98.2 F 88 20 109/71 97 05/21/19 11:22 05/21/19 11:22 05/21/19 11:22 05/21/19 11:22 05/21/19 11:22 Intake & Output 05/20/19 05/21/19 05/22/19 06:59 06:59 06:59 Intake Total 1779 1959 Balance 1779 1959 Weight 111 lb 1.808 oz 112 lb 3.445 oz General appearance: PRESENT: no acute distress, well-developed, well-nourished Head exam: PRESENT: atraumatic, normocephalic Eye exam: PRESENT: conjunctiva pink, EOMI, PERRLA. ABSENT: scleral icterus Ear exam: PRESENT: normal external ear exam Mouth exam: PRESENT: moist, tongue midline Neck exam: ABSENT: carotid bruit, JVD, lymphadenopathy, thyromegaly Respiratory exam: PRESENT: clear to auscultation toño. ABSENT: rales, rhonchi, wheezes Cardiovascular exam: PRESENT: RRR. ABSENT: diastolic murmur, rubs, systolic murmur Pulses: PRESENT: normal dorsalis pedis pul GI/Abdominal exam: PRESENT: normal bowel sounds, soft. ABSENT: distended, guarding, mass, organolmegaly, rebound, tenderness Rectal exam: PRESENT: deferred Neurological exam: PRESENT: alert, awake, oriented to person, oriented to place, oriented to time Results Laboratory Results: WBC 8.9 10^3/uL (4.0-10.5) 05/19/19 05:47 RBC 4.67 10^6/uL (3.72-5.28) 05/19/19 05:47 Hgb 13.6 g/dL (12.0-15.5) 05/19/19 05:47 Hct 40.6 % (36.0-47.0) 05/19/19 05:47 MCV 87 fl (80-97) D 05/19/19 05:47 MCH 29.2 pg (27.0-33.4) 05/19/19 05:47 MCHC 33.6 g/dL (32.0-36.0) 05/19/19 05:47 RDW 13.4 % (11.5-14.0) 05/19/19 05:47 Plt Count 151 10^3/uL (150-450) 05/19/19 05:47 Lymph % (Auto) 21.9 % (13-45) 05/19/19 05:47 Ward % (Auto) 7.7 % (3-13) 05/19/19 05:47 Eos % (Auto) 1.0 % (0-6) 05/19/19 05:47 Baso % (Auto) 0.3 % (0-2) 05/19/19 05:47 Absolute Neuts (auto) 6.1 10^3/uL (1.7-8.2) 05/19/19 05:47 Absolute Lymphs (auto) 1.9 10^3/uL (0.5-4.7) 05/19/19 05:47 Absolute Monos (auto) 0.7 10^3/uL (0.1-1.4) 05/19/19 05:47 Absolute Eos (auto) 0.1 10^3/uL (0.0-0.6) 05/19/19 05:47 Absolute Basos (auto) 0.0 10^3/uL (0.0-0.2) 05/19/19 05:47 Seg Neutrophils % 69.1 % (42-78) 05/19/19 05:47 Sodium 133.3 mmol/L (137-145) L 05/19/19 05:47 Potassium 4.2 mmol/L (3.6-5.0) 05/19/19 05:47 Chloride 100 mmol/L (98-107) 05/19/19 05:47 Carbon Dioxide 26 mmol/L (22-30) 05/19/19 05:47 Anion Gap 7 (5-19) 05/19/19 05:47 BUN 18 mg/dL (7-20) 05/19/19 05:47 Creatinine 0.56 mg/dL (0.52-1.25) 05/19/19 05:47 Est GFR ( Amer) > 60 (>60) 05/19/19 05:47 Est GFR (MDRD) Non-Af > 60 (>60) 05/19/19 05:47 Glucose 305 mg/dL (75-110) H 05/19/19 05:47 POC Glucose 261 mg/dL (70-110) H 05/21/19 11:22 Hemoglobin A1c % 10.2 % (4.7-6.0) H 05/19/19 05:47 Calcium 9.0 mg/dL (8.4-10.2) 05/19/19 05:47 Phosphorus 3.6 mg/dL (2.5-4.5) 05/19/19 05:47 Magnesium 1.9 mg/dL (1.6-2.3) 05/19/19 05:47 Total Bilirubin 0.6 mg/dL (0.2-1.3) 05/18/19 14:58 Direct Bilirubin 0.2 mg/dL (0.0-0.4) 05/18/19 14:58 Neonat Total Bilirubin Not Reportable 05/18/19 14:58 Neonat Direct Bilirubin Not Reportable 05/18/19 14:58 Neonat Indirect Bili Not Reportable 05/18/19 14:58 AST 21 U/L (14-36) 05/18/19 14:58 ALT 22 U/L (<35) 05/18/19 14:58 Alkaline Phosphatase 131 U/L (38-126) H 05/18/19 14:58 Total Protein 6.7 g/dL (6.3-8.2) 05/18/19 14:58 Albumin 4.1 g/dL (3.5-5.0) 05/18/19 14:58 TSH 3.66 uIU/mL (0.47-4.68) 05/18/19 14:58 Urine Color YELLOW 05/18/19 15:40 Urine Appearance CLOUDY 05/18/19 15:40 Urine pH 6.0 (5.0-9.0) 05/18/19 15:40 Ur Specific Cuthbert 1.027 05/18/19 15:40 Urine Protein NEGATIVE mg/dL (NEGATIVE) 05/18/19 15:40 Urine Glucose (UA) >=500 mg/dL (NEGATIVE) H 05/18/19 15:40 Urine Ketones TRACE mg/dL (NEGATIVE) H 05/18/19 15:40 Urine Blood NEGATIVE (NEGATIVE) 05/18/19 15:40 Urine Nitrite NEGATIVE (NEGATIVE) 05/18/19 15:40 Urine Bilirubin NEGATIVE (NEGATIVE) 05/18/19 15:40 Urine Urobilinogen NEGATIVE mg/dL (<2.0) 05/18/19 15:40 Ur Leukocyte Esterase MODERATE (NEGATIVE) H 05/18/19 15:40 Urine WBC (Auto) 101 /HPF 05/18/19 15:40 Urine RBC (Auto) 3 /HPF 05/18/19 15:40 U Hyaline Cast (Auto) 1 /LPF 05/18/19 15:40 Urine Bacteria (Auto) TRACE /HPF 05/18/19 15:40 Urine WBC Clumps MOD /HPF 05/18/19 15:40 Squamous Epi Cells Auto 7 /HPF 05/18/19 15:40 U Non-Squamous Epis Auto 2 /HPF 05/18/19 15:40 Urine Mucus (Auto) RARE /LPF 05/18/19 15:40 Urine Ascorbic Acid NEGATIVE (NEGATIVE) 05/18/19 15:40 Salicylates < 1.0 mg/dL (2.0-20.0) L 05/18/19 14:58 Urine Opiates Screen NEGATIVE 05/18/19 15:40 Urine Methadone Screen NEGATIVE 05/18/19 15:40 Acetaminophen < 10 ug/mL (10-30) L 05/18/19 14:58 Ur Barbiturates Screen NEGATIVE 05/18/19 15:40 Valproic Acid 24.1 ug/mL (50.0-120.0) L 05/18/19 14:58 Ur Phencyclidine Scrn NEGATIVE 05/18/19 15:40 Ur Amphetamines Screen NEGATIVE 05/18/19 15:40 U Benzodiazepines Scrn NEGATIVE 05/18/19 15:40 Urine Cocaine Screen NEGATIVE 05/18/19 15:40 U Marijuana (THC) Screen NEGATIVE 05/18/19 15:40 Serum Alcohol < 10 mg/dL (NONE DETECTED) 05/18/19 14:58 Impressions: Guidance Fluoroscopy 05/21/19 00:00 IMPRESSION: SUCCESSFUL PLACEMENT OF A 5 FR DUAL LUMEN 27 CM PICC IN THE LEFT BASILIC VEIN. Interventional Vascular Procedure 05/21/19 00:00 IMPRESSION: SUCCESSFUL PLACEMENT OF A 5 FR DUAL LUMEN 27 CM PICC IN THE LEFT BASILIC VEIN. PICC Line Insertion 05/21/19 00:00 IMPRESSION: SUCCESSFUL PLACEMENT OF A 5 FR DUAL LUMEN 27 CM PICC IN THE LEFT BASILIC VEIN. Stroke Is this a Stroke Patient?: No Acute Heart Failure - Is this a Heart Failure Patient?: No LVEF < 40%?: No- if no continue to question #3
[2019-05-21 16:50] VITALS: BP 109/65
[2019-05-21] MEDS ORDERED: NORMAL SALINE 10 ML SDV (SCHEDULED) IV SCH (22:00)
== END 2019-05-21 16:50 ==
LOC: ER 14:05 → EH 18:08 → 4W 23:05
PROVIDERS: ADMIT Hospitalist; ATTEND Hospitalist
DX: R41.0 Disorientation, unspecified (principal); N39.0 Urinary tract infection, site not specified; B96.29 Other Escherichia coli [E. coli] as the cause of diseases classified elsewhere; Z16.12 Extended spectrum beta lactamase (ESBL) resistance; I10 Essential (primary) hypertension; K21.9 Gastro-esophageal reflux disease without esophagitis; F31.9 Bipolar disorder, unspecified; F41.9 Anxiety disorder, unspecified; E11.65 Type 2 diabetes mellitus with hyperglycemia; F91.8 Other conduct disorders; G40.909 Epilepsy, unspecified, not intractable, without status epilepticus; F03.91 Unspecified dementia, unspecified severity, with behavioral disturbance; F05 Delirium due to known physiological condition; R31.9 Hematuria, unspecified; G31.84 Mild cognitive impairment of uncertain or unknown etiology; R45.850 Homicidal ideations; R45.851 Suicidal ideations; Z79.899 Other long term (current) drug therapy; Z63.4 Disappearance and death of family member; Z79.4 Long term (current) use of insulin; Z87.820 Personal history of traumatic brain injury; Z87.440 Personal history of urinary (tract) infections
CPT/HCPCS: 99285; 96372; 96361; 96365; 36415 ×2; 87086; 82962 ×4; 80307 ×4; 83735; 84100; 84443; 85025 ×2; 87088; 80048; 80053; 81001; 80164; 87186; 83036; 36569; 77001; 76937; G0378 ×4; J0743 ×2; A9270 ×12; J1644 ×2; J2060; J3486 ×2; J3490 ×3; J7050 ×2; J7030 ×3; J0692 ×3; J1642; J1815

== ENCOUNTER 2019-06-20 13:54 | Emergency (ER) | payer MEDICARE, MEDICAID ==
[2019-06-20] MEDS ORDERED: ZIPRASIDONE MESYLATE INJ/PF 20 MG SDV IM ONE (15:07)
[2019-06-20] MEDS ORDERED: RISPERIDONE 0.25 MG TABLET PO ONE (15:38)
[2019-06-20] MEDS ORDERED: DIVALPROEX SODIUM 125 MG CAP.SPRINK PO ONE (15:41)
[2019-06-20 15:48] LABS: ABSOLUTE EOSINOPHILS # (AUTO) 0.2 10^3/uL (0.0-0.6); ABSOLUTE LYMPHOCYTES (AUTO) 1.8 10^3/uL (0.5-4.7); ABSOLUTE MONOCYTES (AUTO) 0.9 10^3/uL (0.1-1.4); ABSOLUTE NEUT (AUTO) 5.2 10^3/uL (1.7-8.2); BASOPHILS % (AUTO) 0.4 % (0-2); EOSINOPHILS % (AUTO) 2.1 % (0-6); HEMATOCRIT 41.8 % (36.0-47.0); HEMOGLOBIN 14.1 g/dL (12.0-15.5); LYMPHOCYTES % (AUTO) 22.2 % (13-45); MEAN CORPUSCULAR HEMOGLOBIN 28.9 pg (27.0-33.4); MEAN CORPUSCULAR HGB CONC 33.8 g/dL (32.0-36.0); MEAN CORPUSCULAR VOLUME 86 fl (80-97); MONOCYTES % (AUTO) 11.1 % (3-13); PLATELET COUNT 151 10^3/uL (150-450); RED BLOOD COUNT 4.89 10^6/uL (3.72-5.28); RED CELL DISTRIBUTION WIDTH 12.5 % (11.5-14.0); SEGMENTED NEUTROPHILS % (AUTO) 64.2 % (42-78); TOTAL CELLS COUNTED % (AUTO) 100 %; WHITE BLOOD COUNT 8.1 10^3/uL (4.0-10.5)
--- NOTE | 2019-06-20 16:01 | PSYCHOLOGICAL NOTE ---
Psych Note - Psych Note Date seen by psych provider: 06/20/19 Time seen by psych provider: 15:25 Psych Note: Patient presents to ED via EMS. Patient resides in an assisted living facility. Per report, patient engaged in aggressive and disruptive behaviors. 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 Gina MD., includes: Advised to monitor for Serotonin Syndrome Treating Physicians are asked to consider avoiding the use of antipsychotic medications (Geodon, Haldol, Zyprexa, Thorazine), benzodiazepines (Klonopin, Xanax, Ativan, Valium), some sleep aids (Ambien, Lunesta, Trazodone in high doses, Seroquel), narcotic pain medications, and steroids (especially prolonged use) as these have been known to cause and/or exacerbate agitation, aggression, mood lability, paranoia and psychosis (hallucinations, delusions) in the elderly population with neurodegenerative processes as seen in dementia. Depakote Sprinkles 500MG QAM and 750MG QHS for mood stabilization/seizures (could use Depakene or IV) Buspar 5MG QAM and 10MG QHS for anxiety/calming effect/depression/sleep Risperdone 0.25MG scheduled, 8am and 4pm Clonidine 0.1MG, q24 patch Impression/Plan: Patient is not cleared from acute psychiatric services. Patient does meet IVC criteria per [place] GS 122C. Medication recommendations have been provided. Dr. Wiggins was consulted on the care and management of this patient; attending physician is in agreement with recommendations and disposition.
[2019-06-20 16:05] LABS: ALBUMIN 3.8 g/dL (3.5-5.0); ALKALINE PHOSPHATASE 96 U/L (38-126); ANION GAP 12 (5-19); ASPARTATE AMINO TRANSFERASE 16 U/L (14-36); BILIRUBIN,DIRECT 0.2 mg/dL (0.0-0.4); BILIRUBIN,TOTAL 0.3 mg/dL (0.2-1.3); BLOOD UREA NITROGEN 11 mg/dL (7-20); CALCIUM 9.7 mg/dL (8.4-10.2); CARBON DIOXIDE 22 mmol/L (22-30); CHLORIDE 97 mmol/L (98-107); GLUCOSE 286 mg/dL (75-110); TOTAL PROTEIN 6.2 g/dL (6.3-8.2)
[2019-06-20 16:06] LABS: ACETAMINOPHEN < 10 ug/mL (10-30); ALCOHOL < 10 mg/dL (NONE DETECTED); SALICYLATE < 1.0 mg/dL (2.0-20.0)
[2019-06-20 17:42] LABS: APPEARANCE,URINE CLOUDY; BILIRUBIN,URINE NEGATIVE (NEGATIVE); COLOR,URINE YELLOW; GLUCOSE, URINE 150 mg/dL (NEGATIVE); KETONES,URINE TRACE mg/dL (NEGATIVE); LEUKOCYTE ESTERASE,URINE LARGE (NEGATIVE); NITRITE,URINE POSITIVE (NEGATIVE); PROTEIN,URINE NEGATIVE (NEGATIVE); URINE SPECIFIC GRAVITY 1.018; UROBILINOGEN,URINE NEGATIVE mg/dL (<2.0)
[2019-06-20 18:04] LABS: URINE AMPHETAMINES SCREEN NEGATIVE; URINE BARBITURATES SCREEN NEGATIVE; URINE BENZODIAZEPINES SCREEN NEGATIVE; URINE COCAINE SCREEN NEGATIVE; URINE MARIJUANA (THC) SCREEN NEGATIVE; URINE METHADONE SCREEN NEGATIVE; URINE PHENCYCLIDINE SCREEN NEGATIVE
[2019-06-20] MEDS ORDERED: CEPHALEXIN 500 MG CAPSULE PO ONE (18:15)
[2019-06-20] MEDS ORDERED: CLONIDINE 0.1 MG/24 HR PATCH.TDWK TD ONE (18:16)
[2019-06-20] MEDS ORDERED: ACETAMINOPHEN 325 MG TABLET PO ONE (19:40)
--- NOTE | 2019-06-20 21:39 | EKG REPORT ---
SEVERITY:- NORMAL ECG - SINUS RHYTHM : Confirmed by: Rupal Molina 20-Jun-2019 21:38:17
[2019-06-20] MEDS ORDERED: BUSPIRONE HCL 10 MG TABLET PO SCH (22:00)
[2019-06-20] MEDS ORDERED: DIVALPROEX SODIUM 125 MG CAP.SPRINK PO SCH (22:00)
[2019-06-20] MEDS ORDERED: CEPHALEXIN 500 MG CAPSULE PO SCH (22:00)
[2019-06-21] MEDS ORDERED: ACETAMINOPHEN 325 MG TABLET PO ONE ×2 (03:23→13:41)
[2019-06-21] MEDS ORDERED: BUSPIRONE HCL 10 MG TABLET PO SCH (08:00)
[2019-06-21] MEDS ORDERED: DIVALPROEX SODIUM 125 MG CAP.SPRINK PO SCH ×2 (08:00→22:00)
[2019-06-21] MEDS: RISPERIDONE 0.25 MG TABLET PO SCH ×2 (08:32→10:02)
[2019-06-21] MEDS: CEPHALEXIN 500 MG CAPSULE PO SCH ×2 (10:01→13:30)
--- NOTE | 2019-06-21 12:02 | ER Document Report ---
Doctor's Note Notes: 06/21/19 12:00 Morning rounds conducted on patient. Chart review completed, nursing notes reviewed, vital signs reviewed. She is awake and alert, very pleasant. Pt requested information when she can return to her long term. Plan still pending and she is still in IVC status. Denies any complaints. Awaiting dispostion recommendation from behavioral health team.
--- NOTE | 2019-06-21 14:43 | PSYCHOLOGICAL NOTE ---
Psych Note - Psych Note Date seen by psych provider: 06/21/19 Time seen by psych provider: 14:20 Psych Note: Clinician attempted to evaluate patient twice this morning. Patient was sleeping each time. Given patient's history of aggression and behavior outbursts, kvng art felt it was in patient's best interest to allow her to sleep. Patient's primary request upon admittance was "medicine to make me sleep." Sleep and rest is important for patient's stabilization. Patient was resting in bed when clinician entered the room. Patient greeted clinician. Patient reported "coming here because my vagina itched." Clinician understood patient to verbalize frustration regarding being given a "mattress on the floor" upon arrival and being placed in restraints. Patient was demeanor was calm and engaged in pleasant conversation with clinician. Patient denied suicidal and homicidal ideations. Patient stated she felt better and requested to return to the "prison." Medication recommendations made by the psychiatric medication provider, Dr. Gina MD., includes: Advised to monitor for Serotonin Syndrome Treating Physicians are asked to consider avoiding the use of antipsychotic medications (Geodon, Haldol, Zyprexa, Thorazine), benzodiazepines (Klonopin, Xanax, Ativan, Valium), some sleep aids (Ambien, Lunesta, Trazodone in high doses, Seroquel), narcotic pain medications, and steroids (especially prolonged use) as these have been known to cause and/or exacerbate agitation, aggression, mood lability, paranoia and psychosis (hallucinations, delusions) in the elderly population with neurodegenerative processes as seen in dementia. Change Depakote Sprinkles 500MG QAM and 750MG QHS for mood stabilization/seizures Due to use of Depakote, discontinue Keppra Continue Buspar 10MG twice per day for anxiety/calming effect/depression/sleep Added Risperdone 0.25MG scheduled, 8am and 4pm to assist with sundowning Discontinue Ativan Clonidine 0.1MG, q24 patch was utilized in the Emergency Department but getting a prescription for 0.1MG at night Impression/Plan: Patient is cleared from acute psychiatric services. Patient does not meet IVC criteria per [place] GS 122C. Medication recommendations have been provided. It is recommended that IVC be rescinded as patient no longer meets IVC criteria. Patient typically engages in behavioral outbursts and aggression when there are medical concerns (i.e. urinary tract infection). When patient's medical concerns are treated, disruptive behaviors and aggression typically resolve. Plan is for patient to return to her assisted living facility. Dr. Wiggins was consulted on the care and management of this patient; attending physician is in agreement with recommendations and disposition.
[2019-06-21 15:30] VITALS: BP 87/63
== END 2019-06-21 15:30 | disposition home or self-care (01) ==
LOC: ER 13:54
DX: G31.84 Mild cognitive impairment of uncertain or unknown etiology (principal); L29.2 Pruritus vulvae; Z63.4 Disappearance and death of family member; G83.11 Monoplegia of lower limb affecting right dominant side; Z78.1 Physical restraint status
CPT/HCPCS: 93005; 99285; 51701; 36415; 80307 ×4; 84703; 85025; 80053; 81001; 93010; A9270 ×11; J3490

== ENCOUNTER 2020-03-03 09:28 | Inpatient (IN) | payer MEDICARE, MEDICAID ==
[2020-03-03] MEDS ORDERED: CEFEPIME 2 GM/D5W RTU 2 GM/50 ML RTUPB IV SCH ×2 (10:00→22:00)
--- NOTE | 2020-03-03 10:02 | ER Document Report ---
ED General - General Stated Complaint: FEVER Time Seen by Provider: 03/03/20 09:45 Notes: 54-year-old lady history of multiple chronic medical issues living at [facility] coming in with fever of 103 pending code swab. No other information is available. Tachycardic to 150. Patient cannot give a history. Full code per face sheet. TRAVEL OUTSIDE OF THE [place] IN LAST 30 DAYS: No - Related Data Allergies/Adverse Reactions: tramadol [Tramadol] Allergy (Verified 03/03/20 10:06) Nausea adhesive tape [Adhesive Tape] Adverse Reaction (Verified 03/03/20 10:06) peels skin off Past Medical History - Social History Smoking Status: Never Smoker Family History: DM, Hypertension - Past Medical History Cardiac Medical History: Reports: Hx Hypercholesterolemia, Hx Hypertension - medicated Denies: Hx Heart Attack, Hx Heart Murmur Pulmonary Medical History: Reports: Hx Bronchitis, Hx Pneumonia Denies: Hx Asthma, Hx Tuberculosis Neurological Medical History: Reports: Hx Seizures. Denies: Hx Cerebrovascular Accident, Hx Parkinson's Disease Endocrine Medical History: Reports: Hx Diabetes Mellitus Type 2. Denies: Hx Diabetes Mellitus Type 1, Hx Hyperthyroidism, Hx Hypothyroidism Renal/ Medical History: Denies: Hx Peritoneal Dialysis GI Medical History: Reports: Hx Gastroesophageal Reflux Disease. Denies: Hx Cirrhosis, Hx Hepatitis, Hx Hiatal Hernia, Hx Pancreatitis, Hx Ulcer Musculoskeletal Medical History: Reports Hx Arthritis, Denies Hx Fibromyalgia Skin Medical History: Denies Hx Eczema, Denies Hx Psoriasis Psychiatric Medical History: Reports: Hx Anxiety, Hx Bipolar Disorder, Hx Dementia, Hx Depression - Anxiety Infectious Medical History: Denies: Hx Hepatitis, Hx HIV Past Surgical History: Reports: Hx Section, Hx Orthopedic Surgery - R Hip, Hx Tonsillectomy. Denies: Hx Hysterectomy, Hx Mastectomy, Hx Open Heart Surgery, Hx Pacemaker - Immunizations Hx Diphtheria, Pertussis, Tetanus Vaccination: Yes - unknown Hx Pneumococcal Vaccination: 05/12/12 Review of Systems - Review of Systems Notes: REVIEW OF SYSTEMS her mental status PHYSICAL EXAMINATION General: Restless Head: Atraumatic, normocephalic ENT: Mouth normal, oropharynx moist, no exudates or tonsillar enlargement Eyes: Conjunctiva normal, pupils equal, lids normal Neck: No JVD, supple, no guarding CVS: Cardiac s Resp: No resp distress, equal and normal breath sounds bilaterally GI: Nondistended, soft, no tenderness to palpation, no rebound or guarding Ext: No deformities, no edema, normal range of motion in upper and lower ext Back: No CVA or midline TTP Skin: No rash, warm Lymphatic: No lymphadeopathy noted Neuro: Slurred speech symmetrically weak . -: Yes ROS unobtainable due to patient's medical condition Physical Exam - Vital signs Vitals: Temp Resp Pulse Ox 103.3 F H 32 H 96 03/03/20 09:32 03/03/20 09:32 03/03/20 09:32 Course - Re-evaluation Re-evalutation: 03/03/20 10:02 Sepsis COVID versus urosepsis We will give fluid empirically, start cefepime given multiple hospitalizations for sepsis, run COVID swab and reassess 03/03/20 15:03 Heart rate came down with fluids. Doubt significant supraventricular arrhythmia likely sinus tach. Lactic elevated white count elevated urine is infected COVID pending chest x-ray clear Responded well to fluids with decrease in tachycardia and better perfusion Admit to hospitalist Cecy - Vital Signs Vital signs: Temp Pulse Resp BP Pulse Ox 101.5 F H 18 132/89 H 94 03/03/20 13:01 03/03/20 14:02 03/03/20 13:02 03/03/20 14:02 - Laboratory Result Diagrams: 03/03/20 10:15 03/03/20 10:15 Laboratory results interpreted by me: 03/03/20 03/03/20 03/03/20 10:15 10:15 10:15 WBC 16.4 H RBC 5.94 H Hgb 16.9 H Hct 51.3 H RDW 15.2 H Lymph % (Auto) 5.1 L [place] % (Auto) 19.2 H Absolute Neuts (auto) 12.4 H Absolute Monos (auto) 3.2 H PT 16.9 H VBG pH VBG pCO2 Sodium 150.5 H Chloride 118 H BUN 34 H Est GFR (MDRD) Non-Af 56 L Glucose 183 H Lactic Acid AST 37 H Urine Protein Urine Blood Urine Nitrite (Reflex) Urine Urobilinogen Leukocyte Esterase Rfl 03/03/20 03/03/20 03/03/20 10:15 10:15 12:45 WBC RBC Hgb Hct RDW Lymph % (Auto) [place] % (Auto) Absolute Neuts (auto) Absolute Monos (auto) PT VBG pH 7.52 H VBG pCO2 29.0 L Sodium Chloride BUN Est GFR (MDRD) Non-Af Glucose Lactic Acid 2.6 H AST Urine Protein 30 H Urine Blood SMALL H Urine Nitrite (Reflex) POSITIVE H Urine Urobilinogen 2.0 H Leukocyte Esterase Rfl LARGE H - Diagnostic Test Radiology reviewed: Image reviewed, Reports reviewed - EKG Interpretation by Me EKG shows normal: Sinus rhythm Rate: Tachycardia Rhythm: NSR - Possible SVT but clear P waves noted Critical Care Note - Critical Care Note Total time excluding time spent on procedures (mins): 32 Comments: The above patient is critically ill. Not including procedures, but including direct re-evaluations, speaking with patient and/or consultants, interpreting results, and documenting, I spent the total amount of minute listed listed above on critical care time Discharge - Discharge Clinical Impression: Pyelonephritis Sepsis Qualifiers: Sepsis type: sepsis due to unspecified organism Sepsis acute organ dysfunction status: unspecified Qualified Code(s): A41.9 - Sepsis, unspecified organism Condition: Critical Disposition: ADMITTED INPATIENT Admitting Provider: Cecy (Hospitalist) Unit Admitted: Telemetry
[2020-03-03] MEDS: RINGERS SOLUTION,LACTATED 1,000 ML IV PRN ×2 (10:17→11:20)
--- NOTE | 2020-03-03 10:29 | RADIOLOGY REPORT (SQ) ---
EXAM DESCRIPTION: CHEST SINGLE VIEW IMAGES COMPLETED DATE/TIME: 03/03/2020 10:17 am REASON FOR STUDY: COVID PUI COMPARISON: 11/16/2018 EXAM PARAMETERS: NUMBER OF VIEWS: One view. TECHNIQUE: Single frontal radiographic view of the chest acquired. RADIATION DOSE: NA LIMITATIONS: None. FINDINGS: LUNGS AND PLEURA: No opacities, masses or pneumothorax. No pleural effusion. MEDIASTINUM AND HILAR STRUCTURES: No masses. Contour normal. HEART AND VASCULAR STRUCTURES: Heart normal in size. Normal vasculature. BONES: No acute findings. HARDWARE: None in the chest. OTHER: No other significant finding. IMPRESSION: NO ACUTE RADIOGRAPHIC FINDING IN THE CHEST. TECHNICAL DOCUMENTATION: JOB ID: [id number] 2010 [employer]- All Rights Reserved Reading location - IP/workstation name: [email or web address]
[2020-03-03 10:36] LABS: ABSOLUTE LYMPHOCYTES (AUTO) 0.8 10^3/uL (0.5-4.7); ABSOLUTE MONOCYTES (AUTO) 3.2 10^3/uL (0.1-1.4); ABSOLUTE NEUT (AUTO) 12.4 10^3/uL (1.7-8.2); BASOPHILS % (AUTO) 0.2 % (0-2); EOSINOPHILS % (AUTO) 0.1 % (0-6); HEMATOCRIT 51.3 % (36.0-47.0); HEMOGLOBIN 16.9 g/dL (12.0-15.5); LYMPHOCYTES % (AUTO) 5.1 % (13-45); MEAN CORPUSCULAR HEMOGLOBIN 28.4 pg (27.0-33.4); MEAN CORPUSCULAR HGB CONC 32.9 g/dL (32.0-36.0); MEAN CORPUSCULAR VOLUME 86 fl (80-97); MONOCYTES % (AUTO) 19.2 % (3-13); PLATELET COUNT 276 10^3/uL (150-450); RED BLOOD COUNT 5.94 10^6/uL (3.72-5.28); RED CELL DISTRIBUTION WIDTH 15.2 % (11.5-14.0); SEGMENTED NEUTROPHILS % (AUTO) 75.4 % (42-78); TOTAL CELLS COUNTED % (AUTO) 100 %; WHITE BLOOD COUNT 16.4 10^3/uL (4.0-10.5)
[2020-03-03 10:38] LABS: VENOUS BLOOD BASE EXCESS 1.7 mmol/L; VENOUS BLOOD HCO3 23.1 mmol/L (20-32); VENOUS BLOOD PH 7.52 (7.30-7.42)
[2020-03-03 10:43] LABS: INTERNATIONAL RATION (INR) 1.36; PROTHROMBIN TIME 16.9 SEC (11.4-15.4)
[2020-03-03 10:45] LABS: APPEARANCE,URINE SLIGHTLY-CLOUDY; BILIRUBIN,URINE NEGATIVE (NEGATIVE); GLUCOSE, URINE NEGATIVE (NEGATIVE); KETONES,URINE NEGATIVE (NEGATIVE); PROTEIN,URINE 30 mg/dL (NEGATIVE); URINE SPECIFIC GRAVITY 1.025
[2020-03-03 10:50] LABS: COLOR,URINE YELLOW
[2020-03-03 10:55] LABS: ALBUMIN 3.9 g/dL (3.5-5.0); ALKALINE PHOSPHATASE 88 U/L (38-126); ANION GAP 9 (5-19); ASPARTATE AMINO TRANSFERASE 37 U/L (14-36); BILIRUBIN,DIRECT 0.2 mg/dL (0.0-0.4); BILIRUBIN,TOTAL 0.6 mg/dL (0.2-1.3); BLOOD UREA NITROGEN 34 mg/dL (7-20); CALCIUM 9.3 mg/dL (8.4-10.2); CARBON DIOXIDE 24 mmol/L (22-30); CHLORIDE 118 mmol/L (98-107); GLUCOSE 183 mg/dL (75-110); POTASSIUM 4.3 mmol/L (3.6-5.0)
[2020-03-03] MEDS ORDERED: ACETAMINOPHEN 650 MG SUPP.RECT PR ONE (11:10)
[2020-03-03] MEDS ORDERED: LORAZEPAM INJ 2 MG/1 ML VIAL IV ONE (13:38)
[2020-03-03] MEDS ORDERED: ACETAMINOPHEN 650 MG SUPP.RECT PR PRN (13:57)
[2020-03-03] MEDS ORDERED: ACETAMINOPHEN 325 MG TABLET PO PRN (13:57)
[2020-03-03] MEDS: HEPARIN SOD (PORCINE) 5,000 UNIT/ML 1 ML VIAL SUBCUT SCH ×2 (14:15→22:08)
[2020-03-03] MEDS: NORMAL SALINE 1000 ML 1,000 ML IV PRN ×2 (14:18→22:14)
[2020-03-03] MEDS ORDERED: DEXTROSE 50%-WATER 25 GM/50 ML DISP.SYRIN IV PRN (14:33)
[2020-03-03] MEDS ORDERED: DEXTROSE 40% GEL 15 GM TUBE PO PRN ×2 (14:33)
[2020-03-03] MEDS ORDERED: GLUCAGON,HUMAN RECOMB 1 MG INJ IM PRN (14:33)
--- NOTE | 2020-03-03 14:34 | PDOC H&P ---
History of Present Illness Admission Date/PCP: 03/03/20 13:06 HARRY ESPINOSA MD Patient complains of: Patient was sent from the senior care facility due to fever and abnormal vital signs. History of Present Illness: MAVERICK TOLBERT is a 54 year old female with severe advanced dementia and currently sepsis. Information is from the emergency department physician, [facility] paperwork and old records. Past Medical History Cardiac Medical History: Reports: Hyperlipidema, Hypertension - medicated Denies: Myocardial Infarction, Heart Murmur Pulmonary Medical History: Reports: Bronchitis, Pneumonia Denies: Asthma, Tuberculosis Neurological Medical History: Reports: Seizures Endocrine Medical History: Reports: Diabetes Mellitus Type 2 Denies: Diabetes Mellitus Type 1, Hyperthyroidism, Hypothyroidism GI Medical History: Reports: Gastroesophageal Reflux Disease Denies: Cirrhosis, Hepatitis, Hiatal Hernia Musculoskeltal Medical History: Reports: Arthritis Denies: Fibromyalgia Skin Medical History: Denies: Eczema, Psoriasis Psychiatric Medical History: Reports: Bipolar Disorder, Dementia, Depression - Anxiety Hematology: Reports: Anemia Denies: Sickle Cell Disease, Bleeding Tendencies Infectious Medical History: Denies: HIV Past Surgical History Past Surgical History: Reports: Section, Orthopedic Surgery - R Hip, Tonsillectomy Denies: Amputation, Hysterectomy, Mastectomy, Pacemaker Social History Information Source: H Records, Outside Facility Records Lives with: Snf Smoking Status: Unknown if Ever Smoked Electronic Cigarette use?: No Frequency of Alcohol Use: None Hx Recreational Drug Use: No Drugs: None Hx Prescription Drug Abuse: No - Advance Directive Resuscitation Status: Full Code Family History Family History: DM, Hypertension Parental Family History Reviewed: No - Able to obtain from patient Children Family History Reviewed: No Sibling(s) Family History Reviewed.: No Medication/Allergy Home Medications: Acetaminophen [Tylenol 325 mg Tablet] 650 mg PO Q6HP PRN 05/19/19 Diphenhydramine HCl [Benadryl 25 mg Capsule] 25 mg PO Q8 05/19/19 Dulaglutide [Trulicity] 1.5 mg SQ Q7D 05/19/19 Ergocalciferol (Vitamin D2) [Vitamin D2] 50 mcg PO WE@1000 05/19/19 Insulin Aspart [Novolog] 0 unit SQ .SLIDING SCALE 05/19/19 Insulin Detemir [Levemir] 10 unit SQ QHS 05/19/19 Loratadine [Claritin 10 mg Tablet] 10 mg PO DAILY 05/19/19 Melatonin/Pyridoxine HCl (B6) [Melatonin 3 mg Tablet] 3 mg PO QHS 05/19/19 Sennosides [Senna] 8.6 mg PO BIDP PRN 05/19/19 Thiamine HCl [Vitamin B-1] 100 mg PO DAILY 05/19/19 Divalproex Sodium [Depakote Sprinkle 125 mg Capsule] 500 mg PO QAM #130 cap.sprink 05/21/19 Divalproex Sodium [Depakote Sprinkle 125 mg Capsule] 750 mg PO QHS #180 cap.sprink 05/21/19 Ibuprofen 200 mg PO Q8 06/20/19 Clonidine HCl [Catapres 0.1 mg Tablet] 0.1 mg PO QHS #14 tablet 06/21/19 Calcium Carbonate [Tums Chewable 500 mg Tab.chew] 500 mg PO Q4HP PRN 03/03/20 Clonazepam [Klonopin] 0.5 mg PO BID 03/03/20 Escitalopram Oxalate [Lexapro 10 mg Tablet] 15 mg PO DAILY 03/03/20 Estradiol [Estrace] 2 gm VG MOTH 03/03/20 Metformin HCl 1,000 mg PO BID 03/03/20 Pantoprazole Sodium [Protonix [address] Tablet] 40 mg PO QAM 03/03/20 Trazodone HCl 25 mg PO QHS 03/03/20 Allergies/Adverse Reactions: tramadol [Tramadol] Allergy (Verified 03/03/20 10:06) Nausea adhesive tape [Adhesive Tape] Adverse Reaction (Verified 03/03/20 10:06) peels skin off Review of Systems ROS unobtainable: Due to mental status Physical Exam Vital Signs: Temp Pulse Resp BP Pulse Ox 101.5 F H 15 132/89 H 97 03/03/20 13:01 03/03/20 13:02 03/03/20 13:02 03/03/20 13:02 Intake & Output 03/02/20 03/03/20 03/04/20 06:59 06:59 06:59 Intake Total 2049 Balance 2049 Weight 54.6 kg General appearance: PRESENT: disheveled, severe distress, well-developed. ABSENT: cooperative Head exam: PRESENT: atraumatic, normocephalic Eye exam: PRESENT: other - Unable to assess as patient is writhing in bed Ear exam: PRESENT: normal external ear exam. ABSENT: bleeding, drainage Mouth exam: PRESENT: dry mucosa, tongue midline Teeth exam: PRESENT: poor dentation Neck exam: PRESENT: other - Unable to assess Respiratory exam: PRESENT: clear to auscultation toño, symmetrical, unlabored. ABSENT: rales, rhonchi, tachypnea, wheezes Cardiovascular exam: PRESENT: RRR, +S1, +S2 GI/Abdominal exam: PRESENT: diminished bowel sounds, other - Ventral hernia Rectal exam: PRESENT: deferred Gentrourinary exam: ABSENT: indwelling catheter Extremities exam: ABSENT: pedal edema Musculoskeletal exam: ABSENT: ambulatory Neurological exam: PRESENT: altered. ABSENT: oriented to person, oriented to place, oriented to situation Psychiatric exam: PRESENT: agitated Skin exam: PRESENT: erythema - Perineum Results Laboratory Results: 03/03/20 10:15 03/03/20 10:15 03/03/20 03/03/20 03/03/20 10:15 10:15 10:15 WBC 16.4 H RBC 5.94 H Hgb 16.9 H Hct 51.3 H MCV 86 MCH 28.4 MCHC 32.9 RDW 15.2 H Plt Count 276 Seg Neutrophils % 75.4 VBG pH 7.52 H VBG pCO2 29.0 L VBG HCO3 23.1 VBG Base Excess 1.7 Sodium 150.5 H Potassium 4.3 Chloride 118 H Carbon Dioxide 24 Anion Gap 9 BUN 34 H Creatinine 1.03 Est GFR ( Amer) > 60 Glucose 183 H Lactic Acid Calcium 9.3 Total Bilirubin 0.6 AST 37 H Alkaline Phosphatase 88 Total Protein 7.0 Albumin 3.9 Urine Color Urine Appearance Urine pH Ur Specific [place] Urine Protein Urine Glucose (UA) Urine Ketones Urine Blood Urine RBC (Auto) 03/03/20 03/03/20 03/03/20 10:15 10:15 12:45 WBC RBC Hgb Hct MCV MCH MCHC RDW Plt Count Seg Neutrophils % VBG pH VBG pCO2 VBG HCO3 VBG Base Excess Sodium Potassium Chloride Carbon Dioxide Anion Gap BUN Creatinine Est GFR ( Amer) Glucose Lactic Acid 1.7 2.6 H Calcium Total Bilirubin AST Alkaline Phosphatase Total Protein Albumin Urine Color YELLOW Urine Appearance SLIGHTLY-CLOUDY Urine pH 5.0 Ur Specific [place] 1.025 Urine Protein 30 H Urine Glucose (UA) NEGATIVE Urine Ketones NEGATIVE Urine Blood SMALL H Urine RBC (Auto) 5 03/03/20 10:15 Troponin I 0.030 Impressions: Chest X-Ray 03/03/20 09:38 IMPRESSION: NO ACUTE RADIOGRAPHIC FINDING IN THE CHEST. Assessment and Plan - Diagnosis (1) Sepsis Qualifiers: Sepsis type: sepsis due to unspecified organism Sepsis acute organ dysfunction status: unspecified Qualified Code(s): A41.9 - Sepsis, unspecified organism Is this a current diagnosis for this admission?: Yes Plan: Sepsis is most likely from her urinary infection. The encephalopathy is due to her sepsis. Her son states that she is usually alert and oriented. She had a low blood pressure with a map less than 70. She is receiving IV fluids. Antibiotic therapy with cefepime (2) Urinary tract infection Qualifiers: Urinary tract infection type: site unspecified Hematuria presence: with hematuria Qualified Code(s): N39.0 - Urinary tract infection, site not specified; R31.9 - Hematuria, unspecified Is this a current diagnosis for this admission?: Yes Plan: Await culture results. Continue cefepime. (3) Hypernatremia Is this a current diagnosis for this admission?: Yes Plan: Aggressive IV fluids (4) Acute respiratory failure with hypoxia Is this a current diagnosis for this admission?: Yes Plan: The patient is usually on room air. Oxygen saturation dropped and she required 2 L nasal cannula to get her oxygen saturation in the mid 90% range. 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 - Plan Summary Summary: Review of records from [facility] indicate the following diagnoses has been present: Type 2 diabetes mellitus without complication Delusional disorder Dysphasia oropharyngeal phase Gastroesophageal reflux with esophagitis Unspecified symptoms and signs involving cognitive functions and awareness Restlessness and agitation Major depressive disorder Pseudobulbar affect Acute vaginitis Dementia and other diseases classified elsewhere with behavioral disturbance History of alcohol abuse Hyperlipidemia Anemia We will need to further investigate her medical history. She is on multiple medications. Will need to add them back strategically. We will first need to stabilize the patient with fluids and antibiotics. She will have some as needed medications available. Mother history of dysphagia and her current mental state it is not reasonable to expect a safe swallow at this time but hopefully when the patient settles we will be able to administer an oral diet. If necessary it might be safer to insert a nasogastric tube so that we may administer medications that are not available intravenous form. - Time Time Spent with patient: 35 or more minutes Medications reviewed and adjusted accordingly: Yes Anticipated discharge: SNF Within: Other - Unknown - Inpatient Certification Based on my medical assessment, after consideration of the patient's comorbidities, presenting symptoms, or acuity I expect that the services needed warrant INPATIENT care.: Yes I certify that my determination is in accordance with my understanding of Medicare's requirements for reasonable and necessary INPATIENT services [42 CFR 412.3e].: Yes Medical Necessity: Need Close Monitoring Due to Risk of Patient Decompensation, Need For IV Fluids, Need For Continuous Telemetry Monitoring, Need for Pain Control, Need for IV Antibiotics, Risk of Complication if Not Cared For in Hospital Post Hospital Care: D/C Manager Therapy Documentation
[2020-03-03] MEDS ORDERED: INSULIN LISPRO 100 UNIT/ML 3 ML VIAL SUBCUT SCH (16:00)
[2020-03-03] MEDS ORDERED: CLONIDINE 0.1 MG/24 HR PATCH.TDWK TD SCH ×2 (18:00→22:00)
[2020-03-03] MEDS ORDERED: DIPHENHYDRAMINE HCL 50 MG/ML VIAL IV PRN (18:01)
[2020-03-03] MEDS ORDERED: MORPHINE SULFATE 10 MG/ML INJ ONE (18:03)
[2020-03-03] MEDS ORDERED: DIPHENHYDRAMINE HCL 50 MG/ML VIAL ONE (18:04)
[2020-03-03] MEDS: MORPHINE SULFATE 10 MG/ML INJ IV PRN (18:27)
[2020-03-03] MEDS: LORAZEPAM INJ 2 MG/1 ML VIAL IV SCH (22:08)
[2020-03-03] MEDS: CEFEPIME HCL 2 GM in DEXTROSE 5%-WATER 50 ML IV SCH (22:12)
[2020-03-04] MEDS ORDERED: INSULIN LISPRO 100 UNIT/ML 3 ML VIAL SUBCUT SCH
[2020-03-04] MEDS: INSULIN LISPRO 100 UNIT/ML 3 ML VIAL SUBCUT SCH ×4 (00:29→18:20)
--- NOTE | 2020-03-04 01:11 | EKG REPORT ---
SEVERITY:- OTHERWISE NORMAL ECG - SINUS TACHYCARDIA BORDERLINE LEFT AXIS DEVIATION : Confirmed by: Rupal Molina 04-Mar-2020 01:10:40
[2020-03-04] MEDS ORDERED: RINGERS SOLUTION,LACTATED 1,000 ML IV ONE (03:00)
[2020-03-04 05:02] LABS: HEMATOCRIT 46.4 % (36.0-47.0); MEAN CORPUSCULAR HEMOGLOBIN 28.4 pg (27.0-33.4); MEAN CORPUSCULAR HGB CONC 32.3 g/dL (32.0-36.0); MEAN CORPUSCULAR VOLUME 88 fl (80-97); PLATELET COUNT 140 10^3/uL (150-450); RED BLOOD COUNT 5.28 10^6/uL (3.72-5.28); RED CELL DISTRIBUTION WIDTH 15.9 % (11.5-14.0); WHITE BLOOD COUNT 7.3 10^3/uL (4.0-10.5)
[2020-03-04 05:10] LABS: BLOOD UREA NITROGEN 21 mg/dL (7-20); CARBON DIOXIDE 25 mmol/L (22-30); GLUCOSE 124 mg/dL (75-110); POTASSIUM 4.1 mmol/L (3.6-5.0)
[2020-03-04 05:16] LABS: CHLORIDE 121 mmol/L (98-107)
[2020-03-04 05:17] LABS: ANION GAP 4 (5-19)
[2020-03-04 05:19] LABS: ABSOLUTE LYMPHOCYTES# (MANUAL) 0.5 10^3/uL (0.5-4.7); ABSOLUTE MONOCYTES # (MANUAL) 0.8 10^3/uL (0.1-1.4); ANISOCYTOSIS 1+; BAND NEUTROPHILS % (MANUAL) 3 % (3-5); BASOPHILS % (MANUAL) 0 % (0-2); EOSINOPHILS % (MANUAL) 1 % (0-6); LYMPHOCYTES % (MANUAL) 7 % (13-45); MONOCYTES % (MANUAL) 11 % (3-13); PLATELET COMMENT DECREASED; SEGMENTED NEUTROPHILS % (MAN) 78 % (42-78); TOTAL CELLS COUNTED 100; TOXIC VACUOLATION PRESENT
[2020-03-04] MEDS: NORMAL SALINE 1000 ML 1,000 ML IV PRN ×2 (06:20→14:14)
[2020-03-04] MEDS: HEPARIN SOD (PORCINE) 5,000 UNIT/ML 1 ML VIAL SUBCUT SCH ×2 (06:42→13:08)
[2020-03-04] MEDS ORDERED: DIVALPROEX SODIUM 125 MG CAP.SPRINK PO SCH (08:00)
[2020-03-04] MEDS: LORAZEPAM INJ 2 MG/1 ML VIAL IV SCH ×2 (09:00→21:30)
[2020-03-04] MEDS: CEFEPIME HCL 2 GM in DEXTROSE 5%-WATER 50 ML IV SCH ×2 (09:20→21:30)
[2020-03-04] MEDS ORDERED: DIPHENHYDRAMINE HCL 50 MG/ML VIAL IV PRN (12:23)
--- NOTE | 2020-03-04 12:23 | PDOC PROGRESS REPORT ---
Subjective Progress Note for:: 03/04/20 Subjective:: The patient appears comfortable. She is resting on BiPAP. Still not conversant. Reason For Visit: UROSEPSIS Physical Exam Vital Signs: Temp Pulse Resp BP Pulse Ox 98.5 F 114 H 19 101/74 95 03/04/20 08:36 03/04/20 08:36 03/04/20 08:36 03/04/20 08:36 03/04/20 08:36 Intake & Output 03/03/20 03/04/20 03/05/20 06:59 06:59 06:59 Intake Total 4100 1050 Balance 4100 1050 Weight 55 kg General appearance: PRESENT: no acute distress, well-developed, other - On BiPAP Head exam: PRESENT: atraumatic, normocephalic Ear exam: PRESENT: normal external ear exam. ABSENT: bleeding, drainage Teeth exam: PRESENT: poor dentation Respiratory exam: PRESENT: clear to auscultation toño - Anteriorly, symmetrical, unlabored. ABSENT: prolonged expiratory phas, rales, rhonchi, tachypnea, wheezes Cardiovascular exam: PRESENT: +S1, +S2, tachycardia - Slightly tachycardic but sinus rhythm. ABSENT: diastolic murmur, irregular rhythm, systolic murmur GI/Abdominal exam: PRESENT: diminished bowel sounds, soft. ABSENT: distended, tenderness Rectal exam: PRESENT: deferred Gentrourinary exam: PRESENT: erythema - Perineum. ABSENT: indwelling catheter Extremities exam: ABSENT: pedal edema Musculoskeletal exam: PRESENT: normal inspection. ABSENT: ambulatory Neurological exam: PRESENT: awake, other - Minimally responsive. ABSENT: alert Psychiatric exam: PRESENT: flat affect. ABSENT: agitated, anxious Focused psych exam: PRESENT: other - Unable to assess Results Laboratory Results: 03/04/20 04:44 03/04/20 04:44 03/03/20 03/03/20 03/04/20 12:45 15:52 04:44 WBC 7.3 RBC 5.28 Hgb 15.0 Hct 46.4 MCV 88 MCH 28.4 MCHC 32.3 RDW 15.9 H Plt Count 140 L Seg Neutrophils % Not Reportable Sodium Potassium Chloride Carbon Dioxide Anion Gap BUN Creatinine Est GFR ( Amer) Glucose Lactic Acid 2.6 H 1.1 Calcium 03/04/20 04:44 WBC RBC Hgb Hct MCV MCH MCHC RDW Plt Count Seg Neutrophils % Sodium 149.5 H Potassium 4.1 Chloride 121 H Carbon Dioxide 25 Anion Gap 4 L BUN 21 H Creatinine 0.75 Est GFR ( Amer) > 60 Glucose 124 H Lactic Acid Calcium 8.0 L 03/03/20 10:15 Troponin I 0.030 Impressions: Chest X-Ray 03/03/20 09:38 IMPRESSION: NO ACUTE RADIOGRAPHIC FINDING IN THE CHEST. Assessment and Plan - Diagnosis (1) Sepsis Qualifiers: Sepsis type: Escherichia coli Sepsis acute organ dysfunction status: with acute organ dysfunction Severe sepsis acute organ dysfunction type: unspecified Severe sepsis shock status: without septic shock Qualified Code(s): A41.51 - Sepsis due to Escherichia coli [E. coli]; R65.20 - Severe sepsis without septic shock Is this a current diagnosis for this admission?: Yes Plan: Better today. The white blood cell count is back to normal at 7.3. Platelets are only 140. Still slightly tachycardic. Continue antibiotics and fluids (2) Urinary tract infection Qualifiers: Urinary tract infection type: site unspecified Hematuria presence: with hematuria Qualified Code(s): N39.0 - Urinary tract infection, site not sp ecified; R31.9 - Hematuria, unspecified Is this a current diagnosis for this admission?: Yes Plan: E. coli isolated. Await sensitivities. (3) Hypernatremia Is this a current diagnosis for this admission?: Yes Plan: Sodium has not come down as expected. I will need to change her fluids. (4) Acute respiratory failure with hypoxia Is this a current diagnosis for this admission?: Yes Plan: Still requires oxygen with intermittent BiPAP. Taper as tolerated (5) Acute metabolic encephalopathy Is this a current diagnosis for this admission?: Yes Plan: Secondary to infection. Based on conversations with family members she is nowhere near baseline. 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 Continue current regimen. - Plan Summary Summary: Review of records from [facility] indicate the following diagnoses has been present: Type 2 diabetes mellitus without complication Delusional disorder Dysphasia oropharyngeal phase Gastroesophageal reflux with esophagitis Unspecified symptoms and signs involving cognitive functions and awareness Restlessness and agitation Major depressive disorder Pseudobulbar affect Acute vaginitis Dementia and other diseases classified elsewhere with behavioral disturbance History of alcohol abuse Hyperlipidemia Anemia We will need to further investigate her medical history. She is on multiple medications. Will need to add them back strategically. We will first need to stabilize the patient with fluids and antibiotics. She will have some as needed medications available. Mother history of dysphagia and her current mental state it is not reasonable to expect a safe swallow at this time but hopefully when the patient settles we will be able to administer an oral diet. If necessary it might be safer to insert a nasogastric tube so that we may administer medications that are not available intravenous form. - Time Time Spent with patient: 15-24 minutes Medications reviewed and adjusted accordingly: Yes Anticipated Discharge Disposition: [facility] Facility Anticipated Discharge: Other Other Anticipated Discharge Timeframe: Likely 4 to 5 days at least
[2020-03-04] MEDS ORDERED: VALPROATE SODIUM 500 MG in NORMAL SALINE 100 ML IV ONE (13:00)
[2020-03-04] MEDS: LORAZEPAM INJ 2 MG/1 ML VIAL IV PRN ×2 (14:14→18:34)
[2020-03-04] MEDS: NORMAL SALINE IV SCH (17:44)
[2020-03-04] MEDS: VALPROATE SODIUM IV SCH (17:44)
[2020-03-04] MEDS: METOPROLOL TARTRATE PF/INJ 5 MG/5 ML SDV IV PRN (18:13)
[2020-03-04] MEDS: DEXTROSE 5%-1/2 NORMAL SALINE 1,000 ML IV PRN (18:50)
--- NOTE | 2020-03-04 21:44 | PDOC PROGRESS REPORT ---
Subjective Progress Note for:: 03/04/20 Subjective:: I was contacted by the patient's nurse advanced to come to the bedside immediately. The patient was having significant oxygen saturations sometimes in the spite wearing the BiPAP mask. Her tachycardia was increasing as well. Reason For Visit: UROSEPSIS Physical Exam Vital Signs: Temp Pulse Resp BP Pulse Ox 97.7 F 111 H 10 L 110/58 L 100 03/04/20 16:27 03/04/20 16:27 03/04/20 20:44 03/04/20 16:27 03/04/20 20:44 Intake & Output 03/03/20 03/04/20 03/05/20 06:59 06:59 06:59 Intake Total 4100 2757.5 Balance 4100 2757.5 Weight 55 kg General appearance: PRESENT: severe distress - Moderate to severe distress, other - No verbal interaction Respiratory exam: PRESENT: clear to auscultation toño, decreased breath sounds, symmetrical, tachypnea. ABSENT: rales, rhonchi, wheezes Cardiovascular exam: PRESENT: +S1, +S2, tachycardia. ABSENT: irregular rhythm GI/Abdominal exam: PRESENT: diminished bowel sounds, soft. ABSENT: distended, tenderness Rectal exam: PRESENT: deferred Extremities exam: ABSENT: pedal edema Musculoskeletal exam: PRESENT: normal inspection Neurological exam: PRESENT: altered - Patient not interactive at this time, awake, other - Fine fasciculation of the noted intermittently. ABSENT: oriented to person - Unable to assess as patient is not interactive Psychiatric exam: PRESENT: agitated - Slightly agitated Results Laboratory Results: 03/04/20 04:44 03/04/20 04:44 03/04/20 03/04/20 04:44 04:44 WBC 7.3 RBC 5.28 Hgb 15.0 Hct 46.4 MCV 88 MCH 28.4 MCHC 32.3 RDW 15.9 H Plt Count 140 L Seg Neutrophils % Not Reportable Sodium 149.5 H Potassium 4.1 Chloride 121 H Carbon Dioxide 25 Anion Gap 4 L BUN 21 H Creatinine 0.75 Est GFR ( Amer) > 60 Glucose 124 H Calcium 8.0 L 03/03/20 10:15 Troponin I 0.030 Impressions: Chest X-Ray 03/03/20 09:38 IMPRESSION: NO ACUTE RADIOGRAPHIC FINDING IN THE CHEST. Assessment and Plan - Diagnosis (1) Sepsis Qualifiers: Sepsis type: Escherichia coli Sepsis acute organ dysfunction status: with acute organ dysfunction Severe sepsis acute organ dysfunction type: unspecified Severe sepsis shock status: without septic shock Qualified Code(s): A41.51 - Sepsis due to Escherichia coli [E. coli]; R65.20 - Severe sepsis without septic shock Is this a current diagnosis for this admission?: Yes Plan: Better today. The white blood cell count is back to normal at 7.3. Platelets are only 140. Still slightly tachycardic. Continue antibiotics and fluids Subsequent critical care visit: I believe the infection is under control based on the response of her white blood cell count to the antibiotics. I do not think her sepsis is responsible for the acute episode this afternoon. (2) Urinary tract infection Qualifiers: Urinary tract infection type: site unspecified Hematuria presence: with hematuria Qualified Code(s): N39.0 - Urinary tract infection, site not specified; R31.9 - Hematuria, unspecified Is this a current diagnosis for this admission?: Yes (3) Hypernatremia Is this a current diagnosis for this admission?: Yes Plan: Sodium has not come down as expected. I will need to change her fluids. Subsequent critical care visit: I believe part of the issue is the lack of response to the current treatment plan for her hypernatremia. I am going to switch to D5 half-normal saline. The calculated rate for appropriate decrease in serum sodium is 175 mL/h. I have ordered serial laboratory studies through the night. By morning the patient serum sodium should be in the normal range. I am hoping between this and investments in her medication will make a significant difference for tomorrow. (4) Acute respiratory failure with hypoxia Is this a current diagnosis for this admission?: Yes Plan: Still requires oxygen with intermittent BiPAP. Taper as tolerated Subsequent critical care visit: I believe the acute worsening of her respiratory failure with significant desaturations is more related to ongoing electrolyte imbalance as well as possibly seizure activity. Will monitor closely through the night. (5) Acute metabolic encephalopathy Is this a current diagnosis for this admission?: Yes (6) Hyperglycemia due to type 2 diabetes mellitus Qualifiers: Diabetes mellitus snf insulin use: with snf use Qualified Code(s): E11.65 - Type 2 diabetes mellitus with hyperglycemia; Z79.4 - exterminator helper termite (current) use of insulin Is this a current diagnosis for this admission?: Yes (7) Seizure Is this a current diagnosis for this admission?: Yes Plan: It is very hard to tell but there appears to be fine fasciculation. The patient's breathing is variable. She desaturates intermittently. She is on Depakote 500 mg in the morning and 750 mg in the evening. Because of her inability to swallow safely she was made n.p.o. yesterday. I believe that what she is experiencing could be seizure activity. I discussed the correlating IV dose to her oral Depakote. I would rather use intravenous form then place an NG tube at this time. I have ordered 500 mg as a stat dose through the IV. She wi ll then resume 500 mg each morning and 750 mg each evening. (8) Tachycardia Is this a current diagnosis for this admission?: Yes Plan: The patient has exhibited tachycardia earlier today but the pulse rate was between 101 110 usually. At this time her heart rate is into the 130s. I have ordered as needed metoprolol through the IV. I have a feeling once the D5 half- normal saline takes effect her tachycardia will slow. (9) Encounter for observation for suspected exposure to other biological agents ruled out Is this a current diagnosis for this admission?: Yes Plan: COVID-19 serology still pending - Plan Summary Summary: Review of records from [facility] indicate the following diagnoses has been present: Type 2 diabetes mellitus without complication Delusional disorder Dysphasia oropharyngeal phase Gastroesophageal reflux with esophagitis Unspecified symptoms and signs involving cognitive functions and awareness Restlessness and agitation Major depressive disorder Pseudobulbar affect Acute vaginitis Dementia and other diseases classified elsewhere with behavioral disturbance History of alcohol abuse Hyperlipidemia Anemia We will need to further investigate her medical history. She is on multiple medications. Will need to add them back strategically. We will first need to stabilize the patient with fluids and antibiotics. She will have some as needed medications available. Mother history of dysphagia and her current mental state it is not reasonable to expect a safe swallow at this time but hopefully when the patient settles we will be able to administer an oral diet. If necessary it might be safer to insert a nasogastric tube so that we may administer medications that are not available intravenous form. 03/04/2020 critical care visit: After evaluating the patient I did have a chance to talk to her brother. Informed him of her acute episodes and very slow progress. Positive news was she is afebrile and her white blood cell count has normalized. Respiratory status and possible seizure were noted. We discussed her current medications and treatment options. I expressed my confidence that by tomorrow she should be feeling better with corrected sodium and intravenous Depakote. We have asked about a local friend visiting but I suggested this wait until she would be more interactive. I did not dextrose to the IV fluid. With her underlying diabetes it may cause hyperglycemia. If this happens we can always remove dextrose from the fluid or increase insulin dosing. After a 25-minute conversation her brother was satisfied that all of his questions were answered. - Time Total Critical Time (Minutes): 45 Anticipated Discharge Disposition: Custodial Facility Anticipated Discharge: Other Other Anticipated Discharge Timeframe: 4 to 5 days at least
[2020-03-05] MEDS: INSULIN LISPRO 100 UNIT/ML 3 ML VIAL SUBCUT SCH ×4 (00:15→19:51)
[2020-03-05] MEDS: DEXTROSE 5%-1/2 NORMAL SALINE 1,000 ML IV PRN ×2 (00:19→06:18)
[2020-03-05 00:52] LABS: BLOOD UREA NITROGEN 17 mg/dL (7-20); CALCIUM 7.7 mg/dL (8.4-10.2); GLUCOSE 257 mg/dL (75-110); POTASSIUM 3.5 mmol/L (3.6-5.0)
[2020-03-05 00:58] LABS: CARBON DIOXIDE 29 mmol/L (22-30); CHLORIDE 118 mmol/L (98-107)
[2020-03-05 01:02] LABS: ANION GAP 0 (5-19)
[2020-03-05] MEDS: LORAZEPAM INJ 2 MG/1 ML VIAL IV PRN ×2 (02:12→17:15)
[2020-03-05] MEDS: MORPHINE SULFATE 10 MG/ML INJ IV PRN ×2 (04:48→17:14)
[2020-03-05 05:21] LABS: ABSOLUTE EOSINOPHILS # (AUTO) 0.1 10^3/uL (0.0-0.6); ABSOLUTE LYMPHOCYTES (AUTO) 1.2 10^3/uL (0.5-4.7); ABSOLUTE MONOCYTES (AUTO) 1.1 10^3/uL (0.1-1.4); BASOPHILS % (AUTO) 0.2 % (0-2); EOSINOPHILS % (AUTO) 0.5 % (0-6); HEMATOCRIT 38.9 % (36.0-47.0); LYMPHOCYTES % (AUTO) 11.3 % (13-45); MEAN CORPUSCULAR HEMOGLOBIN 28.6 pg (27.0-33.4); MEAN CORPUSCULAR HGB CONC 32.9 g/dL (32.0-36.0); MEAN CORPUSCULAR VOLUME 87 fl (80-97); MONOCYTES % (AUTO) 10.8 % (3-13); PLATELET COUNT 110 10^3/uL (150-450); RED BLOOD COUNT 4.47 10^6/uL (3.72-5.28); RED CELL DISTRIBUTION WIDTH 15.5 % (11.5-14.0); SEGMENTED NEUTROPHILS % (AUTO) 77.2 % (42-78); TOTAL CELLS COUNTED % (AUTO) 100 %; WHITE BLOOD COUNT 10.3 10^3/uL (4.0-10.5)
[2020-03-05 05:29] LABS: HEMOGLOBIN 12.8 g/dL (12.0-15.5)
[2020-03-05] MEDS: METOPROLOL TARTRATE PF/INJ 5 MG/5 ML SDV IV PRN (05:32)
[2020-03-05 05:40] LABS: BLOOD UREA NITROGEN 14 mg/dL (7-20); CALCIUM 7.6 mg/dL (8.4-10.2); CARBON DIOXIDE 27 mmol/L (22-30); CHLORIDE 118 mmol/L (98-107); GLUCOSE 207 mg/dL (75-110); POTASSIUM 3.1 mmol/L (3.6-5.0)
[2020-03-05 05:54] LABS: ANION GAP -1 (5-19)
[2020-03-05] MEDS: VALPROATE SODIUM 500 MG in NORMAL SALINE 100 ML IV SCH (08:37)
[2020-03-05] MEDS: CEFEPIME HCL 2 GM in DEXTROSE 5%-WATER 50 ML IV SCH (10:17)
[2020-03-05] MEDS: LORAZEPAM INJ 2 MG/1 ML VIAL IV SCH ×2 (10:17→23:15)
[2020-03-05] MEDS: PANTOPRAZOLE SODIUM 40 MG VIAL IV SCH (10:18)
[2020-03-05 15:12] LABS: BLOOD UREA NITROGEN 11 mg/dL (7-20); GLUCOSE 217 mg/dL (75-110); POTASSIUM 3.2 mmol/L (3.6-5.0)
[2020-03-05 15:17] LABS: CARBON DIOXIDE 28 mmol/L (22-30); CHLORIDE 114 mmol/L (98-107)
[2020-03-05 15:19] LABS: ANION GAP 1 (5-19)
[2020-03-05] MEDS: NORMAL SALINE IV SCH (17:16)
[2020-03-05] MEDS: VALPROATE SODIUM IV SCH (17:16)
--- NOTE | 2020-03-05 18:42 | PDOC PROGRESS REPORT ---
Subjective Progress Note for:: 03/05/20 Subjective:: MAVERICK TOLBERT is a 54 year old female with severe advanced dementia and currently sepsis. Information is from the emergency department physician, [facility] paperwork and old records. 03/05/2020. No acute events tonight. I assume care today. Saw patient this morning, patient is sleeping, arousable but falls back to sleep, does not appear to be in any acute distress. Reason For Visit: UROSEPSIS Physical Exam Vital Signs: Temp Pulse Resp BP Pulse Ox 99.4 F 113 H 19 87/49 L 99 03/05/20 10:42 03/05/20 10:42 03/05/20 10:42 03/05/20 10:42 03/05/20 10:42 Intake & Output 03/04/20 03/05/20 03/06/20 06:59 06:59 06:59 Intake Total 4100 4767.5 150 Balance 4100 4767.5 150 Weight 55 kg 60.8 kg General appearance: PRESENT: no acute distress, well-developed, well-nourished Head exam: PRESENT: atraumatic, normocephalic Respiratory exam: PRESENT: clear to auscultation toño. ABSENT: rales, rhonchi, wheezes Cardiovascular exam: PRESENT: RRR. ABSENT: diastolic murmur, rubs, systolic murmur GI/Abdominal exam: PRESENT: normal bowel sounds, soft. ABSENT: distended, guarding, mass, organolmegaly, rebound, tenderness Neurological exam: PRESENT: motor sensory deficit - Bilateral lower extremity and left upper extremity paresis. Chronic., other - Sleeping. Arousable. Skin exam: PRESENT: dry, intact, warm. ABSENT: cyanosis, rash Results Laboratory Results: 03/05/20 05:07 03/05/20 14:35 03/05/20 03/05/20 03/05/20 00:23 05:07 05:07 WBC 10.3 RBC 4.47 Hgb 12.8 D Hct 38.9 MCV 87 MCH 28.6 MCHC 32.9 RDW 15.5 H Plt Count 110 L Seg Neutrophils % 77.2 Sodium 147.4 H 144.0 Potassium 3.5 L 3.1 L Chloride 118 H 118 H Carbon Dioxide 29 27 Anion Gap 0 L -1 L BUN 17 14 Creatinine 0.68 0.56 Est GFR ( Amer) > 60 > 60 Est GFR (Non-Af Amer) Glucose 257 H 207 H Calcium 7.7 L 7.6 L 03/05/20 03/05/20 13:14 14:35 WBC RBC Hgb Hct MCV MCH MCHC RDW Plt Count Seg Neutrophils % Sodium Cancelled 142.7 Potassium Cancelled 3.2 L Chloride Cancelled 114 H Carbon Dioxide Cancelled 28 Anion Gap Cancelled 1 L BUN Cancelled 11 Creatinine Cancelled 0.62 Est GFR ( Amer) Cancelled > 60 Est GFR (Non-Af Amer) Cancelled Glucose Cancelled 217 H Calcium Cancelled 8.0 L 03/03/20 10:15 Troponin I 0.030 Impressions: Chest X-Ray 03/03/20 09:38 IMPRESSION: NO ACUTE RADIOGRAPHIC FINDING IN THE CHEST. Assessment and Plan - Diagnosis (1) Acute respiratory failure with hypoxia Is this a current diagnosis for this admission?: Yes Plan: Still requires oxygen with intermittent BiPAP. Taper as tolerated Subsequent critical care visit: I believe the acute worsening of her respiratory failure with significant desaturations is more related to ongoing electrolyte imbalance as well as possibly seizure activity. Will monitor closely through the night. (2) Acute metabolic encephalopathy Is this a current diagnosis for this admission?: Yes Plan: Secondary to infection. Based on conversations with family members she is nowhere near baseline. (3) Hyperglycemia due to type 2 diabetes mellitus Qualifiers: Diabetes mellitus penitentiary insulin use: with middle or intermediate school principal use Qualified Code(s): E11.65 - Type 2 diabetes mellitus with hyperglycemia; Z79.4 - terminal supervisor (current) use of insulin Is this a current diagnosis for this admission?: Yes Plan: Good blood glucose control. Continue current regimen. (4) Hypernatremia Is this a current diagnosis for this admission?: Yes Plan: Sodium has not come down as expected. I will need to change her fluids. Subsequent critical care visit: I believe part of the issue is the lack of response to the current treatment plan for her hypernatremia. I am going to switch to D5 half-normal saline. The calculated rate for appropriate decrease in serum sodium is 175 mL/h. I have ordered serial laboratory studies through the night. By morning the patient serum sodium should be in the normal range. I am hoping between this and i nvestments in her medication will make a significant difference for tomorrow. (5) Seizure Is this a current diagnosis for this admission?: Yes Plan: It is very hard to tell but there appears to be fine fasciculation. The patient's breathing is variable. She desaturates intermittently. She is on Depakote 500 mg in the morning and 750 mg in the evening. Because of her inability to swallow safely she was made n.p.o. yesterday. I believe that what she is experiencing could be seizure activity. I discussed the correlating IV dose to her oral Depakote. I would rather use intravenous form then place an NG tube at this time. I have ordered 500 mg as a stat dose through the IV. She will then resume 500 mg each morning and 750 mg each evening. (6) Sepsis Qualifiers: Sepsis type: Escherichia coli Sepsis acute organ dysfunction status: with acute organ dysfunction Severe sepsis acute organ dysfunction type: unspecified Severe sepsis shock status: without septic shock Qualified Co de(s): A41.51 - Sepsis due to Escherichia coli [E. coli]; R65.20 - Severe sepsis without septic shock Is this a current diagnosis for this admission?: Yes Plan: Better today. The white blood cell count is back to normal at 7.3. Platelets are only 140. Still slightly tachycardic. Continue antibiotics and fluids Subsequent critical care visit: I believe the infection is under control based on the response of her white blood cell count to the antibiotics. I do not think her sepsis is responsible for the acute episode this afternoon. (7) Urinary tract infection Qualifiers: Urinary tract infection type: site unspecified Hematuria presence: with hematuria Qualified Code(s): N39.0 - Urinary tract infection, site not specified; R31.9 - Hematuria, unspecified Is this a current diagnosis for this admission?: Yes Plan: E. coli isolated. Await sensitivities. - Plan Summary Summary: Review of records from [facility] indicate the following diagnoses has been present: Type 2 diabetes mellitus without complication Delusional disorder Dysphasia oropharyngeal phase Gastroesophageal reflux with esophagitis Unspecified symptoms and signs involving cognitive functions and awareness Restlessness and agitation Major depressive disorder Pseudobulbar affect Acute vaginitis Dementia and other diseases classified elsewhere with behavioral disturbance History of alcohol abuse Hyperlipidemia Anemia We will need to further investigate her medical history. She is on multiple medications. Will need to add them back strategically. We will first need to stabilize the patient with fluids and antibiotics. She will have some as needed medications available. Mother history of dysphagia and her current mental state it is not reasonable to expect a safe swallow at this time but hopefully when the patient settles we will be able to administer an oral diet. If necessary it might be safer to insert a nasogastric tube so that we may administer medications that are not available intravenous form. 03/04/2020 critical care visit: After evaluating the patient I did have a chance to talk to her brother. Informed him of her acute episodes and very slow progress. Positive news was she is afebrile and her white blood cell count has normalized. Respiratory status and possible seizure were noted. We discussed her current medications and treatment options. I expressed my confidence that by tomorrow she should be feeling better with corrected sodium and intravenous Depakote. We have asked about a local friend visiting but I suggested this wait until she would be more interactive. I did not dextrose to the IV fluid. With her underlying diabetes it may cause hyperglycemia. If this happens we can always remove dextrose from the fluid or increase insulin dosing. After a 25-minute conversation her brother was satisfied that all of his questions were answered. - Time Time Spent with patient: 35 or more minutes Anticipated Discharge Disposition: [facility] Anticipated Discharge: when bed available
[2020-03-05 19:27] LABS: BLOOD UREA NITROGEN 11 mg/dL (7-20); CALCIUM 7.6 mg/dL (8.4-10.2); CARBON DIOXIDE 27 mmol/L (22-30); CHLORIDE 117 mmol/L (98-107); GLUCOSE 215 mg/dL (75-110); POTASSIUM 3.2 mmol/L (3.6-5.0)
[2020-03-05] MEDS ORDERED: INSULIN GLARGINE,HUM.REC.ANLOG 1,000 UNIT/10 ML VIAL (PYX) SUBCUT PRN (19:29)
[2020-03-05 19:42] LABS: ANION GAP 0 (5-19)
[2020-03-05] MEDS ORDERED: TRAZODONE HCL 50 MG TABLET PO SCH (22:00)
[2020-03-05] MEDS: CLONIDINE HCL 0.1 MG TABLET PO SCH (23:16)
[2020-03-06] MEDS: CEFEPIME HCL 2 GM in DEXTROSE 5%-WATER 50 ML IV SCH ×2 (00:04→10:50)
[2020-03-06] MEDS: INSULIN GLARGINE,HUM.REC.ANLOG 1,000 UNIT/10 ML VIAL SUBCUT SCH ×2 (00:12→23:08)
[2020-03-06] MEDS: INSULIN LISPRO 100 UNIT/ML 3 ML VIAL SUBCUT SCH ×5 (00:15→23:57)
[2020-03-06] MEDS: DEXTROSE 5%-1/2 NORMAL SALINE 1,000 ML IV PRN ×2 (00:20→11:12)
[2020-03-06] MEDS: MORPHINE SULFATE 10 MG/ML INJ IV PRN (01:44)
[2020-03-06 02:40] LABS: ARTERIAL BLOOD BASE EXCESS -6.8 mmol/L; ARTERIAL BLOOD H2CO3 5.48 mmol/L (1.05-1.35); ARTERIAL BLOOD HCO3 31.6 mmol/L (20-24); ARTERIAL BLOOD O2 SATURATION 98.5 % (94-98); ARTERIAL BLOOD PO2 225.5 mmHg (80-100); ARTERIAL BLOOD TOTAL CO2 37.2 mmol/L (21-25)
[2020-03-06 02:46] LABS: ARTERIAL BLOOD FIO2 100%; ARTERIAL BLOOD PCO2 182.2 mmHg (35-45); ARTERIAL BLOOD PH 6.86 (7.35-7.45)
[2020-03-06] MEDS ORDERED: PROPOFOL 1,000 MG/100 ML INFUS..BTL IV ONE (03:06)
[2020-03-06] MEDS: PROPOFOL 1,000 MG/100 ML INFUS..BTL IV PRN ×2 (03:10→08:04)
--- NOTE | 2020-03-06 03:44 | RADIOLOGY REPORT (SQ) ---
EXAM DESCRIPTION: [facility]: XR CHEST 1 VIEW CLINICAL HISTORY: 54 years Female; resp distress; FINDINGS: Since 02/12/2020, endotracheal tube is been placed, tip at the level the christine, directed towards the right mainstem bronchus. There are mild groundglass infiltrates in the right upper lobe and left lower lobe. No pneumothorax or pleural effusion. Enteric tube tip is in the stomach. Midline upper abdominal vascular embolization coils are noted. No mediastinal shift. IMPRESSION: 1. Intubated, with endotracheal tube tip at the christine. Consider repositioning. 2. Mild right upper lobe and left lower lobe infiltrates, suspicious for pneumonia.
[2020-03-06] MEDS ORDERED: FENTANYL CITRATE/PF 600 MCG/60 ML BAG IV PRN (04:11)
[2020-03-06 05:58] LABS: ANION GAP 8 (5-19); BLOOD UREA NITROGEN 5 mg/dL (7-20); CALCIUM 8.1 mg/dL (8.4-10.2); CARBON DIOXIDE 23 mmol/L (22-30); CHLORIDE 107 mmol/L (98-107); GLUCOSE 110 mg/dL (75-110); PHOSPHORUS 2.2 mg/dL (2.5-4.5); POTASSIUM 3.6 mmol/L (3.6-5.0)
[2020-03-06 06:11] LABS: ABSOLUTE EOSINOPHILS # (AUTO) 0.1 10^3/uL (0.0-0.6); ABSOLUTE LYMPHOCYTES (AUTO) 1.3 10^3/uL (0.5-4.7); ABSOLUTE NEUT (AUTO) 9.5 10^3/uL (1.7-8.2); BASOPHILS % (AUTO) 0.4 % (0-2); EOSINOPHILS % (AUTO) 1.1 % (0-6); HEMATOCRIT 37.7 % (36.0-47.0); HEMOGLOBIN 12.4 g/dL (12.0-15.5); LYMPHOCYTES % (AUTO) 10.8 % (13-45); MEAN CORPUSCULAR HEMOGLOBIN 28.3 pg (27.0-33.4); MEAN CORPUSCULAR HGB CONC 32.8 g/dL (32.0-36.0); MONOCYTES % (AUTO) 8.7 % (3-13); PLATELET COUNT 130 10^3/uL (150-450); RED BLOOD COUNT 4.36 10^6/uL (3.72-5.28); RED CELL DISTRIBUTION WIDTH 15.2 % (11.5-14.0); TOTAL CELLS COUNTED % (AUTO) 100 %; WHITE BLOOD COUNT 12.1 10^3/uL (4.0-10.5)
[2020-03-06 06:20] LABS: MEAN CORPUSCULAR VOLUME 86 fl (80-97)
--- NOTE | 2020-03-06 06:28 | CRITICAL CARE ADMISSION REPORT ---
HPI Date:: 03/06/20 Time:: 05:00 Reason for ICU Reason:: Acute respiratory failure Admission Date/Time & PCP: Admission Date/Time: 03/03/20 13:06 Primary Care Provider: HARRY ESPINOSA MD HPI: 54-year-old female history of severely advanced dementia, transferred from intermediate due to fever and abnormal vital signs. She was found to have E. coli urosepsis and was admitted to the medicine service on 03/03/2020 and treated with cefepime for her sepsis. Since her admission, patient has had respiratory insufficiency requiring BiPAP, as well as possible seizure activity and hypernatremia as high as 150. I was called to consult on Mrs. Avila today following a rapid response. I arrived to find her on BiPAP, yet obtunded and unable to generate significant tidal volumes. ABG at that time showed a pH of 6.86 and a CO2 of 182. She was emergently intubated with a 7.5 ET tube and transferred to the intensive care unit for further management. A right IJ TLC was placed. Patient was started on a propofol drip as well as fentanyl for comfort. She became increasingly alert after adequate ventilation. Multiple attempts to reach her family had failed prior to intubation and central line placement. We were able to reach them following the procedure. Patient is currently hemodynamically stable. Further work-up is pending at this time. History obtained from:: Medical documentation. - Diagnosis/Plan (1) Hypercapnic respiratory failure Qualifiers: Chronicity: acute Qualified Code(s): J96.02 - Acute respiratory failure with hypercapnia Is this a current diagnosis for this admission?: Yes Plan: Uncertain etiology. Possibly secondary to pneumonia. Continue mechanical ventilation. Obtain ABG and titrate minute ventilation accordingly. ET tube secured at 24 cm at the lip. Daily spontaneous weaning trials. (2) Pneumonia Qualifiers: Pneumonia type: due to unspecified organism Laterality: bilateral Lung location: upper lobe of lung Qualified Code(s): J18.9 - Pneumonia, unspecified organism Is this a current diagnosis for this admission?: Yes Plan: Follow WBC and fever curve. White blood cell count has been improving. High suspicion for pulmonary infection, however patient remains afebrile. Bilateral infiltrates seen on CXR. We will add antibiotics if patient shows any signs of active infection. (3) Diabetes Qualifiers: Diabetes mellitus type: type 2 Diabetes mellitus complication status: with circulatory complication Is this a current diagnosis for this admission?: Yes Plan: Continue regular insulin sliding scale. (4) Hypernatremia Is this a current diagnosis for this admission?: Yes Plan: Sodium level was as high as 150. It has now returned to normal after treatment with fluids. Start LR at 100 mL an hour. (5) UTI due to extended-spectrum beta lactamase (ESBL) producing Escherichia coli Is this a current diagnosis for this admission?: Yes Plan: Patient has been adequately treated with cefepime. WBC has decreased. Patient has been afebrile. Continue antibiotics for now given patient's possible aspiration. Past Medical History Cardiac Medical History: Reports: Hyperlipidema, Hypertension - medicated Denies: Myocardial Infarction, Heart Murmur Pulmonary Medical History: Reports: Bronchitis, Pneumonia Denies: Asthma, Tuberculosis Neurological Medical History: Reports: Seizures Endocrine Medical History: Reports: Diabetes Mellitus Type 2 Denies: Diabetes Mellitus Type 1, Hyperthyroidism, Hypothyroidism GI Medical History: Reports: Gastroesophageal Reflux Disease Denies: Cirrhosis, Hepatitis, Hiatal Hernia Musculoskeltal Medical History: Reports: Arthritis Denies: Fibromyalgia Skin Medical History: Denies: Eczema, Psoriasis Psychiatric Medical History: Reports: Bipolar Disorder, Dementia, Depression - Anxiety Hematology: Reports: Anemia Denies: Sickle Cell Disease, Bleeding Tendencies Infectious Medical History: Denies: HIV Past Surgical History Past Surgical History: Reports: Section, Orthopedic Surgery - R Hip, Tonsillectomy Denies: Amputation, Hysterectomy, Mastectomy, Pacemaker Social/Family History - Social History Lives with: Retirement Smoking Status: Unknown if Ever Smoked Frequency of Alcohol Use: None Hx Recreational Drug Use: No Drugs: None Hx Prescription Drug Abuse: No - Medication/Allergies Home Medications: Acetaminophen [Tylenol 325 mg Tablet] 650 mg PO Q6HP PRN 05/19/19 Diphenhydramine HCl [Benadryl 25 mg Capsule] 25 mg PO Q8 05/19/19 Dulaglutide [Trulicity] 1.5 mg SQ Q7D 05/19/19 Ergocalciferol (Vitamin D2) [Vitamin D2] 50 mcg PO WE@1000 05/19/19 Insulin Aspart [Novolog] 0 unit SQ .SLIDING SCALE 05/19/19 Insulin Detemir [Levemir] 10 unit SQ QHS 05/19/19 Loratadine [Claritin 10 mg Tablet] 10 mg PO DAILY 05/19/19 Melatonin/Pyridoxine HCl (B6) [Melatonin 3 mg Tablet] 3 mg PO QHS 05/19/19 Sennosides [Senna] 8.6 mg PO BIDP PRN 05/19/19 Thiamine HCl [Vitamin B-1] 100 mg PO DAILY 05/19/19 Divalproex Sodium [Depakote Sprinkle 125 mg Capsule] 500 mg PO QAM #130 cap.sprink 05/21/19 Divalproex Sodium [Depakote Sprinkle 125 mg Capsule] 750 mg PO QHS #180 cap.sprink 05/21/19 Ibuprofen 200 mg PO Q8 06/20/19 Clonidine HCl [Catapres 0.1 mg Tablet] 0.1 mg PO QHS #14 tablet 06/21/19 Calcium Carbonate [Tums Chewable 500 mg Tab.chew] 500 mg PO Q4HP PRN 03/03/20 Clonazepam [Klonopin] 0.5 mg PO BID 03/03/20 Escitalopram Oxalate [Lexapro 10 mg Tablet] 15 mg PO DAILY 03/03/20 Estradiol [Estrace] 2 gm VG MOTH 03/03/20 Metformin HCl 1,000 mg PO BID 03/03/20 Pantoprazole Sodium [Protonix [address] Tablet] 40 mg PO QAM 03/03/20 Trazodone HCl 25 mg PO QHS 03/03/20 Allergies/Adverse Reactions: tramadol [Tramadol] Allergy (Verified 03/03/20 10:06) Nausea adhesive tape [Adhesive Tape] Adverse Reaction (Verified 03/03/20 10:06) peels skin off Review of Systems ROS unobtainable: Due to endotracheal tube Physical Exam Vital Signs: Temp Pulse Resp BP Pulse Ox 98.8 F 123 H 12 130/79 H 100 03/06/20 03:38 03/06/20 03:27 03/06/20 00:40 03/06/20 00:07 03/06/20 02:10 Intake & Output 03/04/20 03/05/20 03/06/20 06:59 06:59 06:59 Intake Total 4100 4767.5 1307.5 Output Total 450 Balance 4100 4767.5 857.5 Weight 55 kg 60.8 kg 58.9 kg Weight/Height Weight 58.9 kg Height 5 ft 2 in General appearance: PRESENT: obese, severe distress Head exam: PRESENT: atraumatic Eye exam: PRESENT: EOMI, PERRLA Ear exam: PRESENT: normal external ear exam Mouth exam: PRESENT: moist, neck supple, tongue midline Neck exam: PRESENT: JVD Respiratory exam: PRESENT: accessory muscle use, decreased breath sounds, prolonged expiratory phas, rhonchi Cardiovascular exam: PRESENT: RRR, +S1, +S2 Pulses: PRESENT: normal carotid pulses, normal radial pulses Vascular exam: PRESENT: normal capillary refill GI/Abdominal exam: PRESENT: distended, hernia, hypoactive bowel sounds Extremities exam: PRESENT: full ROM Musculoskeletal exam: PRESENT: other - Unable to evaluate muscle strength. Neurological exam: PRESENT: altered, CN II-XII grossly intact Skin exam: PRESENT: abrasion, pallor Tubes/Lines: PRESENT: Endotracheal Tube, Central Line Laboratory/Radiographs Laboratory Results: 03/05/20 03/05/20 03/05/20 05:07 13:14 14:35 Carbonic Acid HCO3/H2CO3 Ratio ABG pH ABG pCO2 ABG pO2 ABG HCO3 ABG O2 Saturation ABG Base Excess FiO2 Sodium 144.0 Cancelled 142.7 Potassium 3.1 L Cancelled 3.2 L Chloride 118 H Cancelled 114 H Carbon Dioxide 27 Cancelled 28 Anion Gap -1 L Cancelled 1 L BUN 14 Cancelled 11 Creatinine 0.56 Cancelled 0.62 Est GFR ( Amer) > 60 Cancelled > 60 Est GFR (Non-Af Amer) Cancelled Glucose 207 H Cancelled 217 H Calcium 7.6 L Cancelled 8.0 L 03/05/20 03/06/20 03/06/20 18:48 02:10 02:36 Carbonic Acid Cancelled 5.48 H HCO3/H2CO3 Ratio Cancelled 5:1 ABG pH Cancelled 6.86 L* ABG pCO2 Cancelled 182.2 H* ABG pO2 Cancelled 225.5 H ABG HCO3 Cancelled 31.6 H ABG O2 Saturation Cancelled 98.5 H ABG Base Excess Cancelled -6.8 FiO2 Cancelled 100% Sodium 143.7 Potassium 3.2 L Chloride 117 H Carbon Dioxide 27 Anion Gap 0 L BUN 11 Creatinine 0.61 Est GFR ( Amer) > 60 Est GFR (Non-Af Amer) Glucose 215 H Calcium 7.6 L 03/03/20 10:15 Troponin I 0.030 Impressions: Chest X-Ray 03/06/20 00:00 IMPRESSION: 1. Intubated, with endotracheal tube tip at the christine. Consider repositioning. 2. Mild right upper lobe and left lower lobe infiltrates, suspicious for pneumonia. All labs, radiographs, diagnostic studies and EKGs were personally reviewed: Yes In addition, reports of radiographic and diagnostic studies were read: Yes Critical Time Critical Time (minutes): 120 -: The care of a critically ill patient is dynamic. This note represents a static moment in the admission process. Orders and treatments may be given simultaneously and urgently, and time is not product support representative of the treatment p rocess. This patient requires Critical Care secondary to life threatening organ or limb dysfunction. Without Critical Care services, the patient is at risk for increased mortality and morbidity.
--- NOTE | 2020-03-06 07:20 | Operative Report ---
Bedside Procedure - History of Present Illness History of Present Illness: Procedure: Central line placement Indication: Vasoactive medications, IV fluids, blood draws. Procedure crude unit operator: JOHN Jonas Attending physician: Dr. Tellez Consent: The procedure was performed emergently and the permission was implied because of the emergent nature. Multiple attempts made to reach family prior to procedure. Procedure summary: The [facility] central line insertion practice form was completed by RN. A timeout was performed. My hands were washed immediately prior to the procedure. I wore surgical cap, mask with protective eyewear, full gown and sterile gloves throughout the procedure. The patient was placed in [place] position. Right chest region was prepped using chlorhexidine scrub and draped in sterile fashion using a full drape. Sterile probe cover was placed on ultrasound probe. The medial and lateral heads of the sternocleidomastoid muscle were identified as was the carotid pulse. The internal jugular vein was identified using ultrasound. Anesthesia was achieved over the vein using 4 cc of 1% lidocaine. Using real-time out of plane guidance, the introducer needle was inserted into the internal jugular vein under direct ultrasound visualization. Venous blood was withdrawn. The syringe was removed and a guidewire was advanced into the introducer needle. The guidewire was visualized in the internal jugular vein by ultrasound. A small incision was made at the skin surface with a scalpel and the introducer needle was exchanged for a dilator over the guidewire. After appropriate dilation was obtained, the dilator was exchanged over a wire for a 7 Camb[place]ian, 20 cm central venous catheter. The wire was removed and the catheter was sutured in place at 15 cm. A IO patch was placed and a sterile Sorbaview shield was placed over the catheter at the insertion site. The patient tolerated the procedure well without any hemodynamic compromise. At time of procedure completion, all ports aspirated and flushed properly. Postprocedure x-ray shows central line in proper place. Estimated blood loss is approximately 10 cc. Indication for Procedure: IV medication, fluid administration. Provider: OTONIEL YAN - Central Line Right Internal jugular Consent obtained: No - Multiple attempts to reach family prior to procedure. Central line pre-insertion: Sterile PPE donned, Chloraprep applied, Sterile drapes applied Central line lumen type: Triple Anesthetic type: 1% Lidocaine mL's of anesthesia: 4 Ultrasound guided: Yes CM at insertion site: 15 Line secured with sutures: Yes Central line post-insertion: Blood return from lumens, Biopatch applied, Sutured, Sterile dressing applied, Position confirmed w/ CXR Number of attempts: 1 Complications: Yes
--- NOTE | 2020-03-06 07:24 | Operative Report ---
Bedside Procedure - History of Present Illness History of Present Illness: Indication: Respiratory Failure Procedure solution make up operator: JOHN Jonas Attending physician: Dr. Tellez Consent: The procedure was performed emergently and the permission was implied because of the emergent nature. Procedure summary: A timeout was performed. My hands were washed immediately prior to the procedure. I were surgical cap, mask with protective eyewear, gown and gloves throughout the procedure. The patient was placed on a cardiac/vascular sonographer including continuous pulse oximetry. Rapid sequence intubation was conducted. The patient received no sedation as she was completely obtunded. Cricoid pressure was maintained from time induction agent was given the time of cuff balloon inflation. Using a MAC 4 laryngoscope and a size 7.5 endotracheal tube with stylette, the patient was intubated on the first attempt. The stylette was removed and the cuff balloon was inflated. Appropriate endotracheal tube position was confirmed by direct visualization of vocal cord passage, CO2 colorimetric indicator and symmetric breath sounds. The tube was secured at 26 centimeters at the lips. Post intubation chest x-ray showed ET tube at the level of the christine. ET tube was pulled back and secured at 21 cm at the lip. Repeat CXR pending. Indication for Procedure: Acute respiratory failure Date: 03/06/20 Provider: OTONIEL YAN
--- NOTE | 2020-03-06 07:50 | Progress Note ---
Provider Note Provider Note: Patient seen shortly after Ganesh Bermudez NP. Patient was intubated for obtudation and hypercarbia. Not hypoxia. PCO2 182. Ativan in the face of neurological disease like seizure will move the PCO2 response curve to allow for more CO2 retention. Benzodiazepines are the first line treatment for seizures. Will check an ABG to see where her PCO2 and pH are. We will then be in a better position to wean. Aspiration is certainly a possibility.
--- NOTE | 2020-03-06 09:00 | RADIOLOGY REPORT (SQ) ---
EXAM DESCRIPTION: CHEST SINGLE VIEW IMAGES COMPLETED DATE/TIME: 03/06/2020 8:37 am REASON FOR STUDY: Central line placement COMPARISON: 03/06/2020 earlier. FINDINGS: Single-view AP portable upright image. New right internal jugular line with tip to the cavoatrial junction with no evidence of pneumothorax. The ENDOTRACHEAL TUBE IS AT THE KATIE with tip just at the orifice of the right mainstem bronchus. This needs to be retracted 2- 3 cm or so. Nasogastric tube remains down. Improved lung aeration. Patchy persistent right upper lobe airspace disease. TECHNICAL DOCUMENTATION: JOB ID: [id number] Reading location - IP/workstation name: [email or web address]
[2020-03-06] MEDS: VALPROATE SODIUM 500 MG in NORMAL SALINE 100 ML IV SCH (10:50)
[2020-03-06] MEDS: CLONAZEPAM 1 MG TABLET PO SCH ×3 (10:50→19:18)
[2020-03-06] MEDS: PANTOPRAZOLE SODIUM 40 MG VIAL IV SCH (10:51)
[2020-03-06] MEDS: ESCITALOPRAM OXALATE 10 MG TABLET PO SCH (10:51)
[2020-03-06] MEDS: HEPARIN SOD (PORCINE) 5,000 UNIT/ML 1 ML VIAL SUBCUT SCH ×2 (10:52→16:37)
[2020-03-06 15:41] LABS: ARTERIAL BLOOD BASE EXCESS 1.9 mmol/L; ARTERIAL BLOOD H2CO3 0.86 mmol/L (1.05-1.35); ARTERIAL BLOOD HCO3 23.7 mmol/L (20-24); ARTERIAL BLOOD O2 SATURATION 96.1 % (94-98); ARTERIAL BLOOD PCO2 28.6 mmHg (35-45); ARTERIAL BLOOD PH 7.54 (7.35-7.45); ARTERIAL BLOOD PO2 71.4 mmHg (80-100); ARTERIAL BLOOD TOTAL CO2 24.6 mmol/L (21-25)
[2020-03-06 15:42] LABS: ARTERIAL BLOOD FIO2 35%
[2020-03-06] MEDS ORDERED: PIPERACILLIN SODIUM/TAZOBACTAM 4.5 GM in NORMAL SALINE 100 ML IV SCH (17:00)
[2020-03-06] MEDS ORDERED: PIPERACILLIN/TAZOBACTAM 3.375 GM VIAL IV ONE (18:13)
[2020-03-06] MEDS ORDERED: PIPERACILLIN/TAZOBACTAM 3.375 GM VIAL IV PRN (18:13)
[2020-03-06] MEDS ORDERED: PIPERACILLIN SODIUM/TAZOBACTAM 4.5 GM in NORMAL SALINE 100 ML IV ONE (18:15)
[2020-03-06] MEDS ORDERED: METOPROLOL TARTRATE PF/INJ 5 MG/5 ML SDV IV PRN (18:41)
[2020-03-06] MEDS: VALPROATE SODIUM IV SCH (19:06)
[2020-03-06] MEDS: NORMAL SALINE IV SCH (19:06)
[2020-03-06] MEDS ORDERED: PIPERACILLIN SODIUM/TAZOBACTAM 3.375 GM in NORMAL SALINE 100 ML IV ONE (19:30)
[2020-03-06] MEDS ORDERED: ETOMIDATE INJ/PF 20 MG/10 ML SDV IV ONE (20:24)
[2020-03-06 20:33] LABS: ARTERIAL BLOOD H2CO3 1.48 mmol/L (1.05-1.35); ARTERIAL BLOOD PCO2 49.1 mmHg (35-45); ARTERIAL BLOOD PH 7.32 (7.35-7.45)
[2020-03-06 20:34] LABS: ARTERIAL BLOOD HCO3 24.6 mmol/L (20-24); ARTERIAL BLOOD TOTAL CO2 26.1 mmol/L (21-25)
[2020-03-06 20:37] LABS: ARTERIAL BLOOD BASE EXCESS -1.9 mmol/L; ARTERIAL BLOOD O2 SATURATION 98.2 % (94-98)
[2020-03-06 20:38] LABS: ARTERIAL BLOOD FIO2 50%
[2020-03-06] MEDS: CLONIDINE HCL 0.1 MG TABLET PO SCH (21:29)
[2020-03-06] MEDS ORDERED: INSULIN GLARGINE,HUM.REC.ANLOG 1,000 UNIT/10 ML VIAL (PYX) SUBCUT ONE (23:05)
[2020-03-07] MEDS ORDERED: PIPERACILLIN SODIUM/TAZOBACTAM 4.5 GM in NORMAL SALINE 100 ML IV SCH ×2
[2020-03-07] MEDS ORDERED: PIPERACILLIN/TAZOBACTAM 3.375 GM VIAL IV PRN (00:27)
[2020-03-07] MEDS ORDERED: PIPERACILLIN/TAZOBACTAM 3.375 GM VIAL IV ONE (01:20)
[2020-03-07] MEDS: PIPERACILLIN SODIUM/TAZOBACTAM 3.375 GM in NORMAL SALINE 100 ML IV SCH ×2 (01:31→05:30)
[2020-03-07] MEDS ORDERED: CLONIDINE 0.1 MG/24 HR PATCH.TDWK TD SCH ×2 (05:00→10:00)
[2020-03-07 05:04] LABS: HEMATOCRIT 36.2 % (36.0-47.0); HEMOGLOBIN 12.1 g/dL (12.0-15.5); MEAN CORPUSCULAR HEMOGLOBIN 28.4 pg (27.0-33.4); MEAN CORPUSCULAR HGB CONC 33.5 g/dL (32.0-36.0); MEAN CORPUSCULAR VOLUME 85 fl (80-97); PLATELET COUNT 104 10^3/uL (150-450); RED BLOOD COUNT 4.27 10^6/uL (3.72-5.28); RED CELL DISTRIBUTION WIDTH 14.7 % (11.5-14.0); WHITE BLOOD COUNT 9.4 10^3/uL (4.0-10.5)
[2020-03-07] MEDS: INSULIN LISPRO 100 UNIT/ML 3 ML VIAL SUBCUT SCH ×3 (05:15→18:12)
[2020-03-07] MEDS ORDERED: CLONIDINE 0.1 MG/24 HR PATCH.TDWK ONE (05:20)
[2020-03-07 05:22] LABS: BLOOD UREA NITROGEN 8 mg/dL (7-20); CALCIUM 7.7 mg/dL (8.4-10.2); GLUCOSE 120 mg/dL (75-110)
[2020-03-07 05:28] LABS: CARBON DIOXIDE 30 mmol/L (22-30); CHLORIDE 111 mmol/L (98-107)
[2020-03-07 05:30] LABS: ANION GAP 2 (5-19); POTASSIUM 2.5 mmol/L (3.6-5.0)
[2020-03-07] MEDS ORDERED: KETOROLAC TROMETHAMINE INJ/PF 30 MG/1 ML SDV IV SCH (06:00)
[2020-03-07] MEDS: POTASSI CL 20 MEQ/50 ML RIDER 20 MEQ/50 ML RTUPB IV SCH ×6 (06:02→22:28)
[2020-03-07] MEDS: VALPROATE SODIUM 500 MG in NORMAL SALINE 100 ML IV SCH (09:09)
[2020-03-07] MEDS ORDERED: FOSFOMYCIN TROMETHAMINE 3 GM PACKET PO ONE ×2 (09:30→10:28)
[2020-03-07] MEDS ORDERED: PHARMACY COMMUNICATION ORDER MC NR ×2 (10:00→16:45)
[2020-03-07] MEDS: ESCITALOPRAM OXALATE 10 MG TABLET PO SCH (10:32)
[2020-03-07] MEDS: CLONAZEPAM 1 MG TABLET PO SCH (10:32)
[2020-03-07] MEDS: RINGERS SOLUTION,LACTATED 1,000 ML IV PRN (14:54)
[2020-03-07 15:07] LABS: BLOOD UREA NITROGEN 5 mg/dL (7-20); PHOSPHORUS 0.8 mg/dL (2.5-4.5)
[2020-03-07 15:12] LABS: CARBON DIOXIDE 32 mmol/L (22-30); CHLORIDE 105 mmol/L (98-107)
[2020-03-07 15:24] LABS: ANION GAP 4 (5-19); POTASSIUM 2.5 mmol/L (3.6-5.0)
[2020-03-07 15:25] LABS: GLUCOSE 62 mg/dL (75-110)
[2020-03-07] MEDS: NORMAL SALINE IV SCH (18:03)
[2020-03-07] MEDS: VALPROATE SODIUM IV SCH (18:03)
[2020-03-07] MEDS: DEXTROSE 50%-WATER 25 GM/50 ML DISP.SYRIN IV PRN (18:25)
--- NOTE | 2020-03-07 19:07 | PDOC CRITICAL CARE PROG REPORT ---
General Date:: 03/07/20 ICU Day:: 2 Hospital Day:: 4 Resuscitation Status: Full Code Medical Power of Nautical Instrument Mechanic: BrotherRick -[phone] Events in the past 12 to 24 Hours:: 03.07.2020: Patient was successfully extubated yesterday. Has had no negative consequences and remains without hypoxia or obtundation Review of systems relevant to events:: 03.07.2020: Valproate levels done earlier in the day acceptable and ammonia level was not elevated on Depakote. Spoke with [facility] today to determine patient's baseline status as well as her brother Rick Luciano. What we determine is that patient has a decline in her neuro status and trends toward encephalopathy as an alteration of her already present dementia. She does have times of lucidity but whenever she is ill or exposed to critical illness or has a UTI she has a decline in her neurological status. When we discussed what she currently is doing with garbled persistent loud speech he was not surprised and has seen this behavior before. [facility] facility relates that she has been doing this type of activity approximately 1 week prior to her admission to the hospital. She normally remains in a contracted state as far as her lower extremities. She has had chronic irritation of her perineum and was seen by gynecology. No specific or pathological process was noted. She has the similar excoriations on her legs from chronic inappropriate scratching. It is also noted that her son committed suicide approximately [address] As per Dr. Sam she is excellent review of her past medical history these things are also noted: Review of records from [facility] indicate the following diagnoses has been present: Type 2 diabetes mellitus without complication Delusional disorder Dysphasia oropharyngeal phase Gastroesophageal reflux with esophagitis Unspecified symptoms and signs involving cognitive functions and awareness Restlessness and agitation Major depressive disorder Pseudobulbar affect Acute vaginitis Dementia and other diseases classified elsewhere with behavioral disturbance History of alcohol abuse Hyperlipidemia Anemia Reason for ICU Addmission:: Acute respiratory failure - Medications: Medications reviewed and adjusted accordingly: Yes Vasopressors:: none Sedation:: none Physical Exam Vital Signs: Temp Pulse Resp BP Pulse Ox 100.2 F 109 H 12 161/130 H 98 03/07/20 16:00 03/07/20 16:00 03/07/20 16:00 03/07/20 16:03/07/20 16:00 Intake & Output 03/06/20 03/07/20 03/08/20 06:59 06:59 06:59 Intake Total 1314.5 2445.5 50 Output Total 450 1355 1600 Balance 864.5 1090.5 -1550 Weight 58.9 kg 56.7 kg Weight/Height Weight 56.7 kg Height 5 ft 2 in General appearance: PRESENT: disheveled, obese, other Exam: Extubated, chronically ill-appearing nontoxic 54-year-old female who appears older than stated age. She is awake and has persistent garbled and incessant verbalization. This ceases with gentle reassurance but patient is not fully lucid. Head exam: PRESENT: atraumatic Eye exam: PRESENT: PERRLA. ABSENT: conjunctival injection, nystagmus, scleral icterus Mouth exam: PRESENT: dry mucosa, neck supple Neck exam: ABSENT: carotid bruit, JVD, lymphadenopathy, tenderness, thyromegaly, tracheal deviation Respiratory exam: PRESENT: clear to auscultation toño, unlabored. ABSENT: access ory muscle use, rales, rhonchi, tachypnea, wheezes Cardiovascular exam: PRESENT: RRR, +S1, +S2. ABSENT: systolic murmur GI/Abdominal exam: PRESENT: normal bowel sounds, soft. ABSENT: ascites, distended, guarding, mass, organolmegaly, rebound, tenderness Rectal exam: PRESENT: deferred Gentrourinary exam: PRESENT: indwelling catheter Extremities exam: PRESENT: +1 edema Musculoskeletal exam: PRESENT: other - Chronic inward knee flexion with 90 deg ree retained maye state of both lower extremities. Neurological exam: PRESENT: altered, motor sensory deficit, other - Does not follow commands. Does cease persistent verbalization when instructed to do so. ABSENT: CN II-XII grossly intact Psychiatric exam: PRESENT: agitated, unusual affect Focused psych exam: PRESENT: psychomotor agitation, restlessness Skin exam: PRESENT: normal color, other - Chronic healing superficial skin abrasions of lower extremity. ABSENT: erythema, jaundice, pallor, petechiae Tubes/Lines: PRESENT: Central Line - Right internal jugular intact, no erythema, Other - Lopes type urinary catheter Laboratory/Radiographs Laboratory Results: 03/07/20 04:50 03/07/20 14:23 03/06/20 03/07/20 03/07/20 20:20 04:50 04:50 WBC 9.4 RBC 4.27 Hgb 12.1 Hct 36.2 MCV 85 MCH 28.4 MCHC 33.5 RDW 14.7 H Plt Count 104 L Carbonic Acid 1.48 H HCO3/H2CO3 Ratio 16:1 ABG pH 7.32 L ABG pCO2 49.1 H ABG pO2 126.0 H ABG HCO3 24.6 H ABG O2 Saturation 98.2 H ABG Base Excess -1.9 FiO2 50% Sodium 143.0 Potassium 2.5 L* D Chloride 111 H Carbon Dioxide 30 Anion Gap 2 L BUN 8 Creatinine 0.57 Est GFR ( Amer) > 60 Glucose 120 H Calcium 7.7 L Phosphorus Magnesium Ammonia TSH 03/07/20 03/07/20 03/07/20 09:54 09:54 11:07 WBC RBC Hgb Hct MCV MCH MCHC RDW Plt Count Carbonic Acid HCO3/H2CO3 Ratio ABG pH ABG pCO2 ABG pO2 ABG HCO3 ABG O2 Saturation ABG Base Excess FiO2 Sodium Potassium Chloride Carbon Dioxide Anion Gap BUN Creatinine Est GFR ( Amer) Glucose Calcium Phosphorus Magnesium Ammonia Cancelled < 8.7 L TSH 2.46 03/07/20 14:23 WBC RBC Hgb Hct MCV MCH MCHC RDW Plt Count Carbonic Acid HCO3/H2CO3 Ratio ABG pH ABG pCO2 ABG pO2 ABG HCO3 ABG O2 Saturation ABG Base Excess FiO2 Sodium 140.6 Potassium 2.5 L* Chloride 105 Carbon Dioxide 32 H Anion Gap 4 L BUN 5 L Creatinine 0.50 L Est GFR ( Amer) > 60 Glucose 62 L Calcium 8.0 L Phosphorus 0.8 L Magnesium 1.5 L Ammonia TSH 03/03/20 10:15 Blood Blood Culture - Final Staphylococcus Hominis 03/03/20 10:15 Troponin I 0.030 All labs, radiographs, diagnostic studies and EKGs were personally reviewed: Yes In addition, reports of radiographic and diagnostic studies were read: Yes Assessment and Plan - Diagnosis (1) Hypercapnic respiratory failure Qualifiers: Chronicity: acute Qualified Code(s): J96.02 - Acute respiratory failure with hypercapnia Is this a current diagnosis for this admission?: Yes (2) Sepsis Qualifiers: Sepsis type: Escherichia coli Sepsis acute organ dysfunction status: with acute organ dysfunction Severe sepsis acute organ dysfunction type: acute gabrielle al failure Acute renal failure type: with acute tubular necrosis Severe sepsis shock status: without septic shock Qualified Code(s): A41.51 - Sepsis due to Escherichia coli [E. coli]; R65.20 - Severe sepsis without septic shock; N17.0 - Acute kidney failure with tubular necrosis Is this a current diagnosis for this admission?: Yes (3) UTI due to extended-spectrum beta lactamase (ESBL) producing Escherichia coli Is this a current diagnosis for this admission?: Yes Plan: This has not been improved but indirect evidence suggestive of an ESBL (4) Dementia Qualifiers: Dementia type: associated with other underlying disease Dementia behavioral disturbance: with behavioral disturbance Qualified Code(s): F02.81 - Dementia in other diseases classified elsewhere with behavioral disturbance Is this a current diagnosis for this admission?: Yes (5) Delirium due to another medical condition, acute, hyperactive Is this a current diagnosis for this admission?: Yes (6) Acute metabolic encephalopathy Is this a current diagnosis for this admission?: Yes (7) Hypernatremia Is this a current diagnosis for this admission?: Yes Plan Summary: Respiratory: Patient's respiratory status has improved and she has remained stable post liberation from mechanical ventilation. In that she had hypercarbic failure she is at risk for further hypercarbic failure especially if benzodiazepines are used. We will continue to monitor and follow her neurol ogical status as well as her respiratory status. Infectious: Patient has a urinary tract infection and has had multiple frequent urinary tract infections. She does not have a chronic indwelling Lopes catheter. This is most likely related to anatomical as well as self- perpetuating behaviors. She has significant resistance and have elected to give her fosfomycin which is been known to treat ESBL type infections. I am reluctant to use a carbanepem because of the seizure risk. Continue to monitor and follow closely Cardiac: Patient's blood pressure has been slightly elevated improvement in her sepsis. We will begin her oral clonidine and discontinue the patch and utilize PRN medication. Hematologic: Continue to monitor. Endocrine: No active issues. Continue to monitor Renal: Patient had acute renal failure although her creatinine was "normal" it has decreased by 50% indicative of acute tubular necrosis related to sepsis. I am concerned that she has retained metabolites which may caused her neurological decline. Metabolic: Continue to monitor and treat metabolic and endocrine abnormalities Alimentary: Patient has poor swallowing function and will need a speech and swallow eval. Will place feeding tube for adequate nutrition. She did have a feeding tube in the form of a PEG tube a number of years ago. We have had conflicting stories regarding this feeding tube. 1 story reflects that she cut the tube herself. Her brother is unsure of this. Patient may need this especially for speech and swallow eval is indicative of longstanding chronic swallowing dysfunction. On her intubation she was noted to have retained food products. Neurologic: Patient has persistent restlessness and garbled verbalization. We will continue to monitor for improvement. Monitor for neurological decline and hypercarbia Sedation/analgesia: No active. Patient has a history of tardive dyskinesia. Depakote levels are acceptable. Lines/Tubes: Central line placed 03.06.2020 Other/family: Spoke with brother Rick today. Please see above Critical Time Critical Time (minutes): 44 Level of Care: ICU - He has exactly exactly Anticipated discharge: SNF -: 1. The care of a critical patient is a dynamic process. This note is a inside account representative synopsis but static in nature. The timeframe for treatments given in order is not necessarily the actual time these treatments may have been done. 2. This patient requires critical care secondary to ongoing requirements for therapy not offered or safe outside the critical care environment. Transfer to a lower level of care will result in altered life or limb morbidity and mortality. 3. Multidisciplinary rounds completed. 4. ABCDE bundle addressed.
--- NOTE | 2020-03-07 20:47 | RADIOLOGY REPORT (SQ) ---
EXAM DESCRIPTION: RadLex: XR ABDOMEN 1 VIEW (KUB) CLINICAL HISTORY: 54 years Female; NGT placement; COMPARISON: None. FINDINGS: Bowel gas pattern is within normal limits, with no significant distention. No pneumatosis. Nasogastric tube tip is in the stomach. The proximal sidehole is at the gastroesophageal junction. Midline upper abdominal embolization coils are noted. A right hip replacement is partially visualized. A central line is partially visualized, tip at the cavoatrial junction. IMPRESSION: 1. Nasogastric tube tip is in the stomach. The proximal sidehole is at the gastroesophageal junction. Consider advancing several centimeters.
[2020-03-07] MEDS: CLONIDINE HCL 0.1 MG TABLET PO SCH (21:03)
[2020-03-07] MEDS: CLONAZEPAM 1 MG TABLET NG SCH (21:11)
[2020-03-07] MEDS: INSULIN GLARGINE,HUM.REC.ANLOG 1,000 UNIT/10 ML VIAL SUBCUT SCH (22:27)
[2020-03-08] MEDS: INSULIN LISPRO 100 UNIT/ML 3 ML VIAL SUBCUT SCH ×5 (00:04→23:25)
[2020-03-08] MEDS: VALPROATE SODIUM 500 MG in NORMAL SALINE 100 ML IV SCH (08:21)
--- NOTE | 2020-03-08 08:38 | RADIOLOGY REPORT (SQ) ---
EXAM DESCRIPTION: CHEST SINGLE VIEW IMAGES COMPLETED DATE/TIME: 03/08/2020 6:51 am REASON FOR STUDY: intubation COMPARISON: 03/06/2020 NUMBER OF VIEWS: One view. TECHNIQUE: Single frontal radiographic image of the chest acquired. LIMITATIONS: None. FINDINGS: LUNGS AND PLEURA: Stable appearance. No pneumothorax. MEDIASTINUM AND HEART: Stable heart size and mediastinal structures. SUPPORT DEVICES: Interval removal of endotracheal tube. BONY STRUCTURES: No acute findings. HARDWARE: None. OTHER: No other significant finding. IMPRESSION: Stable chest status post extubation. Reading location - IP/workstation name: [email or web address]
[2020-03-08 08:44] LABS: HEMATOCRIT 36.2 % (36.0-47.0); MEAN CORPUSCULAR HEMOGLOBIN 28.1 pg (27.0-33.4); MEAN CORPUSCULAR HGB CONC 33.3 g/dL (32.0-36.0); MEAN CORPUSCULAR VOLUME 84 fl (80-97); PLATELET COUNT 110 10^3/uL (150-450); RED BLOOD COUNT 4.29 10^6/uL (3.72-5.28); RED CELL DISTRIBUTION WIDTH 14.6 % (11.5-14.0); WHITE BLOOD COUNT 7.4 10^3/uL (4.0-10.5)
[2020-03-08 09:00] LABS: BLOOD UREA NITROGEN 2 mg/dL (7-20); CALCIUM 7.4 mg/dL (8.4-10.2); GLUCOSE 118 mg/dL (75-110); PHOSPHORUS 1.5 mg/dL (2.5-4.5)
[2020-03-08 09:05] LABS: CARBON DIOXIDE 33 mmol/L (22-30); CHLORIDE 102 mmol/L (98-107)
[2020-03-08 09:12] LABS: ANION GAP 3 (5-19); POTASSIUM 2.9 mmol/L (3.6-5.0)
[2020-03-08 09:25] LABS: ARTERIAL BLOOD BASE EXCESS 6.9 mmol/L; ARTERIAL BLOOD H2CO3 1.29 mmol/L (1.05-1.35); ARTERIAL BLOOD HCO3 31.2 mmol/L (20-24); ARTERIAL BLOOD O2 SATURATION 96.7 % (94-98); ARTERIAL BLOOD PH 7.48 (7.35-7.45); ARTERIAL BLOOD PO2 82.2 mmHg (80-100); ARTERIAL BLOOD TOTAL CO2 32.5 mmol/L (21-25)
[2020-03-08 09:26] LABS: ARTERIAL BLOOD FIO2 28%
[2020-03-08] MEDS: ESCITALOPRAM OXALATE 10 MG TABLET NG SCH (10:05)
[2020-03-08] MEDS: CLONAZEPAM 1 MG TABLET NG SCH ×2 (10:05→18:49)
[2020-03-08] MEDS: RINGERS SOLUTION,LACTATED 1,000 ML IV PRN ×2 (10:08→19:49)
[2020-03-08] MEDS: CLONIDINE 0.2 MG/24 HR PATCH.TDWK TD SCH (13:43)
[2020-03-08 15:30] LABS: BLOOD UREA NITROGEN 2 mg/dL (7-20); CALCIUM 7.3 mg/dL (8.4-10.2); CARBON DIOXIDE 34 mmol/L (22-30); CHLORIDE 101 mmol/L (98-107); GLUCOSE 83 mg/dL (75-110)
[2020-03-08 15:36] LABS: ANION GAP 1 (5-19); POTASSIUM 2.8 mmol/L (3.6-5.0)
--- NOTE | 2020-03-08 17:15 | PDOC CRITICAL CARE PROG REPORT ---
General Date:: 03/08/20 ICU Day:: 3 Hospital Day:: 5 Resuscitation Status: Full Code Medical Power of Palletizer: Brother, Rick Luciano -[phone] Events in the past 12 to 24 Hours:: 03.08.2020: Patient's neurological status is actually improved. She is more responsive today. Overnight she did have episodes of apnea and BiPAP was ordered however, apparently improved and did not require it. She endorses that she is hungry. 03.07.2020: Patient was successfully extubated yesterday. Has had no negative consequences and remains without hypoxia or obtundation Review of systems relevant to events:: 03.08.2020: Patient has had significant diarrhea and a C. difficile study was sent. It is still pending. Neurological status has improved and she is now answering in 1-2 word sentences. She still has intermittent outbreaks of verbal perseveration but not as severe as yesterday. ESBL organism noted in urine 03.07.2020: Valproate levels done earlier in the day acceptable and ammonia level was not elevated on Depakote. Spoke with [facility] today to determine patient's baseline status as well as her brother Rick Luciano. What we determine is that patient has a decline in her neuro status and trends toward encephalopathy as an alteration of her already present dementia. She does have times of lucidity but whenever she is ill or exposed to critical illness or has a UTI she has a decline in her neurological status. When we discussed what she currently is doing with garbled persistent loud speech he was not surprised and has seen this behavior before. [facility] facility relates that she has been doing this type of activity approximately 1 week prior to her admission to the hospital. She normally remains in a contracted state as far as her lower extremities. She has had chronic irritation of her perineum and was seen by gynecology. No specific or pathological process was noted. She has the similar excoriations on her legs from chronic inappropriate scratching. It is also noted that her son committed suicide approximately 1 [address] As per Dr. Sam she is excellent review of her past medical history these things are also noted: Review of records from [facility] indicate the following diagnoses has been present: Type 2 diabetes mellitus without complication Delusional disorder Dysphasia oropharyngeal phase Gastroesophageal reflux with esophagitis Unspecified symptoms and signs involving cognitive functions and awareness Restlessness and agitation Major depressive disorder Pseudobulbar affect Acute vaginitis Dementia and other diseases classified elsewhere with behavioral disturbance History of alcohol abuse Hyperlipidemia Anemia Reason for ICU Addmission:: Acute respiratory failure - Medications: Medications reviewed and adjusted accordingly: Yes Vasopressors:: none Sedation:: none Physical Exam Vital Signs: Temp Pulse Resp BP Pulse Ox 99.0 F 96 17 100/75 100 03/08/20 12:00 03/08/20 16:00 03/08/20 16:00 03/08/20 16:00 03/08/20 16:00 Intake & Output 03/07/20 03/08/20 03/09/20 06:59 06:59 06:59 Intake Total 2445.5 1457.5 100 Output Total 1355 3575 1395 Balance 1090.5 -2117.5 -1295 Weight 56.7 kg 54 kg Weight/Height Weight 54 kg Height 5 ft 2 in General appearance: PRESENT: cooperative, disheveled, obese Exam: Not intubated, non-stridorous 54-year-old female who appears older than stated age. She is in no acute distress Head exam: PRESENT: atraumatic Eye exam: PRESENT: EOMI, PERRLA. ABSENT: conjunctival injection, nystagmus, scleral icterus Mouth exam: PRESENT: moist, neck supple Teeth exam: PRESENT: poor dentation Neck exam: ABSENT: carotid bruit, JVD, lymphadenopathy, meningismus, tenderness, thyromegaly, tracheal deviation Respiratory exam: PRESENT: clear to auscultation toño, unlabored. ABSENT: accessory muscle use, rales, rhonchi, tachypnea, wheezes Cardiovascular exam: PRESENT: RRR. ABSENT: tachycardia Vascular exam: PRESENT: normal capillary refill. ABSENT: pallor GI/Abdominal exam: PRESENT: normal bowel sounds, soft. ABSENT: ascites, distended, guarding, mass, organolmegaly, rebound, tenderness Rectal exam: PRESENT: deferred, other - Diarrhea noted Gentrourinary exam: PRESENT: indwelling catheter Extremities exam: ABSENT: pedal edema Musculoskeletal exam: PRESENT: deformity - Chronic flexor contraction at knees Neurological exam: PRESENT: alert, awake - Has chronic contraction of lower extremities. There is mild movement. Upper extremities move to command Psychiatric exam: PRESENT: flat affect, unusual affect Focused psych exam: PRESENT: psychomotor agitation Skin exam: PRESENT: abrasion - To lower extremities personal trauma, dry. ABSENT: erythema, jaundice, pallor, petechiae Tubes/Lines: PRESENT: Other - Lopes type urinary catheter Laboratory/Radiographs Laboratory Results: 03/08/20 08:32 03/08/20 14:45 03/08/20 03/08/20 03/08/20 08:32 08:32 08:32 WBC 7.4 RBC 4.29 Hgb 12.0 Hct 36.2 MCV 84 MCH 28.1 MCHC 33.3 RDW 14.6 H Plt Count 110 L Carbonic Acid HCO3/H2CO3 Ratio ABG pH ABG pCO2 ABG pO2 ABG HCO3 ABG O2 Saturation ABG Base Excess FiO2 Sodium 137.5 Potassium 2.9 L* Chloride 102 Carbon Dioxide 33 H Anion Gap 3 L BUN 2 L Creatinine 0.38 L Est GFR ( Amer) > 60 Glucose 118 H Calcium 7.4 L Phosphorus 1.5 L Magnesium 1.5 L 03/08/20 03/08/20 09:15 14:45 WBC RBC Hgb Hct MCV MCH MCHC RDW Plt Count Carbonic Acid 1.29 HCO3/H2CO3 Ratio 24:1 ABG pH 7.48 H ABG pCO2 43.0 ABG pO2 82.2 ABG HCO3 31.2 H ABG O2 Saturation 96.7 ABG Base Excess 6.9 FiO2 28% Sodium 136.4 L Potassium 2.8 L* Chloride 101 Carbon Dioxide 34 H Anion Gap 1 L BUN 2 L Creatinine 0.44 L Est GFR ( Amer) > 60 Glucose 83 Calcium 7.3 L Phosphorus Magnesium 03/03/20 12:45 Blood Blood Culture - Final NO GROWTH IN 5 DAYS 03/03/20 10:15 Troponin I 0.030 Impressions: KUB X-Ray 03/07/20 00:00 IMPRESSION: 1. Nasogastric tube tip is in the stomach. The proximal sidehole is at the gastroesophageal junction. Consider advancing several centimeters. Chest X-Ray 03/08/20 06:00 IMPRESSION: Stable chest status post extubation. All labs, radiographs, diagnostic studies and EKGs were personally reviewed: Yes In addition, reports of radiographic and diagnostic studies were read: Yes Assessment and Plan - Diagnosis (1) Hypercapnic respiratory failure Qualifiers: Chronicity: acute Qualified Code(s): J96.02 - Acute respiratory failure with hypercapnia Is this a current diagnosis for this admission?: Yes (2) Sepsis Qualifiers: Sepsis type: Escherichia coli Sepsis acute organ dysfunction status: with acute organ dysfunction Severe sepsis acute organ dysfunction type: acute renal failure Acute renal failure type: with acute tubular necrosis Severe sepsis shock status: without septic shock Qualified Code(s): A41.51 - Sepsis due to Escherichia coli [E. coli]; R65.20 - Severe sepsis without septic shock; N17.0 - Acute kidney failure with tubular necrosis Is this a current diagnosis for this admission?: Yes (3) UTI due to extended-spectrum beta lactamase (ESBL) producing Escherichia coli Is this a current diagnosis for this admission?: Yes Plan: Confirmed on microbiologic studies (4) Dementia Qualifiers: Dementia type: associated with other underlying disease Dementia behavioral disturbance: with behavioral disturbance Qualified Code(s): F02.81 - Dementia in other diseases classified elsewhere with behavioral disturbance Is this a current diagnosis for this admission?: Yes (5) Delirium due to another medical condition, acute, hyperactive Is this a current diagnosis for this admission?: Yes (6) Acute metabolic encephalopathy Is this a current diagnosis for this admission?: Yes (7) Hypernatremia Is this a current diagnosis for this admission?: Yes Plan: Improved Plan Summary: 03.08.2020: Patient continues to improve and expected trajectory. From a neurological status she has improved and is returning to her baseline according to her brother. She was given 1 dose of Fosamax via the NG tube which based on studies has been shown to be effective against ESBL urinary tract organisms We will continue to monitor. Patient has chronic debilitating psychiatric disorder which has complicated her care both in the present in the past. Her current pertubation although improved adds complexity. We will continue to provide supportive care. I am impressed with her neurological exam today and am hopeful that this will continue to improve. We will attempt speech and swallow eval. Start tube feeding via the NG tube. Patient suitable for consideration for transfer if she remains stable from a r espiratory standpoint. She is at risk for aspiration. Concerned that she might be developing a supranuclear palsy retro-bulbar palsy hence the need for swallow evaluation. Will attempt BiPAP at night Discontinue central line 03.07.2020: Respiratory: Patient's respiratory status has improved and she has remained stable post liberation from mechanical ventilation. In that she had hypercarbic failure she is at risk for further hypercarbic failure especially if benzodiazepines are used. We will continue to monitor and follow her neurological status as well as her respiratory status. Infectious: Patient has a urinary tract infection and has had multiple frequent urinary tract infections. She does not have a chronic indwelling Lopes catheter. This is most likely related to anatomical as well as self- perpetuating behaviors. She has significant resistance and have elected to give her fosfomycin which is been known to treat ESBL type infections. I am reluctant to use a carbanepem because of the seizure risk. Continue to monitor and follow closely Cardiac: Patient's blood pressure has been slightly elevated improvement in her sepsis. We will begin her oral clonidine and discontinue the patch and utilize PRN medication. Hematologic: Continue to monitor. Endocrine: No active issues. Continue to monitor Renal: Patient had acute renal failure although her creatinine was "normal" it has decreased by 50% indicative of acute tubular necrosis related to sepsis. I am concerned that she has retained metabolites which may caused her neurological decline. Metabolic: Continue to monitor and treat metabolic and endocrine abnormalities Alimentary: Patient has poor swallowing function and will need a speech and swallow eval. Will place feeding tube for adequate nutrition. She did have a feeding tube in the form of a PEG tube a number of years ago. We have had conflicting stories regarding this feeding tube. 1 story reflects that she cut the tube herself. Her brother is unsure of this. Patient may need this especially for speech and swallow eval is indicative of longstanding chronic swallowing dysfunction. On her intubation she was noted to have retained food products. Neurologic: Patient has persistent restlessness and garbled verbalization. We will continue to monitor for improvement. Monitor for neurological decline and hypercarbia Sedation/analgesia: No active. Patient has a history of tardive dyskinesia. Depakote levels are acceptable. Lines/Tubes: Central line placed 03.06.2020 Other/family: Spoke with brother Rick today. Please see above Critical Time Critical Time (minutes): 0 - [id number] Level of Care: ICU Anticipated discharge: SNF Anticipated DC Timeframe: within 48 hours -: 1. The care of a critical patient is a dynamic process. This note is a telephone service representative synopsis but static in nature. The timeframe for treatments given in order is not necessarily the actual time these treatments may have been done. 2. This patient requires critical care secondary to ongoing requirements for therapy not offered or safe outside the critical care environment. Transfer to a lower level of care will result in altered life or limb morbidity and mortality. 3. Multidisciplinary rounds completed. 4. ABCDE bundle addressed.
[2020-03-08] MEDS: POTASSIUM CHLORIDE 20 MEQ PACKET PO SCH ×2 (18:00→23:25)
[2020-03-08] MEDS: POTASSI CL 20 MEQ/50 ML RIDER 20 MEQ/50 ML RTUPB IV SCH ×2 (18:00→19:48)
[2020-03-08] MEDS: NORMAL SALINE IV SCH (18:19)
[2020-03-08] MEDS: VALPROATE SODIUM IV SCH (18:19)
[2020-03-08 19:09] LABS: C DIFFICILE GDH NEGATIVE (NEGATIVE)
[2020-03-08] MEDS: DEXTROSE 50%-WATER 25 GM/50 ML DISP.SYRIN IV PRN (22:36)
[2020-03-08] MEDS: INSULIN GLARGINE,HUM.REC.ANLOG 1,000 UNIT/10 ML VIAL SUBCUT SCH (22:41)
[2020-03-09] MEDS: RINGERS SOLUTION,LACTATED 1,000 ML IV PRN (06:30)
[2020-03-09] MEDS: INSULIN LISPRO 100 UNIT/ML 3 ML VIAL SUBCUT SCH ×4 (06:55→23:35)
[2020-03-09] MEDS ORDERED: (PENDING PHARMACY ID) (Sennosides [Senna] 8.6 MG) PO PRN (08:22)
[2020-03-09] MEDS: CLONAZEPAM 1 MG TABLET NG SCH ×2 (09:01→18:26)
[2020-03-09] MEDS: ESCITALOPRAM OXALATE 10 MG TABLET NG SCH (09:02)
[2020-03-09 09:04] LABS: BLOOD UREA NITROGEN 3 mg/dL (7-20); CALCIUM 7.5 mg/dL (8.4-10.2); GLUCOSE 98 mg/dL (75-110)
--- NOTE | 2020-03-09 09:05 | PDOC CRITICAL CARE PROG REPORT ---
General Date:: 03/09/20 ICU Day:: 4 Hospital Day:: 6 Resuscitation Status: Full Code Medical Power of Door Slinger: Brother, Rick Luciano -[phone] Events in the past 12 to 24 Hours:: 03.09.2020: Patient continues to improve and has had no hemodynamic instability. Blood pressures are improved with increase in clonidine. She has had no seizures. Patient had frequent bowel movements yesterday and C. difficile studies were sent and were found to be negative for C. difficile infection 03.08.2020: Patient's neurological status is actually improved. She is more responsive today. Overnight she did have episodes of apnea and BiPAP was ordered however, apparently improved and did not require it. She endorses that she is hungry. 03.07.2020: Patient was successfully extubated yesterday. Has had no negative consequences and remains without hypoxia or obtundation Review of systems relevant to events:: 03.09.2020: Diarrhea has improved. C. difficile as noted above is negative. Patient has had significant hypokalemia and has been placed on twice daily supplementation. Her neurological status is improved however when asked questions she answers every question with "yes". 03.08.2020: Patient has had significant diarrhea and a C. difficile study was sent. It is still pending. Neurological status has improved and she is now answering in 1-2 word sentences. She still has intermittent outbreaks of verbal perseveration but not as severe as yesterday. ESBL organism noted in urine 03.07.2020: Valproate levels done earlier in the day acceptable and ammonia level was not elevated on Depakote. Spoke with [facility] today to determine patient's baseline status as well as her brother Rick Luciano. What we determine is that patient has a decline in her neuro status and trends toward encephalopathy as an alteration of her already present dementia. She does have times of lucidity but whenever she is ill or exposed to critical illness or has a UTI she has a decline in her neurological status. When we discussed what she currently is doing with garbled persistent loud speech he was not surprised and has seen this behavior before. [facility] relates that she has been doing this type of activity approximately 1 week prior to her admission to the hospital. She normally remains in a contracted state as far as her lower extremities. She has had chronic irritation of her perineum and was seen by cutlery grinder ecology. No specific or pathological process was noted. She has the similar excoriations on her legs from chronic inappropriate scratching. It is also noted that her son committed suicide approximately [address] As per Dr[address] Sam she is excellent review of her past medical history these thi ngs are also noted: Review of records from [facility] indicate the following diagnose s has been present: Type 2 diabetes mellitus without complication Delusional disorder Dysphasia oropharyngeal phase Gastroesophageal reflux with esophagitis Unspecified symptoms and signs involving cognitive functions and awareness Restlessness and agitation Major depressive disorder Pseudobulbar affect Acute vaginitis Dementia and other diseases classified elsewhere with behavioral disturbance History of alcohol abuse Hyperlipidemia Anemia Reason for ICU Addmission:: Acute respiratory failure - Medications: Medications reviewed and adjusted accordingly: Yes Vasopressors:: none Sedation:: none Physical Exam Vital Signs: Temp Pulse Resp BP Pulse Ox 97.9 F 96 24 H 113/67 100 03/09/20 05:27 03/09/20 06:38 03/09/20 04:08 03/09/20 04:08 03/09/20 04:08 Intake & Output 03/08/20 03/09/20 03/10/20 06:59 06:59 06:59 Intake Total 1457.5 2270.5 Output Total 3575 2545 Balance -2117.5 -274.5 Weight 54 kg 56.8 kg Weight/Height Weight 56.8 kg Height 5 ft 2 in General appearance: PRESENT: no acute distress, cooperative Exam: Not intubated, chronically ill-appearing 54-year-old female no active distress. Eye exam: PRESENT: PERRLA. ABSENT: conjunctival injection, nystagmus, scleral icterus Mouth exam: PRESENT: dry mucosa, neck supple Teeth exam: PRESENT: poor dentation. ABSENT: edentulous Neck exam: ABSENT: carotid bruit, JVD, lymphadenopathy, meningismus, tenderness, thyromegaly, tracheal deviation Respiratory exam: PRESENT: clear to auscultation toño, unlabored. ABSENT: accessory muscle use, rales, rhonchi, tachypnea, wheezes Cardiovascular exam: PRESENT: RRR, +S1, +S2 Vascular exam: PRESENT: normal capillary refill. ABSENT: pallor GI/Abdominal exam: PRESENT: normal bowel sounds, soft. ABSENT: ascites, distended, guarding, mass, organolmegaly, rebound, tenderness Rectal exam: PRESENT: deferred Gentrourinary exam: PRESENT: indwelling catheter Extremities exam: PRESENT: +1 edema Musculoskeletal exam: PRESENT: deformity - Chronic knee flexion. There is some ability to extend.. ABSENT: dislocation Neurological exam: PRESENT: awake, other - Patient moves upper extremities well. Lower extremities do move with command but inconsistent and very weak. Her legs are held in chronic flexion at the knee however today her left leg was able to be extended. Speech eval done and appreciate their findings. Patient would not initiate even the initial oral phase of feeding. Psychiatric exam: PRESENT: flat affect, unusual affect Focused psych exam: ABSENT: pressured speech, psychomotor agitation, restlessnes s Skin exam: PRESENT: abrasion - To lower extremity are improved.. ABSENT: jaundice, pallor, petechiae, skin tears Tubes/Lines: PRESENT: Other - Lopes catheter Laboratory/Radiographs Laboratory Results: 03/08/20 08:32 03/08/20 14:45 03/08/20 03/08/20 03/08/20 08:32 08:32 08:32 WBC 7.4 RBC 4.29 Hgb 12.0 Hct 36.2 MCV 84 MCH 28.1 MCHC 33.3 RDW 14.6 H Plt Count 110 L Carbonic Acid HCO3/H2CO3 Ratio ABG pH ABG pCO2 ABG pO2 ABG HCO3 ABG O2 Saturation ABG Base Excess FiO2 Sodium 137.5 Potassium 2.9 L* Chloride 102 Carbon Dioxide 33 H Anion Gap 3 L BUN 2 L Creatinine 0.38 L Est GFR ( Amer) > 60 Glucose 118 H Calcium 7.4 L Phosphorus 1.5 L Magnesium 1.5 L 03/08/20 03/08/20 09:15 14:45 WBC RBC Hgb Hct MCV MCH MCHC RDW Plt Count Carbonic Acid 1.29 HCO3/H2CO3 Ratio 24:1 ABG pH 7.48 H ABG pCO2 43.0 ABG pO2 82.2 ABG HCO3 31.2 H ABG O2 Saturation 96.7 ABG Base Excess 6.9 FiO2 28% Sodium 136.4 L Potassium 2.8 L* Chloride 101 Carbon Dioxide 34 H Anion Gap 1 L BUN 2 L Creatinine 0.44 L Est GFR ( Amer) > 60 Glucose 83 Calcium 7.3 L Phosphorus Magnesium 03/03/20 12:45 Blood Blood Culture - Final NO GROWTH IN 5 DAYS 03/03/20 10:15 Troponin I 0.030 Impressions: KUB X-Ray 03/07/20 00:00 IMPRESSION: 1. Nasogastric tube tip is in the stomach. The proximal sidehole is at the gastroesophageal junction. Consider advancing several centimeters. Chest X-Ray 03/08/20 06:00 IMPRESSION: Stable chest status post extubation. All labs, radiographs, diagnostic studies and EKGs were personally reviewed: Yes In addition, reports of radiographic and diagnostic studies were read: Yes Assessment and Plan - Diagnosis (1) Hypercapnic respiratory failure Qualifiers: Chronicity: acute Qualified Code(s): J96.02 - Acute respiratory failure with hypercapnia Is this a current diagnosis for this admission?: Yes (2) Sepsis Qualifiers: Sepsis type: Escherichia coli Sepsis acute organ dysfunction status: with acute organ dysfunction Severe sepsis acute organ dysfunction type: acute renal failure Acute renal failure type: with acute tubular necrosis Severe sepsis shock status: without septic shock Qualified Code(s): A41.51 - Sepsis due to Escherichia coli [E. coli]; R65.20 - Severe sepsis without septic shock; N17.0 - Acute kidney failure with tubular necrosis Is this a current diagnosis for this admission?: Yes (3) UTI due to extended-spectrum beta lactamase (ESBL) producing Escherichia coli Is this a current diagnosis for this admission?: Yes (4) Dementia Qualifiers: Dementia type: associated with other underlying disease Dementia behavioral disturbance: with behavioral disturbance Qualified Code(s): F02.81 - Dementia in other diseases classified elsewhere with behavioral disturbance Is this a current diagnosis for this admission?: Yes (5) Delirium due to another medical condition, acute, hyperactive Is this a current diagnosis for this admission?: Yes (6) Acute metabolic encephalopathy Is this a current diagnosis for this admission?: Yes (7) Hypernatremia Is this a current diagnosis for this admission?: Yes Plan Summary: 03.09.2020: Respiratory: Patient's respiratory status has remained stable. She has had initial episodes of apnea and in fact may have had been given which led to her intubation. With improvement in her neurological status and overall condition this is no longer been present. We will need to continue to monitor for any reduction in her neurological status. Have adjusted her medications and removed excessive nighttime sedation medications. She is no longer on trazodone at night or melatonin. She has not required noninvasive ventilation since extubation Infectious: Patient had an ESBL producing E. coli organism in her urine. This was also associated with an elevation in her urinary white blood cell count. She was given 1 dose of fosfomycin. Urinary studies sent in 24 to 48 hours. Urinalysis has been ordered. Cardiac: Patient's blood pressure has stabilized with current medication. She has not received required any supplemental blood pressure medications. She is on clonidine patch and will need to be full of any reduction in neurological exam with this medication Hematologic: No active hematologic issues are present. Monitor supportively Endocrine: Patient has had lower blood sugars and have reduced his Lantus to 8 units. I have not restarted metformin secondary to concerns for need for further testing. She may be considered for re-initiation of this medication as long as she is stable prior to discharge. Her TSH is acceptable at 2.4 Renal: Patient had elevation in creatinine which has improved. Her acute renal dysfunction was related to sepsis and is improved. Will discontinue Lopes. She does have self-induced vaginitis and perineal irritation and has been placed on estrogen supplementation. Have restarted this. Metabolic: Patient has had persistent hypokalemia which may have been related to her diarrhea in the past 2 days. Diarrhea has improved and I have discontinued twice daily supplementation. We are awaiting this morning's labs to determine whether supplementation will be needed. She may need daily potassium but this will need to be monitored closely Alimentary: Patient did not pass her speech eval. There was concern that she might have a neurological dysfunction related to this. In addition whenever she is ill her overall condition changes. At one point she did have a PEG tube in and this may need to be considered once again. Would advise a neurological ev aluation for occult neuromuscular dysfunction. At this point we will continue NG tube feedings until neurological situation changes. Neurologic: Patient has had a an improvement in her guttural verbalization. She is now answering in 1-2 word sentences. Her brother states that this is close to her baseline. She has substantial psychiatric dysfunction at baseline. Given her illness and the need for sedation her new neurological baseline may be different. Will need to continually vigilantly monitor. Have adjusted medications to remove any synergistic additions to her neurologic decline. Sedation/analgesia: None. Will need to check ammonia and Depakote levels Lines/Tubes: Central line present x3 days. Have ordered it to be discontinued Other/family: We will attempt to communicate with brother Rick Luciano. He is the patient's medical power of ip technology transactions attorney. 03.08.2020: Patient continues to improve and expected trajectory. From a neurological status she has improved and is returning to her baseline according to her brother. She was given 1 dose of Fosamax via the NG tube which based on studies has been shown to be effective against ESBL urinary tract organisms We will continue to monitor. Patient has chronic debilitating psychiatric disorder which has complicated her care both in the present in the past. Her current pertubation although improved adds complexity. We will continue to provide supportive care. I am impressed with her neurological exam today and am hopeful that this will continue to improve. We will attempt speech and swallow eval. Start tube feeding via the NG tube. Patient suitable for consideration for transfer if she remains stable from a respiratory standpoint. She is at risk for aspiration. Concerned that she might be developing a supranuclear palsy retro-bulbar palsy hence the need for swallow evaluation. Will attempt BiPAP at night Discontinue central line 03.07.2020: Respiratory: Patient's respiratory status has improved and she has remained stable post liberation from mechanical ventilation. In that she had hypercarbic failure she is at risk for further hypercarbic failure especially if benzod iazepines are used. We will continue to monitor and follow her neurological status as well as her respiratory status. Infectious: Patient has a urinary tract infection and has had multiple frequent urinary tract infections. She does not have a chronic indwelling Lopes catheter. This is most likely related to anatomical as well as self- perpetuating behaviors. She has significant resistance and have elected to give her fosfomycin which is been known to treat ESBL type infections. I am reluct ant to use a carbanepem because of the seizure risk. Continue to monitor and follow closely Cardiac: Patient's blood pressure has been slightly elevated improvement in her sepsis. We will begin her oral clonidine and discontinue the patch and utilize PRN medication. Hematologic: Continue to monitor. Endocrine: No active issues. Continue to monitor Renal: Patient had acute renal failure although her creatinine was "normal" it has decreased by 50% indicative of acute tubular necrosis related to sepsis. I am concerned that she has retained metabolites which may caused her neurological decline. Metabolic: Continue to monitor and treat metabolic and endocrine abnormalities Alimentary: Patient has poor swallowing function and will need a speech and swallow eval. Will place feeding tube for adequate nutrition. She did have a feeding tube in the form of a PEG tube a number of years ago. We have had conflicting stories regarding this feeding tube. 1 story reflects that she cut the tube herself. Her brother is unsure of this. Patient may need this especially for speech and swallow eval is indicative of longstanding chronic swallowing dysfunction. On her intubation she was noted to have retained food products. Neurologic: Patient has persistent restlessness and garbled verbalization. We will continue to monitor for improvement. Monitor for neurological decline and hypercarbia Sedation/analgesia: No active. Patient has a history of tardive dyskinesia. Depakote levels are acceptable. Lines/Tubes: Central line placed 03.06.2020 Other/family: Spoke with brothivy Cabrera today. Please see above Critical Time Critical Time (minutes): 0 - [id number] Level of Care: TELE Anticipated discharge: SNF Anticipated DC Timeframe: within 48 hours -: 1. The care of a critical patient is a dynamic process. This note is a site safety representative synopsis but static in nature. The timeframe for treatments given in order is not necessarily the actual time these treatments may have been done. 2. This patient requires critical care secondary to ongoing requirements for therapy not offered or safe outside the critical care environment. Transfer to a lower level of care will result in altered life or limb morbidity and mortality. 3. Multidisciplinary rounds completed. 4. ABCDE bundle addressed.
[2020-03-09 09:09] LABS: CARBON DIOXIDE 31 mmol/L (22-30); CHLORIDE 102 mmol/L (98-107)
[2020-03-09 09:10] LABS: HEMATOCRIT 34.1 % (36.0-47.0); HEMOGLOBIN 11.3 g/dL (12.0-15.5); MEAN CORPUSCULAR HEMOGLOBIN 28.4 pg (27.0-33.4); MEAN CORPUSCULAR HGB CONC 33.2 g/dL (32.0-36.0); MEAN CORPUSCULAR VOLUME 85 fl (80-97); PLATELET COUNT 115 10^3/uL (150-450); RED CELL DISTRIBUTION WIDTH 14.8 % (11.5-14.0); WHITE BLOOD COUNT 6.8 10^3/uL (4.0-10.5)
[2020-03-09 09:11] LABS: ANION GAP 2 (5-19); POTASSIUM 4.1 mmol/L (3.6-5.0)
[2020-03-09 09:33] LABS: ABSOLUTE LYMPHOCYTES# (MANUAL) 1.9 10^3/uL (0.5-4.7); ABSOLUTE MONOCYTES # (MANUAL) 0.4 10^3/uL (0.1-1.4); BAND NEUTROPHILS % (MANUAL) 1 % (3-5); BASOPHILS % (MANUAL) 0 % (0-2); EOSINOPHILS % (MANUAL) 4 % (0-6); LYMPHOCYTES % (MANUAL) 26 % (13-45); METAMYELOCYTES % (MANUAL) 1 % (0-1); MONOCYTES % (MANUAL) 6 % (3-13); SEGMENTED NEUTROPHILS % (MAN) 60 % (42-78); TOTAL CELLS COUNTED 100
[2020-03-09 09:36] LABS: ANISOCYTOSIS SLIGHT; OVALOCYTES SLIGHT; PLATELET COMMENT DECREASED; POIKILOCYTOSIS SLIGHT; POLYCHROMASIA SLIGHT; TOXIC GRANULATION SLIGHT
[2020-03-09] MEDS ORDERED: POTASSIUM CHLORIDE 20 MEQ PACKET NG SCH (10:00)
[2020-03-09] MEDS ORDERED: (PENDING PHARMACY ID) (Thiamine Hcl [Vitamin B-1] 100 MG) PO SCH (10:00)
[2020-03-09] MEDS ORDERED: (PENDING PHARMACY ID) (Ergocalciferol (Vitamin D2) [Vitamin D2] 50 MCG) PO SCH (10:00)
[2020-03-09] MEDS: THIAMINE HCL 100 MG TABLET PO SCH (11:37)
[2020-03-09] MEDS: VALPROATE SODIUM SYRUP 250 MG/5 ML UDCUP NG SCH ×2 (11:37→22:48)
[2020-03-09] MEDS: VALPROATE SODIUM 500 MG in NORMAL SALINE 100 ML IV SCH (11:38)
[2020-03-09] MEDS: HEPARIN SOD (PORCINE) 5,000 UNIT/ML 1 ML VIAL SUBCUT SCH ×3 (11:38→23:29)
--- NOTE | 2020-03-09 19:19 | Progress Note ---
Provider Note Provider Note: Patient to be sent out of ICU to medical floor under hospitalist care. I discussed the case in detail with Dr. Rosales and accept the patient under the hospitalist service. I understand her significant medical problems to be acute hypoxemic respiratory failure requiring intubation, UTI, BENJAMIN, baseline AMS. Please change the attending to my name when the patient reaches the floor.
[2020-03-09] MEDS ORDERED: INSULIN GLARGINE,HUM.REC.ANLOG 1,000 UNIT/10 ML VIAL SUBCUT SCH (22:00)
[2020-03-09] MEDS ORDERED: DIVALPROEX SODIUM 125 MG CAP.SPRINK PO SCH (22:00)
[2020-03-09] MEDS ORDERED: PYRIDOXINE HCL PO SCH (22:00)
[2020-03-09] MEDS ORDERED: MELATONIN PO SCH (22:00)
[2020-03-10] MEDS: HEPARIN SOD (PORCINE) 5,000 UNIT/ML 1 ML VIAL SUBCUT SCH ×3 (05:46→22:52)
[2020-03-10 06:16] LABS: ABSOLUTE EOSINOPHILS # (AUTO) 0.3 10^3/uL (0.0-0.6); ABSOLUTE LYMPHOCYTES (AUTO) 1.4 10^3/uL (0.5-4.7); ABSOLUTE MONOCYTES (AUTO) 0.8 10^3/uL (0.1-1.4); BASOPHILS % (AUTO) 0.3 % (0-2); HEMATOCRIT 34.2 % (36.0-47.0); HEMOGLOBIN 11.4 g/dL (12.0-15.5); LYMPHOCYTES % (AUTO) 21.3 % (13-45); MEAN CORPUSCULAR HEMOGLOBIN 28.3 pg (27.0-33.4); MEAN CORPUSCULAR HGB CONC 33.4 g/dL (32.0-36.0); MEAN CORPUSCULAR VOLUME 85 fl (80-97); MONOCYTES % (AUTO) 12.5 % (3-13); PLATELET COUNT 153 10^3/uL (150-450); RED BLOOD COUNT 4.04 10^6/uL (3.72-5.28); RED CELL DISTRIBUTION WIDTH 14.6 % (11.5-14.0); SEGMENTED NEUTROPHILS % (AUTO) 61.9 % (42-78); TOTAL CELLS COUNTED % (AUTO) 100 %; WHITE BLOOD COUNT 6.5 10^3/uL (4.0-10.5)
[2020-03-10 06:30] LABS: BLOOD UREA NITROGEN 8 mg/dL (7-20); CALCIUM 7.7 mg/dL (8.4-10.2); GLUCOSE 316 mg/dL (75-110); PHOSPHORUS 3.2 mg/dL (2.5-4.5)
[2020-03-10] MEDS: INSULIN LISPRO 100 UNIT/ML 3 ML VIAL SUBCUT SCH ×3 (06:32→17:41)
[2020-03-10 06:36] LABS: CARBON DIOXIDE 31 mmol/L (22-30); CHLORIDE 98 mmol/L (98-107)
[2020-03-10 06:37] LABS: ANION GAP 1 (5-19)
[2020-03-10] MEDS ORDERED: ESTRADIOL VG SCH (08:22)
[2020-03-10] MEDS: VALPROATE SODIUM SYRUP 250 MG/5 ML UDCUP NG SCH ×2 (09:06→22:51)
[2020-03-10] MEDS: CLONAZEPAM 1 MG TABLET NG SCH ×2 (09:06→17:41)
[2020-03-10] MEDS: ESCITALOPRAM OXALATE 10 MG TABLET NG SCH (09:06)
[2020-03-10] MEDS: THIAMINE HCL 100 MG TABLET PO SCH (09:06)
--- NOTE | 2020-03-10 18:31 | PDOC PROGRESS REPORT ---
Subjective Progress Note for:: 03/10/20 Subjective:: Patient recently sent out of ICU yesterday. My discussion with Dr. Rosales, patient has had a rather complicated ICU course with ESBL E. coli UTI and what is suspected to be a neuromuscular disorder causing her to have swallowing difficulties. Will need speech therapy consult to see her. Antibiotics continue. Patient seems to be very sensitive to insulin though her blood sugar is quite high today. I have increased her Lantus only by [address] Rosales recently dropped the dose for hypoglycemia. We made an alternate dosing schedule with lower doses to avoid acute drops in this brittle diabetic. Patient is sleeping comfortably during encounter and while arousable quickly goes back to sleep. NG tube feeds are continued and there has been talks that patient may need her PEG tube replaced as she had 1 of these in the past. Patient does not voice any specific complaints to me today. Reason For Visit: UROSEPSIS Physical Exam Vital Signs: Temp Pulse Resp BP Pulse Ox 98.1 F 85 21 H 115/59 L 93 03/10/20 07:43 03/10/20 14:00 03/10/20 07:43 03/10/20 07:43 03/10/20 07:43 Intake & Output 03/09/20 03/10/20 03/11/20 06:59 06:59 06:59 Intake Total 2270.5 1041 Output Total 2545 20 Balance -274.5 1021 Weight 56.8 kg 42.4 kg General appearance: PRESENT: no acute distress, thin Head exam: PRESENT: atraumatic, normocephalic Eye exam: PRESENT: conjunctiva pink Mouth exam: PRESENT: moist Respiratory exam: PRESENT: clear to auscultation toño. ABSENT: rales, rhonchi, wheezes Cardiovascular exam: PRESENT: RRR. ABSENT: diastolic murmur, rubs, systolic murmur GI/Abdominal exam: PRESENT: normal bowel sounds, soft. ABSENT: distended, guarding, mass, organolmegaly, rebound, tenderness Extremities exam: PRESENT: other - Chronic lower extremity contractures Neurological exam: PRESENT: alert, awake Psychiatric exam: PRESENT: flat affect, normal mood Skin exam: PRESENT: dry, warm Results Laboratory Results: 03/10/20 05:35 03/10/20 05:35 03/10/20 03/10/20 05:35 05:35 WBC 6.5 RBC 4.04 Hgb 11.4 L Hct 34.2 L MCV 85 MCH 28.3 MCHC 33.4 RDW 14.6 H Plt Count 153 Seg Neutrophils % 61.9 Sodium 130.1 L Potassium 4.0 Chloride 98 Carbon Dioxide 31 H Anion Gap 1 L BUN 8 Creatinine 0.54 Est GFR ( Amer) > 60 Glucose 316 H Calcium 7.7 L Phosphorus 3.2 Magnesium 1.7 03/03/20 10:15 Troponin I 0.030 Impressions: KUB X-Ray 03/07/20 00:00 IMPRESSION: 1. Nasogastric tube tip is in the stomach. The proximal sidehole is at the gastroesophageal junction. Consider advancing several centimeters. Chest X-Ray 03/08/20 06:00 IMPRESSION: Stable chest status post extubation. Assessment and Plan - Diagnosis (1) UTI due to extended-spectrum beta lactamase (ESBL) producing Escherichia coli Is this a current diagnosis for this admission?: Yes Plan: ESBL E. coli growing in urine culture Given 1 dose of fosfomycin Follow-up urinalysis (2) Sepsis Qualifiers: Sepsis type: Escherichia coli Sepsis acute organ dysfunction status: with acute organ dysfunction Severe sepsis acute organ dysfunction type: acute renal failure Acute renal failure type: with acute tubular necrosis Severe sepsis shock status: without septic shock Qualified Code(s): A41.51 - Sepsis due to Escherichia coli [E. coli]; R65.20 - Severe sepsis without septic shock; N17.0 - Acute kidney failure with tubular necrosis Is this a current diagnosis for this admission?: Yes Plan: Source is UTI with ESBL E. coli Antibiotics given Resolved (3) Acute metabolic encephalopathy Is this a current diagnosis for this admission?: Yes Plan: Secondary to infection superimposed on dementia Chronically poor baseline due to underlying dementia. Treat underlying cause which is infection/UTI and respiratory failure (4) Acute respiratory failure with hypoxia Is this a current diagnosis for this admission?: Yes Plan: Supplemental oxygen as needed to maintain oxygen saturation at least 92% Patient has intermittent episodes of apnea which likely led to her intubation and ICU, now extubated Sedating medications discontinued in ICU, no more trazodone or melatonin (5) Delirium due to another medical condition, acute, hyperactive Is this a current diagnosis for this admission?: Yes (6) Hypercapnic respiratory failure Qualifiers: Chronicity: acute Qualified Code(s): J96.02 - Acute respiratory failure with hypercapnia Is this a current diagnosis for this admission?: Yes (7) Hypernatremia Is this a current diagnosis for this admission?: Yes Plan: Resolved (8) Diabetes 1.5, managed as type 1 Is this a current diagnosis for this admission?: Yes Plan: Very brittle diabetic, highly sensitive to even small changes in insulin dosing May consider alternate long-acting insulin dosing regimen with multiple small doses instead of 1 or 2 large doses in the day (9) Dysphagia Is this a current diagnosis for this admission?: Yes Plan: Possible neuromuscular disorder Speech therapy consult May need long-term PEG tube as she has had in the past (10) UTI due to extended-spectrum beta lactamase (ESBL) producing Escherichia coli Is this a current diagnosis for this admission?: Yes - Plan Summary Summary: Review of records from [facility] indicate the following diagnoses has been present: Type 2 diabetes mellitus without complication Delusional disorder Dysphasia oropharyngeal phase Gastroesophageal reflux with esophagitis Unspecified symptoms and signs involving cognitive functions and awareness Restlessness and agitation Major depressive disorder Pseudobulbar affect Acute vaginitis Dementia and other diseases classified elsewhere with behavioral disturbance History of alcohol abuse Hyperlipidemia Anemia We will need to further investigate her medical history. She is on multiple me dications. Will need to add them back strategically. We will first need to stabilize the patient with fluids and antibiotics. She will have some as needed medications available. Mother history of dysphagia and her current mental state it is not reasonable to expect a safe swallow at this time but hopefully when the patient settles we will be able to administer an oral diet. If necessary it might be safer to insert a nasogastric tube so that we may administer medications that are not available intravenous form. 03/04/2020 critical care visit: After evaluating the patient I did have a chance to talk to her brother. Informed him of her acute episodes and very slow progress. Positive news was she is afebrile and her white blood cell count has normalized. Respiratory status and possible seizure were noted. We discussed her current medications and treatment options. I expressed my confidence that by tomorrow she should be feeling better with corrected sodium and intravenous Depakote. We have asked about a local friend visiting but I suggested this wait until she would be more interactive. I did not dextrose to the IV fluid. With her underlying diabetes it may cause hyperglycemia. If this happens we can always remove dextrose from the fluid or increase insulin dosing. After a 25-minute conversation her brother was satisfied that all of his questions were answered. - Time Time Spent with patient: 25-34 minutes Medications reviewed and adjusted accordingly: Yes Anticipated Discharge Disposition: [facility] Facility Anticipated Discharge Timeframe: within 72 hours - Inpatient Certification Based on my medical assessment, after consideration of the patient's comorbidities, presenting symptoms, or acuity I expect that the services needed warrant INPATIENT care.: Yes I certify that my determination is in accordance with my understanding of Medicare's requirements for reasonable and necessary INPATIENT services [42 CFR 412.3e].: Yes Medical Necessity: Significant Comorbidiites Make Outpatient Treatment Too Risky, Need Close Monitoring Due to Risk of Patient Decompensation, Risk of Complication if Not Cared For in Hospital, Risk of Diagnosis Which Will Require Inpatient Eval/Care/Monitoring
[2020-03-10] MEDS ORDERED: INSULIN GLARGINE,HUM.REC.ANLOG 1,000 UNIT/10 ML VIAL SUBCUT SCH (22:00)
[2020-03-10] MEDS ORDERED: INSULIN GLARGINE,HUM.REC.ANLOG 1,000 UNIT/10 ML VIAL (PYX) SUBCUT ONE (22:47)
[2020-03-11] MEDS: INSULIN LISPRO 100 UNIT/ML 3 ML VIAL SUBCUT SCH ×4 (00:37→17:48)
[2020-03-11] MEDS: HEPARIN SOD (PORCINE) 5,000 UNIT/ML 1 ML VIAL SUBCUT SCH ×3 (07:37→22:51)
[2020-03-11] MEDS: VALPROATE SODIUM SYRUP 250 MG/5 ML UDCUP NG SCH ×2 (07:38→22:52)
[2020-03-11] MEDS ORDERED: ACETAMINOPHEN 650 MG SUPP.RECT PR ONE (07:41)
[2020-03-11] MEDS ORDERED: INSULIN GLARGINE,HUM.REC.ANLOG 1,000 UNIT/10 ML VIAL SUBCUT SCH (09:15)
--- NOTE | 2020-03-11 10:32 | RADIOLOGY REPORT (SQ) ---
EXAM DESCRIPTION: CHEST 2 VIEWS IMAGES COMPLETED DATE/TIME: 03/11/2020 9:50 am REASON FOR STUDY: suspected PNA, possible aspiration COMPARISON: 03/08/2020 EXAM PARAMETERS: NUMBER OF VIEWS: two views TECHNIQUE: Digital Frontal and Lateral radiographic views of the chest acquired. RADIATION DOSE: NA LIMITATIONS: none FINDINGS: LUNGS AND PLEURA: Upper lobe infiltrate has resolved. There is atelectasis in the left ba se. Possible small effusions NG tube remains in place. MEDIASTINUM AND HILAR STRUCTURES: No masses or contour abnormalities. HEART AND VASCULAR STRUCTURES: Heart normal size. No evidence for failure. BONES: No acute findings. HARDWARE: None in the chest. OTHER: No other significant finding. IMPRESSION: 1. Minimal left basilar atelectasis. Possible small effusions. 2. Central line and NG tube remain in place. 3. Right upper lobe infiltrate has resolved. TECHNICAL DOCUMENTATION: JOB ID: [id number] 2010 [employer]- All Rights Reserved Reading location - IP/workstation name: [email or web address]
[2020-03-11 10:39] LABS: ABSOLUTE BASOPHILS # (AUTO) 0.1 10^3/uL (0.0-0.2); ABSOLUTE EOSINOPHILS # (AUTO) 0.1 10^3/uL (0.0-0.6); ABSOLUTE LYMPHOCYTES (AUTO) 1.3 10^3/uL (0.5-4.7); ABSOLUTE MONOCYTES (AUTO) 1.5 10^3/uL (0.1-1.4); ABSOLUTE NEUT (AUTO) 6.9 10^3/uL (1.7-8.2); BASOPHILS % (AUTO) 0.9 % (0-2); HEMATOCRIT 34.3 % (36.0-47.0); HEMOGLOBIN 11.4 g/dL (12.0-15.5); MEAN CORPUSCULAR HEMOGLOBIN 28.1 pg (27.0-33.4); MEAN CORPUSCULAR HGB CONC 33.3 g/dL (32.0-36.0); MEAN CORPUSCULAR VOLUME 85 fl (80-97); MONOCYTES % (AUTO) 14.9 % (3-13); PLATELET COUNT 198 10^3/uL (150-450); RED BLOOD COUNT 4.06 10^6/uL (3.72-5.28); RED CELL DISTRIBUTION WIDTH 14.7 % (11.5-14.0); SEGMENTED NEUTROPHILS % (AUTO) 70.2 % (42-78); TOTAL CELLS COUNTED % (AUTO) 100 %; WHITE BLOOD COUNT 9.8 10^3/uL (4.0-10.5)
[2020-03-11 10:56] LABS: BLOOD UREA NITROGEN 10 mg/dL (7-20); CHLORIDE 104 mmol/L (98-107); GLUCOSE 238 mg/dL (75-110); POTASSIUM 4.1 mmol/L (3.6-5.0)
[2020-03-11 11:02] LABS: CARBON DIOXIDE 30 mmol/L (22-30)
[2020-03-11] MEDS: ESCITALOPRAM OXALATE 10 MG TABLET NG SCH (11:02)
[2020-03-11] MEDS: CLONAZEPAM 1 MG TABLET NG SCH ×2 (11:03→17:48)
[2020-03-11] MEDS: THIAMINE HCL 100 MG TABLET PO SCH (11:03)
[2020-03-11 11:09] LABS: ANION GAP 3 (5-19)
[2020-03-11] MEDS ORDERED: PIPERACILLIN/TAZOBACTAM 3.375 GM VIAL IV SCH (12:00)
[2020-03-11] MEDS: INSULIN GLARGINE,HUM.REC.ANLOG 1,000 UNIT/10 ML VIAL SUBCUT SCH (12:52)
[2020-03-11] MEDS: PIPERACILLIN SODIUM/TAZOBACTAM 3.375 GM in NORMAL SALINE 100 ML IV SCH ×2 (12:52→17:47)
--- NOTE | 2020-03-11 18:04 | PDOC PROGRESS REPORT ---
Subjective Progress Note for:: 03/11/20 Subjective:: Patient recently sent out of ICU yesterday. My discussion with Dr. Rosales, patient has had a rather complicated ICU course with ESBL E. coli UTI and what is suspected to be a neuromuscular disorder causing her to have swallowing difficulties. Will need speech therapy consult to see her. Antibiotics continue. Patient seems to be very sensitive to insulin though her blood sugar is quite high today. I have increased her Lantus only by [address] Rosales recently dropped the dose for hypoglycemia. We made an alternate dosing schedule with lower doses to avoid acute drops in this brittle diabetic. Patient is sleeping comfortably during encounter and while arousable quickly goes back to sleep. NG tube feeds are continued and there has been talks that patient may need her PEG tube replaced as she had 1 of these in the past. Patient does not voice any specific complaints to me today. 03/11/2020 I had a very extensive conversation with the patient's brother who is her medical power of environmental attorney. He lives up in [facility] near [facility] reportedly. He states he has not seen the patient in over 2 years though he occasionally will talk to her on the phone from her halfway. I described the patient's contracted legs overall debilitated appearance and what I believe is an extremely poor quality of life in general. She does have acute illness due to her ESBL E. coli UTI, however the chronic findings on exam are not a result of her current infection but rather progression of her severe chronic illnesses. I discussed the issue of CODE STATUS with him and he stated she has always been full code but he would have a discussion with her parents about the plan going forward for this and also for her future as it pertains to the end of her life. I would not be surprised that the patient in the next 6 to 12 months given her recurrent resistant infections and hospitalizations requiring ICU level care. She still having fevers today but they seem to be resolving now that she is on Zosyn. I am highly suspicious that she may be taking anticholinergic medications such as Benadryl at her nursing facility and this may be exacerbating what is likely underlying urinary retention causing recurrent UTIs. I discussed this with nursing and she will have a bladder scan to document the urinary retention and place a Lopes afterwards. I will order repeat UA with reflex culture which I expect to be infected due to another episode of urinary retention since her Lopes was removed approximately 2 days ago. By the numbers, her labs seem to be acceptable. Clinically, and cognitively, she is not improving. Speech therapy states she is not appropriate for diet and will likely need a feeding tube long-term. Brother is unsure if he wants her to have another PEG tube after I described the risk of the patient pulling this out inadvertently and causing herself to potentially of peritonitis given I have seen this situation in multiple patients in the past. Patient cannot articulate complaints and only mumbles a few words during exam. Reason For Visit: UROSEPSIS Physical Exam Vital Signs: Temp Pulse Resp BP Pulse Ox 101.4 F H 86 40 H 109/61 97 03/11/20 16:27 03/11/20 16:27 03/11/20 16:27 03/11/20 16:27 03/11/20 16:27 Intake & Output 03/10/20 03/11/20 03/12/20 06:59 06:59 06:59 Intake Total 1041 860 100 Output Total 20 Balance 1021 860 100 Weight 42.4 kg 40.2 kg General appearance: PRESENT: no acute distress, cooperative, thin Head exam: PRESENT: atraumatic, normocephalic Eye exam: PRESENT: conjunctiva pink Mouth exam: PRESENT: moist Respiratory exam: PRESENT: clear to auscultation toño. ABSENT: rales, rhonchi, wheezes Cardiovascular exam: PRESENT: RRR. ABSENT: diastolic murmur, rubs, systolic murmur GI/Abdominal exam: PRESENT: normal bowel sounds, soft. ABSENT: distended, guarding, mass, organolmegaly, rebound, tenderness Extremities exam: PRESENT: other - Chronic bilateral lower extremity contractures with severe muscle wasting Neurological exam: ABSENT: alert, awake Skin exam: PRESENT: dry, intact, warm Results Laboratory Results: 03/11/20 10:29 03/11/20 10:29 03/11/20 03/11/20 10:29 10:29 WBC 9.8 RBC 4.06 Hgb 11.4 L Hct 34.3 L MCV 85 MCH 28.1 MCHC 33.3 RDW 14.7 H Plt Count 198 Seg Neutrophils % 70.2 Sodium 136.9 L Potassium 4.1 Chloride 104 Carbon Dioxide 30 Anion Gap 3 L BUN 10 Creatinine 0.55 Est GFR ( Amer) > 60 Glucose 238 H Calcium 8.0 L 03/03/20 10:15 Troponin I 0.030 Impressions: KUB X-Ray 03/07/20 00:00 IMPRESSION: 1. Nasogastric tube tip is in the stomach. The proximal sidehole is at the gastroesophageal junction. Consider advancing several centimeters. Chest X-Ray 03/11/20 00:00 IMPRESSION: 1. Minimal left basilar atelectasis. Possible small effusions. 2. Central line and NG tube remain in place. 3. Right upper lobe infiltrate has resolved. Assessment and Plan - Diagnosis (1) UTI due to extended-spectrum beta lactamase (ESBL) producing Escherichia coli Is this a current diagnosis for this admission?: Yes Plan: ESBL E. coli growing in urine culture Given 1 dose of fosfomycin Follow-up urinalysis 03/11/2022 Likely having recurrent UTIs due to underlying urinary retention probably exacerbated by anticholinergic such as Benadryl at her nursing facility as this is listed on her home medications list Hold all anticholinergics permanently UA with reflex culture to be repeated Restarted Zosyn Bladder scan to document urinary retention then placed Lopes catheter (2) Sepsis Qualifiers: Sepsis type: Escherichia coli Sepsis acute organ dysfunction status: with acute organ dysfunction Severe sepsis acute organ dysfunction type: acute renal failure Acute renal failure type: with acute tubular necrosis Severe sepsis shock status: without septic shock Qualified Code(s): A41.51 - Sepsis due to Escherichia coli [E. coli]; R65.20 - Severe sepsis without septic shock; N17.0 - Acute kidney failure with tubular necrosis Is this a current diagnosis for this admission?: Yes Plan: Source is UTI with ESBL E. coli Antibiotics given Resolved 03/11/2020 Recurred likely due to a recurrence of her UTI from urinary retention Treat underlying cause with Zosyn (3) Acute metabolic encephalopathy Is this a current diagnosis for this admission?: Yes Plan: Secondary to infection superimposed on severe dementia due to prior episode of severe hypoglycemia from taking too much insulin approx 2 years ago per brother Chronically poor baseline due to underlying dementia. Treat underlying cause which is infection/UTI and respiratory failure (4) Acute respiratory failure with hypoxia Is this a current diagnosis for this admission?: Yes (5) Delirium due to another medical condition, acute, hyperactive Is this a current diagnosis for this admission?: Yes (6) Hypercapnic respiratory failure Qualifiers: Chronicity: acute Qualified Code(s): J96.02 - Acute respiratory failure with hypercapnia Is this a current diagnosis for this admission?: Yes (7) Hypernatremia Is this a current diagnosis for this admission?: Yes (8) Diabetes 1.5, managed as type 1 Is this a current diagnosis for this admission?: Yes (9) Dysphagia Is this a current diagnosis for this admission?: Yes Plan: Possible neuromuscular disorder Speech therapy consult May need long-term PEG tube as she has had in the past, brother discussing this with the patient's parents to see if they would want this (10) UTI due to extended-spectrum beta lactamase (ESBL) producing Escherichia coli Is this a current diagnosis for this admission?: Yes Plan: -Recurrent due to urinary retention -zosyn - Plan Summary Summary: Review of records from [facility] indicate the following diagnoses has been present: Type 2 diabetes mellitus without complication Delusional disorder Dysphasia oropharyngeal phase Gastroesophageal reflux with esophagitis Unspecified symptoms and signs involving cognitive functions and awareness Restlessness and agitation Major depressive disorder Pseudobulbar affect Acute vaginitis Dementia and other diseases classified elsewhere with behavioral disturbance History of alcohol abuse Hyperlipidemia Anemia We will need to further investigate her medical history. She is on multiple medications. Will need to add them back strategically. We will first need to stabilize the patient with fluids and antibiotics. She will have some as needed medications available. Mother history of dysphagia and her current mental state it is not reasonable to expect a safe swallow at this time but hopefully when the patient settles we will be able to administer an oral diet. If necessary it might be safer to insert a nasogastric tube so that we may administer medications that are not available intravenous form. 03/04/2020 critical care visit: After evaluating the patient I did have a chance to talk to her brother. Informed him of her acute episodes and very slow progress. Positive news was she is afebrile and her white blood cell count has normalized. Respiratory status and possible seizure were noted. We discussed her current medications and treatment options. I expressed my confidence that by tomorrow she should be feeling better with corrected sodium and intravenous Depakote. We have asked about a local friend visiting but I suggested this wait until she would be more interactive. I did not dextrose to the IV fluid. With her underlying diabetes it may cause hyperglycemia. If this happens we can always remove dextrose from the fluid or increase insulin dosing. After a 25-minute conversation her brother was satisfied that all of his questions were answered. - Time Time Spent with patient: 35 or more minutes Anticipated Discharge Disposition: [facility] Anticipated Discharge Timeframe: When patient improves - Inpatient Certification Based on my medical assessment, after consideration of the patient's comorbidities, presenting symptoms, or acuity I expect that the services needed warrant INPATIENT care.: Yes I certify that my determination is in accordance with my understanding of Medicare's requirements for reasonable and necessary INPATIENT services [42 CFR 412.3e].: Yes Medical Necessity: Significant Comorbidiites Make Outpatient Treatment Too Risky, Need Close Monitoring Due to Risk of Patient Decompensation, Need for IV Antibiotics, Risk of Complication if Not Cared For in Hospital, Risk of Diagnosis Which Will Require Inpatient Eval/Care/Monitoring
[2020-03-11 20:43] LABS: APPEARANCE,URINE CLEAR; BILIRUBIN,URINE NEGATIVE (NEGATIVE); COLOR,URINE YELLOW; GLUCOSE, URINE NEGATIVE (NEGATIVE); KETONES,URINE NEGATIVE (NEGATIVE); PROTEIN,URINE 30 mg/dL (NEGATIVE); URINE SPECIFIC GRAVITY 1.024; UROBILINOGEN,URINE NEGATIVE mg/dL (<2.0)
[2020-03-12] MEDS: PIPERACILLIN SODIUM/TAZOBACTAM 3.375 GM in NORMAL SALINE 100 ML IV SCH ×5 (00:28→23:56)
[2020-03-12] MEDS: INSULIN LISPRO 100 UNIT/ML 3 ML VIAL SUBCUT SCH ×5 (00:33→23:56)
[2020-03-12] MEDS: ACETAMINOPHEN 650 MG SUPP.RECT PR PRN ×3 (04:01→23:55)
[2020-03-12] MEDS: HEPARIN SOD (PORCINE) 5,000 UNIT/ML 1 ML VIAL SUBCUT SCH ×3 (06:31→21:18)
[2020-03-12] MEDS: VALPROATE SODIUM SYRUP 250 MG/5 ML UDCUP NG SCH ×2 (09:52→21:18)
[2020-03-12] MEDS: ESCITALOPRAM OXALATE 10 MG TABLET NG SCH (09:53)
[2020-03-12] MEDS: THIAMINE HCL 100 MG TABLET PO SCH (09:53)
[2020-03-12] MEDS: CLONAZEPAM 1 MG TABLET NG SCH ×2 (09:53→18:04)
[2020-03-12] MEDS: INSULIN GLARGINE,HUM.REC.ANLOG 1,000 UNIT/10 ML VIAL SUBCUT SCH (10:09)
--- NOTE | 2020-03-12 15:10 | PDOC PROGRESS REPORT ---
Subjective Progress Note for:: 03/12/20 Subjective:: Patient recently sent out of ICU yesterday. My discussion with Dr. Rosales, patient has had a rather complicated ICU course with ESBL E. coli UTI and what is suspected to be a neuromuscular disorder causing her to have swallowing difficulties. Will need speech therapy consult to see her. Antibiotics continue. Patient seems to be very sensitive to insulin though her blood sugar is quite high today. I have increased her Lantus only by [address] Rosales recently dropped the dose for hypoglycemia. We made an alternate dosing schedule with lower doses to avoid acute drops in this brittle diabetic. Patient is sleeping comfortably during encounter and while arousable quickly goes back to sleep. NG tube feeds are continued and there has been talks that patient may need her PEG tube replaced as she had 1 of these in the past. Patient does not voice any specific complaints to me today. 03/11/2020 I had a very extensive conversation with the patient's brother who is her medical power of civil litigation attorney. He lives up in [facility] near [facility] reportedly. He states he has not seen the patient in over 2 years though he occasionally will talk to her on the phone from her senior care. I described the patient's contracted legs overall debilitated appearance and what I believe is an extremely poor quality of life in general. She does have acute illness due to her ESBL E. coli UTI, however the chronic findings on exam are not a r esult of her current infection but rather progression of her severe chronic illnesses. I discussed the issue of CODE STATUS with him and he stated she has always been full code but he would have a discussion with her parents about the plan going forward for this and also for her future as it pertains to the end of her life. I would not be surprised that the patient in the next 6 to 12 months given her recurrent resistant infections and hospitalizations requiring ICU level care. She still having fevers today but they seem to be resolving now that she is on Zosyn. I am highly suspicious that she may be taking anticholinergic medications such as Benadryl at her nursing facility and this may be exacerbating what is likely underlying urinary retention causing recurrent UTIs. I discussed this with nursing and she will have a bladder scan to document the urinary retention and place a Lopes afterwards. I will order repeat UA with reflex culture which I expect to be infected due to another episode of urinary retention since her Lopes was removed approximately 2 days ago. By the numbers, her labs seem to be acceptable. Clinically, and cognitively, she is not improving. Speech therapy states she is not appropriate for diet and will likely need a feeding tube long-term. Brother is unsure if he wants her to have another PEG tube after I described the risk of the patient pulling this out inadvertently and causing herself to potentially of peritonitis given I have seen this situation in multiple patients in the past. Patient cannot articulate complaints and only mumbles a few words during exam. 03/12/20-patient's overall gross is poor and condition is critical. I had a long discussion with the patient's brother Rick he understood the grave condition and poor prognosis but he wants everything to be done at this time. We respect his wishes. Patient is on soft restraints, not communicative and restless twisting and turning in the bed. Patient has central line in the right neck. NG tube in place. Patient is a poor candidate for PEG placement. Patient has a T-max of 100.7 in the last 24 hours. Patient is receiving IV Zosyn. Urine culture is positive for ESBL E. coli and blood cultures from are negative so far. Blood cultures from march 03 indicates staph hominis. Reason For Visit: UROSEPSIS Physical Exam Vital Signs: Temp Pulse Resp BP Pulse Ox 99.1 F 99 22 H 139/82 H 96 03/12/20 05:01 03/12/20 14:00 03/12/20 03:47 03/12/20 03:47 03/12/20 03:47 Intake & Output 03/11/20 03/12/20 03/13/20 06:59 06:59 06:59 Intake Total 620 1217 395 Balance 620 1217 395 Weight 40.2 kg 42.5 kg General appearance: PRESENT: other - In moderate distress and not communicative at all.. ABSENT: cooperative Head exam: PRESENT: atraumatic Eye exam: PRESENT: conjunctiva pink, PERRLA Mouth exam: PRESENT: neck supple Teeth exam: PRESENT: poor dentation Throat exam: PRESENT: other - NG tube in place. Neck exam: ABSENT: carotid bruit, JVD, lymphadenopathy, thyromegaly Respiratory exam: PRESENT: decreased breath sounds Cardiovascular exam: PRESENT: tachycardia GI/Abdominal exam: PRESENT: normal bowel sounds, soft. ABSENT: distended, guarding, mass, organolmegaly, rebound, tenderness Rectal exam: PRESENT: deferred Neurological exam: PRESENT: altered, other - Not communicative twisting and turning in the bed. On restraints. Results Laboratory Results: 03/11/20 10:29 03/11/20 10:29 03/11/20 08:10 Urine Color YELLOW Urine Appearance CLEAR Urine pH 7.0 Ur Specific [place] 1.024 Urine Protein 30 H Urine Glucose (UA) NEGATIVE Urine Ketones NEGATIVE Urine Blood NEGATIVE Urine RBC (Auto) 1 03/03/20 10:15 Troponin I 0.030 Impressions: KUB X-Ray 03/07/20 00:00 IMPRESSION: 1. Nasogastric tube tip is in the stomach. The proximal sidehole is at the gastroesophageal junction. Consider advancing several centimeters. Chest X-Ray 03/11/20 00:00 IMPRESSION: 1. Minimal left basilar atelectasis. Possible small effusions. 2. Central line and NG tube remain in place. 3. Right upper lobe infiltrate has resolved. Assessment and Plan - Diagnosis (1) Acute metabolic encephalopathy Is this a current diagnosis for this admission?: Yes Plan: Secondary to infection superimposed on severe dementia due to prior episode of severe hypoglycemia from taking too much insulin approx 2 years ago per brother Chronically poor baseline due to underlying dementia. Treat underlying cause which is infection/UTI and respiratory failure 03/12/2020-patient is still confused and agitated. Receiving IV Zosyn for ESBL E. coli. Latest blood cultures are negative. T-max is 100.7. Discussed the care extensively with patient's brother Rick at this time he want everything to be done. (2) Sepsis Qualifiers: Sepsis type: Escherichia coli Sepsis acute organ dysfunction status: with acute organ dysfunction Severe sepsis acute organ dysfunction type: acute renal failure Acute renal failure type: with acute tubular necrosis Severe sepsis shock status: without septic shock Qualified Code(s): A41.51 - Sepsis due to Escherichia coli [E. coli]; R65.20 - Severe sepsis without septic shock; N17.0 - Acute kidney failure with tubular necrosis Is this a current diagnosis for this admission?: Yes Plan: Source is UTI with ESBL E. coli Antibiotics given Resolved 03/11/2020 Recurred likely due to a recurrence of her UTI from urinary retention Treat underlying cause with Zosyn 03/12/2020-patient is on Zosyn from yesterday T-max 100.7. Blood cultures from yesterday negative so far. Plan is to continue the present management at this time. (3) Acute respiratory failure with hypoxia Is this a current diagnosis for this admission?: Yes Plan: Supplemental oxygen as needed to maintain oxygen saturation at least 92% Patient has intermittent episodes of apnea which likely led to her intubation and ICU, now extubated Sedating medications discontinued in ICU, no more trazodone or melatonin 03/12/2020-pulse ox is 96% on 2 L. Patient was initially in ICU status post intubation and extubation. Patient is not on trazodone not on melatonin at this time. (4) Delirium due to another medical condition, acute, hyperactive Is this a current diagnosis for this admission?: Yes Plan: 03/12/2020-patient has delirium secondary to multiple medical problems including chronic neurological disorder. pt had recurrent UTIs. May be chronic hypoxia is a contributing factor. (5) Hypernatremia Is this a current diagnosis for this admission?: Yes Plan: Resolved (6) Dysphagia Is this a current diagnosis for this admission?: Yes Plan: Possible neuromuscular disorder Speech therapy consult May need long-term PEG tube as she has had in the past, brother discussing this with the patient's parents to see if they would want this 03/12/2020-patient is on NG tube. Patient is not a candidate for PEG placement because of the acute on chronic metabolic and cephalopathy. (7) UTI due to extended-spectrum beta lactamase (ESBL) producing Escherichia coli Is this a current diagnosis for this admission?: Yes Plan: -Recurrent due to urinary retention -zosyn - Plan Summary Summary: Review of records from [facility] indicate the following diagnoses has been present: Type 2 diabetes mellitus without complication Delusional disorder Dysphasia oropharyngeal phase Gastroesophageal reflux with esophagitis Unspecified symptoms and signs involving cognitive functions and awareness Restlessness and agitation Major depressive disorder Pseudobulbar affect Acute vaginitis Dementia and other diseases classified elsewhere with behavioral disturbance History of alcohol abuse Hyperlipidemia Anemia We will need to further investigate her medical history. She is on multiple medications. Will need to add them back strategically. We will first need to stabilize the patient with fluids and antibiotics. She will have some as needed medications available. Mother history of dysphagia and her current mental state it is not reasonable to expect a safe swallow at this time but hopefully when the patient settles we will be able to administer an oral diet. If necessary it might be safer to insert a nasogastric tube so that we may administer medications that are not available intravenous form. 03/04/2020 critical care visit: After evaluating the patient I did have a chance to talk to her brother. Informed him of her acute episodes and very slow progress. Positive news was she is afebrile and her white blood cell count has normalized. Respiratory status and possible seizure were noted. We discussed her current medications and treatment options. I expressed my confidence that by tomorrow she should be feeling better with corrected sodium and intravenous Depakote. We have asked about a local friend visiting but I suggested this wait until she would be more interactive. I did not dextrose to the IV fluid. With her underlying diabetes it may cause hyperglycemia. If this happens we can always remove dextrose from the fluid or increase insulin dosing. After a 25-minute conversation her brother was satisfied that all of his questions were answered. - Time Anticipated [facility]charge [facility]position[facility] Anticipated Discharge Timeframe: within 72 hours
[2020-03-13] MEDS: HEPARIN SOD (PORCINE) 5,000 UNIT/ML 1 ML VIAL SUBCUT SCH ×3 (05:23→21:33)
[2020-03-13] MEDS: INSULIN LISPRO 100 UNIT/ML 3 ML VIAL SUBCUT SCH ×3 (05:24→18:15)
[2020-03-13] MEDS: PIPERACILLIN SODIUM/TAZOBACTAM 3.375 GM in NORMAL SALINE 100 ML IV SCH ×3 (05:24→18:13)
[2020-03-13 06:45] LABS: ABSOLUTE EOSINOPHILS # (AUTO) 0.1 10^3/uL (0.0-0.6); ABSOLUTE LYMPHOCYTES (AUTO) 1.8 10^3/uL (0.5-4.7); ABSOLUTE MONOCYTES (AUTO) 1.2 10^3/uL (0.1-1.4); ABSOLUTE NEUT (AUTO) 7.6 10^3/uL (1.7-8.2); BASOPHILS % (AUTO) 0.3 % (0-2); HEMATOCRIT 30.3 % (36.0-47.0); HEMOGLOBIN 10.1 g/dL (12.0-15.5); LYMPHOCYTES % (AUTO) 16.6 % (13-45); MEAN CORPUSCULAR HEMOGLOBIN 28.5 pg (27.0-33.4); MEAN CORPUSCULAR HGB CONC 33.2 g/dL (32.0-36.0); MEAN CORPUSCULAR VOLUME 86 fl (80-97); MONOCYTES % (AUTO) 11.6 % (3-13); PLATELET COUNT 176 10^3/uL (150-450); RED BLOOD COUNT 3.54 10^6/uL (3.72-5.28); RED CELL DISTRIBUTION WIDTH 14.9 % (11.5-14.0); SEGMENTED NEUTROPHILS % (AUTO) 70.5 % (42-78); TOTAL CELLS COUNTED % (AUTO) 100 %; WHITE BLOOD COUNT 10.8 10^3/uL (4.0-10.5)
[2020-03-13 07:05] LABS: ALBUMIN 2.3 g/dL (3.5-5.0); ALKALINE PHOSPHATASE 97 U/L (38-126); ASPARTATE AMINO TRANSFERASE 20 U/L (14-36); BILIRUBIN,DIRECT 0.1 mg/dL (0.0-0.4); BILIRUBIN,TOTAL 0.3 mg/dL (0.2-1.3); BLOOD UREA NITROGEN 13 mg/dL (7-20); CALCIUM 7.8 mg/dL (8.4-10.2); CARBON DIOXIDE 34 mmol/L (22-30); CHLORIDE 101 mmol/L (98-107); GLUCOSE 229 mg/dL (75-110); POTASSIUM 4.2 mmol/L (3.6-5.0)
[2020-03-13 07:10] LABS: ANION GAP 2 (5-19)
[2020-03-13] MEDS ORDERED: VANCOMYCIN HCL INJ 1000 MG VIAL IV SCH (10:00)
[2020-03-13] MEDS: VALPROATE SODIUM SYRUP 250 MG/5 ML UDCUP NG SCH ×2 (10:22→21:33)
[2020-03-13] MEDS: ESCITALOPRAM OXALATE 10 MG TABLET NG SCH (10:22)
[2020-03-13] MEDS: CLONAZEPAM 1 MG TABLET NG SCH ×2 (10:22→18:13)
[2020-03-13] MEDS: THIAMINE HCL 100 MG TABLET PO SCH (10:22)
[2020-03-13] MEDS: INSULIN GLARGINE,HUM.REC.ANLOG 1,000 UNIT/10 ML VIAL SUBCUT SCH (10:23)
[2020-03-13] MEDS ORDERED: MORPHINE SULFATE 10 MG/ML INJ IV PRN (10:49)
--- NOTE | 2020-03-13 11:04 | PDOC PROGRESS REPORT ---
Subjective Progress Note for:: 03/13/20 Subjective:: Patient recently sent out of ICU yesterday. My discussion with Dr. Rosales, patient has had a rather complicated ICU course with ESBL E. coli UTI and what is suspected to be a neuromuscular disorder causing her to have swallowing difficulties. Will need speech therapy consult to see her. Antibiotics continue. Patient seems to be very sensitive to insulin though her blood sugar is quite high today. I have increased her Lantus only by [address] Rosales recently dropped the dose for hypoglycemia. We made an alternate dosing schedule with lower doses to avoid acute drops in this brittle diabetic. Patient is sleeping comfortably during encounter and while arousable quickly goes back to sleep. NG tube feeds are continued and there has been talks that patient may need her PEG tube replaced as she had 1 of these in the past. Patient does not voice any specific complaints to me today. 03/11/2020 I had a very extensive conversation with the patient's brother who is her medical power of consumer attorney. He lives up in [facility] near [facility] reportedly. He states he has not seen the patient in over 2 years though he occasionally will talk to her on the phone from her longterm. I described the patient's contracted legs overall debilitated appearance and what I believe is an extremely poor quality of life in general. She does have acute illness due to her ESBL E. coli UTI, however the chronic findings on exam are not a r esult of her current infection but rather progression of her severe chronic illnesses. I discussed the issue of CODE STATUS with him and he stated she has always been full code but he would have a discussion with her parents about the plan going forward for this and also for her future as it pertains to the end of her life. I would not be surprised that the patient in the next 6 to 12 months given her recurrent resistant infections and hospitalizations requiring ICU level care. She still having fevers today but they seem to be resolving now that she is on Zosyn. I am highly suspicious that she may be taking anticholinergic medications such as Benadryl at her nursing facility and this may be exacerbating what is likely underlying urinary retention causing recurrent UTIs. I discussed this with nursing and she will have a bladder scan to document the urinary retention and place a Lopes afterwards. I will order repeat UA with reflex culture which I expect to be infected due to another episode of urinary retention since her Lopes was removed approximately 2 days ago. By the numbers, her labs seem to be acceptable. Clinically, and cognitively, she is not improving. Speech therapy states she is not appropriate for diet and will likely need a feeding tube long-term. Brother is unsure if he wants her to have another PEG tube after I described the risk of the patient pulling this out inadvertently and causing herself to potentially of peritonitis given I have seen this situation in multiple patients in the past. Patient cannot articulate complaints and only mumbles a few words during exam. 03/12/20-patient's overall gross is poor and condition is critical. I had a long discussion with the patient's brother Rick he understood the grave condition and poor prognosis but he wants everything to be done at this time. We respect his wishes. Patient is on soft restraints, not communicative and restless twisting and turning in the bed. Patient has central line in the right neck. NG tube in place. Patient is a poor candidate for PEG placement. Patient has a T-max of 100.7 in the last 24 hours. Patient is receiving IV Zosyn. Urine culture is positive for ESBL E. coli and blood cultures from are negative so far. Blood cultures from march 03 indicates staph hominis. 03/13/2020-again or out prognosis poor condition is critical. Patient is in the bed turning and tossing and in distress. As per the nurses to start her on IV morphine 1 mg every 4 as needed. I spoke to patient's brother Rick about the plan of care and also about giving small dose of IV morphine on as needed basis he is okay with it at this time. He still wants her to be full code. Latest blood cultures are negative. T-max is 100.9 at midnight. Blood cultures growi ng gram-positive cocci in clusters presently on IV Zosyn started on IV vancomycin. Final report came back as micrococus species. Reason For Visit: UROSEPSIS Physical Exam Vital Signs: Temp Pulse Resp BP Pulse Ox 98.5 F 88 18 114/71 99 03/13/20 07:40 03/13/20 07:40 03/13/20 07:40 03/13/20 07:40 03/13/20 07:40 Intake & Output 03/12/20 03/13/20 03/14/20 06:59 06:59 06:59 Intake Total 1217 1807 Output Total 600 Balance 1217 1207 Weight 42.5 kg 50 kg General appearance: PRESENT: other - In moderate distress, noncooperative. On restraints.. ABSENT: cooperative Head exam: PRESENT: atraumatic Eye exam: PRESENT: conjunctiva pale, PERRLA Ear exam: PRESENT: normal external ear exam Mouth exam: PRESENT: neck supple Teeth exam: PRESENT: poor dentation Neck exam: ABSENT: carotid bruit, JVD, lymphadenopathy, thyromegaly Respiratory exam: PRESENT: decreased breath sounds Cardiovascular exam: PRESENT: tachycardia Pulses: PRESENT: normal dorsalis pedis pul GI/Abdominal exam: PRESENT: normal bowel sounds, soft. ABSENT: distended, guarding, mass, organolmegaly, rebound, tenderness Rectal exam: PRESENT: deferred Extremities exam: PRESENT: full ROM. ABSENT: calf tenderness, clubbing, pedal edema Neurological exam: PRESENT: altered Psychiatric exam: PRESENT: agitated Results Laboratory Results: 03/13/20 06:30 03/13/20 05:30 03/13/20 03/13/20 05:30 06:30 WBC 10.8 H RBC 3.54 L Hgb 10.1 L Hct 30.3 L MCV 86 MCH 28.5 MCHC 33.2 RDW 14.9 H Plt Count 176 Seg Neutrophils % 70.5 Sodium 137.4 Potassium 4.2 Chloride 101 Carbon Dioxide 34 H Anion Gap 2 L BUN 13 Creatinine 0.59 Est GFR ( Amer) > 60 Glucose 229 H Calcium 7.8 L Magnesium 2.3 Total Bilirubin 0.3 AST 20 Alkaline Phosphatase 97 Total Protein 5.0 L Albumin 2.3 L 03/11/20 10:29 Blood Blood Culture (PCR) - Final 03/03/20 10:15 Troponin I 0.030 Impressions: KUB X-Ray 03/07/20 00:00 IMPRESSION: 1. Nasogastric tube tip is in the stomach. The proximal sidehole is at the gastroesophageal junction. Consider advancing several centimeters. Chest X-Ray 03/11/20 00:00 IMPRESSION: 1. Minimal left basilar atelectasis. Possible small effusions. 2. Central line and NG tube remain in place. 3. Right upper lobe infiltrate has resolved. Assessment and Plan - Diagnosis (1) Acute metabolic encephalopathy Is this a current diagnosis for this admission?: Yes Plan: Secondary to infection superimposed on severe dementia due to prior episode of severe hypoglycemia from taking too much insulin approx 2 years ago per brother Chronically poor baseline due to underlying dementia. Treat underlying cause which is infection/UTI and respiratory failure 03/12/2020-patient is still confused and agitated. Receiving IV Zosyn for ESBL E. coli. Latest blood cultures are negative. T-max is 100.7. Discussed the care extensively with patient's brother Rick at this time he want everything to be done. 03/13/2020-blood cultures growing micrococcus species. Patient is receiving IV Zosyn for ESBL E. coli. T-max is 100.9 last night. Discussed the plan of care with Rick he wants her to be full code at this time. He wants everything to be done. And is on valproic acid, Klonopin's, Lexapro to start on IV morphine 1 mg every 4 as needed for pain. (2) Sepsis Qualifiers: Sepsis type: Escherichia coli Sepsis acute organ dysfunction status: with acute organ dysfunction Severe sepsis acute organ dysfunction type: acute renal failure Acute renal failure type: with acute tubular necrosis Severe sepsis shock status: without septic shock Qualified Code(s): A41.51 - Sepsis due to Escherichia coli [E. coli]; R65.20 - Severe sepsis without septic shock; N17.0 - Acute kidney failure with tubular necrosis Is this a current diagnosis for this admission?: Yes Plan: Source is UTI with ESBL E. coli Antibiotics given Resolved 03/11/2020 Recurred likely due to a recurrence of her UTI from urinary retention Treat underlying cause with Zosyn 03/12/2020-patient is on Zosyn from yesterday T-max 100.7. Blood cultures from y day negative so far. Plan is to continue the present management at this time. 03/13/20-blood cultures growing micrococcus. Urine culture is positive for ESBL E. coli T-max is 100.9 presently on IV Zosyn. IV vancomycin is added to the medications. (3) Acute respiratory failure with hypoxia Is this a current diagnosis for this admission?: Yes Plan: Supplemental oxygen as needed to maintain oxygen saturation at least 92% Patient has intermittent episodes of apnea which likely led to her intubation and ICU, now extubated Sedating medications discontinued in ICU, no more trazodone or melatonin 03/12/2020-pulse ox is 96% on 2 L. Patient was initially in ICU status post intubation and extubation. Patient is not on trazodone not on melatonin at this time. 03/13/2020-pulse ox is 96% on 2 L. Plan is to continue the present management at this time. Chest x-ray from 03/11 indicates resolution of the right upper lobe infiltrate. (4) Delirium due to another medical condition, acute, hyperactive Is this a current diagnosis for this admission?: Yes Plan: 03/12/2020-patient has delirium secondary to multiple medical problems including chronic neurological disorder. pt had recurrent UTIs. May be chronic hypoxia is a contributing factor. 03/13/20-acute metabolic encephalopathy, altered mental status most likely multifactorial. Patient may have underlying chronic neurological disorder. Receiving Zosyn and vancomycin for ESBL E. coli and blood cultures came back positive for micrococcus species. (5) Hypernatremia Is this a current diagnosis for this admission?: Yes Plan: Resolved 03/13/2020-serum sodium today is 137.6 hyponatremia resolving. (6) Dysphagia Is this a current diagnosis for this admission?: Yes Plan: Possible neuromuscular disorder Speech therapy consult May need long-term PEG tube as she has had in the past, brother discussing this with the patient's parents to see if they would want this 03/12/2020-patient is on NG tube. Patient is not a candidate for PEG placement because of the acute on chronic metabolic and cephalopathy. 03/13/20-patient has NG tube in place. In my opinion she is not a candidate for PEG placement due to the acute on chronic metabolic encephalopathy. (7) UTI due to extended-spectrum beta lactamase (ESBL) producing Escherichia coli Is this a current diagnosis for this admission?: Yes Plan: -Recurrent due to urinary retention -zosyn - Plan Summary Summary: Review of records from [facility] indicate the following diagnoses has been present: Type 2 diabetes mellitus without complication Delusional disorder Dysphasia oropharyngeal phase Gastroesophageal reflux with esophagitis Unspecified symptoms and signs involving cognitive functions and awareness Restlessness and agitation Major depressive disorder Pseudobulbar affect Acute vaginitis Dementia and other diseases classified elsewhere with behavioral disturbance History of alcohol abuse Hyperlipidemia Anemia We will need to further investigate her medical history. She is on multiple medications. Will need to add them back strategically. We will first need to s tabilize the patient with fluids and antibiotics. She will have some as needed medications available. Mother history of dysphagia and her current mental state it is not reasonable to expect a safe swallow at this time but hopefully when the patient settles we will be able to administer an oral diet. If necessary it might be safer to insert a nasogastric tube so that we may administer medication s that are not available intravenous form. 03/04/2020 critical care visit: After evaluating the patient I did have a chance to talk to her brother. Informed him of her acute episodes and very slow progress. Positive news was she is afebrile and her white blood cell count has normalized. Respiratory status and possible seizure were noted. We discussed her current medications and treatment options. I expressed my confidence that by tomorrow she should be feeling better with corrected sodium and intravenous Depakote. We have asked about a local friend visiting but I suggested this wait until she would be more interactive. I did not dextrose to the IV fluid. With her underlying diabetes it may cause hyperglycemia. If this happens we can always remove dextrose from the fluid or increase insulin dosing. After a 25-minute conversation her brother was satisfied that all of his questions were answered. - Time Anticipated Discharge Disposition: [facility]osp[facility] Anticipated Discharge Timeframe: within 72 hours
[2020-03-13] MEDS: VANCOMYCIN HCL 750 MG in DEXTROSE 5%-WATER 250 ML IV SCH (15:15)
[2020-03-14] MEDS: INSULIN LISPRO 100 UNIT/ML 3 ML VIAL SUBCUT SCH ×4 (00:03→18:29)
[2020-03-14] MEDS: PIPERACILLIN SODIUM/TAZOBACTAM 3.375 GM in NORMAL SALINE 100 ML IV SCH ×5 (00:03→23:57)
[2020-03-14] MEDS ORDERED: NORMAL SALINE 500 ML IV ONE (01:30)
[2020-03-14] MEDS: VANCOMYCIN HCL 750 MG in DEXTROSE 5%-WATER 250 ML IV SCH ×2 (01:44→13:48)
[2020-03-14] MEDS: HEPARIN SOD (PORCINE) 5,000 UNIT/ML 1 ML VIAL SUBCUT SCH ×3 (06:05→22:20)
[2020-03-14] MEDS: CLONAZEPAM 1 MG TABLET NG SCH (09:28)
[2020-03-14] MEDS: ESCITALOPRAM OXALATE 10 MG TABLET NG SCH (09:28)
[2020-03-14] MEDS: THIAMINE HCL 100 MG TABLET NG SCH (09:28)
[2020-03-14] MEDS: INSULIN GLARGINE,HUM.REC.ANLOG 1,000 UNIT/10 ML VIAL SUBCUT SCH (09:34)
[2020-03-14] MEDS: VALPROATE SODIUM SYRUP 250 MG/5 ML UDCUP NG SCH ×2 (09:34→22:20)
--- NOTE | 2020-03-14 11:44 | PDOC PROGRESS REPORT ---
Subjective Progress Note for:: 03/14/20 Subjective:: Patient recently sent out of ICU yesterday. My discussion with Dr. Rosales, patient has had a rather complicated ICU course with ESBL E. coli UTI and what is suspected to be a neuromuscular disorder causing her to have swallowing difficulties. Will need speech therapy consult to see her. Antibiotics continue. Patient seems to be very sensitive to insulin though her blood sugar is quite high today. I have increased her Lantus only by [address] Rosales recently dropped the dose for hypoglycemia. We made an alternate dosing schedule with lower doses to avoid acute drops in this brittle diabetic. Patient is sleeping comfortably during encounter and while arousable quickly goes back to sleep. NG tube feeds are continued and there has been talks that patient may need her PEG tube replaced as she had 1 of these in the past. Patient does not voice any specific complaints to me today. 03/11/2020 I had a very extensive conversation with the patient's brother who is her medical power of tower observer. He lives up in [facility] near [facility]. He states he has not seen the patient in over 2 years though he occasionally will talk to her on the phone from her residential. I described the patient's contracted legs overall debilitated appearance and what I believe is an extremely poor quality of life in general. She does have acute illness due to her ESBL E. coli UTI, however the chronic findings on exam are not a r esult of her current infection but rather progression of her severe chronic illnesses. I discussed the issue of CODE STATUS with him and he stated she has always been full code but he would have a discussion with her parents about the plan going forward for this and also for her future as it pertains to the end of her life. I would not be surprised that the patient in the next 6 to 12 months given her recurrent resistant infections and hospitalizations requiring ICU level care. She still having fevers today but they seem to be resolving now that she is on Zosyn. I am highly suspicious that she may be taking anticholinergic medications such as Benadryl at her nursing facility and this may be exacerbating what is likely underlying urinary retention causing recurrent UTIs. I discussed this with nursing and she will have a bladder scan to document the urinary retention and place a Lopes afterwards. I will order repeat UA with reflex culture which I expect to be infected due to another episode of urinary retention since her Lopes was removed approximately 2 days ago. By the numbers, her labs seem to be acceptable. Clinically, and cognitively, she is not improving. Speech therapy states she is not appropriate for diet and will likely need a feeding tube long-term. Brother is unsure if he wants her to have another PEG tube after I described the risk of the patient pulling this out inadvertently and causing herself to potentially of peritonitis given I have seen this situation in multiple patients in the past. Patient cannot articulate complaints and only mumbles a few words during exam. 03/12/20-patient's overall gross is poor and condition is critical. I had a long discussion with the patient's brother Rick he understood the grave condition and poor prognosis but he wants everything to be done at this time. We respect his wishes. Patient is on soft restraints, not communicative and restless twisting and turning in the bed. Patient has central line in the right neck. NG tube in place. Patient is a poor candidate for PEG placement. Patient has a T-max of 100.7 in the last 24 hours. Patient is receiving IV Zosyn. Urine culture is positive for ESBL E. coli and blood cultures from are negative so far. Blood cultures from march 03 indicates staph hominis. 03/13/2020-again or out prognosis poor condition is critical. Patient is in the bed turning and tossing and in distress. As per the nurses to start her on IV morphine 1 mg every 4 as needed. I spoke to patient's brother Rick about the plan of care and also about giving small dose of IV morphine on as needed basis he is okay with it at this time. He still wants her to be full code. Latest blood cultures are negative. T-max is 100.9 at midnight. Blood cultures growi ng gram-positive cocci in clusters presently on IV Zosyn started on IV vancomycin. Final report came back as micrococus species. 03/14/2020-patient is comfortably in the bed sleeping. Has an NG tube receiving nutrition through the NG tube. T-max is 98.4. Latest urine culture blood cultures are negative so far. Presently on IV Zosyn and vancomycin. Patient is a full code. Reason For Visit: UROSEPSIS Physical Exam Vital Signs: Temp Pulse Resp BP Pulse Ox 98.4 F 84 14 94/63 L 95 03/14/20 08:05 03/14/20 08:05 03/14/20 08:05 03/14/20 08:05 03/14/20 08:05 Intake & Output 03/13/20 03/14/20 03/15/20 06:59 06:59 06:59 Intake Total 1807 2529 Output Total 600 1500 Balance 1207 1029 Weight 50 kg 59 kg General appearance: PRESENT: no acute distress, other - Sleeping comfortably at this time. Head exam: PRESENT: atraumatic Eye exam: PRESENT: PERRLA Mouth exam: PRESENT: neck supple Teeth exam: PRESENT: poor dentation Neck exam: ABSENT: carotid bruit, JVD, lymphadenopathy, thyromegaly Respiratory exam: PRESENT: decreased breath sounds Cardiovascular exam: PRESENT: RRR. ABSENT: diastolic murmur, rubs, systolic murmur GI/Abdominal exam: PRESENT: normal bowel sounds, soft. ABSENT: distended, guarding, mass, organolmegaly, rebound, tenderness Rectal exam: PRESENT: deferred Extremities exam: PRESENT: full ROM. ABSENT: calf tenderness, clubbing, pedal edema Neurological exam: PRESENT: CN II-XII grossly intact Psychiatric exam: PRESENT: appropriate affect, normal mood. ABSENT: homicidal ideation, suicidal ideation Results Laboratory Results: 03/13/20 06:30 03/13/20 05:30 03/11/20 10:29 Blood Blood Culture (PCR) - Final 03/11/20 10:29 Blood Blood Culture - Final Micrococcus Species 03/03/20 10:15 Troponin I 0.030 Impressions: KUB X-Ray 03/07/20 00:00 IMPRESSION: 1. Nasogastric tube tip is in the stomach. The proximal sidehole is at the gastroesophageal junction. Consider advancing several centimeters. Chest X-Ray 03/11/20 00:00 IMPRESSION: 1. Minimal left basilar atelectasis. Possible small effusions. 2. Central line and NG tube remain in place. 3. Right upper lobe infiltrate has resolved. Assessment and Plan - Diagnosis (1) Acute metabolic encephalopathy Is this a current diagnosis for this admission?: Yes Plan: Secondary to infection superimposed on severe dementia due to prior episode of severe hypoglycemia from taking too much insulin approx 2 years ago per brother Chronically poor baseline due to underlying dementia. Treat underlying cause which is infection/UTI and respiratory failure 03/12/2020-patient is still confused and agitated. Receiving IV Zosyn for ESBL E. coli. Latest blood cultures are negative. T-max is 100.7. Discussed the care extensively with patient's brother Rick at this time he want everything to be done. 03/13/2020-blood cultures growing micrococcus species. Patient is receiving IV Zosyn for ESBL E. coli. T-max is 100.9 last night. Discussed the plan of care with Rick he wants her to be full code at this time. He wants everything to be done. And is on valproic acid, Klonopin's, Lexapro to start on IV morphine 1 mg every 4 as needed for pain. 03/14/2020-patient is still on restraints sleeping comfortably at this time. Receiving IV Zosyn and vancomycin. Latest urine culture, blood cultures are negative so far. previous blood cultures showing micrococcus, urine culture is growing ESBL E. coli. (2) Sepsis Qualifiers: Sepsis type: Escherichia coli Sepsis acute organ dysfunction status: with acute organ dysfunction Severe sepsis acute organ dysfunction type: acute renal failure Acute renal failure type: with acute tubular necrosis Severe sepsis shock status: without septic shock Qualified Code(s): A41.51 - Sepsis due to Escherichia coli [E. coli]; R65.20 - Severe sepsis without septic shock; N17.0 - Acute kidney failure with tubular necrosis Is this a current diagnosis for this admission?: Yes Plan: Source is UTI with ESBL E. coli Antibiotics given Resolved 03/11/2020 Recurred likely due to a recurrence of her UTI from urinary retention Treat underlying cause with Zosyn 03/12/2020-patient is on Zosyn from yesterday T-max 100.7. Blood cultures from yesterday negative so far. Plan is to continue the present management at this time. 03/13/20-blood cultures growing micrococcus. Urine culture is positive for ESBL E. coli T-max is 100.9 presently on IV Zosyn. IV vancomycin is added to the medications. 03/14/20-patient is presently on IV Zosyn and vancomycin. Latest urine cultures from 03/13 no growth. Blood culture from 03/13 pending. (3) Acute respiratory failure with hypoxia Is this a current diagnosis for this admission?: Yes Plan: Supplemental oxygen as needed to maintain oxygen saturation at least 92% Patient has intermittent episodes of apnea which likely led to her intubation and ICU, now extubated Sedating medications discontinued in ICU, no more trazodone or melatonin 03/12/2020-pulse ox is 96% on 2 L. Patient was initially in ICU status post intubation and extubation. Patient is not on trazodone not on melatonin at this time. 03/13/2020-pulse ox is 96% on 2 L. Plan is to continue the present management at this time. Chest x-ray from 03/11 indicates resolution of the right upper lobe infiltrate. 03/14/2020-pulse ox today is 97% on 2 L. Patient is comfortably sleeping in bed not in distress. Chest bilateral entry was decreased no wheezing no crepitations present. (4) Delirium due to another medical condition, acute, hyperactive Is this a current diagnosis for this admission?: Yes Plan: 03/12/2020-patient has delirium secondary to multiple medical problems including chronic neurological disorder. pt had recurrent UTIs. May be chronic hypoxia is a contributing factor. 03/13/20-acute metabolic encephalopathy, altered mental status most likely multifactorial. Patient may have underlying chronic neurological disorder. Receiving Zosyn and vancomycin for ESBL E. coli and blood cultures came back positive for micrococcus species. (5) Hypernatremia Is this a current diagnosis for this admission?: Yes Plan: Resolved 03/13/2020-serum sodium today is 137.6 hyponatremia resolving. (6) Dysphagia Is this a current diagnosis for this admission?: Yes Plan: Possible neuromuscular disorder Speech therapy consult May need long-term PEG tube as she has had in the past, brother discussing this with the patient's parents to see if they would want this 03/12/2020-patient is on NG tube. Patient is not a candidate for PEG placement because of the acute on chronic metabolic and cephalopathy. 03/13/20-patient has NG tube in place. In my opinion she is not a candidate for PEG placement due to the acute on chronic metabolic encephalopathy. 03/14/2020-patient is receiving the feedings through the NG tube. Patient is not a candidate for PEG tube because of the acute metabolic encephalopathy/altered mental status. (7) UTI due to extended-spectrum beta lactamase (ESBL) producing Escherichia coli Is this a current diagnosis for this admission?: Yes Plan: -Recurrent due to urinary retention -zosyn 03/14/2020-urine cultures from 82- so far. Presently on Zosyn and vancomycin. - Plan Summary Summary: Review of records from [facility] indicate the following diagnoses has been present: Type 2 diabetes mellitus without complication Delusional disorder Dysphasia oropharyngeal phase Gastroesophageal reflux with esophagitis Unspecified symptoms and signs involving cognitive functions and awareness Restlessness and agitation Major depressive disorder Pseudobulbar affect Acute vaginitis Dementia and other diseases classified elsewhere with behavioral disturbance History of alcohol abuse Hyperlipidemia Anemia We will need to further investigate her medical history. She is on multiple medications. Will need to add them back strategically. We will first need to stabilize the patient with fluids and antibiotics. She will have some as needed medications available. Mother history of dysphagia and her current mental state it is not reasonable to expect a safe swallow at this time but hopefully when the patient settles we will be able to administer an oral diet. If necessary it might be safer to insert a nasogastric tube so that we may administer medications that are not available intravenous form. 03/04/2020 critical care visit: After evaluating the patient I did have a chance to talk to her brother. Informed him of her acute episodes and very slow progress. Positive news was s he is afebrile and her white blood cell count has normalized. Respiratory status and possible seizure were noted. We discussed her current medications and treatment options. I expressed my confidence that by tomorrow she should be feeling better with corrected sodium and intravenous Depakote. We have asked about a local friend visiting but I suggested this wait until she would be more interactive. I did not dextrose to the IV fluid. With her underlying diabetes it may cause hyperglycemia. If this happens we can always remove dextrose from the fluid or increase insulin dosing. After a 25-minute conversation her brother was satisfied that all of his questions were answered. - Time Anticipated Discharge Disposition: Hospice Center Anticipated Discharge Timeframe: within 72 hours
[2020-03-15] MEDS: INSULIN LISPRO 100 UNIT/ML 3 ML VIAL SUBCUT SCH ×5 (00:02→23:48)
[2020-03-15] MEDS: VANCOMYCIN HCL 750 MG in DEXTROSE 5%-WATER 250 ML IV SCH ×3 (01:10→22:08)
[2020-03-15] MEDS ORDERED: LORAZEPAM INJ 2 MG/1 ML VIAL IV ONE (02:30)
[2020-03-15] MEDS: PIPERACILLIN SODIUM/TAZOBACTAM 3.375 GM in NORMAL SALINE 100 ML IV SCH ×4 (05:33→23:48)
[2020-03-15] MEDS: HEPARIN SOD (PORCINE) 5,000 UNIT/ML 1 ML VIAL SUBCUT SCH ×3 (05:33→21:28)
[2020-03-15 06:28] LABS: HEMATOCRIT 27.6 % (36.0-47.0); HEMOGLOBIN 9.2 g/dL (12.0-15.5); MEAN CORPUSCULAR HEMOGLOBIN 28.6 pg (27.0-33.4); MEAN CORPUSCULAR HGB CONC 33.4 g/dL (32.0-36.0); MEAN CORPUSCULAR VOLUME 86 fl (80-97); PLATELET COUNT 154 10^3/uL (150-450); RED BLOOD COUNT 3.23 10^6/uL (3.72-5.28); RED CELL DISTRIBUTION WIDTH 14.1 % (11.5-14.0); WHITE BLOOD COUNT 6.6 10^3/uL (4.0-10.5)
[2020-03-15 06:53] LABS: VANCOMYCIN,TROUGH 14.5 ug/mL (5.0-20.0)
[2020-03-15 06:56] LABS: ABSOLUTE LYMPHOCYTES# (MANUAL) 1.5 10^3/uL (0.5-4.7); ABSOLUTE MONOCYTES # (MANUAL) 0.7 10^3/uL (0.1-1.4); BAND NEUTROPHILS % (MANUAL) 2 % (3-5); BASOPHILS % (MANUAL) 1 % (0-2); EOSINOPHILS % (MANUAL) 0 % (0-6); LYMPHOCYTES % (MANUAL) 22 % (13-45); MONOCYTES % (MANUAL) 10 % (3-13); SEGMENTED NEUTROPHILS % (MAN) 61 % (42-78); TOTAL CELLS COUNTED 100
[2020-03-15 06:57] LABS: ANISOCYTOSIS SLIGHT; POLYCHROMASIA 1+
[2020-03-15 06:58] LABS: METAMYELOCYTES % (MANUAL) 3 % (0-1); PLATELET COMMENT ADEQUATE; POIKILOCYTOSIS SLIGHT; TEAR DROP CELLS SLIGHT
[2020-03-15 07:34] LABS: ALBUMIN 1.9 g/dL (3.5-5.0); ALKALINE PHOSPHATASE 99 U/L (38-126); ASPARTATE AMINO TRANSFERASE 15 U/L (14-36); BILIRUBIN,TOTAL 0.1 mg/dL (0.2-1.3); BLOOD UREA NITROGEN 11 mg/dL (7-20); CALCIUM 7.3 mg/dL (8.4-10.2); GLUCOSE 282 mg/dL (75-110); POTASSIUM 4.3 mmol/L (3.6-5.0); TOTAL PROTEIN 4.3 g/dL (6.3-8.2)
[2020-03-15 07:39] LABS: ANION GAP 5 (5-19); CARBON DIOXIDE 29 mmol/L (22-30); CHLORIDE 97 mmol/L (98-107)
[2020-03-15] MEDS: ESCITALOPRAM OXALATE 10 MG TABLET NG SCH (10:28)
[2020-03-15] MEDS: VALPROATE SODIUM SYRUP 250 MG/5 ML UDCUP NG SCH ×2 (10:28→21:27)
[2020-03-15] MEDS: CLONIDINE 0.2 MG/24 HR PATCH.TDWK TD SCH (10:29)
[2020-03-15] MEDS: THIAMINE HCL 100 MG TABLET NG SCH (10:29)
[2020-03-15] MEDS ORDERED: INSULIN GLARGINE,HUM.REC.ANLOG 1,000 UNIT/10 ML VIAL (PYX) SUBCUT ONE ×3 (11:00→11:15)
[2020-03-15] MEDS ORDERED: CLONIDINE 0.2 MG/24 HR PATCH.TDWK TD SCH (12:00)
[2020-03-15 13:59] LABS: PATH REVIEW PATHOLOGIST REVIEWED
[2020-03-15 14:04] LABS: VANCOMYCIN,TROUGH 8.7 ug/mL (5.0-20.0)
--- NOTE | 2020-03-15 17:58 | PDOC PROGRESS REPORT ---
Subjective Progress Note for:: 03/15/20 Subjective:: Patient recently sent out of ICU yesterday. My discussion with Dr. Rosales, patient has had a rather complicated ICU course with ESBL E. coli UTI and what is suspected to be a neuromuscular disorder causing her to have swallowing difficulties. Will need speech therapy consult to see her. Antibiotics continue. Patient seems to be very sensitive to insulin though her blood sugar is quite high today. I have increased her Lantus only by [address] Rosales recently dropped the dose for hypoglycemia. We made an alternate dosing schedule with lower doses to avoid acute drops in this brittle diabetic. Patient is sleeping comfortably during encounter and while arousable quickly goes back to sleep. NG tube feeds are continued and there has been talks that patient may need her PEG tube replaced as she had 1 of these in the past. Patient does not voice any specific complaints to me today. 03/11/2020 I had a very extensive conversation with the patient's brother who is her medical power of real estate attorney. He lives up in [facility] near [facility] reportedly. He states he has not seen the patient in over 2 years though he occasionally will talk to her on the phone from her senior living. I described the patient's contracted legs overall debilitated appearance and what I believe is an extremely poor quality of life in general. She does have acute illness due to her ESBL E. coli UTI, however the chronic findings on exam are not a result of her current infection but rather progression of her severe chronic illnesses. I discussed the issue of CODE STATUS with him and he stated she has always been full code but he would have a discussion with her parents about the plan going forward for this and also for her future as it pertains to the end of her life. I would not be surprised that the patient in the next 6 to 12 months given her recurrent resistant infections and hospitalizations requiring ICU level care. She still having fevers today but they seem to be resolving now that she is on Zosyn. I am highly suspicious that she may be taking anticholinergic medications such as Benadryl at her nursing facility and this may be exacerbating what is likely underlying urinary retention causing recurrent UTIs. I discussed this with nursing and she will have a bladder scan to document the urinary retention and place a Lopes afterwards. I will order repeat UA with reflex culture which I expect to be infected due to another episode of urinary retention since her Lopes was removed approximately 2 days ago. By the numbers, her labs seem to be acceptable. Clinically, and cognitively, she is not improving. Speech therapy states she is not appropriate for diet and will likely need a feeding tube long-term. Brother is unsure if he wants her to have another PEG tube after I described the risk of the patient pulling this out inadvertently and causing herself to potentially of peritonitis given I have seen this situation in multiple patients in the past. Patient cannot articulate complaints and only mumbles a few words during exam. 03/12/20-patient's overall gross is poor and condition is critical. I had a long discussion with the patient's brother Rick he understood the grave condition and poor prognosis but he wants everything to be done at this time. We respect his wishes. Patient is on soft restraints, not communicative and restless twisting and turning in the bed. Patient has central line in the right neck. NG tube in place. Patient is a poor candidate for PEG placement. Patient has a T-max of 100.7 in the last 24 hours. Patient is receiving IV Zosyn. Urine culture is positive for ESBL E. coli and blood cultures from are negative so far. Blood cultures from march 03 indicates staph hominis. 03/13/2020-again or out prognosis poor condition is critical. Patient is in the bed turning and tossing and in distress. As per the nurses to start her on IV morphine 1 mg every 4 as needed. I spoke to patient's brother Rick about the plan of care and also about giving small dose of IV morphine on as needed basis he is okay with it at this time. He still wants her to be full code. Latest blood cultures are negative. T-max is 100.9 at midnight. Blood cultures karen wing gram-positive cocci in clusters presently on IV Zosyn started on IV vancomycin. Final report came back as micrococus species. 03/14/2020-patient is comfortably in the bed sleeping. Has an NG tube receiving nutrition through the NG tube. T-max is 98.4. Latest urine culture blood cultures are negative so far. Presently on IV Zosyn and vancomycin. Patient is a full code. 03/15/2020 Patient speaking today somewhat clearly intermittently. Off-and-on moans/groans though. She cannot articulate any specific complaints but does agree that she wants to go home. Blood sugar still elevated and I have increased her Lantus dose. She is continued on bank/Zosyn and uncover testing is pending. Blood culture on 03/11 grew a contaminant 1/2 blood culture on 03/13 grew 1/2 staph possibly a contaminant as well. Urine culture negative. Patient high risk to pass away in the next 6 months this is been discussed with family at length. Repeat evaluation with speech therapy is needed today as patient is quite alert. If she cannot swallow effectively today, we will need to move towards PEG tube. Reason For Visit: UROSEPSIS Physical Exam Vital Signs: Temp Pulse Resp BP Pulse Ox 98.0 F 80 14 103/61 97 03/15/20 07:43 03/15/20 14:00 03/15/20 07:43 03/15/20 07:43 03/15/20 07:43 Intake & Output 03/14/20 03/15/20 03/16/20 06:59 06:59 06:59 Intake Total 2529 2607 220 Output Total 1500 2125 Balance 1029 482 220 Weight 59 kg 47.9 kg General appearance: PRESENT: no acute distress, thin Head exam: PRESENT: atraumatic, normocephalic Eye exam: PRESENT: conjunctiva pink Mouth exam: PRESENT: moist Respiratory exam: PRESENT: clear to auscultation toño. ABSENT: rales, rhonchi, wheezes Cardiovascular exam: PRESENT: RRR. ABSENT: diastolic murmur, rubs, systolic murmur GI/Abdominal exam: PRESENT: normal bowel sounds, soft. ABSENT: distended, guarding, mass, organolmegaly, rebound, tenderness Extremities exam: PRESENT: other - Chronic bilateral lower extremity contractures Neurological exam: PRESENT: alert, awake. ABSENT: oriented to person, oriented to place, oriented to time, oriented to situation Psychiatric exam: PRESENT: unusual affect Skin exam: PRESENT: dry, intact, warm Results Laboratory Results: 03/15/20 05:30 03/15/20 06:53 03/15/20 03/15/20 05:30 06:53 WBC 6.6 RBC 3.23 L Hgb 9.2 L Hct 27.6 L MCV 86 MCH 28.6 MCHC 33.4 RDW 14.1 H Plt Count 154 Seg Neutrophils % Not Reportable Sodium 130.6 L Potassium 4.3 Chloride 97 L Carbon Dioxide 29 Anion Gap 5 BUN 11 Creatinine 0.49 L Est GFR ( Amer) > 60 Glucose 282 H Calcium 7.3 L Magnesium 1.9 Total Bilirubin 0.1 L AST 15 Alkaline Phosphatase 99 Total Protein 4.3 L Albumin 1.9 L 03/13/20 12:14 Catheterized Urine Urine Culture - Final NO GROWTH 2 DAYS 03/13/20 11:25 Blood Blood Culture (PCR) - Final Staphylococcus Species 03/03/20 10:15 Troponin I 0.030 Impressions: KUB X-Ray 03/07/20 00:00 IMPRESSION: 1. Nasogastric tube tip is in the stomach. The proximal sidehole is at the gastroesophageal junction. Consider advancing several centimeters. Chest X-Ray 03/11/20 00:00 IMPRESSION: 1. Minimal left basilar atelectasis. Possible small effusions. 2. Central line and NG tube remain in place. 3. Right upper lobe infiltrate has resolved. Assessment and Plan - Diagnosis (1) UTI due to extended-spectrum beta lactamase (ESBL) producing Escherichia coli Is this a current diagnosis for this admission?: Yes Plan: ESBL E. coli growing in urine culture Given 1 dose of fosfomycin Follow-up urinalysis 03/11/2022 Likely having recurrent UTIs due to underlying urinary retention probably exacerbated by anticholinergic such as Benadryl at her nursing facility as this is listed on her home medications list Hold all anticholinergics permanently UA with reflex culture to be repeated Restarted Zosyn Bladder scan to document urinary retention then placed Lopes catheter 03/12/2020-patient is still confused and agitated. Receiving IV Zosyn for ESBL E. coli. Latest blood cultures are negative. T-max is 100.7. Discussed the care extensively with patient's brother Rick at this time he want everything to be done. 03/13/2020-blood cultures growing micrococcus species. Patient is receiving IV Zosyn for ESBL E. coli. T-max is 100.9 last night. Discussed the plan of care with Rick he wants her to be full code at this time. He wants everything to be done. And is on valproic acid, Klonopin's, Lexapro to start on IV morphine 1 mg every 4 as needed for pain. 03/14/2020-patient is still on restraints sleeping comfortably at this time. Receiving IV Zosyn and vancomycin. Latest urine culture, blood cultures are negative so far. previous blood cultures showing micrococcus, urine culture is growing ESBL E. coli. 03/15/2020 Vancomycin/Zosyn continue Urine culture negative (2) Sepsis Qualifiers: Sepsis type: Escherichia coli Sepsis acute organ dysfunction status: with acute organ dysfunction Severe sepsis acute organ dysfunction type: acute renal failure Acute renal failure type: with acute tubular necrosis Severe sepsis shock status: without septic shock Qualified Code(s): A41.51 - Sepsis due to Escherichia coli [E. coli]; R65.20 - Severe sepsis without septic shock; N17.0 - Acute kidney failure with tubular necrosis Is this a current diagnosis for this admission?: Yes Plan: Source is UTI with ESBL E. coli Antibiotics given Resolved 03/11/2020 Recurred likely due to a recurrence of her UTI from urinary retention Treat underlying cause with Zosyn 03/12/2020-patient is on Zosyn from yesterday T-max 100.7. Blood cultures from yesterday negative so far. Plan is to continue the present management at this time. 03/13/20-blood cultures growing micrococcus. Urine culture is positive for ESBL E. coli T-max is 100.9 presently on IV Zosyn. IV vancomycin is added to the medications. 03/14/20-patient is presently on IV Zosyn and vancomycin. Latest urine cultures from 03/13 no growth. Blood culture from 03/13 pending. 03/15/2020 Vancomycin and Zosyn Blood cultures growing possible contaminant on 03/13, previously grew contaminant 03/11 in 1/2 bottles (3) Acute metabolic encephalopathy Is this a current diagnosis for this admission?: Yes (4) Acute respiratory failure with hypoxia Is this a current diagnosis for this admission?: Yes (5) Delirium due to another medical condition, acute, hyperactive Is this a current diagnosis for this admission?: Yes (6) Hypercapnic respiratory failure Qualifiers: Chronicity: acute Qualified Code(s): J96.02 - Acute respiratory failure with hypercapnia Is this a current diagnosis for this admission?: Yes (7) Hypernatremia Is this a current diagnosis for this admission?: Yes (8) Diabetes 1.5, managed as type 1 Is this a current diagnosis for this admission?: Yes (9) Dysphagia Is this a current diagnosis for this admission?: Yes Plan: Possible neuromuscular disorder Speech therapy consult May need long-term PEG tube as she has had in the past, brother discussing this with the patient's parents to see if they would want this 03/12/2020-patient is on NG tube. Patient is not a candidate for PEG placement because of the acute on chronic metabolic and cephalopathy. 03/13/20-patient has NG tube in place. In my opinion she is not a candidate for PEG placement due to the acute on chronic metabolic encephalopathy. 03/14/2020-patient is receiving the feedings through the NG tube. Patient is not a candidate for PEG tube because of the acute metabolic encephalopathy/altered mental status. 03/15/2020 Speech therapy reevaluation, move towards PEG tube placement if she still cannot swallow per family wishes. She has had this in the past and if family wants this done in general surgery is agreeable to do it or interventional radiology is agreeable to do it, will need to get this done. We will need to honor the family's wishes what they clearly state the patient's wishes were prior to her brain injury whether or not we agree with them. (10) UTI due to extended-spectrum beta lactamase (ESBL) producing Escherichia coli Is this a current diagnosis for this admission?: Yes - Plan Summary Summary: Review of records from [facility] indicate the following diagnoses has been present: Type 2 diabetes mellitus without complication Delusional disorder Dysphasia oropharyngeal phase Gastroesophageal reflux with esophagitis Unspecified symptoms and signs involving cognitive functions and awareness Restlessness and agitation Major depressive disorder Pseudobulbar affect Acute vaginitis Dementia and other diseases classified elsewhere with behavioral disturbance History of alcohol abuse Hyperlipidemia Anemia We will need to further investigate her medical history. She is on multiple medications. Will need to add them back strategically. We will first need to stabilize the patient with fluids and antibiotics. She will have some as needed medications available. Mother history of dysphagia and her current mental state it is not reasonable to expect a safe swallow at this time but hopefully when the patient settles we will be able to administer an oral diet. If necessary it might be safer to insert a nasogastric tube so that we may administer medications that are not available intravenous form. 03/04/2020 critical care visit: After evaluating the patient I did have a chance to talk to her brother. Informed him of her acute episodes and very slow progress. Positive news was she is afebrile and her white blood cell count has normalized. Respiratory status and possible seizure were noted. We discussed her current medications and treatment options. I expressed my confidence that by tomorrow she should be feeling better with corrected sodium and intravenous Depakote. We have asked about a local friend visiting but I suggested this wait until she would be more interactive. I did not dextrose to the IV fluid. With her underlying diabetes it may cause hyperglycemia. If this happens we can always remove dextrose from the fluid or increase insulin dosing. After a 25-minute conversation her brother was satisfied that all of his questions were answered. - Time Time Spent with patient: 15-24 minutes Anticipated Discharge Disposition: [facility] Anticipated Discharge Timeframe: When patient improves, can swallow, or has PEG tube - Inpatient Certification Based on my medical assessment, after consideration of the patient's co morbidities, presenting symptoms, or acuity I expect that the services needed warrant INPATIENT care.: Yes I certify that my determination is in accordance with my understanding of Medicare's requirements for reasonable and necessary INPATIENT services [42 CFR 412.3e].: Yes Medical Necessity: Significant Comorbidiites Make Outpatient Treatment Too Risky, Need Close Monitoring Due to Risk of Patient Decompensation, Need for IV Antibiotics, Need for Surgery, Risk of Complication if Not Cared For in Hospital, Risk of Diagnosis Which Will Require Inpatient Eval/Care/Monitoring
[2020-03-16] MEDS: INSULIN LISPRO 100 UNIT/ML 3 ML VIAL SUBCUT SCH ×3 (05:46→18:27)
[2020-03-16] MEDS: HEPARIN SOD (PORCINE) 5,000 UNIT/ML 1 ML VIAL SUBCUT SCH ×3 (05:46→22:47)
[2020-03-16] MEDS: PIPERACILLIN SODIUM/TAZOBACTAM 3.375 GM in NORMAL SALINE 100 ML IV SCH ×3 (05:46→18:27)
[2020-03-16] MEDS: VANCOMYCIN HCL 750 MG in DEXTROSE 5%-WATER 250 ML IV SCH ×3 (06:33→22:47)
[2020-03-16] MEDS: VALPROATE SODIUM SYRUP 250 MG/5 ML UDCUP NG SCH ×2 (08:33→22:47)
[2020-03-16] MEDS ORDERED: INSULIN GLARGINE,HUM.REC.ANLOG 1,000 UNIT/10 ML VIAL (PYX) SUBCUT ONE ×2 (10:00→13:18)
[2020-03-16] MEDS ORDERED: INSULIN GLARGINE,HUM.REC.ANLOG 1,000 UNIT/10 ML VIAL SUBCUT SCH ×2 (10:00)
[2020-03-16 11:20] LABS: BLOOD UREA NITROGEN 10 mg/dL (7-20); CALCIUM 7.4 mg/dL (8.4-10.2); GLUCOSE 331 mg/dL (75-110); POTASSIUM 4.1 mmol/L (3.6-5.0)
[2020-03-16 11:25] LABS: CARBON DIOXIDE 30 mmol/L (22-30); CHLORIDE 95 mmol/L (98-107)
[2020-03-16 11:30] LABS: ANION GAP 4 (5-19)
[2020-03-16] MEDS: CHOLECALCIFEROL (D3) 1,000 UNIT (25 MCG) TABLET NG SCH (13:23)
[2020-03-16] MEDS: THIAMINE HCL 100 MG TABLET NG SCH (13:23)
[2020-03-16] MEDS: ESCITALOPRAM OXALATE 10 MG TABLET NG SCH (13:23)
--- NOTE | 2020-03-16 18:17 | PDOC PROGRESS REPORT ---
Subjective Progress Note for:: 03/16/20 Subjective:: Patient recently sent out of ICU yesterday. My discussion with Dr. Rosales, patient has had a rather complicated ICU course with ESBL E. coli UTI and what is suspected to be a neuromuscular disorder causing her to have swallowing difficulties. Will need speech therapy consult to see her. Antibiotics continue. Patient seems to be very sensitive to insulin though her blood sugar is quite high today. I have increased her Lantus only by [address] Rosales recently dropped the dose for hypoglycemia. We made an alternate dosing schedule with lower doses to avoid acute drops in this brittle diabetic. Patient is sleeping comfortably during encounter and while arousable quickly goes back to sleep. NG tube feeds are continued and there has been talks that patient may need her PEG tube replaced as she had 1 of these in the past. Patient does not voice any specific complaints to me today. 03/11/2020 I had a very extensive conversation with the patient's brother who is her medical power of restaurant busser. He lives up in [facility] near [facility] reportedly. He states he has not seen the patient in over 2 years though he occasionally will talk to her on the phone from her halfway. I described the patient's contracted legs overall debilitated appearance and what I believe is an extremely poor quality of life in general. She does have acute illness due to her ESBL E. coli UTI, however the chronic findings on exam are not a result of her current infection but rather progression of her severe chronic illnesses. I discussed the issue of CODE STATUS with him and he stated she has always been full code but he would have a discussion with her parents about the plan going forward for this and also for her future as it pertains to the end of her life. I would not be surprised that the patient in the next 6 to 12 months given her recurrent resistant infections and hospitalizations requiring ICU level care. She still having fevers today but they seem to be resolving now that she is on Zosyn. I am highly suspicious that she may be taking anticholinergic medications such as Benadryl at her nursing facility and this may be exacerbating what is likely underlying urinary retention causing recurrent UTIs. I discussed this with nursing and she will have a bladder scan to document the urinary retention and place a Lopes afterwards. I will order repeat UA with reflex culture which I expect to be infected due to another episode of urinary retention since her Lopes was removed approximately 2 days ago. By the numbers, her labs seem to be acceptable. Clinically, and cognitively, she is not improving. Speech therapy states she is not appropriate for diet and will likely need a feeding tube long-term. Brother is unsure if he wants her to have another PEG tube after I described the risk of the patient pulling this out inadvertently and causing herself to potentially of peritonitis given I have seen this situation in multiple patients in the past. Patient cannot articulate complaints and only mumbles a few words during exam. 03/12/20-patient's overall gross is poor and condition is critical. I had a long discussion with the patient's brother Rick he understood the grave condition and poor prognosis but he wants everything to be done at this time. We respect his wishes. Patient is on soft restraints, not communicative and restless twisting and turning in the bed. Patient has central line in the right neck. NG tube in place. Patient is a poor candidate for PEG placement. Patient has a T-max of 100.7 in the last 24 hours. Patient is receiving IV Zosyn. Urine culture is positive for ESBL E. coli and blood cultures from are negative so far. Blood cultures from march 03 indicates staph hominis. 03/13/2020-again or out prognosis poor condition is critical. Patient is in the bed turning and tossing and in distress. As per the nurses to start her on IV morphine 1 mg every 4 as needed. I spoke to patient's brother Rick about the plan of care and also about giving small dose of IV morphine on as needed basis he is okay with it at this time. He still wants her to be full code. Latest blood cultures are negative. T-max is 100.9 at midnight. Blood cultures karen wing gram-positive cocci in clusters presently on IV Zosyn started on IV vancomycin. Final report came back as micrococus species. 03/14/2020-patient is comfortably in the bed sleeping. Has an NG tube receiving nutrition through the NG tube. T-max is 98.4. Latest urine culture blood cultures are negative so far. Presently on IV Zosyn and vancomycin. Patient is a full code. 03/15/2020 Patient speaking today somewhat clearly intermittently. Off-and-on moans/groans though. She cannot articulate any specific complaints but does agree that she wants to go home. Blood sugar still elevated and I have increased her Lantus dose. She is continued on bank/Zosyn and uncover testing is pending. Blood culture on 03/11 grew a contaminant 1/2 blood culture on 03/13 grew 1/2 staph possibly a contaminant as well. Urine culture negative. Patient high risk to pass away in the next 6 months this is been discussed with family at length. Repeat evaluation with speech therapy is needed today as patient is quite alert. If she cannot swallow effectively today, we will need to move towards PEG tube. 03/16/2020 I spoke at great length with the patient's brother Rick today. I informed her that the patient is much more alert and awake than she has been in the past however per my discussion with the speech therapist, the patient still cannot follow commands and is unable to swallow. She also is only able to speak a few words and has an extremely poor attention span. I am suspicious that she may not be far from her typical baseline at her nursing facility although Rick states that they have had full conversations a few weeks ago. I consulted general surgery at the brother's request although I made clear to him that the surgeon may choose not to perform a PEG tube placement on this patient for ethical reasons given the patient is high risk to pull this out and kill herself with peritonitis. Brother voiced full understanding of this concept and stated he would still like a consult from them for their opinion. I discussed the case with Dr. Saeed who plans to call the family and discuss it with him further. Blood culture is currently growing staph. Reason For Visit: UROSEPSIS Physical Exam Vital Signs: Temp Pulse Resp BP Pulse Ox 98.3 F 68 12 108/68 97 03/16/20 16:33 03/16/20 16:33 03/16/20 16:33 03/16/20 16:33 03/16/20 11:42 Intake & Output 03/15/20 03/16/20 03/17/20 06:59 06:59 06:59 Intake Total 0330 2178 250 Output Total 3939 1525 500 Balance 482 653 -250 Weight 47.9 kg 50.1 kg 50.2 kg General appearance: PRESENT: no acute distress, disheveled, thin Eye exam: PRESENT: conjunctiva pink. ABSENT: scleral icterus Respiratory exam: PRESENT: clear to auscultation toño. ABSENT: rales, rhonchi, wheezes Cardiovascular exam: PRESENT: RRR. ABSENT: diastolic murmur, rubs, systolic murmur GI/Abdominal exam: PRESENT: normal bowel sounds, soft. ABSENT: distended, guarding, mass, organolmegaly, rebound, tenderness Musculoskeletal exam: PRESENT: other - Severely contracted bilateral lower extremities unchanged Neurological exam: PRESENT: alert, awake. ABSENT: oriented to person, oriented to place, oriented to time, oriented to situation Psychiatric exam: PRESENT: flat affect Skin exam: PRESENT: dry, intact Results Laboratory Results: 03/15/20 05:30 03/16/20 10:41 03/16/20 10:41 Sodium 129.0 L Potassium 4.1 Chloride 95 L Carbon Dioxide 30 Anion Gap 4 L BUN 10 Creatinine 0.51 L Est GFR ( Amer) > 60 Glucose 331 H Calcium 7.4 L 03/11/20 11:15 Blood Blood Culture - Final NO GROWTH IN 5 DAYS 03/13/20 11:25 Blood Blood Culture (PCR) - Final Staphylococcus Species 03/03/20 10:15 Troponin I 0.030 Impressions: KUB X-Ray 03/07/20 00:00 IMPRESSION: 1. Nasogastric tube tip is in the stomach. The proximal sidehole is at the gastroesophageal junction. Consider advancing several centimeters. Chest X-Ray 03/11/20 00:00 IMPRESSION: 1. Minimal left basilar atelectasis. Possible small effusions. 2. Central line and NG tube remain in place. 3. Right upper lobe infiltrate has resolved. Assessment and Plan - Diagnosis (1) UTI due to extended-spectrum beta lactamase (ESBL) producing Escherichia col i Is this a current diagnosis for this admission?: Yes Plan: ESBL E. coli growing in urine culture Given 1 dose of fosfomycin Follow-up urinalysis 03/11/2022 Likely having recurrent UTIs due to underlying urinary retention probably exacerbated by anticholinergic such as Benadryl at her nursing facility as this is listed on her home medications list Hold all anticholinergics permanently UA with reflex culture to be repeated Restarted Zosyn Bladder scan to document urinary retention then placed Lopes catheter 03/12/2020-patient is still confused and agitated. Receiving IV Zosyn for ESBL E. coli. Latest blood cultures are negative. T-max is 100.7. Discussed the care extensively with patient's brother Rick at this time he want everything to be done. 03/13/2020-blood cultures growing micrococcus species. Patient is receiving IV Zosyn for ESBL E. coli. T-max is 100.9 last night. Discussed the plan of care with Rick he wants her to be full code at this time. He wants everything to be done. And is on valproic acid, Klonopin's, Lexapro to start on IV morphine 1 mg every 4 as needed for pain. 03/14/2020-patient is still on restraints sleeping comfortably at this time. Receiving IV Zosyn and vancomycin. Latest urine culture, blood cultures are negative so far. previous blood cultures showing micrococcus, urine culture is growing ESBL E. coli. 03/15/2020 Vancomycin/Zosyn continue Urine culture negative 03/16/2020 Antibiotics continue, can likely discontinue vancomycin once blood cultures have sensitivities resulted assuming bacteria is not MRSA (2) Sepsis Qualifiers: Sepsis type: Escherichia coli Sepsis acute organ dysfunction status: with acute organ dysfunction Severe sepsis acute organ dysfunction type: acute renal failure Acute renal failure type: with acute tubular necrosis Severe sepsis shock status: without septic shock Qualified Code(s): A41.51 - Sepsis due to Escherichia coli [E. coli]; R65.20 - Severe sepsis without septic shock; N17.0 - Acute kidney failure with tubular necrosis Is this a current diagnosis for this admission?: Yes Plan: Source is UTI with ESBL E. coli Antibiotics given Resolved 03/11/2020 Recurred likely due to a recurrence of her UTI from urinary retention Treat underlying cause with Zosyn 03/12/2020-patient is on Zosyn from yesterday T-max 100.7. Blood cultures from yesterday negative so far. Plan is to continue the present management at this time. 03/13/20-blood cultures growing micrococcus. Urine culture is positive for ESBL E. coli T-max is 100.9 presently on IV Zosyn. IV vancomycin is added to the medications. 03/14/20-patient is presently on IV Zosyn and vancomycin. Latest urine cultures from 03/13 no growth. Blood culture from 03/13 pending. 03/15/2020 Vancomycin and Zosyn Blood cultures growing possible contaminant on 03/13, previously grew contaminant 03/11 in 08/13 bottles 03/16/2020 Sepsis is resolved and temperature curve is normalized Antibiotics continued for underlying infections (3) Acute metabolic encephalopathy Is this a current diagnosis for this admission?: Yes Plan: Secondary to infection superimposed on severe dementia due to prior episode of severe hypoglycemia from taking too much insulin approx 2 years ago per brother Chronically poor baseline due to underlying dementia. Treat underlying cause which is infection/UTI and respiratory failure 03/12/2020-patient is still confused and agitated. Receiving IV Zosyn for ESBL E. coli. Latest blood cultures are negative. T-max is 100.7. Discussed the care extensively with patient's brother Rick at this time he want everything to be done. 03/13/2020-blood cultures growing micrococcus species. Patient is receiving IV Zosyn for ESBL E. coli. T-max is 100.9 last night. Discussed the plan of care with Rick he wants her to be full code at this time. He wants everything to be done. And is on valproic acid, Klonopin's, Lexapro to start on IV morphine 1 mg every 4 as needed for pain. 03/14/2020-patient is still on restraints sleeping comfortably at this time. Rec eiving IV Zosyn and vancomycin. Latest urine culture, blood cultures are negative so far. previous blood cultures showing micrococcus, urine culture is growing ESBL E. coli. 03/16/2020 No significant improvement in mentation, patient unable to carry on conversation or follow commands of special note those commands given by speech therapy and patient is unable to eat or swallow food and liquids. Speech therapy recommends alternate nutrition options as patient is not appropriate to have a diet Extensive discussion with the patient's brother Rick regarding feeding difficulties. He would like general surgery to evaluate the patient for PEG tube and I have consulted them. I stressed the high risk that the patient may pull out her PEG tube and kill herself with peritonitis however Rick still would like patient evaluated for PEG. (4) Acute respiratory failure with hypoxia Is this a current diagnosis for this admission?: Yes (5) Delirium due to another medical condition, acute, hyperactive Is this a current diagnosis for this admission?: Yes (6) Hypercapnic respiratory failure Qualifiers: Chronicity: acute Qualified Code(s): J96.02 - Acute respiratory failure with hypercapnia Is this a current diagnosis for this admission?: Yes (7) Hypernatremia Is this a current diagnosis for this admission?: Yes (8) Diabetes 1.5, managed as type 1 Is this a current diagnosis for this admission?: Yes Plan: Very brittle diabetic, highly sensitive to even small changes in insulin dosing May consider alternate long-acting insulin dosing regimen with multiple small doses instead of 1 or 2 large doses in the day 03/16/2020 Increased Lantus dosing again her persistently high blood sugar Accu-Cheks and sliding scale continue (9) Dysphagia Is this a current diagnosis for this admission?: Yes Plan: Possible neuromuscular disorder Speech therapy consult May need long-term PEG tube as she has had in the past, brother discussing this with the patient's parents to see if they would want this 03/12/2020-patient is on NG tube. Patient is not a candidate for PEG placement because of the acute on chronic metabolic and cephalopathy. 03/13/20-patient has NG tube in place. In my opinion she is not a candidate for PEG placement due to the acute on chronic metabolic encephalopathy. 03/14/2020-patient is receiving the feedings through the NG tube. Patient is not a candidate for PEG tube because of the acute metabolic encephalopathy/altered mental status. 03/15/2020 Speech therapy reevaluation, move towards PEG tube placement if she still cannot swallow per family wishes. She has had this in the past and if family wants this done in general surgery is agreeable to do it or interventional radiology is agreeable to do it, will need to get this done. We will need to honor the family's wishes what they clearly state the patient's wishes were prior to her brain injury whether or not we agree with them. 03/16/2020 Patient cannot swallow and cannot follow commands for speech therapy General surgery consulted for PEG tube evaluation per family's request Patient is high risk to pull out her PEG tube inadvertently kill herself with peritonitis and this was discussed with the patient's family (10) UTI due to extended-spectrum beta lactamase (ESBL) producing Escherichia coli Is this a current diagnosis for this admission?: Yes - Plan Summary Summary: Review of records from [facility] indicate the following diagnose s has been present: Type 2 diabetes mellitus without complication Delusional disorder Dysphasia oropharyngeal phase Gastroesophageal reflux with esophagitis Unspecified symptoms and signs involving cognitive functions and awareness Restlessness and agitation Major depressive disorder Pseudobulbar affect Acute vaginitis Dementia and other diseases classified elsewhere with behavioral disturbance History of alcohol abuse Hyperlipidemia Anemia We will need to further investigate her medical history. She is on multiple medications. Will need to add them back strategically. We will first need to stabilize the patient with fluids and antibiotics. She will have some as needed medications available. Mother history of dysphagia and her current mental state it is not reasonable to expect a safe swallow at this time but hopefully when the patient settles we will be able to administer an oral diet. If necessary it might be safer to insert a nasogastric tube so that we may administer medicati ons that are not available intravenous form. 03/04/2020 critical care visit: After evaluating the patient I did have a chance to talk to her brother. Informed him of her acute episodes and very slow progress. Positive news was she is afebrile and her white blood cell count has normalized. Respiratory status and possible seizure were noted. We discussed her current medications and treatment options. I expressed my confidence that by tomorrow she should be feeling better with corrected sodium and intravenous Depakote. We have asked about a local friend visiting but I suggested this wait until she would be more interactive. I did not dextrose to the IV fluid. With her underlying diabetes it may cause hyperglycemia. If this happens we can always remove dextrose from the fluid or increase insulin dosing. After a 25-minute conversation her brother was satisfied that all of his questions were answered. - Time Time Spent with patient: 25-34 minutes Anticipated Discharge Disposition: Senior Living Care Facility Anticipated Discharge Timeframe: within 72 hours - Inpatient Certification Based on my medical assessment, after consideration of the patient's comorbidities, presenting symptoms, or acuity I expect that the services needed warrant INPATIENT care.: Yes I certify that my determination is in accordance with my understanding of Medicare's requirements for reasonable and necessary INPATIENT services [42 CFR 412.3e].: Yes Medical Necessity: Significant Comorbidiites Make Outpatient Treatment Too Ri courtney, Need Close Monitoring Due to Risk of Patient Decompensation, Risk of Complication if Not Cared For in Hospital, Risk of Diagnosis Which Will Require Inpatient Eval/Care/Monitoring
--- NOTE | 2020-03-16 20:32 | PDOC CONSULTATION ---
Consultation Consult Date: 03/16/20 Provider Consulted: SURGICAL SURGICALIST Consult reason:: Inanition, dysphagia History of Present Illness Admission Date/PCP: 03/03/20 13:06 HARRY ESPINOSA MD History of Present Illness: MAVERICK TOLBERT is a 54 year old female seen in consultation at the request of the hospitalist service. The patient has a history of severe hypoglycemic episodes, and insulin overdoses. She suffered strokelike symptoms. Currently, she has difficulty swallowing and cannot eat. Per family's report, she also experiences tardive dyskinesia. Her symptoms have been ongoing and worsening over the last 4 years. The patient is awake and conversive today. She denies any pain at this time. She denies headache, shortness of breath, chest pain, abdominal pain, nausea, vomiting, shortness of breath. Of note, she has had a PEG tube in the past. Per report, it was removed 2 years ago. Past Medical History Cardiac Medical History: Reports: Hyperlipidema, Hypertension - medicated Denies: Myocardial Infarction, Heart Murmur Pulmonary Medical History: Reports: Bronchitis, Pneumonia Denies: Asthma, Tuberculosis Neurological Medical History: Reports: Seizures Endocrine Medical History: Reports: Diabetes Mellitus Type 2 Denies: Diabetes Mellitus Type 1, Hyperthyroidism, Hypothyroidism GI Medical History: Reports: Gastroesophageal Reflux Disease Denies: Cirrhosis, Hepatitis, Hiatal Hernia Musculoskeltal Medical History: Reports: Arthritis Denies: Fibromyalgia Skin Medical History: Denies: Eczema, Psoriasis Psychiatric Medical History: Reports: Bipolar Disorder, Dementia, Depression - Anxiety Hematology: Reports: Anemia Denies: Sickle Cell Disease, Bleeding Tendencies Infectious Medical History: Denies: HIV Past Surgical History Past Surgical History: Reports: Section, Orthopedic Surgery - R Hip, Tonsillectomy Denies: Amputation, Hysterectomy, Mastectomy, Pacemaker Social History Lives with: [facility] Smoking Status: Unknown if Ever Smoked Electronic Cigarette use?: No Frequency of Alcohol Use: None Hx Recreational Drug Use: No Drugs: None Hx Prescription Drug Abuse: No - Advance Directive Resuscitation Status: Full Code Family History Family History: DM, Hypertension Parental Family History Reviewed: Yes Children Family History Reviewed: Yes Sibling(s) Family History Reviewed.: Yes Medication/Allergy Home Medications: Acetaminophen [Tylenol 325 mg Tablet] 650 mg PO Q6HP PRN 05/19/19 Diphenhydramine HCl [Benadryl 25 mg Capsule] 25 mg PO Q8 05/19/19 Dulaglutide [Trulicity] 1.5 mg SQ Q7D 05/19/19 Insulin Aspart [Novolog] 0 unit SQ .SLIDING SCALE 05/19/19 Insulin Detemir [Levemir] 10 unit SQ QHS 05/19/19 Loratadine [Claritin 10 mg Tablet] 10 mg PO DAILY 05/19/19 Melatonin/Pyridoxine HCl (B6) [Melatonin 3 mg Tablet] 3 mg PO QHS 05/19/19 Sennosides [Senna] 8.6 mg PO BIDP PRN 05/19/19 Thiamine HCl [Vitamin B-1] 100 mg PO DAILY 05/19/19 Divalproex Sodium [Depakote Sprinkle 125 mg Capsule] 500 mg PO QAM #130 cap.sprink 05/21/19 Divalproex Sodium [Depakote Sprinkle 125 mg Capsule] 750 mg PO QHS #180 cap.sprink 05/21/19 Ibuprofen 200 mg PO Q8 06/20/19 Clonidine HCl [Catapres 0.1 mg Tablet] 0.1 mg PO QHS #14 tablet 06/21/19 Calcium Carbonate [Tums Chewable 500 mg Tab.chew] 500 mg PO Q4HP PRN 03/03/20 Clonazepam [Klonopin] 0.5 mg PO BID 03/03/20 Escitalopram Oxalate [Lexapro 10 mg Tablet] 15 mg PO DAILY 03/03/20 Estradiol [Estrace] 2 gm VG MOTH 03/03/20 Metformin HCl 1,000 mg PO BID 03/03/20 Pantoprazole Sodium [Protonix [address] Tablet] 40 mg PO QAM 03/03/20 Trazodone HCl 25 mg PO QHS 03/03/20 Ergocalciferol (Vitamin D2) [Drisdol 50,000 Unit (1.25MG) Capsule] 50,000 unit PO WE@1000 03/10/20 Allergies/Adverse Reactions: tramadol [Tramadol] Allergy (Verified 03/03/20 10:06) Nausea adhesive tape [Adhesive Tape] Adverse Reaction (Verified 03/03/20 10:06) peels skin off Review of Systems Constitutional: ABSENT: chills, fever(s), weakness Ears: ABSENT: hearing changes Nose, Mouth, and Throat: ABSENT: sore throat Cardiovascular: ABSENT: chest pain Respiratory: ABSENT: cough, dyspnea Gastrointestinal: ABSENT: abdominal pain, bloating Genitourinary: ABSENT: dysuria Integumentary: ABSENT: diaphoresis, pruritus, rash Neurological: PRESENT: lack of coordination, tremor(s). ABSENT: dizziness Endocrine: ABSENT: cold intolerance, heat intolerance Hematologic/Lymphatic: ABSENT: easy bleeding, easy bruising Physical Exam Vital Signs: Temp Pulse Resp BP Pulse Ox 98.3 F 68 12 108/68 97 03/16/20 16:33 03/16/20 16:33 03/16/20 16:33 03/16/20 16:33 03/16/20 11:42 Intake & Output 03/15/20 03/16/20 03/17/20 06:59 06:59 06:59 Intake Total 2607 2178 350 Output Total 2125 1525 500 Balance 482 653 -150 Weight 47.9 kg 50.1 kg 50.2 kg General appearance: PRESENT: no acute distress, cooperative, other - in soft wrist restraints Head exam: PRESENT: atraumatic, normocephalic Eye exam: ABSENT: scleral icterus Mouth exam: PRESENT: neck supple Neck exam: ABSENT: tenderness, thyromegaly, tracheal deviation Respiratory exam: PRESENT: unlabored. ABSENT: tachypnea, wheezes Cardiovascular exam: ABSENT: tachycardia Pulses: PRESENT: normal radial pulses GI/Abdominal exam: PRESENT: soft, other - Lower midline scar is present. Previous PEG site scar is evident.. ABSENT: distended, tenderness Rectal exam: PRESENT: deferred Extremities exam: ABSENT: clubbing Musculoskeletal exam: ABSENT: deformity Neurological exam: PRESENT: alert, awake Psychiatric exam: ABSENT: agitated, anxious Skin exam: ABSENT: cyanosis, erythema, jaundice Results Laboratory Results: 03/15/20 05:30 03/16/20 10:41 03/16/20 10:41 Sodium 129.0 L Potassium 4.1 Chloride 95 L Carbon Dioxide 30 Anion Gap 4 L BUN 10 Creatinine 0.51 L Est GFR ( Amer) > 60 Glucose 331 H Calcium 7.4 L 03/11/20 11:15 Blood Blood Culture - Final NO GROWTH IN 5 DAYS 03/13/20 11:25 Blood Blood Culture (PCR) - Final Staphylococcus Species 03/03/20 10:15 Troponin I 0.030 Impressions: KUB X-Ray 03/07/20 00:00 IMPRESSION: 1. Nasogastric tube tip is in the stomach. The proximal sidehole is at the gastroesophageal junction. Consider advancing several centimeters. Chest X-Ray 03/11/20 00:00 IMPRESSION: 1. Minimal left basilar atelectasis. Possible small effusions. 2. Central line and NG tube remain in place. 3. Right upper lobe infiltrate has resolved. Assessment & Plan - Diagnosis (1) Inanition Is this a current diagnosis for this admission?: Yes (2) Dysphagia Is this a current diagnosis for this admission?: Yes - Plan Summary Plan Summary: This is a 54-year-old female with dysphagia and inanition. The patient has had a previous PEG in the past. Per her brother, it was removed 2 years ago. The patient is being fed via NG tube at this time. I have discussed PEG placement with her brother at length. I have conveyed to him that it will provide her with nutrition, so that starvation is no longer an issue. It will not however improve her mental status or her tremors. Her brother, Rick, would like to think more about PEG placement as an option. He is not sure that he or the rest of his family are ready to consent for the procedure. This is reasonable. I have encouraged them to discuss the situation amongst themselves, and come to a decision. If they are willing to undergo PEG, please renotify surgery. We will follow from a distance at this time. We are happy to assist, if the patient's family desires PEG placement. Of note, the patient has a previous PEG scar. This makes it very likely that the stomach is already adherent to the anterior abdominal wall. This would hopefully make PEG tube dislodgment a less dangerous complication, if it were to occur. This was also discussed with the patient's family. They voiced understanding.
[2020-03-17] MEDS: INSULIN LISPRO 100 UNIT/ML 3 ML VIAL SUBCUT SCH ×4 (00:01→18:44)
[2020-03-17] MEDS: PIPERACILLIN SODIUM/TAZOBACTAM 3.375 GM in NORMAL SALINE 100 ML IV SCH ×4 (00:14→19:12)
[2020-03-17] MEDS: HEPARIN SOD (PORCINE) 5,000 UNIT/ML 1 ML VIAL SUBCUT SCH ×3 (06:00→22:11)
[2020-03-17] MEDS: VANCOMYCIN HCL 750 MG in DEXTROSE 5%-WATER 250 ML IV SCH ×3 (06:37→22:11)
[2020-03-17] MEDS: VALPROATE SODIUM SYRUP 250 MG/5 ML UDCUP NG SCH ×2 (08:49→22:10)
[2020-03-17] MEDS ORDERED: INSULIN GLARGINE,HUM.REC.ANLOG 1,000 UNIT/10 ML VIAL SUBCUT SCH (10:00)
[2020-03-17] MEDS ORDERED: INSULIN GLARGINE,HUM.REC.ANLOG 1,000 UNIT/10 ML VIAL (PYX) SUBCUT ONE (10:00)
[2020-03-17] MEDS: THIAMINE HCL 100 MG TABLET NG SCH (11:26)
[2020-03-17] MEDS: ESCITALOPRAM OXALATE 10 MG TABLET NG SCH (11:26)
--- NOTE | 2020-03-17 14:52 | PDOC PROGRESS REPORT ---
Subjective Progress Note for:: 03/17/20 Subjective:: Patient recently sent out of ICU yesterday. My discussion with Dr. Rosales, patient has had a rather complicated ICU course with ESBL E. coli UTI and what is suspected to be a neuromuscular disorder causing her to have swallowing difficulties. Will need speech therapy consult to see her. Antibiotics continue. Patient seems to be very sensitive to insulin though her blood sugar is quite high today. I have increased her Lantus only by [address] Rosales recently dropped the dose for hypoglycemia. We made an alternate dosing schedule with lower doses to avoid acute drops in this brittle diabetic. Patient is sleeping comfortably during encounter and while arousable quickly goes back to sleep. NG tube feeds are continued and there has been talks that patient may need her PEG tube replaced as she had 1 of these in the past. Patient does not voice any specific complaints to me today. 03/11/2020 I had a very extensive conversation with the patient's brother who is her medical power of airplane navigator. He lives up in [facility] near [facility] reportedly. He states he has not seen the patient in over 2 years though he occasionally will talk to her on the phone from her senior living. I described the patient's contracted legs overall debilitated appearance and what I believe is an extremely poor quality of life in general. She does have acute illness due to her ESBL E. coli UTI, however the chronic findings on exam are not a result of her current infection but rather progression of her severe chronic illnesses. I discussed the issue of CODE STATUS with him and he stated she has always been full code but he would have a discussion with her parents about the plan going forward for this and also for her future as it pertains to the end of her life. I would not be surprised that the patient in the next 6 to 12 months given her recurrent resistant infections and hospitalizations requiring ICU level care. She still having fevers today but they seem to be resolving now that she is on Zosyn. I am highly suspicious that she may be taking anticholinergic medications such as Benadryl at her nursing facility and this may be exacerbating what is likely underlying urinary retention causing recurrent UTIs. I discussed this with nursing and she will have a bladder scan to document the urinary retention and place a Lopes afterwards. I will order repeat UA with reflex culture which I expect to be infected due to another episode of urinary retention since her Lopes was removed approximately 2 days ago. By the numbers, her labs seem to be acceptable. Clinically, and cognitively, she is not improving. Speech therapy states she is not appropriate for diet and will likely need a feeding tube long-term. Brother is unsure if he wants her to have another PEG tube after I described the risk of the patient pulling this out inadvertently and causing herself to potentially of peritonitis given I have seen this situation in multiple patients in the past. Patient cannot articulate complaints and only mumbles a few words during exam. 03/12/20-patient's overall gross is poor and condition is critical. I had a long discussion with the patient's brother Rick he understood the grave condition and poor prognosis but he wants everything to be done at this time. We respect his wishes. Patient is on soft restraints, not communicative and restless twisting and turning in the bed. Patient has central line in the right neck. NG tube in place. Patient is a poor candidate for PEG placement. Patient has a T-max of 100.7 in the last 24 hours. Patient is receiving IV Zosyn. Urine culture is positive for ESBL E. coli and blood cultures from are negative so far. Blood cultures from march 03 indicates staph hominis. 03/13/2020-again or out prognosis poor condition is critical. Patient is in the bed turning and tossing and in distress. As per the nurses to start her on IV morphine 1 mg every 4 as needed. I spoke to patient's brother Rick about the plan of care and also about giving small dose of IV morphine on as needed basis he is okay with it at this time. He still wants her to be full code. Latest blood cultures are negative. T-max is 100.9 at midnight. Blood cultures karen wing gram-positive cocci in clusters presently on IV Zosyn started on IV vancomycin. Final report came back as micrococus species. 03/14/2020-patient is comfortably in the bed sleeping. Has an NG tube receiving nutrition through the NG tube. T-max is 98.4. Latest urine culture blood cultures are negative so far. Presently on IV Zosyn and vancomycin. Patient is a full code. 03/15/2020 Patient speaking today somewhat clearly intermittently. Off-and-on moans/groans though. She cannot articulate any specific complaints but does agree that she wants to go home. Blood sugar still elevated and I have increased her Lantus dose. She is continued on bank/Zosyn and uncover testing is pending. Blood culture on 03/11 grew a contaminant 1/2 blood culture on 03/13 grew 1/2 staph possibly a contaminant as well. Urine culture negative. Patient high risk to pass away in the next 6 months this is been discussed with family at length. Repeat evaluation with speech therapy is needed today as patient is quite alert. If she cannot swallow effectively today, we will need to move towards PEG tube. 03/16/2020 I spoke at great length with the patient's brother Rick today. I informed her that the patient is much more alert and awake than she has been in the past however per my discussion with the speech therapist, the patient still cannot follow commands and is unable to swallow. She also is only able to speak a few words and has an extremely poor attention span. I am suspicious that she may not be far from her typical baseline at her nursing facility although Rick states that they have had full conversations a few weeks ago. I consulted general surgery at the brother's request although I made clear to him that the surgeon may choose not to perform a PEG tube placement on this patient for ethical reasons given the patient is high risk to pull this out and kill herself with peritonitis. Brother voiced full understanding of this concept and stated he would still like a consult from them for their opinion. I discussed the case with Dr. Saeed who plans to call the family and discuss it with him further. Blood culture is currently growing staph. 03/17/2020 General surgery has evaluated the patient and stated she may be a candidate for PEG tube but the family chooses. They wish to take some time to discuss and think about this. I asked patient how she felt today about getting a PEG tube and she asked what would happen if she did not get it. I told her she would pass away and she did not have an opinion after this discussion. Her sodium is lower today at 129 we may need to adjust the sodium of her tube feeding to help with this. We will also need to change her tube feeds to Glucerna to help with blood sugars. I have increased her Lantus dose to 26 units daily today. Patient cannot articulate any specific complaints today. Reason For Visit: UROSEPSIS Physical Exam Vital Signs: Temp Pulse Resp BP Pulse Ox 97.5 F 81 20 120/69 96 03/17/20 11:21 03/17/20 11:21 03/17/20 11:21 03/17/20 11:21 03/17/20 11:21 Intake & Output 03/16/20 03/17/20 03/18/20 06:59 06:59 06:59 Intake Total 2178 2905 468 Output Total 1525 2024 Balance 653 880 468 Weight 50.1 kg 49.2 kg 49.2 kg Results Laboratory Results: 03/15/20 05:30 03/16/20 10:41 03/11/20 11:15 Blood Blood Culture - Final NO GROWTH IN 5 DAYS 03/03/20 10:15 Troponin I 0.030 Impressions: KUB X-Ray 03/07/20 00:00 IMPRESSION: 1. Nasogastric tube tip is in the stomach. The proximal sidehole is at the gastroesophageal junction. Consider advancing several centimeters. Chest X-Ray 03/11/20 00:00 IMPRESSION: 1. Minimal left basilar atelectasis. Possible small effusions. 2. Central line and NG tube remain in place. 3. Right upper lobe infiltrate has resolved. Assessment and Plan - Diagnosis (1) UTI due to extended-spectrum beta lactamase (ESBL) producing Escherichia col i Is this a current diagnosis for this admission?: Yes Plan: ESBL E. coli growing in urine culture Given 1 dose of fosfomycin Follow-up urinalysis 03/11/2022 Likely having recurrent UTIs due to underlying urinary retention probably exacerbated by anticholinergic such as Benadryl at her nursing facility as this is listed on her home medications list Hold all anticholinergics permanently UA with reflex culture to be repeated Restarted Zosyn Bladder scan to document urinary retention then placed Lopes catheter 03/12/2020-patient is still confused and agitated. Receiving IV Zosyn for ESBL E. coli. Latest blood cultures are negative. T-max is 100.7. Discussed the care extensively with patient's brother Rick at this time he want everything to be done. 03/13/2020-blood cultures growing micrococcus species. Patient is receiving IV Zosyn for ESBL E. coli. T-max is 100.9 last night. Discussed the plan of care with Rick he wants her to be full code at this time. He wants everything to be done. And is on valproic acid, Klonopin's, Lexapro to start on IV morphine 1 mg every 4 as needed for pain. 03/14/2020-patient is still on restraints sleeping comfortably at this time. Receiving IV Zosyn and vancomycin. Latest urine culture, blood cultures are negative so far. previous blood cultures showing micrococcus, urine culture is growing ESBL E. coli. 03/15/2020 Vancomycin/Zosyn continue Urine culture negative 03/16/2020 Antibiotics continue, can likely discontinue vancomycin once blood cultures have sensitivities resulted assuming bacteria is not MRSA 03/17/2020 We will continue vancomycin/Zosyn as we do not have finalized blood culture results yet and her blood cultures are currently growing staph species, possibly MRSA If she does not grow MRSA in her blood cultures, plan to discontinue vancomycin Repeat blood cultures (2) Sepsis Qualifiers: Sepsis type: Escherichia coli Sepsis acute organ dysfunction status: with acute organ dysfunction Severe sepsis acute organ dysfunction type: acute renal failure Acute renal failure type: with acute tubular necrosis Severe sepsis shock status: without septic shock Qualified Code(s): A41.51 - Sepsis due to Escherichia coli [E. coli]; R65.20 - Severe sepsis without septic shock; N17.0 - Acute kidney failure with tubular necrosis Is this a current diagnosis for this admission?: Yes Plan: Source is UTI with ESBL E. coli Antibiotics given Resolved 03/11/2020 Recurred likely due to a recurrence of her UTI from urinary retention Treat underlying cause with Zosyn 03/12/2020-patient is on Zosyn from yesterday T-max 100.7. Blood cultures from yesterday negative so far. Plan is to continue the present management at this time. 03/13/20-blood cultures growing micrococcus. Urine culture is positive for ESBL E. coli T-max is 100.9 presently on IV Zosyn. IV vancomycin is added to the medications. 03/14/20-patient is presently on IV Zosyn and vancomycin. Latest urine cultures from 03/13 no growth. Blood culture from 03/13 pending. 03/15/2020 Vancomycin and Zosyn Blood cultures growing possible contaminant on 03/13, previously grew contaminant 03/11 in 1/2 bottles 03/16/2020 Sepsis is resolved and temperature curve is normalized Antibiotics continued for underlying infections 03/17/2020 Repeat blood cultures today Continue antibiotics, stop vancomycin if MRSA is not growing in blood cultures once they are finalized (3) Acute metabolic encephalopathy Is this a current diagnosis for this admission?: Yes (4) Acute respiratory failure with hypoxia Is this a current diagnosis for this admission?: Yes (5) Delirium due to another medical condition, acute, hyperactive Is this a current diagnosis for this admission?: Yes (6) Hypercapnic respiratory failure Qualifiers: Chronicity: acute Qualified Code(s): J96.02 - Acute respiratory failure with hypercapnia Is this a current diagnosis for this admission?: Yes (7) Hypernatremia Is this a current diagnosis for this admission?: Yes (8) Diabetes 1.5, managed as type 1 Is this a current diagnosis for this admission?: Yes (9) Dysphagia Is this a current diagnosis for this admission?: Yes Plan: Possible neuromuscular disorder Speech therapy consult May need long-term PEG tube as she has had in the past, brother discussing this with the patient's parents to see if they would want this 03/12/2020-patient is on NG tube. Patient is not a candidate for PEG placement because of the acute on chronic metabolic and cephalopathy. 03/13/20-patient has NG tube in place. In my opinion she is not a candidate for PEG placement due to the acute on chronic metabolic encephalopathy. 03/14/2020-patient is receiving the feedings through the NG tube. Patient is not a candidate for PEG tube because of the acute metabolic encephalopathy/altered mental status. 03/15/2020 Speech therapy reevaluation, move towards PEG tube placement if she still cannot swallow per family wishes. She has had this in the past and if family wants this done in general surgery is agreeable to do it or interventional radiology is agreeable to do it, will need to get this done. We will need to honor the family's wishes what they clearly state the patient's wishes were prior to her brain injury whether or not we agree with them. 03/16/2020 Patient cannot swallow and cannot follow commands for speech therapy General surgery consulted for PEG tube evaluation per family's request Patient is high risk to pull out her PEG tube inadvertently kill herself with peritonitis and this was discussed with the patient's family 03/17/2020 General surgery had a discussion with family who are considering PEG tube, surgery likely willing to perform this procedure the family wants it Swallowing ability has not improved yet (10) UTI due to extended-spectrum beta lactamase (ESBL) producing Escherichia coli Is this a current diagnosis for this admission?: Yes - Plan Summary Summary: Review of records from [facility] indicate the following diagnoses has been present: Type 2 diabetes mellitus without complication Delusional disorder Dysphasia oropharyngeal phase Gastroesophageal reflux with esophagitis Unspecified symptoms and signs involving cognitive functions and awareness Restlessness and agitation Major depressive disorder Pseudobulbar affect Acute vaginitis Dementia and other diseases classified elsewhere with behavioral disturbance History of alcohol abuse Hyperlipidemia Anemia We will need to further investigate her medical history. She is on multiple medications. Will need to add them back strategically. We will first need to stabilize the patient with fluids and antibiotics. She will have some as needed medications available. Mother history of dysphagia and her current mental state it is not reasonable to expect a safe swallow at this time but hopefully when the patient settles we will be able to administer an oral diet. If necessary it might be safer to insert a nasogastric tube so that we may administer medications that are not available intravenous form. 03/04/2020 critical care visit: After evaluating the patient I did have a chance to talk to her brother. Informed him of her acute episodes and very slow progress. Positive news was she is afebrile and her white blood cell count has normalized. Respiratory status and possible seizure were noted. We discussed her current medications and treatment options. I expressed my confidence that by tomorrow she should be feeling better with corrected sodium and intravenous Depakote. We have asked about a local friend visiting but I suggested this wait until she would be more interactive. I did not dextrose to the IV fluid. With her underlying diabetes it may cause hyperglycemia. If this happens we can always remove dextrose from the fluid or increase insulin dosing. After a 25-minute conversation her brother was satisfied that all of his questions were answered. - Time Time Spent with patient: 15-24 minutes Medications reviewed and adjusted accordingly: Yes Anticipated Discharge Disposition: Detention Care Facility Anticipated Discharge Timeframe: within 72 hours - Inpatient Certification Based on my medical assessment, after consideration of the patient's comorbidities, presenting symptoms, or acuity I expect that the services needed warrant INPATIENT care.: Yes I certify that my determination is in accordance with my understanding of Medic are's requirements for reasonable and necessary INPATIENT services [42 CFR 412.3e].: Yes Medical Necessity: Significant Comorbidiites Make Outpatient Treatment Too Risky, Need Close Monitoring Due to Risk of Patient Decompensation, Need for IV Antibiotics, Risk of Complication if Not Cared For in Hospital, Risk of Diagnosis Which Will Require Inpatient Eval/Care/Monitoring
[2020-03-18] MEDS: INSULIN LISPRO 100 UNIT/ML 3 ML VIAL SUBCUT SCH ×4 (00:22→18:34)
[2020-03-18] MEDS: PIPERACILLIN SODIUM/TAZOBACTAM 3.375 GM in NORMAL SALINE 100 ML IV SCH ×2 (00:22→05:16)
[2020-03-18] MEDS: HEPARIN SOD (PORCINE) 5,000 UNIT/ML 1 ML VIAL SUBCUT SCH ×3 (05:24→23:18)
[2020-03-18 06:26] LABS: VANCOMYCIN,TROUGH 18.7 ug/mL (5.0-20.0)
[2020-03-18 06:49] LABS: ANION GAP 7 (5-19); BLOOD UREA NITROGEN 6 mg/dL (7-20); CALCIUM 7.9 mg/dL (8.4-10.2); CARBON DIOXIDE 26 mmol/L (22-30); CHLORIDE 98 mmol/L (98-107); GLUCOSE 151 mg/dL (75-110); POTASSIUM 4.3 mmol/L (3.6-5.0)
[2020-03-18] MEDS: VANCOMYCIN HCL 750 MG in DEXTROSE 5%-WATER 250 ML IV SCH ×2 (06:51→14:39)
[2020-03-18] MEDS: VALPROATE SODIUM SYRUP 250 MG/5 ML UDCUP NG SCH ×2 (08:20→23:17)
[2020-03-18] MEDS: THIAMINE HCL 100 MG TABLET NG SCH (12:11)
[2020-03-18] MEDS: ESCITALOPRAM OXALATE 10 MG TABLET NG SCH (12:11)
[2020-03-18] MEDS: INSULIN GLARGINE,HUM.REC.ANLOG 1,000 UNIT/10 ML VIAL SUBCUT SCH (12:34)
[2020-03-18] MEDS: HALOPERIDOL LACTATE INJ 5 MG/1 ML VIAL IV PRN (14:28)
--- NOTE | 2020-03-18 17:58 | PDOC PROGRESS REPORT ---
Subjective Progress Note for:: 03/18/20 Subjective:: Patient recently sent out of ICU yesterday. My discussion with Dr. Rosales, patient has had a rather complicated ICU course with ESBL E. coli UTI and what is suspected to be a neuromuscular disorder causing her to have swallowing difficulties. Will need speech therapy consult to see her. Antibiotics continue. Patient seems to be very sensitive to insulin though her blood sugar is quite high today. I have increased her Lantus only by [address] Rosales recently dropped the dose for hypoglycemia. We made an alternate dosing schedule with lower doses to avoid acute drops in this brittle diabetic. Patient is sleeping comfortably during encounter and while arousable quickly goes back to sleep. NG tube feeds are continued and there has been talks that patient may need her PEG tube replaced as she had 1 of these in the past. Patient does not voice any specific complaints to me today. 03/11/2020 I had a very extensive conversation with the patient's brother who is her medical power of tutoring manager. He lives up in [facility] near [facility] reportedly. He states he has not seen the patient in over 2 years though he occasionally will talk to her on the phone from her half-way. I described the patient's contracted legs overall debilitated appearance and what I believe is an extremely poor quality of life in general. She does have acute illness due to her ESBL E. coli UTI, however the chronic findings on exam are not a result of her current infection but rather progression of her severe chronic illnesses. I discussed the issue of CODE STATUS with him and he stated she has always been full code but he would have a discussion with her parents about the plan going forward for this and also for her future as it pertains to the end of her life. I would not be surprised that the patient in the next 6 to 12 months given her recurrent resistant infections and hospitalizations requiring ICU level care. She still having fevers today but they seem to be resolving now that she is on Zosyn. I am highly suspicious that she may be taking anticholinergic medications such as Benadryl at her nursing facility and this may be exacerbating what is likely underlying urinary retention causing recurrent UTIs. I discussed this with nursing and she will have a bladder scan to document the urinary retention and place a Lopes afterwards. I will order repeat UA with reflex culture which I expect to be infected due to another episode of urinary retention since her Lopes was removed approximately 2 days ago. By the numbers, her labs seem to be acceptable. Clinically, and cognitively, she is not improving. Speech therapy states she is not appropriate for diet and will likely need a feeding tube long-term. Brother is unsure if he wants her to have another PEG tube after I described the risk of the patient pulling this out inadvertently and causing herself to potentially of peritonitis given I have seen this situation in multiple patients in the past. Patient cannot articulate complaints and only mumbles a few words during exam. 03/12/20-patient's overall gross is poor and condition is critical. I had a long discussion with the patient's brother Rick he understood the grave condition and poor prognosis but he wants everything to be done at this time. We respect his wishes. Patient is on soft restraints, not communicative and restless twisting and turning in the bed. Patient has central line in the right neck. NG tube in place. Patient is a poor candidate for PEG placement. Patient has a T-max of 100.7 in the last 24 hours. Patient is receiving IV Zosyn. Urine culture is positive for ESBL E. coli and blood cultures from are negative so far. Blood cultures from march 03 indicates staph hominis. 03/13/2020-again or out prognosis poor condition is critical. Patient is in the bed turning and tossing and in distress. As per the nurses to start her on IV morphine 1 mg every 4 as needed. I spoke to patient's brother Rick about the plan of care and also about giving small dose of IV morphine on as needed basis he is okay with it at this time. He still wants her to be full code. Latest blood cultures are negative. T-max is 100.9 at midnight. Blood cultures karen wing gram-positive cocci in clusters presently on IV Zosyn started on IV vancomycin. Final report came back as micrococus species. 03/14/2020-patient is comfortably in the bed sleeping. Has an NG tube receiving nutrition through the NG tube. T-max is 98.4. Latest urine culture blood cultures are negative so far. Presently on IV Zosyn and vancomycin. Patient is a full code. 03/15/2020 Patient speaking today somewhat clearly intermittently. Off-and-on moans/groans though. She cannot articulate any specific complaints but does agree that she wants to go home. Blood sugar still elevated and I have increased her Lantus dose. She is continued on bank/Zosyn and uncover testing is pending. Blood culture on 03/11 grew a contaminant 1/2 blood culture on 03/13 grew 1/2 staph possibly a contaminant as well. Urine culture negative. Patient high risk to pass away in the next 6 months this is been discussed with family at length. Repeat evaluation with speech therapy is needed today as patient is quite alert. If she cannot swallow effectively today, we will need to move towards PEG tube. 03/16/2020 I spoke at great length with the patient's brother Rick today. I informed her that the patient is much more alert and awake than she has been in the past however per my discussion with the speech therapist, the patient still cannot follow commands and is unable to swallow. She also is only able to speak a few words and has an extremely poor attention span. I am suspicious that she may not be far from her typical baseline at her nursing facility although Rick states that they have had full conversations a few weeks ago. I consulted general surgery at the brother's request although I made clear to him that the surgeon may choose not to perform a PEG tube placement on this patient for ethical reasons given the patient is high risk to pull this out and kill herself with peritonitis. Brother voiced full understanding of this concept and stated he would still like a consult from them for their opinion. I discussed the case with Dr. Saeed who plans to call the family and discuss it with him further. Blood culture is currently growing staph. 03/17/2020 General surgery has evaluated the patient and stated she may be a candidate for PEG tube but the family chooses. They wish to take some time to discuss and think about this. I asked patient how she felt today about getting a PEG tube and she asked what would happen if she did not get it. I told her she would pass away and she did not have an opinion after this discussion. Her sodium is lower today at 129 we may need to adjust the sodium of her tube feeding to help with this. We will also need to change her tube feeds to Glucerna to help with blood sugars. I have increased her Lantus dose to 26 units daily today. Patient cannot articulate any specific complaints today. 03/18/2020 Patient seems to be more talkative more alert today than previously. I am curious that the fact that she has an NG tube then may be interfering with her ability to swallow as I have seen in previous patients. I discussed with nursing that we can coordinate with speech therapy to have the NG tube removed and soon after performing a swallow study. Possible that with the NG tube remove the patient will be able to swallow more effectively. We could potentially avoid placing a PEG tube altogether. I consulted infectious d fadumo. Patient continues on antibiotics. Blood sugars improved. Blood cultures are growing staph epi 2/2 bottles. Patient cannot articulate complaints Reason For Visit: UROSEPSIS Physical Exam Vital Signs: Temp Pulse Resp BP Pulse Ox 98.2 F 82 17 115/74 99 03/18/20 16:12 03/18/20 16:12 03/18/20 16:12 03/18/20 16:12 03/18/20 16:12 Intake & Output 03/17/20 03/18/20 03/19/20 06:59 06:59 06:59 Intake Total 2905 1743 250 Output Total 2024 2850 1000 Balance 880 -1107 -750 Weight 49.2 kg 48.9 kg General appearance: PRESENT: no acute distress, well-developed, well-nourished Head exam: PRESENT: atraumatic, normocephalic Eye exam: PRESENT: conjunctiva pink Mouth exam: PRESENT: moist Respiratory exam: PRESENT: clear to auscultation toño. ABSENT: rales, rhonchi, wheezes Cardiovascular exam: PRESENT: RRR. ABSENT: diastolic murmur, rubs, systolic murmur GI/Abdominal exam: PRESENT: normal bowel sounds, soft. ABSENT: distended, guarding, mass, organolmegaly, rebound, tenderness Extremities exam: PRESENT: other - Chronically contracted bilateral lower extr emities Neurological exam: PRESENT: alert, awake. ABSENT: oriented to person, oriented to place, oriented to time, oriented to situation Psychiatric exam: PRESENT: flat affect, normal mood Skin exam: PRESENT: dry, intact, warm Results Laboratory Results: 03/15/20 05:30 03/18/20 06:05 03/18/20 06:05 Sodium 131.2 L Potassium 4.3 Chloride 98 Carbon Dioxide 26 Anion Gap 7 BUN 6 L Creatinine 0.50 L Est GFR ( Amer) > 60 Glucose 151 H Calcium 7.9 L 03/13/20 11:52 Blood Blood Culture - Final Staphylococcus Epidermidis 03/13/20 11:25 Blood Blood Culture (PCR) - Final Staphylococcus Species 03/13/20 11:25 Blood Blood Culture - Final Staphylococcus Epidermidis 03/03/20 10:15 Troponin I 0.030 Impressions: KUB X-Ray 03/07/20 00:00 IMPRESSION: 1. Nasogastric tube tip is in the stomach. The proximal sidehole is at the gastroesophageal junction. Consider advancing several centimeters. Chest X-Ray 03/11/20 00:00 IMPRESSION: 1. Minimal left basilar atelectasis. Possible small effusions. 2. Central line and NG tube remain in place. 3. Right upper lobe infiltrate has resolved. Assessment and Plan - Diagnosis (1) UTI due to extended-spectrum beta lactamase (ESBL) producing Escherichia coli Is this a current diagnosis for this admission?: Yes Plan: ESBL E. coli growing in urine culture Given 1 dose of fosfomycin Follow-up urinalysis 03/11/2022 Likely having recurrent UTIs due to underlying urinary retention probably ex acerbated by anticholinergic such as Benadryl at her nursing facility as this is listed on her home medications list Hold all anticholinergics permanently UA with reflex culture to be repeated Restarted Zosyn Bladder scan to document urinary retention then placed Lopes catheter 03/12/2020-patient is still confused and agitated. Receiving IV Zosyn for ESBL E. coli. Latest blood cultures are negative. T-max is 100.7. Discussed the care extensively with patient's brother Rick at this time he want everything to be done. 03/13/2020-blood cultures growing micrococcus species. Patient is receiving IV Zosyn for ESBL E. coli. T-max is 100.9 last night. Discussed the plan of care with Rick he wants her to be full code at this time. He wants everything to be done. And is on valproic acid, Klonopin's, Lexapro to start on IV morphine 1 mg every 4 as needed for pain. 03/14/2020-patient is still on restraints sleeping comfortably at this time. Receiving IV Zosyn and vancomycin. Latest urine culture, blood cultures are negative so far. previous blood cultures showing micrococcus, urine culture is growing ESBL E. coli. 03/15/2020 Vancomycin/Zosyn continue Urine culture negative 03/16/2020 Antibiotics continue, can likely discontinue vancomycin once blood cultures have sensitivities resulted assuming bacteria is not MRSA 03/17/2020 We will continue vancomycin/Zosyn as we do not have finalized blood culture results yet and her blood cultures are currently growing staph species, possibly MRSA If she does not grow MRSA in her blood cultures, plan to discontinue vancomycin Repeat blood cultures 03/18/2020 Antibiotics continue Blood culture from 03/13 growing MRSE 2/ bottles, repeat cultures on 03/17 no growth, urine culture 03/13 no growth (2) Sepsis Qualifiers: Sepsis type: Escherichia coli Sepsis acute organ dysfunction status: with acute organ dysfunction Severe sepsis acute organ dysfunction type: acute renal failure Acute renal failure type: with acute tubular necrosis Severe sepsis shock status: without septic shock Qualified Code(s): A41.51 - Sepsis due to Escherichia coli [E. coli]; R65.20 - Severe sepsis without septic shock; N17.0 - Acute kidney failure with tubular necrosis Is this a current diagnosis for this admission?: Yes (3) Acute metabolic encephalopathy Is this a current diagnosis for this admission?: Yes Plan: Secondary to infection superimposed on severe dementia due to prior episode of severe hypoglycemia from taking too much insulin approx 2 years ago per brother Chronically poor baseline due to underlying dementia. Treat underlying cause which is infection/UTI and respiratory failure 03/12/2020-patient is still confused and agitated. Receiving IV Zosyn for ESBL E. coli. Latest blood cultures are negative. T-max is 100.7. Discussed the care extensively with patient's brother Rick at this time he want everything to be done. 03/13/2020-blood cultures growing micrococcus species. Patient is receiving IV Zosyn for ESBL E. coli. T-max is 100.9 last night. Discussed the plan of care with Rick he wants her to be full code at this time. He wants everything to be done. And is on valproic acid, Klonopin's, Lexapro to start on IV morphine 1 mg every 4 as needed for pain. 03/14/2020-patient is still on restraints sleeping comfortably at this time. Rec eiving IV Zosyn and vancomycin. Latest urine culture, blood cultures are negative so far. previous blood cultures showing micrococcus, urine culture is growing ESBL E. coli. 03/16/2020 No significant improvement in mentation, patient unable to carry on conversation or follow commands of special note those commands given by speech therapy and patient is unable to eat or swallow food and liquids. Speech therapy recommends alternate nutrition options as patient is not appropriate to have a diet Extensive discussion with the patient's brother Rick regarding feeding difficulties. He would like general surgery to evaluate the patient for PEG tube and I have consulted them. I stressed the high risk that the patient may pull out her PEG tube and kill herself with peritonitis however Rick still would like patient evaluated for PEG. 03/18/2020 Mentation seems to be gradually clearing and is becoming more alert (4) Acute respiratory failure with hypoxia Is this a current diagnosis for this admission?: Yes (5) Delirium due to another medical condition, acute, hyperactive Is this a current diagnosis for this admission?: Yes (6) Hypercapnic respiratory failure Qualifiers: Chronicity: acute Qualified Code(s): J96.02 - Acute respiratory failure with hypercapnia Is this a current diagnosis for this admission?: Yes (7) Hypernatremia Is this a current diagnosis for this admission?: Yes (8) Diabetes 1.5, managed as type 1 Is this a current diagnosis for this admission?: Yes (9) Dysphagia Is this a current diagnosis for this admission?: Yes Plan: Possible neuromuscular disorder Speech therapy consult May need long-term PEG tube as she has had in the past, brother discussing this with the patient's parents to see if they would want this 03/12/2020-patient is on NG tube. Patient is not a candidate for PEG placement because of the acute on chronic metabolic and cephalopathy. 03/13/20-patient has NG tube in place. In my opinion she is not a candidate for PEG placement due to the acute on chronic metabolic encephalopathy. 03/14/2020-patient is receiving the feedings through the NG tube. Patient is not a candidate for PEG tube because of the acute metabolic encephalopathy/altered mental status. 03/15/2020 Speech therapy reevaluation, move towards PEG tube placement if she still cannot swallow per family wishes. She has had this in the past and if family wants this done in general surgery is agreeable to do it or interventional radiology is agreeable to do it, will need to get this done. We will need to honor the family's wishes what they clearly state the patient's wishes were prior to her brain injury whether or not we agree with them. 03/16/2020 Patient cannot swallow and cannot follow commands for speech therapy General surgery consulted for PEG tube evaluation per family's request Patient is high risk to pull out her PEG tube inadvertently kill herself with peritonitis and this was discussed with the patient's family 03/17/2020 General surgery had a discussion with family who are considering PEG tube, surgery likely willing to perform this procedure the family wants it Swallowing ability has not improved yet 03/18/2020 Attempt removal of NG tube and reattempt swallowing study with speech therapist, if she fails this replace NG tube and we will plan for a PEG tube assuming Rick wants this (10) UTI due to extended-spectrum beta lactamase (ESBL) producing Escherichia coli Is this a current diagnosis for this admission?: Yes - Plan Summary Summary: Review of records from [facility] indicate the following diagn oses has been present: Type 2 diabetes mellitus without complication Delusional disorder Dysphasia oropharyngeal phase Gastroesophageal reflux with esophagitis Unspecified symptoms and signs involving cognitive functions and awareness Restlessness and agitation Major depressive disorder Pseudobulbar affect Acute vaginitis Dementia and other diseases classified elsewhere with behavioral disturbance History of alcohol abuse Hyperlipidemia Anemia We will need to further investigate her medical history. She is on multiple medications. Will need to add them back strategically. We will first need to stabilize the patient with fluids and antibiotics. She will have some as needed medications available. Mother history of dysphagia and her current mental state it is not reasonable to expect a safe swallow at this time but hopefully when the patient settles we will be able to administer an oral diet. If necessary it might be safer to insert a nasogastric tube so that we may administer medic ations that are not available intravenous form. 03/04/2020 critical care visit: After evaluating the patient I did have a chance to talk to her brother. Informed him of her acute episodes and very slow progress. Positive news was she is afebrile and her white blood cell count has normalized. Respiratory status and possible seizure were noted. We discussed her current medications and treatment options. I expressed my confidence that by tomorrow she should be feeling better with corrected sodium and intravenous Depakote. We have asked about a local friend visiting but I suggested this wait until she would be more interactive. I did not dextrose to the IV fluid. With her underlying diabetes it may cause hyperglycemia. If this happens we can always remove dextrose from the fluid or increase insulin dosing. After a 25-minute conversation her brother was satisfied that all of his questions were answered. - Time Time Spent with patient: 15-24 minutes Medications reviewed and adjusted accordingly: Yes Anticipated Discharge Disposition: [facility] Anticipated Discharge Timeframe: within 72 hours - Inpatient Certification Based on my medical assessment, after consideration of the patient's comorbidities, presenting symptoms, or acuity I expect that the services needed warrant INPATIENT care.: Yes I certify that my determination is in accordance with my understanding of Medicare's requirements for reasonable and necessary INPATIENT services [42 CFR 412.3e].: Yes Medical Necessity: Significant Comorbidiites Make Outpatient Treatment Too Risky, Need Close Monitoring Due to Risk of Patient Decompensation, Need for IV Antibiotics, Risk of Complication if Not Cared For in Hospital, Risk of Diagnosis Which Will Require Inpatient Eval/Care/Monitoring
[2020-03-19] MEDS: INSULIN LISPRO 100 UNIT/ML 3 ML VIAL SUBCUT SCH ×4 (00:45→18:47)
[2020-03-19] MEDS: VANCOMYCIN HCL 750 MG in DEXTROSE 5%-WATER 250 ML IV SCH ×3 (00:46→15:30)
[2020-03-19] MEDS: HEPARIN SOD (PORCINE) 5,000 UNIT/ML 1 ML VIAL SUBCUT SCH ×2 (05:43→15:00)
[2020-03-19] MEDS: ESCITALOPRAM OXALATE 10 MG TABLET NG SCH (10:05)
[2020-03-19] MEDS: VALPROATE SODIUM SYRUP 250 MG/5 ML UDCUP NG SCH (10:06)
[2020-03-19] MEDS: THIAMINE HCL 100 MG TABLET NG SCH (10:06)
[2020-03-19] MEDS: INSULIN GLARGINE,HUM.REC.ANLOG 1,000 UNIT/10 ML VIAL SUBCUT SCH (10:08)
--- NOTE | 2020-03-19 15:36 | PDOC PROGRESS REPORT ---
Subjective Progress Note for:: 03/19/20 Subjective:: Patient recently sent out of ICU yesterday. My discussion with Dr. Rosales, patient has had a rather complicated ICU course with ESBL E. coli UTI and what is suspected to be a neuromuscular disorder causing her to have swallowing difficulties. Will need speech therapy consult to see her. Antibiotics continue. Patient seems to be very sensitive to insulin though her blood sugar is quite high today. I have increased her Lantus only by [address] Rosales recently dropped the dose for hypoglycemia. We made an alternate dosing schedule with lower doses to avoid acute drops in this brittle diabetic. Patient is sleeping comfortably during encounter and while arousable quickly goes back to sleep. NG tube feeds are continued and there has been talks that patient may need her PEG tube replaced as she had 1 of these in the past. Patient does not voice any specific complaints to me today. 03/11/2020 I had a very extensive conversation with the patient's brother who is her medical power of admitted attorneys. He lives up in [facility] near [facility] reportedly. He states he has not seen the patient in over 2 years though he occasionally will talk to her on the phone from her custodial. I described the patient's contracted legs overall debilitated appearance and what I believe is an extremely poor quality of life in general. She does have acute illness due to her ESBL E. coli UTI, however the chronic findings on exam are not a result of her current infection but rather progression of her severe chronic illnesses. I discussed the issue of CODE STATUS with him and he stated she has always been full code but he would have a discussion with her parents about the plan going forward for this and also for her future as it pertains to the end of her life. I would not be surprised that the patient in the next 6 to 12 months given her recurrent resistant infections and hospitalizations requiring ICU level care. She still having fevers today but they seem to be resolving now that she is on Zosyn. I am highly suspicious that she may be taking anticholinergic medications such as Benadryl at her nursing facility and this may be exacerbating what is likely underlying urinary retention causing recurrent UTIs. I discussed this with nursing and she will have a bladder scan to document the urinary retention and place a Lopes afterwards. I will order repeat UA with reflex culture which I expect to be infected due to another episode of urinary retention since her Lopes was removed approximately 2 days ago. By the numbers, her labs seem to be acceptable. Clinically, and cognitively, she is not improving. Speech therapy states she is not appropriate for diet and will likely need a feeding tube long-term. Brother is unsure if he wants her to have another PEG tube after I described the risk of the patient pulling this out inadvertently and causing herself to potentially of peritonitis given I have seen this situation in multiple patients in the past. Patient cannot articulate complaints and only mumbles a few words during exam. 03/12/20-patient's overall gross is poor and condition is critical. I had a long discussion with the patient's brother Rick he understood the grave condition and poor prognosis but he wants everything to be done at this time. We respect his wishes. Patient is on soft restraints, not communicative and restless twisting and turning in the bed. Patient has central line in the right neck. NG tube in place. Patient is a poor candidate for PEG placement. Patient has a T-max of 100.7 in the last 24 hours. Patient is receiving IV Zosyn. Urine culture is positive for ESBL E. coli and blood cultures from are negative so far. Blood cultures from march 03 indicates staph hominis. 03/13/2020-again or out prognosis poor condition is critical. Patient is in the bed turning and tossing and in distress. As per the nurses to start her on IV morphine 1 mg every 4 as needed. I spoke to patient's brother Rick about the plan of care and also about giving small dose of IV morphine on as needed basis he is okay with it at this time. He still wants her to be full code. Latest blood cultures are negative. T-max is 100.9 at midnight. Blood cultures karen wing gram-positive cocci in clusters presently on IV Zosyn started on IV vancomycin. Final report came back as micrococus species. 03/14/2020-patient is comfortably in the bed sleeping. Has an NG tube receiving nutrition through the NG tube. T-max is 98.4. Latest urine culture blood cultures are negative so far. Presently on IV Zosyn and vancomycin. Patient is a full code. 03/15/2020 Patient speaking today somewhat clearly intermittently. Off-and-on moans/groans though. She cannot articulate any specific complaints but does agree that she wants to go home. Blood sugar still elevated and I have increased her Lantus dose. She is continued on bank/Zosyn and uncover testing is pending. Blood culture on 03/11 grew a contaminant 1/2 blood culture on 03/13 grew 1/2 staph possibly a contaminant as well. Urine culture negative. Patient high risk to pass away in the next 6 months this is been discussed with family at length. Repeat evaluation with speech therapy is needed today as patient is quite alert. If she cannot swallow effectively today, we will need to move towards PEG tube. 03/16/2020 I spoke at great length with the patient's brother Rick today. I informed her that the patient is much more alert and awake than she has been in the past however per my discussion with the speech therapist, the patient still cannot follow commands and is unable to swallow. She also is only able to speak a few words and has an extremely poor attention span. I am suspicious that she may not be far from her typical baseline at her nursing facility although Rick states that they have had full conversations a few weeks ago. I consulted general surgery at the brother's request although I made clear to him that the surgeon may choose not to perform a PEG tube placement on this patient for ethical reasons given the patient is high risk to pull this out and kill herself with peritonitis. Brother voiced full understanding of this concept and stated he would still like a consult from them for their opinion. I discussed the case with Dr. Saeed who plans to call the family and discuss it with him further. Blood culture is currently growing staph. 03/17/2020 General surgery has evaluated the patient and stated she may be a candidate for PEG tube but the family chooses. They wish to take some time to discuss and think about this. I asked patient how she felt today about getting a PEG tube and she asked what would happen if she did not get it. I told her she would pass away and she did not have an opinion after this discussion. Her sodium is lower today at 129 we may need to adjust the sodium of her tube feeding to help with this. We will also need to change her tube feeds to Glucerna to help with blood sugars. I have increased her Lantus dose to 26 units daily today. Patient cannot articulate any specific complaints today. 03/18/2020 Patient seems to be more talkative more alert today than previously. I am curious that the fact that she has an NG tube then may be interfering with her ability to swallow as I have seen in previous patients. I discussed with nursing that we can coordinate with speech therapy to have the NG tube removed and soon after performing a swallow study. Possible that with the NG tube remove the patient will be able to swallow more effectively. We could potentially avoid placing a PEG tube altogether. I consulted infectious d isoneil. Patient continues on antibiotics. Blood sugars improved. Blood cultures are growing staph epi 09/13 bottles. Patient cannot articulate complaints 03/19/2020 Patient continues to be more alert with each passing day. I discussed with nursing today the plan to remove NG tube once speech therapy can retry swallowing study. I think this may be a good opportunity to get the patient swallowing again on her own and avoid a PEG tube altogether. Vitals are stable however blood cultures from 03/17 are now growing staph, possibly the same staph epidermidis that grew in the 03/13 cultures, follow-up final results. Infectious disease consult is pending. Reason For Visit: UROSEPSIS Physical Exam Vital Signs: Temp Pulse Resp BP Pulse Ox 98.6 F 94 16 100/65 95 03/19/20 11:48 03/19/20 11:48 03/19/20 11:48 03/19/20 11:48 03/19/20 11:48 Intake & Output 03/18/20 03/19/20 03/20/20 06:59 06:59 06:59 Intake Total 1743 2329 0 Output Total 2850 2050 400 Balance -1107 279 -400 Weight 48.9 kg 47.7 kg 47.7 kg General appearance: PRESENT: no acute distress, cooperative, thin Eye exam: PRESENT: conjunctiva pink Mouth exam: PRESENT: moist Respiratory exam: PRESENT: clear to auscultation toño. ABSENT: rales, rhonchi, wheezes Cardiovascular exam: PRESENT: RRR. ABSENT: diastolic murmur, rubs, systolic murmur GI/Abdominal exam: PRESENT: normal bowel sounds, soft. ABSENT: distended, guarding, mass, organolmegaly, rebound, tenderness Neurological exam: PRESENT: alert, awake, oriented to person. ABSENT: oriented to place, oriented to time, oriented to situation Psychiatric exam: PRESENT: flat affect, normal mood Skin exam: PRESENT: dry, intact, warm Results Laboratory Results: 03/15/20 05:30 03/18/20 06:05 03/17/20 15:30 Blood Blood Culture (PCR) - Final Staphylococcus Species 03/17/20 15:40 Blood Blood Culture (PCR) - Final Staphylococcus Species 03/03/20 10:15 Troponin I 0.030 Impressions: KUB X-Ray 03/07/20 00:00 IMPRESSION: 1. Nasogastric tube tip is in the stomach. The proximal sidehole is at the gastroesophageal junction. Consider advancing several centimeters. Chest X-Ray 03/11/20 00:00 IMPRESSION: 1. Minimal left basilar atelectasis. Possible small effusions. 2. Central line and NG tube remain in place. 3. Right upper lobe infiltrate has resolved. Assessment and Plan - Diagnosis (1) UTI due to extended-spectrum beta lactamase (ESBL) producing Escherichia coli Is this a current diagnosis for this admission?: Yes (2) Sepsis Qualifiers: Sepsis type: Escherichia coli Sepsis acute organ dysfunction status: with acute organ dysfunction Severe sepsis acute organ dysfunction type: acute renal failure Acute renal failure type: with acute tubular necrosis Severe sepsis shock status: without septic shock Qualified Code(s): A41.51 - Sepsis due to Escherichia coli [E. coli]; R65.20 - Severe sepsis without septic shock; N17.0 - Acute kidney failure with tubular necrosis Is this a current diagnosis for this admission?: Yes (3) Acute metabolic encephalopathy Is this a current diagnosis for this admission?: Yes (4) Acute respiratory failure with hypoxia Is this a current diagnosis for this admission?: Yes (5) Delirium due to another medical condition, acute, hyperactive Is this a current diagnosis for this admission?: Yes (6) Hypercapnic respiratory failure Qualifiers: Chronicity: acute Qualified Code(s): J96.02 - Acute respiratory failure with hypercapnia Is this a current diagnosis for this admission?: Yes (7) Hypernatremia Is this a current diagnosis for this admission?: Yes (8) Diabetes 1.5, managed as type 1 Is this a current diagnosis for this admission?: Yes (9) Dysphagia Is this a current diagnosis for this admission?: Yes (10) UTI due to extended-spectrum beta lactamase (ESBL) producing Escherichia coli Is this a current diagnosis for this admission?: Yes (11) Staphylococcus epidermidis bacteremia Is this a current diagnosis for this admission?: Yes Plan: Blood cultures positive for staph epidermidis 2/2 bottles on 03/13, positive for staph species 2/2 bottles on 03/[address] chest/abdomen/pelvis with oral and IV contrast to identify source given recurrent positive blood cultures ID consult Vancomycin IV continues - Plan Summary Summary: Review of records from [facility] indicate the following diagnoses has been present: Type 2 diabetes mellitus without complication Delusional disorder Dysphasia oropharyngeal phase Gastroesophageal reflux with esophagitis Unspecified symptoms and signs involving cognitive functions and awareness Restlessness and agitation Major depressive disorder Pseudobulbar affect Acute vaginitis Dementia and other diseases classified elsewhere with behavioral disturbance History of alcohol abuse Hyperlipidemia Anemia We will need to further investigate her medical history. She is on multiple medications. Will need to add them back strategically. We will first need to stabilize the patient with fluids and antibiotics. She will have some as needed medications available. Mother history of dysphagia and her current mental state it is not reasonable to expect a safe swallow at this time but hopefully when the patient settles we will be able to administer an oral diet. If necessary it might be safer to insert a nasogastric tube so that we may administer medications that are not available intravenous form. 03/04/2020 critical care visit: After evaluating the patient I did have a chance to talk to her brother. Informed him of her acute episodes and very slow progress. Positive news was she is afebrile and her white blood cell count has normalized. Respiratory status and possible seizure were noted. We discussed her current medications and treatment options. I expressed my confidence that by tomorrow she should be feeling better with corrected sodium and intravenous Depakote. We have asked about a local friend visiting but I suggested this wait until she would be more interactive. I did not dextrose to the IV fluid. With her underlying diabetes it may cause hyperglycemia. If this happens we can always remove dextrose from the fluid or increase insulin dosing. After a 25-minute conversation her brother was satisfied that all of his questions were answered. - Time Time Spent with patient: 25-34 minutes Medications reviewed and adjusted accordingly: Yes Anticipated Discharge Disposition: [facility] Anticipated Discharge Timeframe: within 72 hours - Inpatient Certification Based on my medical assessment, after consideration of the patient's comorbidities, presenting symptoms, or acuity I expect that the services needed warrant INPATIENT care.: Yes I certify that my determination is in accordance with my understanding of [facility]'s requirements for reasonable and necessary INPATIENT services [42 CFR 412.3e].: Yes Medical Necessity: Significant Comorbidiites Make Outpatient Treatment Too Risky, Need Close Monitoring Due to Risk of Patient Decompensation, Need for IV Antibiotics, Risk of Complication if Not Cared For in Hospital, Risk of Diagnosis Which Will Require Inpatient Eval/Care/Monitoring
[2020-03-19] MEDS: LORAZEPAM INJ 2 MG/1 ML VIAL IV PRN (17:23)
[2020-03-19] MEDS: HALOPERIDOL LACTATE INJ 5 MG/1 ML VIAL IV PRN (18:40)
[2020-03-20] MEDS: VALPROATE SODIUM SYRUP 250 MG/5 ML UDCUP NG SCH ×3 (00:01→22:49)
[2020-03-20] MEDS: HEPARIN SOD (PORCINE) 5,000 UNIT/ML 1 ML VIAL SUBCUT SCH ×4 (00:01→22:52)
[2020-03-20] MEDS: INSULIN LISPRO 100 UNIT/ML 3 ML VIAL SUBCUT SCH ×4 (00:27→18:06)
[2020-03-20] MEDS: THIAMINE HCL 100 MG TABLET NG SCH (12:05)
[2020-03-20] MEDS: ESCITALOPRAM OXALATE 10 MG TABLET NG SCH (12:05)
[2020-03-20] MEDS: MIDODRINE HCL 5 MG TABLET PO SCH ×3 (12:06→19:34)
[2020-03-20] MEDS: INSULIN GLARGINE,HUM.REC.ANLOG 1,000 UNIT/10 ML VIAL SUBCUT SCH (12:25)
[2020-03-20] MEDS: VANCOMYCIN HCL 750 MG in DEXTROSE 5%-WATER 250 ML IV SCH ×5 (14:21→22:52)
[2020-03-20 17:13] LABS: ABSOLUTE EOSINOPHILS # (AUTO) 0.1 10^3/uL (0.0-0.6); ABSOLUTE LYMPHOCYTES (AUTO) 1.2 10^3/uL (0.5-4.7); ABSOLUTE MONOCYTES (AUTO) 1.2 10^3/uL (0.1-1.4); BASOPHILS % (AUTO) 0.3 % (0-2); EOSINOPHILS % (AUTO) 0.6 % (0-6); HEMATOCRIT 34.1 % (36.0-47.0); HEMOGLOBIN 11.3 g/dL (12.0-15.5); MEAN CORPUSCULAR HEMOGLOBIN 28.7 pg (27.0-33.4); MEAN CORPUSCULAR HGB CONC 33.1 g/dL (32.0-36.0); MEAN CORPUSCULAR VOLUME 87 fl (80-97); MONOCYTES % (AUTO) 11.9 % (3-13); PLATELET COUNT 349 10^3/uL (150-450); RED BLOOD COUNT 3.94 10^6/uL (3.72-5.28); RED CELL DISTRIBUTION WIDTH 16.1 % (11.5-14.0); SEGMENTED NEUTROPHILS % (AUTO) 76.2 % (42-78); TOTAL CELLS COUNTED % (AUTO) 100 %; WHITE BLOOD COUNT 10.5 10^3/uL (4.0-10.5)
[2020-03-20 17:32] LABS: ANION GAP 10 (5-19); BLOOD UREA NITROGEN 9 mg/dL (7-20); CALCIUM 8.8 mg/dL (8.4-10.2); CARBON DIOXIDE 24 mmol/L (22-30); CHLORIDE 95 mmol/L (98-107); GLUCOSE 213 mg/dL (75-110); POTASSIUM 4.5 mmol/L (3.6-5.0)
--- NOTE | 2020-03-20 17:59 | PDOC PROGRESS REPORT ---
Subjective Progress Note for:: 03/20/20 Subjective:: Patient recently sent out of ICU yesterday. My discussion with Dr. Rosales, patient has had a rather complicated ICU course with ESBL E. coli UTI and what is suspected to be a neuromuscular disorder causing her to have swallowing difficulties. Will need speech therapy consult to see her. Antibiotics continue. Patient seems to be very sensitive to insulin though her blood sugar is quite high today. I have increased her Lantus only by [address] Rosales recently dropped the dose for hypoglycemia. We made an alternate dosing schedule with lower doses to avoid acute drops in this brittle diabetic. Patient is sleeping comfortably during encounter and while arousable quickly goes back to sleep. NG tube feeds are continued and there has been talks that patient may need her PEG tube replaced as she had 1 of these in the past. Patient does not voice any specific complaints to me today. 03/11/2020 I had a very extensive conversation with the patient's brother who is her medical power of trademark attorney. He lives up in [facility] near [facility] reportedly. He states he has not seen the patient in over 2 years though he occasionally will talk to her on the phone from her prison. I described the patient's contracted legs overall debilitated appearance and what I believe is an extremely poor quality of life in general. She does have acute illness due to her ESBL E. coli UTI, however the chronic findings on exam are not a result of her current infection but rather progression of her severe chronic illnesses. I discussed the issue of CODE STATUS with him and he stated she has always been full code but he would have a discussion with her parents about the plan going forward for this and also for her future as it pertains to the end of her life. I would not be surprised that the patient in the next 6 to 12 months given her recurrent resistant infections and hospitalizations requiring ICU level care. She still having fevers today but they seem to be resolving now that she is on Zosyn. I am highly suspicious that she may be taking anticholinergic medications such as Benadryl at her nursing facility and this may be exacerbating what is likely underlying urinary retention causing recurrent UTIs. I discussed this with nursing and she will have a bladder scan to document the urinary retention and place a Lopes afterwards. I will order repeat UA with reflex culture which I expect to be infected due to another episode of urinary retention since her Lopes was removed approximately 2 days ago. By the numbers, her labs seem to be acceptable. Clinically, and cognitively, she is not improving. Speech therapy states she is not appropriate for diet and will likely need a feeding tube long-term. Brother is unsure if he wants her to have another PEG tube after I described the risk of the patient pulling this out inadvertently and causing herself to potentially of peritonitis given I have seen this situation in multiple patients in the past. Patient cannot articulate complaints and only mumbles a few words during exam. 03/12/20-patient's overall gross is poor and condition is critical. I had a long discussion with the patient's brother Rick he understood the grave condition and poor prognosis but he wants everything to be done at this time. We respect his wishes. Patient is on soft restraints, not communicative and restless twisting and turning in the bed. Patient has central line in the right neck. NG tube in place. Patient is a poor candidate for PEG placement. Patient has a T-max of 100.7 in the last 24 hours. Patient is receiving IV Zosyn. Urine culture is positive for ESBL E. coli and blood cultures from are negative so far. Blood cultures from march 03 indicates staph hominis. 03/13/2020-again or out prognosis poor condition is critical. Patient is in the bed turning and tossing and in distress. As per the nurses to start her on IV morphine 1 mg every 4 as needed. I spoke to patient's brother Rick about the plan of care and also about giving small dose of IV morphine on as needed basis he is okay with it at this time. He still wants her to be full code. Latest blood cultures are negative. T-max is 100.9 at midnight. Blood cultures karen wing gram-positive cocci in clusters presently on IV Zosyn started on IV vancomycin. Final report came back as micrococus species. 03/14/2020-patient is comfortably in the bed sleeping. Has an NG tube receiving nutrition through the NG tube. T-max is 98.4. Latest urine culture blood cultures are negative so far. Presently on IV Zosyn and vancomycin. Patient is a full code. 03/15/2020 Patient speaking today somewhat clearly intermittently. Off-and-on moans/groans though. She cannot articulate any specific complaints but does agree that she wants to go home. Blood sugar still elevated and I have increased her Lantus dose. She is continued on bank/Zosyn and uncover testing is pending. Blood culture on 03/11 grew a contaminant 1/2 blood culture on 03/13 grew 1/2 staph possibly a contaminant as well. Urine culture negative. Patient high risk to pass away in the next 6 months this is been discussed with family at length. Repeat evaluation with speech therapy is needed today as patient is quite alert. If she cannot swallow effectively today, we will need to move towards PEG tube. 03/16/2020 I spoke at great length with the patient's brother Rick today. I informed her that the patient is much more alert and awake than she has been in the past however per my discussion with the speech therapist, the patient still cannot follow commands and is unable to swallow. She also is only able to speak a few words and has an extremely poor attention span. I am suspicious that she may not be far from her typical baseline at her nursing facility although Rick states that they have had full conversations a few weeks ago. I consulted general surgery at the brother's request although I made clear to him that the surgeon may choose not to perform a PEG tube placement on this patient for ethical reasons given the patient is high risk to pull this out and kill herself with peritonitis. Brother voiced full understanding of this concept and stated he would still like a consult from them for their opinion. I discussed the case with Dr. Saeed who plans to call the family and discuss it with him further. Blood culture is currently growing staph. 03/17/2020 General surgery has evaluated the patient and stated she may be a candidate for PEG tube but the family chooses. They wish to take some time to discuss and think about this. I asked patient how she felt today about getting a PEG tube and she asked what would happen if she did not get it. I told her she would pass away and she did not have an opinion after this discussion. Her sodium is lower today at 129 we may need to adjust the sodium of her tube feeding to help with this. We will also need to change her tube feeds to Glucerna to help with blood sugars. I have increased her Lantus dose to 26 units daily today. Patient cannot articulate any specific complaints today. 03/18/2020 Patient seems to be more talkative more alert today than previously. I am curious that the fact that she has an NG tube then may be interfering with her ability to swallow as I have seen in previous patients. I discussed with nursing that we can coordinate with speech therapy to have the NG tube removed and soon after performing a swallow study. Possible that with the NG tube remove the patient will be able to swallow more effectively. We could potentially avoid placing a PEG tube altogether. I consulted infectious d isanile. Patient continues on antibiotics. Blood sugars improved. Blood cultures are growing staph epi 09/13 bottles. Patient cannot articulate complaints 03/19/2020 Patient continues to be more alert with each passing day. I discussed with nursing today the plan to remove NG tube once speech therapy can retry swallowing study. I think this may be a good opportunity to get the patient swallowing again on her own and avoid a PEG tube altogether. Vitals are stable however blood cultures from 03/17 are now growing staph, possibly the same staph epidermidis that grew in the 03/13 cultures, follow-up final results. Infectious disease consult is pending. 03/20/2020 Patient is rather alert today. She was much more talkative during my exam today. I did get a call from nursing later in the day stating the patient had pulled out her NG tube. Nursing will attempt a bedside swallow eval and patient passes that she can have meds with sips of the rest of the day and speech therapy can do a formal evaluation tomorrow. If patient fails bedside swallow today she can have her NG tube replaced as she needs this to get some essential oral medication such as midodrine. Patient does not articulate any specific complaints today. Reason For Visit: UROSEPSIS Physical Exam Vital Signs: Temp Pulse Resp BP Pulse Ox 98.3 F 113 H 20 109/76 98 03/20/20 12:23 03/20/20 12:23 03/20/20 12:23 03/20/20 12:23 03/20/20 12:23 Intake & Output 03/19/20 03/20/20 03/21/20 06:59 06:59 06:59 Intake Total 2329 2720 364 Output Total 2049 1500 Balance 279 1220 364 Weight 47.7 kg 47.6 kg General appearance: PRESENT: no acute distress, well-developed, well-nourished Head exam: PRESENT: atraumatic, normocephalic Eye exam: PRESENT: conjunctiva pink Mouth exam: PRESENT: moist Respiratory exam: PRESENT: clear to auscultation toño. ABSENT: rales, rhonchi, w heezes Cardiovascular exam: PRESENT: RRR. ABSENT: diastolic murmur, rubs, systolic murmur GI/Abdominal exam: PRESENT: normal bowel sounds, soft. ABSENT: distended, guarding, mass, organolmegaly, rebound, tenderness Neurological exam: PRESENT: alert, awake Psychiatric exam: PRESENT: flat affect, normal mood Skin exam: PRESENT: dry, intact, warm Results Laboratory Results: 03/20/20 16:40 03/20/20 16:40 03/20/20 03/20/20 16:40 16:40 WBC 10.5 RBC 3.94 Hgb 11.3 L Hct 34.1 L MCV 87 MCH 28.7 MCHC 33.1 RDW 16.1 H Plt Count 349 Seg Neutrophils % 76.2 Sodium 129.0 L Potassium 4.5 Chloride 95 L Carbon Dioxide 24 Anion Gap 10 BUN 9 Creatinine 0.50 L Est GFR ( Amer) > 60 Glucose 213 H Calcium 8.8 03/17/20 15:30 Blood Blood Culture (PCR) - Final Staphylococcus Species 03/17/20 15:30 Blood Blood Culture - Final Staphylococcus Hominis 03/17/20 15:40 Blood Blood Culture (PCR) - Final Staphylococcus Species 03/03/20 10:15 Troponin I 0.030 Impressions: KUB X-Ray 03/07/20 00:00 IMPRESSION: 1. Nasogastric tube tip is in the stomach. The proximal sidehole is at the gastroesophageal junction. Consider advancing several centimeters. Chest X-Ray 03/11/20 00:00 IMPRESSION: 1. Minimal left basilar atelectasis. Possible small effusions. 2. Central line and NG tube remain in place. 3. Right upper lobe infiltrate has resolved. Assessment and Plan - Diagnosis (1) UTI due to extended-spectrum beta lactamase (ESBL) producing Escherichia coli Is this a current diagnosis for this admission?: Yes (2) Sepsis Qualifiers: Sepsis type: Escherichia coli Sepsis acute organ dysfunction status: with acute organ dysfunction Severe sepsis acute organ dysfunction type: acute renal failure Acute renal failure type: with acute tubular necrosis Severe sepsis shock status: without septic shock Qualified Code(s): A41.51 - Sepsis due to Escherichia coli [E. coli]; R65.20 - Severe sepsis without septic shock; N17.0 - Acute kidney failure with tubular necrosis Is this a current diagnosis for this admission?: Yes Plan: Source is UTI with ESBL E. coli Antibiotics given Resolved 03/11/2020 Recurred likely due to a recurrence of her UTI from urinary retention Treat underlying cause with Zosyn 03/12/2020-patient is on Zosyn from yesterday T-max 100.7. Blood cultures from yesterday negative so far. Plan is to continue the present management at this time. 03/13/20-blood cultures growing micrococcus. Urine culture is positive for ESBL E. coli T-max is 100.9 presently on IV Zosyn. IV vancomycin is added to the medications. 03/14/20-patient is presently on IV Zosyn and vancomycin. Latest urine cultures from 03/13 no growth. Blood culture from 03/13 pending. 03/15/2020 Vancomycin and Zosyn Blood cultures growing possible contaminant on 03/13, previously grew contaminant 03/11 in 08/13 bottles 03/16/2020 Sepsis is resolved and temperature curve is normalized Antibiotics continued for underlying infections 03/17/2020 Repeat blood cultures today Continue antibiotics, stop vancomycin if MRSA is not growing in blood cultures once they are finalized 03/20/2020 ID consulted, await their evaluation Patient continues to have positive blood cultures as was reported to me today, follow-up speciation and sensitivities as these may be contaminants given the preliminary report is showing staph hominis (3) Acute metabolic encephalopathy Is this a current diagnosis for this admission?: Yes (4) Acute respiratory failure with hypoxia Is this a current diagnosis for this admission?: Yes (5) Delirium due to another medical condition, acute, hyperactive Is this a current diagnosis for this admission?: Yes (6) Hypercapnic respiratory failure Qualifiers: Chronicity: acute Qualified Code(s): J96.02 - Acute respiratory failure with hypercapnia Is this a current diagnosis for this admission?: Yes (7) Hypernatremia Is this a current diagnosis for this admission?: Yes (8) Diabetes 1.5, managed as type 1 Is this a current diagnosis for this admission?: Yes (9) Dysphagia Is this a current diagnosis for this admission?: Yes (10) UTI due to extended-spectrum beta lactamase (ESBL) producing Escherichia coli Is this a current diagnosis for this admission?: Yes (11) Staphylococcus epidermidis bacteremia Is this a current diagnosis for this admission?: Yes - Plan Summary Summary: Review of records from [facility] indicate the following d iagnoses has been present: Type 2 diabetes mellitus without complication Delusional disorder Dysphasia oropharyngeal phase Gastroesophageal reflux with esophagitis Unspecified symptoms and signs involving cognitive functions and awareness Restlessness and agitation Major depressive disorder Pseudobulbar affect Acute vaginitis Dementia and other diseases classified elsewhere with behavioral disturbance History of alcohol abuse Hyperlipidemia Anemia We will need to further investigate her medical history. She is on multiple medications. Will need to add them back strategically. We will first need to stabilize the patient with fluids and antibiotics. She will have some as needed medications available. Mother history of dysphagia and her current mental state it is not reasonable to expect a safe swallow at this time but hopefully when the patient settles we will be able to administer an oral diet. If necessary it might be safer to insert a nasogastric tube so that we may administer m edications that are not available intravenous form. 03/04/2020 critical care visit: After evaluating the patient I did have a chance to talk to her brother. Informed him of her acute episodes and very slow progress. Positive news was she is afebrile and her white blood cell count has normalized. Respiratory status and possible seizure were noted. We discussed her current medications and treatment options. I expressed my confidence that by tomorrow she should be feeling better with corrected sodium and intravenous Depakote. We have asked about a local friend visiting but I suggested this wait until she would be more interactive. I did not dextrose to the IV fluid. With her underlying diabetes it may cause hyperglycemia. If this happens we can always remove dextrose from the fluid or increase insulin dosing. After a 25-minute conversation her brother was satisfied that all of his questions were answered. - Time Time Spent with patient: 25-34 minutes Medications reviewed and adjusted accordingly: Yes Anticipated Discharge Disposition: [facility] Anticipated Discharge Timeframe: within 72 hours - Inpatient Certification Based on my medical assessment, after consideration of the patient's comorbidities, presenting symptoms, or acuity I expect that the services needed warrant INPATIENT care.: Yes I certify that my determination is in accordance with my understanding of Medicare's requirements for reasonable and necessary INPATIENT services [42 CFR 412.3e].: Yes Medical Necessity: Significant Comorbidiites Make Outpatient Treatment Too Risky, Need Close Monitoring Due to Risk of Patient Decompensation, Need for IV Antibiotics, Risk of Complication if Not Cared For in Hospital, Risk of Diagnosis Which Will Require Inpatient Eval/Care/Monitoring
[2020-03-20] MEDS: LORAZEPAM INJ 2 MG/1 ML VIAL IV PRN (22:50)
[2020-03-21] MEDS: INSULIN LISPRO 100 UNIT/ML 3 ML VIAL SUBCUT SCH ×5 (01:12→21:47)
--- NOTE | 2020-03-21 02:28 | RADIOLOGY REPORT (SQ) ---
ABDOMINAL RADIOGRAPH: 03/21/2020 1:26 AM CDT COMPARISON: None available TECHNIQUE: A single radiograph of the abdomen was obtained. HISTORY: 54-year old with abdominal pain. FINDINGS: Only the upper abdomen was included on this examination. The visualized bowel gas pattern is nonspecific and nonobstructive. No abnormal intra-abdominal calcifications are seen. There are no findings to suggest organomegaly. There are embolization coils at the right upper abdomen. The nasogastric tube tip projects over the distal esophagus and should be advanced forward. There is a metallic density overlying the right pelvis. There is a central line catheter tip noted at the SVC/right atrial junction. IMPRESSION: The nasogastric tube tip projects over the distal esophagus and should be advanced forward.
[2020-03-21] MEDS: HEPARIN SOD (PORCINE) 5,000 UNIT/ML 1 ML VIAL SUBCUT SCH ×3 (06:09→22:03)
[2020-03-21] MEDS: VANCOMYCIN HCL 750 MG in DEXTROSE 5%-WATER 250 ML IV SCH ×3 (06:10→22:03)
--- NOTE | 2020-03-21 08:55 | RADIOLOGY REPORT (SQ) ---
EXAM DESCRIPTION: KUB/ABDOMEN (SINGLE VIEW) IMAGES COMPLETED DATE/TIME: 03/21/2020 8:39 am REASON FOR STUDY: ng tube verification COMPARISON: 03/21/2028 NUMBER OF VIEWS: One view. TECHNIQUE: Supine radiographic image of the abdomen acquired. LIMITATIONS: None. FINDINGS: BOWEL GAS PATTERN: Normal bowel gas pattern. No dilated loops. CALCIFICATIONS: No suspicious calcifications. SOFT TISSUES: No gross mass or suggestion of organomegaly. HARDWARE: Nasoenteric tube tip overlies gastric body. Partially visualized central venous catheter t ip at cavoatrial junction. Metallic coils overlie right upper quadrant. BONES: No acute fracture. No worrisome bone lesions. OTHER: No other significant finding. IMPRESSION: Nasoenteric tube tip overlies gastric body. TECHNICAL DOCUMENTATION: JOB ID: [id number] 2010 [employer]- All Rights Reserved Reading location - IP/workstation name: [email or web address]
[2020-03-21 09:37] LABS: ABSOLUTE BASOPHILS # (AUTO) 0.1 10^3/uL (0.0-0.2); ABSOLUTE EOSINOPHILS # (AUTO) 0.2 10^3/uL (0.0-0.6); ABSOLUTE MONOCYTES (AUTO) 1.2 10^3/uL (0.1-1.4); ABSOLUTE NEUT (AUTO) 5.2 10^3/uL (1.7-8.2); BASOPHILS % (AUTO) 0.9 % (0-2); EOSINOPHILS % (AUTO) 2.2 % (0-6); HEMATOCRIT 30.7 % (36.0-47.0); HEMOGLOBIN 10.3 g/dL (12.0-15.5); LYMPHOCYTES % (AUTO) 22.5 % (13-45); MEAN CORPUSCULAR HEMOGLOBIN 29.2 pg (27.0-33.4); MEAN CORPUSCULAR HGB CONC 33.7 g/dL (32.0-36.0); MEAN CORPUSCULAR VOLUME 87 fl (80-97); MONOCYTES % (AUTO) 14.1 % (3-13); PLATELET COUNT 350 10^3/uL (150-450); RED BLOOD COUNT 3.54 10^6/uL (3.72-5.28); RED CELL DISTRIBUTION WIDTH 16.3 % (11.5-14.0); SEGMENTED NEUTROPHILS % (AUTO) 60.3 % (42-78); TOTAL CELLS COUNTED % (AUTO) 100 %; WHITE BLOOD COUNT 8.7 10^3/uL (4.0-10.5)
[2020-03-21] MEDS: ESCITALOPRAM OXALATE 10 MG TABLET NG SCH (10:50)
[2020-03-21] MEDS: MIDODRINE HCL 5 MG TABLET PO SCH ×3 (10:50→17:18)
[2020-03-21] MEDS: VALPROATE SODIUM SYRUP 250 MG/5 ML UDCUP NG SCH ×2 (10:50→22:04)
[2020-03-21] MEDS: THIAMINE HCL 100 MG TABLET NG SCH (10:51)
[2020-03-21] MEDS: INSULIN GLARGINE,HUM.REC.ANLOG 1,000 UNIT/10 ML VIAL SUBCUT SCH (11:02)
--- NOTE | 2020-03-21 14:56 | RADIOLOGY REPORT (SQ) ---
EXAM DESCRIPTION: CT CHEST WITH IMAGES COMPLETED DATE/TIME: 03/21/2020 2:28 pm REASON FOR STUDY: Sepsis and bacteremia of unknown source COMPARISON: 01/30/2011 TECHNIQUE: CT scan of the chest performed using helical scanning technique with dynamic intravenous contrast injection. Images reviewed with lung, soft tissue and bone windows. Reconstructed coronal and sagittal MPR and MIP images reviewed. All images stored on PACS. All CT scanners at this facility use dose modulation, iterative reconstruction, and/or weight based d osing when appropriate to reduce radiation dose to as low as reasonably achievable (ALARA). [facility]: Dose Right [facility]: CareDose [facility]: Dose Right [facility]: Teradose 4D [facility]: CYP Design CONTRAST TYPE AND DOSE: See abdomen RENAL FUNCTION: See abdomen RADIATION DOSE: CT Rad equipment meets quality standard of care and radiation dose reduction techniq ues were employed. CTDIvol: 5.4 - 9.5 mGy. DLP: 1108 mGy-cm. . LIMITATIONS: None. FINDINGS: LUNGS AND PLEURA: Trace bilateral pleural effusions with mild bibasilar ground-glass atten uation, likely hypoventilatory change/ atelectasis. Mild right upper lobe interlobular septal thicke dominick. No discrete airspace disease. No pneumothorax. No discrete mass. HILAR AND MEDIASTINAL STRUCTURES: No identified masses or abnormal nodes. HEART AND VASCULAR STRUCTURES: No aneurysm. No dissection. Trace pericardial effusion. No signific ant calcified coronary atherosclerosis. HARDWARE: Right internal jugular central venous catheter with tip at cavoatrial junction. UPPER ABDOMEN: See separate report of the CT of the abdomen. THYROID AND OTHER SOFT TISSUES: No masses. No adenopathy. BONES: No acute bony abnormality. No suspicious osseous lesions. Mild multilevel thoracic endplate change and disc height loss. OTHER: No other significant finding. IMPRESSION: Trace bilateral effusions and mild dependent ground-glass opacities, likely hypoventilat ory change. No definite airspace disease. TECHNICAL DOCUMENTATION: JOB ID: [id number] Quality ID # [id number]: Final reports with documentation of one or more dose reduction techniques (e.g., Au tomated exposure control, adjustment of the mA and/or kV according to patient size, use of iterative reconstruction technique) 2010 [employer]- All Rights Reserved Reading location - IP/workstation name: [email or web address]
--- NOTE | 2020-03-21 15:05 | RADIOLOGY REPORT (SQ) ---
EXAM DESCRIPTION: CT ABD/PELVIS WITH IV ORAL IMAGES COMPLETED DATE/TIME: 03/21/2020 2:28 pm REASON FOR STUDY: Sepsis and bacteremia of unknown source COMPARISON: 10/29/2018 TECHNIQUE: CT scan of the abdomen and pelvis performed using helical scanning technique with dynamic intravenous contrast injection. Patient was given oral contrast. Images reviewed with lung, soft ti ssue, and bone windows. Reconstructed coronal and sagittal MPR images reviewed. Delayed images for ev aluation of the urinary system also acquired. All images stored on PACS. All CT scanners at this facility use dose modulation, iterative reconstruction, and/or weight based d osing when appropriate to reduce radiation dose to as low as reasonably achievable (ALARA). [facility]: Dose Right [facility]: CareDose [facility]: Dose Right [facility]: Teradose 4D [facility]: Pulsant CONTRAST TYPE AND DOSE: contrast/concentration: Isovue 350.00 mmol/ml; Total Contrast Delivered: 50. 0 ml; Total Saline Delivered: 65.0 ml RENAL FUNCTION: Creatinine 0.5 RADIATION DOSE: . LIMITATIONS: Right hip hardware obscures evaluation of the pelvis. FINDINGS: LOWER CHEST: See separate report of the CT of the chest. LIVER: Normal size. No masses. No dilated ducts. SPLEEN: Borderline enlarged measuring 12.5 cm. No focal lesions. PANCREAS: Multiple splenic calcifications compatible chronic pancreatitis. Metallic densities obscur es head and uncinate process. GALLBLADDER: No identified stones by CT criteria. No inflammatory changes to suggest cholecystitis. ADRENAL GLANDS: No significant masses or asymmetry. RIGHT KIDNEY AND URETER: No solid masses. No significant calcifications. No hydronephrosis. Eval uation of the distal ureter limited secondary to extensive streak artifact from right hip arthroplast y. LEFT KIDNEY AND URETER: No solid masses. No significant calcifications. No hydronephrosis or hydr oureter. AORTA AND VESSELS: No aneurysm. No dissection. Renal arteries, SMA, celiac without stenosis. RETROPERITONEUM: No retroperitoneal adenopathy, hemorrhage or masses. BOWEL AND PERITONEAL CAVITY: No evidence of intestinal obstruction. No focal bowel wall thickening. Previously-seen midline hernia no longer contains large loop of colon. There arm prominent portosys temic collaterals noted within the hernia sac. Prominent portosystemic collaterals APPENDIX: Nonvisualized. PELVIS: Lopes catheter within the urinary bladder. Pelvis largely obscured from right hip hardware. ABDOMINAL WALL: Large midline hernia. Previously-seen colonic loops no longer within the hernia sac. Multiple prominent portosystemic collaterals noted within the hernia sac. BONES: No acute bony abnormality. Lumbar spondylosis with disc height loss and endplate change great est at L3-4, stable. Postsurgical/traumatic changes of the right hip. No discrete suspicious osseou s lesions. OTHER: No other significant finding. IMPRESSION: 1. No definite acute intra-abdominal/pelvic process. 2. Changes from chronic pancreatitis. Splenomegaly with evidence of elevated portal pressure with m ultiple prominent portosystemic collaterals. 3. Midline ventral hernia no longer contains the large colonic loops. Prominent portosystemic colla terals noted within the hernia sac. 4. Additional chronic findings as above. TECHNICAL DOCUMENTATION: JOB ID: [id number] Quality ID # [id number]: Final reports with documentation of one or more dose reduction techniques (e.g., Au tomated exposure control, adjustment of the mA and/or kV according to patient size, use of iterative reconstruction technique) 2010 [employer]- All Rights Reserved Reading location - IP/workstation name: [email or web address]
--- NOTE | 2020-03-21 19:08 | PDOC PROGRESS REPORT ---
Subjective Progress Note for:: 03/21/20 Subjective:: Patient not able to participate in conversation. Pretty much answers yes to everything I say. She is oriented to self. Reason For Visit: UROSEPSIS Physical Exam Vital Signs: Temp Pulse Resp BP Pulse Ox 98.2 F 100 20 147/84 H 98 03/21/20 16:02 03/21/20 16:02 03/21/20 16:02 03/21/20 16:02 03/21/20 16:02 Intake & Output 03/20/20 03/21/20 03/22/20 06:59 06:59 06:59 Intake Total 2720 964 1021 Output Total 1500 1100 1550 Balance 1220 -136 -529 Weight 47.6 kg 44.5 kg 44.5 kg General appearance: PRESENT: no acute distress, cooperative Respiratory exam: PRESENT: unlabored. ABSENT: accessory muscle use, retraction Cardiovascular exam: PRESENT: +S1, +S2 Neurological exam: PRESENT: alert, awake, oriented to person. ABSENT: oriented to place, oriented to time, oriented to situation Results Laboratory Results: 03/21/20 06:25 03/20/20 16:40 03/21/20 06:25 WBC 8.7 RBC 3.54 L Hgb 10.3 L Hct 30.7 L MCV 87 MCH 29.2 MCHC 33.7 RDW 16.3 H Plt Count 350 Seg Neutrophils % 60.3 03/17/20 15:30 Blood Blood Culture (PCR) - Final Staphylococcus Species 03/17/20 15:30 Blood Blood Culture - Final Staphylococcus Hominis 03/17/20 15:40 Blood Blood Culture (PCR) - Final Staphylococcus Species 03/17/20 15:40 Blood Blood Culture - Final Staphylococcus Epidermidis 03/03/20 10:15 Troponin I 0.030 Impressions: Chest X-Ray 03/11/20 00:00 IMPRESSION: 1. Minimal left basilar atelectasis. Possible small effusions. 2. Central line and NG tube remain in place. 3. Right upper lobe infiltrate has resolved. KUB X-Ray 03/21/20 07:45 IMPRESSION: Nasoenteric tube tip overlies gastric body. Abdomen/Pelvis CT 03/21/20 09:30 IMPRESSION: 1. No definite acute intra-abdominal/pelvic process. 2. Changes from chronic pancreatitis. Splenomegaly with evidence of elevated portal pressure with multiple prominent portosystemic collaterals. 3. Midline ventral hernia no longer contains the large colonic loops. Pr ominent portosystemic collaterals noted within the hernia sac. 4. Additional chronic findings as above. Chest CT 03/21/20 09:30 IMPRESSION: Trace bilateral effusions and mild dependent ground-glass opacities, likely hypoventilatory change. No definite airspace disease. Assessment and Plan - Diagnosis (1) Acute metabolic encephalopathy Is this a current diagnosis for this admission?: Yes (2) Delirium due to another medical condition, acute, hyperactive Is this a current diagnosis for this admission?: Yes (3) Hypercapnic respiratory failure Qualifiers: Chronicity: acute Qualified Code(s): J96.02 - Acute respiratory failure with hypercapnia Is this a current diagnosis for this admission?: Yes (4) Sepsis Qualifiers: Sepsis type: Escherichia coli Sepsis acute organ dysfunction status: with acute organ dysfunction Severe sepsis acute organ dysfunction type: acute renal failure Acute renal failure type: with acute tubular necrosis Severe sepsis shock status: without septic shock Qualified Code(s): A41.51 - Sepsis due to Escherichia coli [E. coli]; R65.20 - Severe sepsis without septic shock; N17.0 - Acute kidney failure with tubular necrosis Is this a current diagnosis for this admission?: Yes (5) Staphylococcus epidermidis bacteremia Is this a current diagnosis for this admission?: Yes (6) UTI due to extended-spectrum beta lactamase (ESBL) producing Escherichia coli Is this a current diagnosis for this admission?: Yes (7) Diabetes 1.5, managed as type 1 Is this a current diagnosis for this admission?: Yes - Plan Summary Summary: Patient seems to have progressive dementia/cognitive impairment. She also may have some superimposed acute metabolic encephalopathy but seems very unlikely that most of this is due to acute state. She is being treated for staph bacteremia with vancomycin. She has completed treatment for UTI secondary to ESBL-seems she received Zosyn for over 8 days. Urine culture does show susceptibility to Zosyn. Infectious disease has been consulted Continue vancomycin and repeat blood cultures for staph bacteremia. Blood culture from 03/17/2020 is positive for staph epidermidis as well as staph hominis Continue Lantus, sliding scale insulin, Accu-Cheks - Time Time Spent with patient: 15-24 minutes Anticipated Discharge Disposition: [facility] Anticipated Discharge Timeframe: undetermined
[2020-03-22] MEDS: HEPARIN SOD (PORCINE) 5,000 UNIT/ML 1 ML VIAL SUBCUT SCH ×3 (06:05→22:57)
[2020-03-22] MEDS: VANCOMYCIN HCL 750 MG in DEXTROSE 5%-WATER 250 ML IV SCH (07:53)
[2020-03-22] MEDS: INSULIN LISPRO 100 UNIT/ML 3 ML VIAL SUBCUT SCH ×4 (08:52→22:51)
[2020-03-22] MEDS: VALPROATE SODIUM SYRUP 250 MG/5 ML UDCUP NG SCH ×2 (08:52→23:00)
[2020-03-22 08:58] LABS: VANCOMYCIN,TROUGH 20.6 ug/mL (5.0-20.0)
[2020-03-22] MEDS: ESCITALOPRAM OXALATE 10 MG TABLET NG SCH (10:20)
[2020-03-22] MEDS: THIAMINE HCL 100 MG TABLET NG SCH (10:20)
[2020-03-22] MEDS: CLONIDINE 0.2 MG/24 HR PATCH.TDWK TD SCH (10:22)
[2020-03-22] MEDS: MIDODRINE HCL 5 MG TABLET PO SCH ×3 (10:22→18:14)
[2020-03-22] MEDS: INSULIN GLARGINE,HUM.REC.ANLOG 1,000 UNIT/10 ML VIAL SUBCUT SCH (10:32)
--- NOTE | 2020-03-22 10:39 | Progress Note ---
Provider Note Provider Note: [facility] ID Telephone Advice Consultation Chart reviewed. Patient is a 54-year-old woman transferred from [facility] due to fever on 03/03. She has a history of dementia, TD, hypertension, seizure disorder, pneumonia, diabetes mellitus, GERD, arthritis. She was found with E coli ESBL UTI, although she has an indwelling catheter (unclear if it was exchanged). She received fosfomycin for this. She was briefly intubated. She was transferred out of the ICU. Her blood cultures on admission were positive / for Staph hominis. on 03/11 it grew Micrococcus 1/2. On 03/13 it grewStaphylococcus epidermidis 2/2 (line and peripheral) and 03/17 Staph epi 1/2 and Staph hominis 1/2 (line). She has a right prosthetic hip and she has been on vancomycin. She was also evaluated by surgery for PEG as she has dysphagia due to her neurological conditions. ID consulted for CoNS positive blood cultures. Allergies: tramadol [Tramadol] Allergy (Verified 03/03/20 10:06) Nausea adhesive tape [Adhesive Tape] Adverse Reaction (Verified 03/03/20 10:06) peels skin off Medications: Acetaminophen [Tylenol 325 mg Tablet] 650 mg PO Q6HP PRN 05/19/19 Diphenhydramine HCl [Benadryl 25 mg Capsule] 25 mg PO Q8 05/19/19 Dulaglutide [Trulicity] 1.5 mg SQ Q7D 05/19/19 Insulin Aspart [Novolog] 0 unit SQ .SLIDING SCALE 05/19/19 Insulin Detemir [Levemir] 10 unit SQ QHS 05/19/19 Loratadine [Claritin 10 mg Tablet] 10 mg PO DAILY 05/19/19 Melatonin/Pyridoxine HCl (B6) [Melatonin 3 mg Tablet] 3 mg PO QHS 05/19/19 Sennosides [Senna] 8.6 mg PO BIDP PRN 05/19/19 Thiamine HCl [Vitamin B-1] 100 mg PO DAILY 05/19/19 Ibuprofen 200 mg PO Q8 06/20/19 Calcium Carbonate [Tums Chewable 500 mg Tab.chew] 500 mg PO Q4HP PRN 03/03/20 Clonazepam [Klonopin] 0.5 mg PO BID 03/03/20 Escitalopram Oxalate [Lexapro 10 mg Tablet] 15 mg PO DAILY 03/03/20 Estradiol [Estrace] 2 gm VG MOTH 03/03/20 Metformin HCl 1,000 mg PO BID 03/03/20 Pantoprazole Sodium [Protonix [address] Tablet] 40 mg PO QAM 03/03/20 Trazodone HCl 25 mg PO QHS 03/03/20 Ergocalciferol (Vitamin D2) [Drisdol 50,000 Unit (1.25MG) Capsule] 50,000 unit PO WE@1000 03/10/20 Vital Signs: Temp Pulse Resp BP Pulse Ox 98.5 F 87 18 115/73 97 03/22/20 03:59 03/22/20 03:59 03/22/20 03:59 03/22/20 03:59 03/22/20 03:59 Intake & Output 03/21/20 03/22/20 03/23/20 06:59 06:59 06:59 Intake Total 964 1396 Output Total 1100 2050 Balance -136 -654 Weight 44.5 kg 57 kg Weight/Height Weight 57 kg Height 5 ft 2 in Laboratories: 03/21/20 06:25 03/22/20 06:00 MCV 87 fl (80-97) 03/21/20 06:25 MCH 29.2 pg (27.0-33.4) 03/21/20 06:25 MCHC 33.7 g/dL (32.0-36.0) 03/21/20 06:25 RDW 16.3 % (11.5-14.0) H 03/21/20 06:25 Seg Neutrophils % 60.3 % (42-78) 03/21/20 06:25 Carbonic Acid 1.29 mmol/L (1.05-1.35) 03/08/20 09:15 HCO3/H2CO3 Ratio 24:1 03/08/20 09:15 ABG pH 7.48 (7.35-7.45) H 03/08/20 09:15 ABG pCO2 43.0 mmHg (35-45) 03/08/20 09:15 ABG pO2 82.2 mmHg (80-100) 03/08/20 09:15 ABG HCO3 31.2 mmol/L (20-24) H 03/08/20 09:15 ABG O2 Saturation 96.7 % (94-98) 03/08/20 09:15 ABG Base Excess 6.9 mmol/L 03/08/20 09:15 VBG pH 7.52 (7.30-7.42) H 03/03/20 10:15 VBG pCO2 29.0 mmHg (35-63) L 03/03/20 10:15 VBG HCO3 23.1 mmol/L (20-32) 03/03/20 10:15 VBG Base Excess 1.7 mmol/L 03/03/20 10:15 FiO2 28% 03/08/20 09:15 Chloride 95 mmol/L (98-107) L 03/20/20 16:40 Carbon Dioxide 24 mmol/L (22-30) 03/20/20 16:40 Anion Gap 10 (5-19) 03/20/20 16:40 Est GFR ( Amer) > 60 (>60) 03/22/20 06:00 Est GFR (Non-Af Amer) Cancelled 03/05/20 13:14 Glucose 213 mg/dL (75-110) H 03/20/20 16:40 Lactic Acid 1.1 mmol/L (0.7-2.1) 03/03/20 15:52 Calcium 8.8 mg/dL (8.4-10.2) 03/20/20 16:40 Phosphorus 3.2 mg/dL (2.5-4.5) 03/10/20 05:35 Magnesium 1.9 mg/dL (1.6-2.3) 03/15/20 06:53 Total Bilirubin 0.1 mg/dL (0.2-1.3) L 03/15/20 06:53 AST 15 U/L (14-36) 03/15/20 06:53 Alkaline Phosphatase 99 U/L (38-126) 03/15/20 06:53 Ammonia < 8.7 umol/L (9-33) L 03/07/20 11:07 Total Protein 4.3 g/dL (6.3-8.2) L 03/15/20 06:53 Albumin 1.9 g/dL (3.5-5.0) L 03/15/20 06:53 TSH 2.46 uIU/mL (0.47-4.68) 03/07/20 09:54 Urine Color YELLOW 03/11/20 08:10 Urine Appearance CLEAR 03/11/20 08:10 Urine pH 7.0 (5.0-9.0) 03/11/20 08:10 Ur Specific [place] 1.024 03/11/20 08:10 Urine Protein 30 mg/dL (NEGATIVE) H 03/11/20 08:10 Urine Glucose (UA) NEGATIVE mg/dL (NEGATIVE) 03/11/20 08:10 Urine Ketones NEGATIVE mg/dL (NEGATIVE) 03/11/20 08:10 Urine Blood NEGATIVE (NEGATIVE) 03/11/20 08:10 Urine RBC (Auto) 1 /HPF 03/11/20 08:10 03/17/20 15:30 Blood Blood Culture (PCR) - Final Staphylococcus Species 03/17/20 15:30 Blood Blood Culture - Final Staphylococcus Hominis 03/17/20 15:40 Blood Blood Culture (PCR) - Final Staphylococcus Species 03/17/20 15:40 Blood Blood Culture - Final Staphylococcus Epidermidis 03/03/20 10:15 Troponin I 0.030 Microbiology: Blood cultures: 03/03 Staph hominis 1/2 03/11 Micrococcus 1/2 8/2 MRSE 2/2 (line, peripheral) 03/17 Staph hominis 1/2 (line), MRSE 1/2 (peripheral) Radiology: Chest X-Ray 03/11/20 00:00 IMPRESSION: 1. Minimal left basilar atelectasis. Possible small effusions. 2. Central line and NG tube remain in place. 3. Right upper lobe infiltrate has resolved. KUB X-Ray 03/21/20 07:45 IMPRESSION: Nasoenteric tube tip overlies gastric body. Abdomen/Pelvis CT 03/21/20 09:30 IMPRESSION: 1. No definite acute intra-abdominal/pelvic process. 2. Changes from chronic pancreatitis. Splenomegaly with evidence of elevated portal pressure with multiple prominent portosystemic collaterals. 3. Midline ventral hernia no longer contains the large colonic loops. Prominent portosystemic collaterals noted within the hernia sac. 4. Additional chronic findings as above. Chest CT 03/21/20 09:30 IMPRESSION: Trace bilateral effusions and mild dependent ground-glass opacities, likely hypoventilatory change. No definite airspace disease. Assessment and Recommendations: Patient evaluated due to different species of CoNS bacteremia unclear if line related, contamination of true infection in the setting of right prosthetic hip. If patient still has the central line (right IJ) will recommend to remove it and send catheter tip for cultures. The fact that there were different species growing raises suspicion for contamination. Staphylococcus hominis, Mi crococcus, Staphylococcus epidermidis are all part of skin ashlyn that can easily contaminate cultures. She has been on vancomcyin and if these have grown despite antibiotic it is probably due to contamination. Will recommend to remove line adn complete 7 days of vancomycin. Once she finishes antibiotics, will recommend surveillance cultures 1 and 2 weeks after completion of therapy as she has a prosthetic hip and will make sure this is not infected. Per notes, no signs suggestive of that. Please call if questions. Perla Harrell MD [facility] ID [phone]
[2020-03-22] MEDS: LORAZEPAM INJ 2 MG/1 ML VIAL IV PRN ×3 (12:06→23:03)
--- NOTE | 2020-03-22 19:14 | PDOC PROGRESS REPORT ---
Subjective Progress Note for:: 03/22/20 Subjective:: Patient still confused. Does not give any intelligible conversation. Reason For Visit: UROSEPSIS Physical Exam Vital Signs: Temp Pulse Resp BP Pulse Ox 99.0 F 90 18 121/76 95 03/22/20 17:27 03/22/20 17:27 03/22/20 17:27 03/22/20 17:27 03/22/20 17:27 Intake & Output 03/21/20 03/22/20 03/23/20 06:59 06:59 06:59 Intake Total 964 1396 560 Output Total 1100 2050 460 Balance -136 -654 100 Weight 44.5 kg 57 kg General appearance: PRESENT: no acute distress, cooperative Neck exam: ABSENT: JVD Respiratory exam: PRESENT: unlabored. ABSENT: accessory muscle use, retraction Cardiovascular exam: PRESENT: RRR. ABSENT: tachycardia Neurological exam: PRESENT: alert, awake, oriented to person. ABSENT: oriented to place, oriented to time, oriented to situation Results Laboratory Results: 03/21/20 06:25 03/22/20 06:00 03/22/20 06:00 Creatinine 0.50 L Est GFR ( Amer) > 60 03/03/20 10:15 Troponin I 0.030 Impressions: Chest X-Ray 03/11/20 00:00 IMPRESSION: 1. Minimal left basilar atelectasis. Possible small effusions. 2. Central line and NG tube remain in place. 3. Right upper lobe infiltrate has resolved. KUB X-Ray 03/21/20 07:45 IMPRESSION: Nasoenteric tube tip overlies gastric body. Abdomen/Pelvis CT 03/21/20 09:30 IMPRESSION: 1. No definite acute intra-abdominal/pelvic process. 2. Changes from chronic pancreatitis. Splenomegaly with evidence of elevated portal pressure with multiple prominent portosystemic collaterals. 3. Midline ventral hernia no longer contains the large colonic loops. Promine nt portosystemic collaterals noted within the hernia sac. 4. Additional chronic findings as above. Chest CT 03/21/20 09:30 IMPRESSION: Trace bilateral effusions and mild dependent ground-glass opacities, likely hypoventilatory change. No definite airspace disease. Assessment and Plan - Diagnosis (1) Acute metabolic encephalopathy Is this a current diagnosis for this admission?: Yes (2) Delirium due to another medical condition, acute, hyperactive Is this a current diagnosis for this admission?: Yes (3) Hypercapnic respiratory failure Qualifiers: Chronicity: acute Qualified Code(s): J96.02 - Acute respiratory failure with hypercapnia Is this a current diagnosis for this admission?: Yes (4) Sepsis Qualifiers: Sepsis type: Escherichia coli Sepsis acute organ dysfunction status: with acute organ dysfunction Severe sepsis acute organ dysfunction type: acute renal failure Acute renal failure type: with acute tubular necrosis Severe sepsis shock status: without septic shock Qualified Code(s): A41.51 - Sepsis due to Escherichia coli [E. coli]; R65.20 - Severe sepsis without septic shock; N17.0 - Acute kidney failure with tubular necrosis Is this a current diagnosis for this admission?: Yes (5) Staphylococcus epidermidis bacteremia Is this a current diagnosis for this admission?: Yes (6) UTI due to extended-spectrum beta lactamase (ESBL) producing Escherichia coli Is this a current diagnosis for this admission?: Yes (7) Diabetes 1.5, managed as type 1 Is this a current diagnosis for this admission?: Yes - Plan Summary Summary: Patient seems to have progressive dementia/cognitive impairment. She also may have some superimposed acute metabolic encephalopathy but seems very unlikely that most of this is due to acute state. She is being treated for staph bacteremia with vancomycin. She has completed treatment for UTI secondary to ESBL-seems she received Zosyn for over 8 days. Urine culture does show susceptibility to Zosyn. Infectious disease has been consulted Continue vancomycin and repeat blood cultures for staph bacteremia. Blood cu lture from 03/17/2020 is positive for staph epidermidis as well as staph hominis Continue Lantus, sliding scale insulin, Accu-Cheks 03/22/2020 ID was consulted who recommends removal of central line. We will try to get IV access before removing central line. Continue vancomycin. I have put in for r epeat blood cultures to see if this is truly a contamination. ID recommends continue vancomycin for 7 days and repeating blood culture thereafter as well. We will continue rest of treatment. - Time Time Spent with patient: Less than 15 minutes Anticipated Discharge Disposition: [facility] Anticipated Discharge Timeframe: within 72 hours
[2020-03-22] MEDS ORDERED: VALPROATE SODIUM SYRUP 250 MG/5 ML UDCUP ONE (22:57)
[2020-03-23] MEDS: LORAZEPAM INJ 2 MG/1 ML VIAL IV PRN ×2 (04:45→16:05)
[2020-03-23] MEDS: HEPARIN SOD (PORCINE) 5,000 UNIT/ML 1 ML VIAL SUBCUT SCH ×3 (05:48→22:46)
[2020-03-23] MEDS: THIAMINE HCL 100 MG TABLET NG SCH (10:04)
[2020-03-23] MEDS: ESCITALOPRAM OXALATE 10 MG TABLET NG SCH (10:04)
[2020-03-23] MEDS: MIDODRINE HCL 5 MG TABLET PO SCH ×3 (10:04→18:03)
[2020-03-23] MEDS: VALPROATE SODIUM SYRUP 250 MG/5 ML UDCUP NG SCH ×2 (10:04→22:46)
[2020-03-23] MEDS: CHOLECALCIFEROL (D3) 1,000 UNIT (25 MCG) TABLET NG SCH (10:04)
[2020-03-23] MEDS: INSULIN LISPRO 100 UNIT/ML 3 ML VIAL SUBCUT SCH ×4 (10:05→22:47)
[2020-03-23] MEDS: VANCOMYCIN HCL 1,000 MG in DEXTROSE 5%-WATER 250 ML IV SCH ×2 (10:24→22:47)
[2020-03-23] MEDS: INSULIN GLARGINE,HUM.REC.ANLOG 1,000 UNIT/10 ML VIAL SUBCUT SCH (10:24)
[2020-03-23] MEDS: ACETAMINOPHEN 650 MG SUPP.RECT PR PRN (16:18)
[2020-03-23] MEDS ORDERED: HALOPERIDOL LACTATE INJ 5 MG/1 ML VIAL IV PRN (17:19)
[2020-03-23] MEDS ORDERED: HALOPERIDOL LACTATE INJ 5 MG/1 ML VIAL IM PRN (17:27)
--- NOTE | 2020-03-23 17:33 | PDOC PROGRESS REPORT ---
Subjective Progress Note for:: 03/23/20 Subjective:: Patient c/o abd pain today. However has had bowel movement today. Not able to volunteer much else. Reason For Visit: UROSEPSIS Physical Exam Vital Signs: Temp Pulse Resp BP Pulse Ox 97.6 F 89 18 121/83 100 03/23/20 08:03 03/23/20 14:00 03/23/20 12:50 03/23/20 12:50 03/23/20 12:50 Intake & Output 03/22/20 03/23/20 03/24/20 06:59 06:59 06:59 Intake Total 1396 1260 488 Output Total 2050 1060 100 Balance -654 200 388 Weight 57 kg 55.8 kg General appearance: PRESENT: no acute distress, cooperative Neck exam: ABSENT: JVD Respiratory exam: PRESENT: clear to auscultation toño, unlabored. ABSENT: accessory muscle use, retraction GI/Abdominal exam: PRESENT: hernia, soft. ABSENT: rebound, rigid, tenderness Gentrourinary exam: PRESENT: indwelling catheter Neurological exam: PRESENT: alert, awake, oriented to person. ABSENT: oriented to place, oriented to time, oriented to situation Psychiatric exam: PRESENT: agitated Focused psych exam: ABSENT: pressured speech Skin exam: PRESENT: skin tears - ulcer on right heel stage2 stage 1 decubitus ulcer Results Laboratory Results: 03/21/20 06:25 03/22/20 06:00 03/21/20 21:36 Blood Blood Culture (PCR) - Final Staphylococcus Species 03/21/20 20:15 Blood Blood Culture (PCR) - Final Staphylococcus Species 03/03/20 10:15 Troponin I 0.030 Impressions: Chest X-Ray 03/11/20 00:00 IMPRESSION: 1. Minimal left basilar atelectasis. Possible small effusions. 2. Central line and NG tube remain in place. 3. Right upper lobe infiltrate has resolved. KUB X-Ray 03/21/20 07:45 IMPRESSION: Nasoenteric tube tip overlies gastric body. Abdomen/Pelvis CT 03/21/20 09:30 IMPRESSION: 1. No definite acute intra-abdominal/pelvic process. 2. Changes from chronic pancreatitis. Splenomegaly with evidence of elevated portal pressure with multiple prominent portosystemic collaterals. 3. Midline ventral hernia no longer contains the large colonic loops. Promin ent portosystemic collaterals noted within the hernia sac. 4. Additional chronic findings as above. Chest CT 03/21/20 09:30 IMPRESSION: Trace bilateral effusions and mild dependent ground-glass opacities, likely hypoventilatory change. No definite airspace disease. Assessment and Plan - Diagnosis (1) Coagulase negative Staphylococcus bacteremia Is this a current diagnosis for this admission?: Yes Plan: Currently blood cultures are still showing persistent bacteremia. Showing 2 different species staph epidermidis and hominis. She has a stage I decubitus ulcer which does not seem infected. She also has a small stage II ulcer on her right heel which also does not seem infected. Will need to remove central line and send tip for culture to evaluate for possible catheter related infection. Continue vancomycin and repeat cultures today. (2) Delirium due to another medical condition, acute, hyperactive Is this a current diagnosis for this admission?: Yes Plan: Delirium superimposed on advanced dementia. Likely infection. However, ultimately I do not believe the patient is febrile from a baseline given her advanced dementia and I explained this to her son. We will continue to treat her current bacteremia as well as urinary retention. (3) Dementia Qualifiers: Dementia type: associated with other underlying disease Dementia behavioral disturbance: with behavioral disturbance Qualified Code(s): F02.81 - Dementia in other diseases classified elsewhere with behavioral disturbance Is this a current diagnosis for this admission?: Yes Plan: Patient has very advanced dementia. Head CT scan 10/2018 showed very significant brain atrophy with microvascular disease as well. Explained to patient's brother that patient likely will not have any capacity to make decisions and he will be the one making decisions for her. She occasionally gets behavioral agitation. Continue valproic acid. I will discontinue Ativan. For her agitation, will try using Risperdal p.o. and if unable to take p.o. during episodes, we will try Haldol (4) UTI due to extended-spectrum beta lactamase (ESBL) producing Escherichia coli Is this a current diagnosis for this admission?: Yes Plan: Patient has completed treatment for this (5) Diabetes 1.5, managed as type 1 Is this a current diagnosis for this admission?: Yes Plan: Continue Lantus. Sliding scale insulin and Accu-Cheks (6) Hypercapnic respiratory failure Qualifiers: Chronicity: acute Qualified Code(s): J96.02 - Acute respiratory failure with hypercapnia Is this a current diagnosis for this admission?: Yes (7) Sepsis Qualifiers: Sepsis type: Escherichia coli Sepsis acute organ dysfunction status: with acute organ dysfunction Severe sepsis acute organ dysfunction type: acute renal failure Acute renal failure type: with acute tubular necrosis Severe sepsis shock status: without septic shock Qualified Code(s): A41.51 - Sepsis due to Escherichia coli [E. coli]; R65.20 - Severe sepsis without septic shock; N17.0 - Acute kidney failure with tubular necrosis Is this a current diagnosis for this admission?: Yes Plan: Resolved - Time Time Spent with patient: Less than 15 minutes Anticipated Discharge Disposition: [facility] Anticipated Discharge Timeframe: UNKNOWN
--- NOTE | 2020-03-23 17:37 | ADVANCED CARE ---
- Diagnosis (1) Coagulase negative Staphylococcus bacteremia Diagnosis Current: Yes (2) Delirium due to another medical condition, acute, hyperactive Diagnosis Current: Yes (3) Dementia Diagnosis Current: Yes Attendance: Patient's brother Rick Luciano and myself Resuscitation Status: Full Code Discussion: We discussed patient's current condition Beto. We also discussed her state of mind as well as advanced dementia and the likelihood that she is probably not going to improve much further in terms of her mental state even if she did have some initial superimposed delirium. I discussed the head CT scan from 10/2018 which showed very significant brain atrophy suggestive of advanced dementia. Discussed CODE STATUS which he said he would discuss with the rest of the family and get back in touch with me today or tomorrow. He still wants full treatment plan for her. Discussed plan for removal of central line which he is agreeable with and has given permission to replace central line if needed. Time Spent: 24mins
[2020-03-23] MEDS: RISPERIDONE 0.25 MG TABLET PO PRN (20:20)
[2020-03-23] MEDS ORDERED: VALPROATE SODIUM SYRUP 250 MG/5 ML UDCUP ONE (22:00)
[2020-03-24] MEDS: HEPARIN SOD (PORCINE) 5,000 UNIT/ML 1 ML VIAL SUBCUT SCH ×3 (06:24→21:54)
[2020-03-24] MEDS: ACETAMINOPHEN 650 MG SUPP.RECT PR PRN (06:25)
[2020-03-24 07:04] LABS: ANION GAP 8 (5-19); BLOOD UREA NITROGEN 3 mg/dL (7-20); CALCIUM 8.8 mg/dL (8.4-10.2); CARBON DIOXIDE 25 mmol/L (22-30); CHLORIDE 99 mmol/L (98-107); GLUCOSE 115 mg/dL (75-110); POTASSIUM 4.7 mmol/L (3.6-5.0)
[2020-03-24 07:09] LABS: HEMATOCRIT 35.9 % (36.0-47.0); HEMOGLOBIN 12.1 g/dL (12.0-15.5); MEAN CORPUSCULAR HGB CONC 33.7 g/dL (32.0-36.0); MEAN CORPUSCULAR VOLUME 86 fl (80-97); RED BLOOD COUNT 4.18 10^6/uL (3.72-5.28); RED CELL DISTRIBUTION WIDTH 17.5 % (11.5-14.0); WHITE BLOOD COUNT 3.1 10^3/uL (4.0-10.5)
[2020-03-24 07:58] LABS: PLATELET COUNT 160 10^3/uL (150-450)
[2020-03-24 07:59] LABS: ABSOLUTE LYMPHOCYTES# (MANUAL) 0.5 10^3/uL (0.5-4.7); ABSOLUTE MONOCYTES # (MANUAL) 0.3 10^3/uL (0.1-1.4); BASOPHILS % (MANUAL) 0 % (0-2); EOSINOPHILS % (MANUAL) 1 % (0-6); LYMPHOCYTES % (MANUAL) 15 % (13-45); MONOCYTES % (MANUAL) 9 % (3-13); SEGMENTED NEUTROPHILS % (MAN) 75 % (42-78); TOTAL CELLS COUNTED 100
[2020-03-24 08:00] LABS: OVALOCYTES SLIGHT; PLATELET CLUMPS PRESENT; PLATELET COMMENT ADEQUATE; POLYCHROMASIA SLIGHT; TEAR DROP CELLS SLIGHT; TOXIC VACUOLATION PRESENT
[2020-03-24] MEDS: INSULIN LISPRO 100 UNIT/ML 3 ML VIAL SUBCUT SCH ×4 (08:31→21:55)
[2020-03-24] MEDS: VALPROATE SODIUM SYRUP 250 MG/5 ML UDCUP NG SCH ×2 (08:32→21:58)
[2020-03-24] MEDS: ESCITALOPRAM OXALATE 10 MG TABLET NG SCH (10:09)
[2020-03-24] MEDS: VANCOMYCIN HCL 1,000 MG in DEXTROSE 5%-WATER 250 ML IV SCH ×2 (10:09→21:55)
[2020-03-24] MEDS: INSULIN GLARGINE,HUM.REC.ANLOG 1,000 UNIT/10 ML VIAL SUBCUT SCH (10:11)
[2020-03-24] MEDS: MIDODRINE HCL 5 MG TABLET PO SCH ×3 (10:12→18:36)
[2020-03-24] MEDS: THIAMINE HCL 100 MG TABLET NG SCH (10:14)
[2020-03-24] MEDS: RISPERIDONE 0.25 MG TABLET PO PRN (14:07)
--- NOTE | 2020-03-24 14:39 | PDOC PROGRESS REPORT ---
Subjective Progress Note for:: 03/24/20 Subjective:: Patient does not volunteer much change in exam. This morning she states that she was feeling fine but she randomly yells as usual. Reason For Visit: AMS,SEPSIS Physical Exam Vital Signs: Temp Pulse Resp BP Pulse Ox 99.6 F 99 16 99/62 L 94 03/24/20 07:48 03/24/20 07:48 03/24/20 07:48 03/24/20 07:48 03/24/20 07:48 Intake & Output 03/23/20 03/24/20 03/25/20 06:59 06:59 06:59 Intake Total 1260 1448 250 Output Total 1060 1100 Balance 200 348 250 Weight 55.8 kg 56.1 kg 56.1 kg General appearance: PRESENT: no acute distress, cooperative Neck exam: ABSENT: JVD Respiratory exam: PRESENT: symmetrical, unlabored. ABSENT: tachypnea, wheezes Cardiovascular exam: PRESENT: +S1, +S2, tachycardia. ABSENT: irregular rhythm GI/Abdominal exam: PRESENT: soft. ABSENT: rebound, rigid, tenderness Neurological exam: PRESENT: alert, awake, oriented to person. ABSENT: oriented to place, oriented to time, oriented to situation Psychiatric exam: PRESENT: agitated - Very randomly yells and then stops but does not actually make other agitated behaviors, unusual affect Results Laboratory Results: 03/24/20 06:00 03/24/20 06:00 03/24/20 03/24/20 06:00 06:00 WBC 3.1 L RBC 4.18 Hgb 12.1 Hct 35.9 L MCV 86 MCH 29.0 MCHC 33.7 RDW 17.5 H Plt Count 160 Seg Neutrophils % Not Reportable Sodium 131.9 L Potassium 4.7 Chloride 99 Carbon Dioxide 25 Anion Gap 8 BUN 3 L Creatinine 0.48 L Est GFR ( Amer) > 60 Glucose 115 H Calcium 8.8 03/23/20 14:39 Blood Blood Culture (PCR) - Final Staphylococcus Species 03/21/20 20:15 Blood Blood Culture (PCR) - Final Staphylococcus Species 03/21/20 21:36 Blood Blood Culture (PCR) - Final Staphylococcus Species 03/03/20 10:15 Troponin I 0.030 Impressions: Chest X-Ray 03/11/20 00:00 IMPRESSION: 1. Minimal left basilar atelectasis. Possible small effusions. 2. Central line and NG tube remain in place. 3. Right upper lobe infiltrate has resolved. KUB X-Ray 03/21/20 07:45 IMPRESSION: Nasoenteric tube tip overlies gastric body. Abdomen/Pelvis CT 03/21/20 09:30 IMPRESSION: 1. No definite acute intra-abdominal/pelvic process. 2. Changes from chronic pancreatitis. Splenomegaly with evidence of elevated portal pressure with multiple prominent portosystemic collaterals. 3. Midline ventral hernia no longer contains the large colonic loops. Prominent portosystemic collaterals noted within the hernia sac. 4. Additional chronic findings as above. Chest CT 03/21/20 09:30 IMPRESSION: Trace bilateral effusions and mild dependent ground-glass opacities, likely hypoventilatory change. No definite airspace disease. Assessment and Plan - Diagnosis (1) Coagulase negative Staphylococcus bacteremia Is this a current diagnosis for this admission?: Yes Plan: Currently blood cultures are still showing persistent bacteremia. Showing 2 different species methicillin-resistant staph epidermidis and hominis. She has a stage I decubitus ulcer which does not seem infected. She also has a small stage II ulcer on her right heel which also does not seem infected. I suspect central line infection as catheter tip is positive for gram-positive cocci and the blood culture drawn from the central line 03/23/2020 has resulted become positive very quickly while peripheral blood culture is still negative. Continue vancomycin Repeat another set of blood cultures today. (2) Delirium due to another medical condition, acute, hyperactive Is this a current diagnosis for this admission?: Yes Plan: Delirium superimposed on advanced dementia. Likely infection. However, ultimately I do not believe the patient is febrile from a baseline given her advanced dementia and I explained this to her son. We will continue to treat her current bacteremia (3) Dementia Qualifiers: Dementia type: associated with other underlying disease Dementia behavioral disturbance: with behavioral disturbance Qualified Code(s): F02.81 - Dementia in other diseases classified elsewhere with behavioral disturbance Is this a current diagnosis for this admission?: Yes Plan: Patient has very advanced dementia. Head CT scan 10/2018 showed very significant brain atrophy with microvascular disease as well. Explained to patient's brother that patient likely will not have any capacity to make decisions and he will be the one making decisions for her. She occasionally gets behavioral agitation. Continue valproic acid. For her agitation, will try using Risperdal p.o. and if unable to take p.o. during episodes, we will try Haldol (4) UTI due to extended-spectrum beta lactamase (ESBL) producing Escherichia coli Is this a current diagnosis for this admission?: Yes Plan: Patient has completed treatment for this (5) Diabetes 1.5, managed as type 1 Is this a current diagnosis for this admission?: Yes Plan: Continue Lantus. Sliding scale insulin and Accu-Cheks (6) Sinus tachycardia Is this a current diagnosis for this admission?: Yes Plan: Noted on telemetry today. EKG showing sinus tachycardia with normal QTC and no significant changes from prior admission EKG. We will try to address agitation, pain. Also give normal saline bolus to address dehydration. Continue to monitor closely. (7) Urinary retention Is this a current diagnosis for this admission?: Yes Plan: Lopes removed today. Will check postvoid residuals at 6 hours and 12 hours post (8) Hypercapnic respiratory failure Qualifiers: Chronicity: acute Qualified Code(s): J96.02 - Acute respiratory failure with hypercapnia Is this a current diagnosis for this admission?: Yes Plan: Currently resolved. (9) Sepsis Qualifiers: Sepsis type: Escherichia coli Sepsis acute organ dysfunction status: with acute organ dysfunction Severe sepsis acute organ dysfunction type: acute renal failure Acute renal failure type: with acute tubular necrosis Severe sepsis shock status: without septic shock Qualified Code(s): A41.51 - Sepsis due to Escherichia coli [E. coli]; R65.20 - Severe sepsis without septic shock; N17.0 - Acute kidney failure with tubular necrosis Is this a current diagnosis for this admission?: Yes Plan: Resolved - Time Time Spent with patient: 15-24 minutes [facility] Anticipated Discharge Timeframe: within 72 hours
[2020-03-24] MEDS: ACETAMINOPHEN 325 MG TABLET PO PRN (14:44)
[2020-03-24] MEDS ORDERED: NORMAL SALINE 1000 ML 1,000 ML IV ONE (14:46)
--- NOTE | 2020-03-24 15:24 | EKG REPORT ---
SEVERITY:- BORDERLINE ECG - SINUS TACHYCARDIA BORDERLINE T ABNORMALITIES, ANT-LAT LEADS : Confirmed by: Asif Gray MD 24-Mar-2020 15:23:47
[2020-03-24] MEDS ORDERED: MORPHINE SULFATE 10 MG/ML INJ IV ONE (16:30)
--- NOTE | 2020-03-24 16:55 | RADIOLOGY REPORT (SQ) ---
EXAM DESCRIPTION: KUB/ABDOMEN (SINGLE VIEW) IMAGES COMPLETED DATE/TIME: 03/24/2020 4:42 pm REASON FOR STUDY: abd pain. ?constipation COMPARISON: 03/21/2020. NUMBER OF VIEWS: One view. TECHNIQUE: Supine radiographic image of the abdomen acquired. LIMITATIONS: None. FINDINGS: BOWEL GAS PATTERN: Normal bowel gas pattern. No dilated loops. Scattered contrast in the colon. CALCIFICATIONS: No suspicious calcifications. SOFT TISSUES: No gross mass or suggestion of organomegaly. HARDWARE: Surgical clips in the upper abdomen. Right hip prosthesis. IUD. BONES: No acute fracture. Chronic deformity of the right pelvis. No worrisome bone lesions. OTHER: No other significant finding. IMPRESSION: NO RADIOGRAPHIC EVIDENCE FOR ACUTE ABDOMINAL DISEASE. TECHNICAL DOCUMENTATION: JOB ID: [id number] 2010 [employer]- All Rights Reserved Reading location - IP/workstation name: [email or web address]
[2020-03-25 06:13] LABS: BLOOD UREA NITROGEN 3 mg/dL (7-20); CALCIUM 8.2 mg/dL (8.4-10.2); CARBON DIOXIDE 26 mmol/L (22-30); CHLORIDE 103 mmol/L (98-107); GLUCOSE 115 mg/dL (75-110); POTASSIUM 4.1 mmol/L (3.6-5.0)
[2020-03-25 06:20] LABS: ANION GAP 4 (5-19)
[2020-03-25] MEDS: HEPARIN SOD (PORCINE) 5,000 UNIT/ML 1 ML VIAL SUBCUT SCH ×3 (06:50→21:30)
[2020-03-25 07:47] LABS: VANCOMYCIN,TROUGH 24.6 ug/mL (5.0-20.0)
[2020-03-25] MEDS: INSULIN LISPRO 100 UNIT/ML 3 ML VIAL SUBCUT SCH ×4 (08:23→21:30)
[2020-03-25] MEDS: VALPROATE SODIUM SYRUP 250 MG/5 ML UDCUP NG SCH ×2 (08:53→21:31)
[2020-03-25] MEDS ORDERED: PHARMACY COMMUNICATION ORDER MC ONE (09:30)
[2020-03-25] MEDS: THIAMINE HCL 100 MG TABLET NG SCH (10:11)
[2020-03-25] MEDS: ESCITALOPRAM OXALATE 10 MG TABLET NG SCH (10:11)
[2020-03-25] MEDS: INSULIN GLARGINE,HUM.REC.ANLOG 1,000 UNIT/10 ML VIAL SUBCUT SCH (10:16)
[2020-03-25] MEDS: MIDODRINE HCL 5 MG TABLET PO SCH ×2 (10:16→13:22)
[2020-03-25] MEDS: VANCOMYCIN HCL 1,000 MG in DEXTROSE 5%-WATER 250 ML IV SCH ×2 (10:18→21:31)
[2020-03-25] MEDS: METOPROLOL TARTRATE PF/INJ 5 MG/5 ML SDV IV PRN ×2 (10:29→19:55)
[2020-03-25] MEDS: RISPERIDONE 0.25 MG TABLET PO PRN (12:12)
[2020-03-25] MEDS ORDERED: LORAZEPAM INJ 2 MG/1 ML VIAL IV ONE (14:30)
--- NOTE | 2020-03-25 16:08 | PDOC PROGRESS REPORT ---
Subjective Progress Note for:: 03/25/20 Subjective:: Patient does not volunteer much change in exam. This morning she states that she was feeling fine but she randomly yells as usual. She often gets tachycardic but when somebody goes into her room to talk to her heart rate slows down. Seems like she may just be very anxious. Reason For Visit: AMS,SEPSIS Physical Exam Vital Signs: Temp Pulse Resp BP Pulse Ox 98.6 F 100 16 114/84 98 03/25/20 11:36 03/25/20 11:36 03/25/20 11:36 03/25/20 11:36 03/25/20 11:36 Intake & Output 03/24/20 03/25/20 03/26/20 06:59 06:59 06:59 Intake Total 1448 2752 610 Output Total 1100 175 Balance 348 2577 610 Weight 56.1 kg 55.8 kg General appearance: PRESENT: no acute distress, cooperative Neck exam: ABSENT: JVD Respiratory exam: PRESENT: symmetrical, unlabored. ABSENT: tachypnea, wheezes Cardiovascular exam: PRESENT: +S1, +S2, tachycardia. ABSENT: irregular rhythm GI/Abdominal exam: PRESENT: soft. ABSENT: rebound, rigid, tenderness Extremities exam: ABSENT: pedal edema Musculoskeletal exam: ABSENT: ambulatory Neurological exam: PRESENT: alert, awake Psychiatric exam: PRESENT: agitated - Randomly yells then stops, anxious - Occasional but gets calm and comfortable once you start talking to her Results Laboratory Results: 03/24/20 06:00 03/25/20 05:30 03/25/20 03/25/20 05:30 05:30 Sodium 132.9 L Potassium 4.1 Chloride 103 Carbon Dioxide 26 Anion Gap 4 L BUN 3 L Creatinine 0.53 Cancelled Est GFR ( Amer) > 60 Cancelled Est GFR (Non-Af Amer) Cancelled Glucose 115 H Calcium 8.2 L 03/21/20 20:15 Blood Blood Culture (PCR) - Final Staphylococcus Species 03/21/20 20:15 Blood Blood Culture - Final Staphylococcus Hominis 03/21/20 21:36 Blood Blood Culture (PCR) - Final Staphylococcus Species 03/21/20 21:36 Blood Blood Culture - Final Staphylococcus Capitis 03/23/20 14:39 Blood Blood Culture (PCR) - Final Staphylococcus Species 03/03/20 10:15 Troponin I 0.030 Impressions: Chest X-Ray 03/11/20 00:00 IMPRESSION: 1. Minimal left basilar atelectasis. Possible small effusions. 2. Central line and NG tube remain in place. 3. Right upper lobe infiltrate has resolved. Abdomen/Pelvis CT 03/21/20 09:30 IMPRESSION: 1. No definite acute intra-abdominal/pelvic process. 2. Changes from chronic pancreatitis. Splenomegaly with evidence of elevated portal pressure with multiple prominent portosystemic collaterals. 3. Midline ventral hernia no longer contains the large colonic loops. Prominent portosystemic collaterals noted within the hernia sac. 4. Additional chronic findings as above. Chest CT 03/21/20 09:30 IMPRESSION: Trace bilateral effusions and mild dependent ground-glass opacities, likely hypoventilatory change. No definite airspace disease. KUB X-Ray 03/24/20 00:00 IMPRESSION: NO RADIOGRAPHIC EVIDENCE FOR ACUTE ABDOMINAL DISEASE. Assessment and Plan - Diagnosis (1) Coagulase negative Staphylococcus bacteremia Is this a current diagnosis for this admission?: Yes Plan: Currently blood cultures are still showing persistent bacteremia. Showing 2 di fferent species methicillin-resistant staph epidermidis and hominis. She has a stage I decubitus ulcer which does not seem infected. She also has a small stage II ulcer on her right heel which also does not seem infected. I suspect central line infection as catheter tip is positive for gram-positive cocci and the blood culture drawn from the central line 03/23/2020 has resulted become positive very quickly while peripheral blood culture is still negative. Continue vancomycin Follow-up repeat blood cultures. (2) Delirium due to another medical condition, acute, hyperactive Is this a current diagnosis for this admission?: Yes Plan: Delirium superimposed on advanced dementia. However, ultimately I believe the patient is currently at her baseline. (3) Dementia Qualifiers: Dementia type: associated with other underlying disease Dementia behavioral disturbance: with behavioral disturbance Qualified Code(s): F02.81 - Dementia in other diseases classified elsewhere with behavioral disturbance Is this a current diagnosis for this admission?: Yes Plan: Patient has very advanced dementia. Head CT scan 10/2018 showed very significant brain atrophy with microvascular disease as well. Explained to patient's brother that patient likely will not have any capacity to make decisions and he will be the one making decisions for her. She occasionally gets behavioral agitation. Continue valproic acid. For her agitation, will try using Risperdal p.o. as needed. (4) Anxiety Is this a current diagnosis for this admission?: Yes Plan: Patient seems to be getting very anxious which spiking her heart rate. Her sinus tachycardia seems to have started after I discontinued her IV Ativan which she has been getting earlier in admission. Notably she was on clonazepam at home. I will put her on small doses of p.o. Ativan as needed and consult psychiatry for management of anxiety Continue valproic acid and escitalopram. Will start buspirone 7.5 mg twice a day pending psychiatric evaluation. (5) Sinus tachycardia Is this a current diagnosis for this admission?: Yes Plan: At this point, I think this is more of an anxiety issue than anything else. Her heart rate also improves when somebody goes into the room to talk to her. She is not septic. She has received fluids and she is not in pain. Plan as above. (6) UTI due to extended-spectrum beta lactamase (ESBL) producing Escherichia coli Is this a current diagnosis for this admission?: Yes Plan: Patient has completed treatment for this (7) Diabetes 1.5, managed as type 1 Is this a current diagnosis for this admission?: Yes Plan: Continue Lantus. Sliding scale insulin and Accu-Cheks (8) Urinary retention Is this a current diagnosis for this admission?: Yes Plan: Lopes removed. Has been voiding adequately. (9) Hypercapnic respiratory failure Qualifiers: Chronicity: acute Qualified Code(s): J96.02 - Acute respiratory failure with hypercapnia Is this a current diagnosis for this admission?: Yes Plan: Currently resolved. (10) Sepsis Qualifiers: Sepsis type: Escherichia coli Sepsis acute organ dysfunction status: with acute organ dysfunction Severe sepsis acute organ dysfunction type: acute renal failure Acute renal failure type: with acute tubular necrosis Severe sepsis shock status: without septic shock Qualified Code(s): A41.51 - Sepsis due to Escherichia coli [E. coli]; R65.20 - Severe sepsis without septic shock; N17.0 - Acute kidney failure with tubular necrosis Is this a current diagnosis for this admission?: Yes Plan: Resolved - Time Anticipated Discharge Disposition: [facility] Anticipated Discharge Timeframe: within 72 hours
[2020-03-25] MEDS: BUSPIRONE HCL 10 MG TABLET PO SCH (16:18)
[2020-03-25] MEDS: LORAZEPAM 1 MG TABLET PO PRN (16:19)
--- NOTE | 2020-03-25 18:17 | PSYCHOLOGICAL NOTE ---
Psych Note - Psych Note Date seen by psych provider: 03/25/20 Time seen by psych provider: 18:00 - Chart review at 1800. Evaluation with patient from [id number]. Psych Note: Patient is a 54 year old female admitted to hospitalist services. A psychiatric consult was ordered for anxiety, agitation, and advanced dementia. Attending Hospitalist reported patient is very anxious, on lots of medications, randomly yells, heart rate has been in the 130s, and if someone's in the room talking to her she calms down and hear rate decreased. He noted patient is on Citalopram, had Depakote in ICU, he put patient on low dose Risperdal, she had IV Ativan early on but he discontinued it and this is when heart rate went from 80s/90s to 130s, he did administer by mouth Ativan today and he just started Buspar. Chart review revealed patient has been seen by [facility] previously. There was mention of dementia from those previous visits. Often they consisted of patient making suicidal statements or attempts while at snf which she would say she didn't recall doing. Attending Nurse noted patient has been moaning and graoning all day. She stated hear rate has been on the low 110-1teens. She stated patient was administered Ativan 1MG IV at 1500 and 1600, then Buspar 7.5MG, then Ativan 1MG by mouth, it did not seem to slow her down, she finally slept for 30 minutes maybe. She acknowledged patient saw speech therapy. She noted patient is on thickened liquid diet. She stated patient has been quiet the past couple hours. Patient had a nurse in her room. When they nurse existed patient moaned and groaned. This clinician entered and she stopped the moaning/groaning. She said "yes" to taking mental health medications at home as directed. She said "no" to not remembering who her provider was. She said "no" to thoughts of wanting to hurt/harm/kill self or others. Explained would be doing medication changes to help. She said "Okay." Twice she made an "EEEEE" sound with what seemed like an odd smile (showing her teeth). Clinical Presentation: Anxiety Medication recommendations made by the psychiatric medication provider Dr. Gina ABAD., includes: Request Depakote Level Referencing medication already being administered Discontinue Lexapro 15MG at night Discontinue Ativan 1MG every 6 hours as needed Continue Buspar 7.5MG twice a day Continue Risperdal 0.25MG twice a day as needed Add Haldol 2.5MG every 12 hours as needed (to be utilized opposite the Risperdal, if needed) Continue Clonidine 0.2MG patch weekly Continue Depakene 500MG in the morning and 750MG at night Impression/Plan: Provided medication recommendations to try to assist with anxiety, agitation and the increased heart rate. Please re consult [facility] if additional medication recommendations are needed. Consulted with Dr. Wiggins regarding the management and care of patient. Attending Hospitalist made aware of recommendations.
[2020-03-25] MEDS: ACETAMINOPHEN 325 MG TABLET PO PRN (19:34)
[2020-03-26] MEDS: BUSPIRONE HCL 10 MG TABLET PO SCH ×2 (03:46→15:52)
[2020-03-26] MEDS: HEPARIN SOD (PORCINE) 5,000 UNIT/ML 1 ML VIAL SUBCUT SCH ×3 (05:11→21:22)
[2020-03-26] MEDS: ACETAMINOPHEN 325 MG TABLET PO PRN (05:11)
[2020-03-26] MEDS: LORAZEPAM 1 MG TABLET PO PRN ×2 (05:12→11:47)
[2020-03-26] MEDS: VALPROATE SODIUM SYRUP 250 MG/5 ML UDCUP NG SCH ×2 (07:39→21:24)
[2020-03-26] MEDS: METOPROLOL TARTRATE PF/INJ 5 MG/5 ML SDV IV PRN ×2 (08:55→15:52)
[2020-03-26] MEDS: HALOPERIDOL 5 MG TABLET PO PRN (08:57)
[2020-03-26 09:44] LABS: ANION GAP 7 (5-19); BLOOD UREA NITROGEN 7 mg/dL (7-20); CALCIUM 8.3 mg/dL (8.4-10.2); CARBON DIOXIDE 25 mmol/L (22-30); CHLORIDE 99 mmol/L (98-107); GLUCOSE 165 mg/dL (75-110); PHOSPHORUS 3.6 mg/dL (2.5-4.5); POTASSIUM 4.4 mmol/L (3.6-5.0)
[2020-03-26 09:52] LABS: HEMATOCRIT 32.3 % (36.0-47.0); HEMOGLOBIN 10.6 g/dL (12.0-15.5); MEAN CORPUSCULAR HEMOGLOBIN 28.5 pg (27.0-33.4); MEAN CORPUSCULAR VOLUME 86 fl (80-97); PLATELET COUNT 147 10^3/uL (150-450); RED BLOOD COUNT 3.74 10^6/uL (3.72-5.28); RED CELL DISTRIBUTION WIDTH 16.4 % (11.5-14.0); WHITE BLOOD COUNT 3.9 10^3/uL (4.0-10.5)
[2020-03-26] MEDS: INSULIN LISPRO 100 UNIT/ML 3 ML VIAL SUBCUT SCH ×4 (10:01→21:22)
[2020-03-26] MEDS: INSULIN GLARGINE,HUM.REC.ANLOG 1,000 UNIT/10 ML VIAL SUBCUT SCH (10:01)
[2020-03-26] MEDS: RISPERIDONE 0.25 MG TABLET PO PRN (10:03)
[2020-03-26] MEDS: THIAMINE HCL 100 MG TABLET NG SCH (10:07)
[2020-03-26] MEDS: VANCOMYCIN HCL 1,000 MG in DEXTROSE 5%-WATER 250 ML IV SCH (10:07)
[2020-03-26 10:28] LABS: VANCOMYCIN,TROUGH 22.8 ug/mL (5.0-20.0)
--- NOTE | 2020-03-26 16:33 | PDOC PROGRESS REPORT ---
Subjective Progress Note for:: 03/26/20 Subjective:: Patient does not volunteer much change in exam. This morning she states that she was feeling fine but she randomly yells as usual. She often gets tachycardic but when somebody goes into her room to talk to her heart rate slows down. Seems like she may just be very anxious. Reason For Visit: AMS,SEPSIS Physical Exam Vital Signs: Temp Pulse Resp BP Pulse Ox 99.1 F 122 H 16 104/73 95 03/26/20 15:13 03/26/20 15:13 03/26/20 15:13 03/26/20 15:13 03/26/20 15:13 Intake & Output 03/25/20 03/26/20 03/27/20 06:59 06:59 06:59 Intake Total 2752 1810 370 Output Total 175 750 Balance 2577 1060 370 Weight 55.8 kg 55.5 kg General appearance: PRESENT: no acute distress, cooperative Neck exam: ABSENT: JVD Respiratory exam: PRESENT: clear to auscultation toño, unlabored Cardiovascular exam: PRESENT: tachycardia. ABSENT: irregular rhythm Neurological exam: PRESENT: alert, awake, oriented to person Psychiatric exam: ABSENT: agitated, anxious Results Laboratory Results: 03/26/20 08:11 03/26/20 08:11 03/26/20 03/26/20 08:11 08:11 WBC 3.9 L RBC 3.74 Hgb 10.6 L Hct 32.3 L MCV 86 MCH 28.5 MCHC 33.0 RDW 16.4 H Plt Count 147 L Sodium 131.2 L Potassium 4.4 Chloride 99 Carbon Dioxide 25 Anion Gap 7 BUN 7 Creatinine 0.51 L Est GFR ( Amer) > 60 Glucose 165 H Calcium 8.3 L Phosphorus 3.6 03/21/20 20:15 Blood Blood Culture (PCR) - Final Staphylococcus Species 03/21/20 20:15 Blood Blood Culture - Final Staphylococcus Hominis 03/21/20 21:36 Blood Blood Culture (PCR) - Final Staphylococcus Species 03/21/20 21:36 Blood Blood Culture - Final Staphylococcus Capitis 03/03/20 10:15 Troponin I 0.030 Impressions: Chest X-Ray 03/11/20 00:00 IMPRESSION: 1. Minimal left basilar atelectasis. Possible small effusions. 2. Central line and NG tube remain in place. 3. Right upper lobe infiltrate has resolved. Abdomen/Pelvis CT 03/21/20 09:30 IMPRESSION: 1. No definite acute intra-abdominal/pelvic process. 2. Changes from chronic pancreatitis. Splenomegaly with evidence of elevated portal pressure with multiple prominent portosystemic collaterals. 3. Midline ventral hernia no longer contains the large colonic loops. Pro minent portosystemic collaterals noted within the hernia sac. 4. Additional chronic findings as above. Chest CT 03/21/20 09:30 IMPRESSION: Trace bilateral effusions and mild dependent ground-glass opacities, likely hypoventilatory change. No definite airspace disease. KUB X-Ray 03/24/20 00:00 IMPRESSION: NO RADIOGRAPHIC EVIDENCE FOR ACUTE ABDOMINAL DISEASE. Assessment and Plan - Diagnosis (1) Coagulase negative Staphylococcus bacteremia Is this a current diagnosis for this admission?: Yes Plan: Methicillin-resistant coagulase-negative staph. Possibly secondary to central line infection. Continue vancomycin. Fasting negative was 03/24/2020. We will switch to linezolid on discharge. EOT 03/31/2020 (2) Delirium due to another medical condition, acute, hyperactive Is this a current diagnosis for this admission?: Yes Plan: Delirium superimposed on advanced dementia. Ultimately I believe the patient is currently at her baseline. (3) Dementia Qualifiers: Dementia type: associated with other underlying disease Dementia behavioral disturbance: with behavioral disturbance Qualified Code(s): F02.81 - Dementia in other diseases classified elsewhere with behavioral disturbance Is this a current diagnosis for this admission?: Yes Plan: Patient has very advanced dementia. Head CT scan 10/2018 showed very significant brain atrophy with microvascular disease as well. Explained to patient's brother that patient likely will not have any capacity to make decisions and he will be the one making decisions for her. She occasionally gets behavioral agitation. Continue valproic acid. For her agitation, will try using Risperdal p.o. as needed. (4) Anxiety Is this a current diagnosis for this admission?: Yes Plan: Patient seems to be getting very anxious which spiking her heart rate. Her sinus tachycardia seems to have started after I discontinued her IV Ativan which she has been getting earlier in admission. Notably she was on clonazepam at snf. I will put her on small doses of p.o. Ativan as needed. We will prefer to wean off benzos slowly rather than abruptly stopping. Continue valproic acid and buspirone 7.5 mg twice a day. Psych recommending discontinuation of escitalopram. (5) Sinus tachycardia Is this a current diagnosis for this admission?: Yes Plan: At this point, I think this is more of an anxiety issue than anything else. Her heart rate also improves when somebody goes into the room to talk to her. She is not septic. She has received fluids and she is not in pain. Plan as above. (6) UTI due to extended-spectrum beta lactamase (ESBL) producing Escherichia coli Is this a current diagnosis for this admission?: Yes Plan: Patient has completed treatment for this (7) Diabetes 1.5, managed as type 1 Is this a current diagnosis for this admission?: Yes (8) Urinary retention Is this a current diagnosis for this admission?: Yes Plan: Resolved (9) Hypercapnic respiratory failure Qualifiers: Chronicity: acute Qualified Code(s): J96.02 - Acute respiratory failure with hypercapnia Is this a current diagnosis for this admission?: Yes Plan: Resolved (10) Sepsis Qualifiers: Sepsis type: Escherichia coli Sepsis acute organ dysfunction status: with acute organ dysfunction Severe sepsis acute organ dysfunction type: acute renal failure Acute renal failure type: with acute tubular necrosis Severe sepsis shock status: without septic shock Qualified Code(s): A41.51 - Sepsis due to Escherichia coli [E. coli]; R65.20 - Severe sepsis without septic shock; N17.0 - Acute kidney failure with tubular necrosis Is this a current diagnosis for this admission?: Yes Plan: Resolved - Time Time Spent with patient: Less than 15 minutes Anticipated Discharge Disposition: Snf Facility Anticipated Discharge Timeframe: within 36 hours
[2020-03-26] MEDS: VANCOMYCIN HCL 750 MG in DEXTROSE 5%-WATER 250 ML IV SCH (21:21)
[2020-03-26] MEDS: METOPROLOL TARTRATE 25 MG TABLET PO SCH (21:23)
[2020-03-27] MEDS: BUSPIRONE HCL 10 MG TABLET PO SCH ×2 (03:48→16:10)
[2020-03-27] MEDS: LORAZEPAM 1 MG TABLET PO PRN ×2 (05:32→12:43)
[2020-03-27] MEDS: HEPARIN SOD (PORCINE) 5,000 UNIT/ML 1 ML VIAL SUBCUT SCH ×2 (05:32→14:08)
[2020-03-27] MEDS: VALPROATE SODIUM SYRUP 250 MG/5 ML UDCUP NG SCH (09:48)
[2020-03-27] MEDS: INSULIN GLARGINE,HUM.REC.ANLOG 1,000 UNIT/10 ML VIAL SUBCUT SCH (09:49)
[2020-03-27] MEDS: METOPROLOL TARTRATE 25 MG TABLET PO SCH (09:49)
[2020-03-27] MEDS: VANCOMYCIN HCL 750 MG in DEXTROSE 5%-WATER 250 ML IV SCH (09:49)
[2020-03-27] MEDS: THIAMINE HCL 100 MG TABLET NG SCH (09:49)
[2020-03-27] MEDS: INSULIN LISPRO 100 UNIT/ML 3 ML VIAL SUBCUT SCH ×3 (09:58→16:11)
[2020-03-27] MEDS: HALOPERIDOL 5 MG TABLET PO PRN (11:20)
[2020-03-27] MEDS: ACETAMINOPHEN 325 MG TABLET PO PRN (12:43)
--- NOTE | 2020-03-27 14:29 | PDOC TRANSFER SUMMARY ---
Impression - Admit/DC Date/PCP Admission Date/Primary Care Provider: 03/03/20 13:06 HARRY ESPINOSA MD Discharge Date: 03/27/20 - Discharge Diagnosis (1) Coagulase negative Staphylococcus bacteremia Is this a current diagnosis for this admission?: Yes (2) Delirium due to another medical condition, acute, hyperactive Is this a current diagnosis for this admission?: Yes (3) Dementia Is this a current diagnosis for this admission?: Yes (4) Anxiety Is this a current diagnosis for this admission?: Yes (5) Sinus tachycardia Is this a current diagnosis for this admission?: Yes (6) UTI due to extended-spectrum beta lactamase (ESBL) producing Escherichia coli Is this a current diagnosis for this admission?: Yes (7) Diabetes 1.5, managed as type 1 Is this a current diagnosis for this admission?: Yes (8) Urinary retention Is this a current diagnosis for this admission?: Yes (9) Hypercapnic respiratory failure Is this a current diagnosis for this admission?: Yes (10) Sepsis Is this a current diagnosis for this admission?: Yes (11) Pseudobulbar affect Is this a current diagnosis for this admission?: Yes - Additional Information Resuscitation Status: Full Code Referrals: HARRY ESPINOSA MD [Primary Care Provider] - Follow up as needed Prescriptions: Buspirone HCl [Buspar 10 mg Tablet] 7.5 mg PO Q12H #30 tablet Metoprolol Tartrate [Lopressor 25 mg Tablet] 25 mg PO Q12 #20 tablet Risperidone [Risperdal 0.25 mg Tablet] 0.25 mg PO TIDP PRN #20 tablet PRN Reason: Linezolid [Zyvox 600 mg Tablet] 600 mg PO Q12 7 Days #14 tablet Home Medications: Acetaminophen [Tylenol 325 mg Tablet] 650 mg PO Q6HP PRN 05/19/19 Dulaglutide [Trulicity] 1.5 mg SQ Q7D 05/19/19 Insulin Aspart [Novolog] 0 unit SQ .SLIDING SCALE 05/19/19 Melatonin/Pyridoxine HCl (B6) [Melatonin 3 mg Tablet] 3 mg PO QHS 05/19/19 Sennosides [Senna] 8.6 mg PO BIDP PRN 05/19/19 Thiamine HCl [Vitamin B-1] 100 mg PO DAILY 05/19/19 Divalproex Sodium [Depakote Sprinkle 125 mg Capsule] 500 mg PO QAM #130 cap.sprink 05/21/19 Divalproex Sodium [Depakote Sprinkle 125 mg Capsule] 750 mg PO QHS #180 ca p.sprink 05/21/19 Ibuprofen 200 mg PO Q8 06/20/19 Clonidine HCl [Catapres 0.1 mg Tablet] 0.1 mg PO QHS #14 tablet 06/21/19 Calcium Carbonate [Tums Chewable 500 mg Tab.chew] 500 mg PO Q4HP PRN 03/03/20 Estradiol [Estrace] 2 gm VG MOTH 03/03/20 Metformin HCl 1,000 mg PO BID 03/03/20 Pantoprazole Sodium [Protonix [address] Tablet] 40 mg PO QAM 03/03/20 Ergocalciferol (Vitamin D2) [Drisdol 50,000 unit (1.25MG) Capsule] 50,000 unit PO WE@1000 03/10/20 Buspirone HCl [Buspar 10 mg Tablet] 7.5 mg PO Q12H #30 tablet 03/27/20 Clonazepam [Klonopin] 0.5 mg PO DAILY #0 03/27/20 Insulin Detemir [Levemir] 20 unit SQ DAILY #0 03/27/20 Linezolid [Zyvox 600 mg Tablet] 600 mg PO Q12 7 Days #14 tablet 03/27/20 Metoprolol Tartrate [Lopressor 25 mg Tablet] 25 mg PO Q12 #20 tablet 03/27/20 Risperidone [Risperdal 0.25 mg Tablet] 0.25 mg PO TIDP PRN #20 tablet 03/27/20 Thiamine HCl [Thiamine 100 mg Tablet] 100 mg NG DAILY tablet 03/27/20 History of Present Illiness History of Present Illness: HPI according to admitting provider: 54-year-old female history of severely advanced dementia, transferred from [facility] due to fever and abnormal vital signs. She was found to have E. coli urosepsis and was admitted to the medicine service on 03/03/2020 and treated with cefepime for her sepsis. Since her admission, patient has had respiratory insufficiency requiring BiPAP, as well as possible seizure activity and hypernatremia as high as 150. I was called to consult on Mrs. vAila today following a rapid response. I arrived to find her on BiPAP, yet obtunded and unable to generate significant tidal volumes. ABG at that time showed a pH of 6.86 and a CO2 of 182. She was emergently intubated with a 7.5 ET tube and transferred to the intensive care unit for further management. A right IJ TLC was placed. Patient was started on a propofol drip as well as fentanyl for comfort. She became increasingly alert after adequate ventilation. Multiple attempts to reach her family had failed prior to intubation and central line placement. We were able to reach them following the procedure. Patient is currently hemodynamically stable. Further work-up is pending at this time. Hospital Course Hospital Course: (1) Coagulase negative Staphylococcus bacteremia Is this a current diagnosis for this admission?: Yes Plan: Methicillin-resistant coagulase-negative staph [staph capitis/hominis/epidermidis]. Possibly associated with central line infection central line tip grew staph capitis and hominis. Infectious diseases was consulted. First negative blood culture was 03/24/2020. Has been on IV vancomycin. Switched to linezolid on discharge. End of tx: 04/03/2020. Repeat blood cultures 2 weeks after treatment is completed i.e. 04/18/2020. (2) Delirium due to another medical condition, acute, hyperactive Is this a current diagnosis for this admission?: Yes Plan: Delirium superimposed on advanced dementia. Ultimately I believe the patient is currently at her baseline. (3) Dementia Qualifiers: Dementia type: associated with other underlying disease Dementia behavioral disturbance: with behavioral disturbance Qualified Code(s): F02.81 - Dementia in other diseases classified elsewhere with behavioral disturbance Is this a current diagnosis for this admission?: Yes Plan: Patient has very advanced dementia. Head CT scan 10/2018 showed very significant brain atrophy with microvascular disease as well. Explained to patient's brother that patient likely will not have any capacity to make decisions and he will be the one making decisions for her. She occasionally gets behavioral agitation. Has pseudobulbar affect and often screams purposelessly. Continue valproic acid. For her agitation, will try using Risperdal p.o. as needed. (4) Anxiety Is this a current diagnosis for this admission?: Yes Plan: Patient seems to be getting very anxious which spikes her heart rate. Notably she was on clonazepam at [facility]. Continue valproic acid and buspirone 7.5 mg twice a day. Psych recommending discontinuation of escitalopram and clonazepam and continuing valproic acid and buspirone. I will prefer to gradually wean her off her clonazepam down to daily dosing as opposed to twice daily and keep on this dose for another 1 to 2 weeks before taking her completely off clonazepam. (5) Sinus tachycardia Is this a current diagnosis for this admission?: Yes Plan: At this point, I think this is more of an anxiety issue than anything else. Her heart rate also improves when somebody goes into the room to talk to her. She is not septic. She has received fluids and she is not in pain. Plan as above. Small dose of Lopressor initiated. (6) UTI due to extended-spectrum beta lactamase (ESBL) producing Escherichia coli Is this a current diagnosis for this admission?: Yes Plan: Patient has completed treatment for this with IV antibiotics.. (7) Diabetes 1.5, managed as type 1 Is this a current diagnosis for this admission?: Yes (8) Urinary retention Is this a current diagnosis for this admission?: Yes Plan: Initially required Lopes. Lopes was removed several days ago and patient has been voiding adequately with little residuals. Resolved. (9) Hypercapnic respiratory failure Qualifiers: Chronicity: acute Qualified Code(s): J96.02 - Acute respiratory failure with hypercapnia Is this a current diagnosis for this admission?: Yes Plan: This was the reason for admission to the ICU. This was thought to be secondary to acute metabolic encephalopathy from severe sepsis compounded by benzodiazepine use. She was intubated for less than 24-hour period and subsequently extubated. Respiratory failure has remained resolved since improvement of her mental status. (10) Sepsis Qualifiers: Sepsis type: Escherichia coli Sepsis acute organ dysfunction status: with acute organ dysfunction Severe sepsis acute organ dysfunction type: acute renal failure Acute renal failure type: with acute tubular necrosis Severe sepsis shock status: without septic shock Qualified Code(s): A41.51 - Sepsis due to Escherichia coli [E. coli]; R65.20 - Severe sepsis without septic shock; N17.0 - Acute kidney failure with tubular necrosis Is this a current diagnosis for this admission?: Yes Plan: Resolved Physical Exam Vital Signs: Temp Pulse Resp BP Pulse Ox 98.3 F 91 25 H 101/60 96 03/27/20 11:06 03/27/20 11:06 03/27/20 11:06 03/27/20 11:06 03/27/20 11:06 Intake & Output 03/26/20 03/27/20 03/28/20 06:59 06:59 06:59 Intake Total 1810 1030 727 Output Total 750 Balance 1060 1030 727 Weight 55.5 kg 56.9 kg General appearance: PRESENT: no acute distress, cooperative Neck exam: ABSENT: JVD Respiratory exam: PRESENT: clear to auscultation toño, symmetrical, unlabored. ABSENT: tachypnea, wheezes Cardiovascular exam: PRESENT: RRR, +S1, +S2. ABSENT: tachycardia GI/Abdominal exam: PRESENT: hernia - hernia is reducible and not incacerated, soft. ABSENT: rebound, rigid, tenderness Neurological exam: PRESENT: alert, awake, oriented to person, other - Answers only very brief phrases in very brief one to two word responses.. ABSENT: oriented to place, oriented to time, oriented to situation Psychiatric exam: PRESENT: agitated - occasionally randomly yells without purpose Results Laboratory Results: WBC 3.9 10^3/uL (4.0-10.5) L 03/26/20 08:11 RBC 3.74 10^6/uL (3.72-5.28) 03/26/20 08:11 Hgb 10.6 g/dL (12.0-15.5) L 03/26/20 08:11 Hct 32.3 % (36.0-47.0) L 03/26/20 08:11 MCV 86 fl (80-97) 03/26/20 08:11 MCH 28.5 pg (27.0-33.4) 03/26/20 08:11 MCHC 33.0 g/dL (32.0-36.0) 03/26/20 08:11 RDW 16.4 % (11.5-14.0) H 03/26/20 08:11 Plt Count 147 10^3/uL (150-450) L 03/26/20 08:11 Lymph % (Auto) Not Reportable 03/24/20 06:00 [place] % (Auto) Not Reportable 03/24/20 06:00 Eos % (Auto) Not Reportable 03/24/20 06:00 Baso % (Auto) Not Reportable 03/24/20 06:00 Absolute Neuts (auto) Not Reportable 03/24/20 06:00 Absolute Lymphs (auto) Not Reportable 03/24/20 06:00 Absolute Monos (auto) Not Reportable 03/24/20 06:00 Absolute Eos (auto) Not Reportable 03/24/20 06:00 Absolute Basos (auto) Not Reportable 03/24/20 06:00 Total Counted 100 03/24/20 06:00 Seg Neutrophils % Not Reportable 03/24/20 06:00 Seg Neuts % (Manual) 75 % (42-78) 03/24/20 06:00 Band Neutrophils % 2 % (3-5) L 03/15/20 05:30 Lymphocytes % (Manual) 15 % (13-45) 03/24/20 06:00 Atypical Lymphs % 1 % (0) 03/15/20 05:30 Monocytes % (Manual) 9 % (3-13) 03/24/20 06:00 Eosinophils % (Manual) 1 % (0-6) 03/24/20 06:00 Basophils % (Manual) 0 % (0-2) 03/24/20 06:00 Metamyelocytes % 3 % (0-1) H 03/15/20 05:30 Abs Neuts (Manual) 2.3 10^3/uL (1.7-8.2) 03/24/20 06:00 Abs Lymphs (Manual) 0.5 10^3/uL (0.5-4.7) 03/24/20 06:00 Abs Monocytes (Manual) 0.3 10^3/uL (0.1-1.4) 03/24/20 06:00 Absolute Eos (Manual) 0.0 10^3/uL (0.0-0.6) 03/24/20 06:00 Abs Basophils (Manual) 0.0 10^3/uL (0.0-0.2) 03/24/20 06:00 Toxic Granulation SLIGHT 03/09/20 06:20 Toxic Vacuolation PRESENT 03/24/20 06:00 Platelet Estimate Cancelled 03/06/20 05:23 Clumped Platelets PRESENT 03/24/20 06:00 Platelet Comment ADEQUATE 03/24/20 06:00 Polychromasia SLIGHT 03/24/20 06:00 Poikilocytosis SLIGHT 03/15/20 05:30 Anisocytosis SLIGHT 03/15/20 05:30 Tear Drop Cells SLIGHT 03/24/20 06:00 Ovalocytes SLIGHT 03/24/20 06:00 PT 16.9 SEC (11.4-15.4) H 03/03/20 10:15 INR 1.36 03/03/20 10:15 Carbonic Acid 1.29 mmol/L (1.05-1.35) 03/08/20 09:15 HCO3/H2CO3 Ratio 24:1 03/08/20 09:15 ABG pH 7.48 (7.35-7.45) H 03/08/20 09:15 ABG pCO2 43.0 mmHg (35-45) 03/08/20 09:15 ABG pO2 82.2 mmHg (80-100) 03/08/20 09:15 ABG HCO3 31.2 mmol/L (20-24) H 03/08/20 09:15 ABG Total CO2 32.5 mmol/L (21-25) H 03/08/20 09:15 ABG O2 Saturation 96.7 % (94-98) 03/08/20 09:15 ABG Base Excess 6.9 mmol/L 03/08/20 09:15 VBG pH 7.52 (7.30-7.42) H 03/03/20 10:15 VBG pCO2 29.0 mmHg (35-63) L 03/03/20 10:15 VBG HCO3 23.1 mmol/L (20-32) 03/03/20 10:15 VBG Base Excess 1.7 mmol/L 03/03/20 10:15 FiO2 28% 03/08/20 09:15 Sodium 131.2 mmol/L (137-145) L 03/26/20 08:11 Potassium 4.4 mmol/L (3.6-5.0) 03/26/20 08:11 Chloride 99 mmol/L (98-107) 03/26/20 08:11 Carbon Dioxide 25 mmol/L (22-30) 03/26/20 08:11 Anion Gap 7 (5-19) 03/26/20 08:11 BUN 7 mg/dL (7-20) 03/26/20 08:11 Creatinine 0.51 mg/dL (0.52-1.25) L 03/26/20 08:11 Est GFR ( Amer) > 60 (>60) 03/26/20 08:11 Est GFR (Non-Af Amer) Cancelled 03/25/20 05:30 Est GFR (MDRD) Non-Af > 60 (>60) 03/26/20 08:11 Glucose 165 mg/dL (75-110) H 03/26/20 08:11 POC Glucose 227 mg/dL (70-110) H 03/27/20 11:07 Lactic Acid 1.1 mmol/L (0.7-2.1) 03/03/20 15:52 Calcium 8.3 mg/dL (8.4-10.2) L 03/26/20 08:11 Phosphorus 3.6 mg/dL (2.5-4.5) 03/26/20 08:11 Magnesium 1.9 mg/dL (1.6-2.3) 03/15/20 06:53 Total Bilirubin 0.1 mg/dL (0.2-1.3) L 03/15/20 06:53 Direct Bilirubin 0.0 mg/dL (0.0-0.4) 03/15/20 06:53 Neonat Total Bilirubin Not Reportable 03/15/20 06:53 Neonat Direct Bilirubin Not Reportable 03/15/20 06:53 Neonat Indirect Bili Not Reportable 03/15/20 06:53 AST 15 U/L (14-36) 03/15/20 06:53 ALT 7 U/L (<35) 03/15/20 06:53 Alkaline Phosphatase 99 U/L (38-126) 03/15/20 06:53 Ammonia < 8.7 umol/L (9-33) L 03/07/20 11:07 Troponin I 0.030 ng/mL 03/03/20 10:15 Total Protein 4.3 g/dL (6.3-8.2) L 03/15/20 06:53 Albumin 1.9 g/dL (3.5-5.0) L 03/15/20 06:53 EGFR Cancelled 03/25/20 05:30 TSH 2.46 uIU/mL (0.47-4.68) 03/07/20 09:54 Urine Color YELLOW 03/11/20 08:10 Urine Appearance CLEAR 03/11/20 08:10 Urine pH 7.0 (5.0-9.0) 03/11/20 08:10 Ur Specific [place] 1.024 03/11/20 08:10 Urine Protein 30 mg/dL (NEGATIVE) H 03/11/20 08:10 Urine Glucose (UA) NEGATIVE mg/dL (NEGATIVE) 03/11/20 08:10 Urine Ketones NEGATIVE mg/dL (NEGATIVE) 03/11/20 08:10 Urine Blood NEGATIVE (NEGATIVE) 03/11/20 08:10 Urine Nitrite (Reflex) NEGATIVE (NEGATIVE) 03/11/20 08:10 Urine Bilirubin NEGATIVE (NEGATIVE) 03/11/20 08:10 Urine Urobilinogen NEGATIVE mg/dL (<2.0) 03/11/20 08:10 Leukocyte Esterase Rfl NEGATIVE (NEGATIVE) 03/11/20 08:10 Urine RBC (Auto) 1 /HPF 03/11/20 08:10 U Hyaline Cast (Auto) 1 /LPF 03/11/20 08:10 Urine Bacteria (Auto) 3+ /HPF 03/03/20 10:15 Urine WBC (Reflex) 2 /HPF 03/11/20 08:10 Urine WBC Clumps FEW /HPF 03/03/20 10:15 Squamous Epi Cells Auto 1 /HPF 03/11/20 08:10 Urine Mucus (Auto) MOD /LPF 03/03/20 10:15 Urine Ascorbic Acid NEGATIVE (NEGATIVE) 03/11/20 08:10 Stl C. Difficile GDH Ag NEGATIVE (NEGATIVE) 03/08/20 15:05 Stl C.difficile Tox A&B NEGATIVE (NEGATIVE) 03/08/20 15:05 Time Trough Drawn 0811 03/26/20 08:11 Vancomycin Trough 22.8 ug/mL (5.0-20.0) H 03/26/20 08:11 Valproic Acid 98.4 ug/mL (50.0-120.0) 03/26/20 08:11 COVID-19 Source NASOPHARYNGEAL 03/14/20 14:10 COVID-19 (GIDEON) NOT DETECTED 03/14/20 14:10 Slides for Path Review PATHOLOGIST REVIEWED 03/15/20 05:30 03/03/20 10:15 Troponin I 0.030 Impressions: Chest X-Ray 03/03/20 09:38 IMPRESSION: NO ACUTE RADIOGRAPHIC FINDING IN THE CHEST. Chest X-Ray 03/06/20 00:00 IMPRESSION: 1. Intubated, with endotracheal tube tip at the christine. Consider repositioning. 2. Mild right upper lobe and left lower lobe infiltrates, suspicious for pneumonia. KUB X-Ray 03/07/20 00:00 IMPRESSION: 1. Nasogastric tube tip is in the stomach. The proximal sidehole is at the gastroesophageal junction. Consider advancing several centimeters. Chest X-Ray 03/08/20 06:00 IMPRESSION: Stable chest status post extubation. Chest X-Ray 03/11/20 00:00 IMPRESSION: 1. Minimal left basilar atelectasis. Possible small effusions. 2. Central line and NG tube remain in place. 3. Right upper lobe infiltrate has resolved. KUB X-Ray 03/21/20 01:27 IMPRESSION: The nasogastric tube tip projects over the distal esophagus and should be advanced forward. KUB X-Ray 03/21/20 07:45 IMPRESSION: Nasoenteric tube tip overlies gastric body. Abdomen/Pelvis CT 03/21/20 09:30 IMPRESSION: 1. No definite acute intra-abdominal/pelvic process. 2. Changes from chronic pancreatitis. Splenomegaly with evidence of elevated portal pressure with multiple prominent portosystemic collaterals. 3. Midline ventral hernia no longer contains the large colonic loops. Prominent portosystemic collaterals noted within the hernia sac. 4. Additional chronic findings as above. Chest CT 03/21/20 09:30 IMPRESSION: Trace bilateral effusions and mild dependent ground-glass opacities, likely hypoventilatory change. No definite airspace disease. KUB X-Ray 03/24/20 00:00 IMPRESSION: NO RADIOGRAPHIC EVIDENCE FOR ACUTE ABDOMINAL DISEASE. Plan Time Spent: Greater than 30 Minutes Stroke Is this a Stroke Patient?: No Acute Heart Failure - Is this a Heart Failure Patient?: No
[2020-03-27 16:34] VITALS: BP 114/67
== END 2020-03-27 16:46 | DRG 871 ==
LOC: ER 09:28 → EH 13:06 → 3N 18:00 → ICU 03-06 03:04 → 5 03-09 18:00
PROVIDERS: ADMIT Hospitalist; ATTEND Internal Medicine
PROC: 5A1935Z Respiratory Ventilation, Less than 24 Consecutive Hours (ICD-10-PCS; principal; 2020-03-06)
PROC: 0BH17EZ Insertion of Endotracheal Airway into Trachea, Via Natural or Artificial Opening (ICD-10-PCS; 2020-03-06)
PROC: 02HV33Z Insertion of Infusion Device into Superior Vena Cava, Percutaneous Approach (ICD-10-PCS; 2020-03-06)
PROC: B548ZZA Ultrasonography of Superior Vena Cava, Guidance (ICD-10-PCS; 2020-03-06)
DX: A41.51 Sepsis due to Escherichia coli [E. coli] (principal); J96.02 Acute respiratory failure with hypercapnia; T80.211A Bloodstream infection due to central venous catheter, initial encounter; G93.41 Metabolic encephalopathy; N17.0 Acute kidney failure with tubular necrosis; J96.01 Acute respiratory failure with hypoxia; N39.0 Urinary tract infection, site not specified; E87.0 Hyperosmolality and hypernatremia; Z16.12 Extended spectrum beta lactamase (ESBL) resistance; F03.90 Unspecified dementia, unspecified severity, without behavioral disturbance, psychotic disturbance, mood disturbance, and anxiety; B96.20 Unspecified Escherichia coli [E. coli] as the cause of diseases classified elsewhere; F41.9 Anxiety disorder, unspecified; E11.65 Type 2 diabetes mellitus with hyperglycemia; E78.5 Hyperlipidemia, unspecified; I10 Essential (primary) hypertension; L89.612 Pressure ulcer of right heel, stage 2; F22 Delusional disorders; B95.7 Other staphylococcus as the cause of diseases classified elsewhere; D64.9 Anemia, unspecified; Z20.828 Contact with and (suspected) exposure to other viral communicable diseases; Z79.899 Other long term (current) drug therapy; K21.9 Gastro-esophageal reflux disease without esophagitis; M19.90 Unspecified osteoarthritis, unspecified site; F31.9 Bipolar disorder, unspecified; F48.2 Pseudobulbar affect; R56.9 Unspecified convulsions; Z79.4 Long term (current) use of insulin; Z88.8 Allergy status to other drugs, medicaments and biological substances; R31.9 Hematuria, unspecified; R13.12 Dysphagia, oropharyngeal phase; Z78.1 Physical restraint status; R65.20 Severe sepsis without septic shock; E87.6 Hypokalemia; R33.9 Retention of urine, unspecified; Z87.440 Personal history of urinary (tract) infections
CPT/HCPCS: 31500; 36415; 36556; 36600; 51701; 71045; 71046; 71260; 74018; 74177; 80048; 80053; 80164; 80202; 81001; 82140; 82565; 82803; 82962; 83605; 83735; 84100; 84443; 84484; 85025; 85027; 85610; 87040; 87070; 87077; 87086; 87088; 87150; 87186; 87324; 87449; 87635; 93005; 93010; 94002; 94660; 96365; 96366; 96368; 99221; 99291; 99292; C9113; C9803; J0692; J1200; J1630; J1642; J1644; J1815; J1885; J2060; J2270; J2543; J2704; J3010; J3370; J3480; J3490; J7030; J7040; J7050; J7060; J7120